=== PATIENT | male | born 1955 | race Caucasian/White ===

== ENCOUNTER 2019-04-26 07:44 | Day surgery (SDC) | payer MEDICARE, OTHER ==
[2019-04-21 14:23] VITALS: BMI 44.0
[~2019-04-26 07:44] MED LIST: ALPRAZolam 0.25 MG TAB PO PRN; ALPRAZolam 0.5 MG TAB PO PRN; ASPIRIN 325 MG TAB PO ONE; ATORVASTATIN 80 MG TAB PO ONE; NITROGLYCERIN SL TABS 0.4 MG TAB SUBLINGUAL PRN; SODIUM CHLORIDE 0.9% 1,000 ML in EMPTY BAG 1 BAG IV ONE
[2019-04-26 08:23] LABS: Glucose,Whole Blood 148 mg/dL (75-99)
[2019-04-26 08:37] VITALS: TEMP 97.6
[2019-04-26] MEDS ORDERED: fentaNYL (PF) 50 MCG/ML 2 ML AMP ONE (09:03)
[2019-04-26] MEDS ORDERED: SODIUM CHLORIDE 0.9% 1,000 ML IV ONE (09:05)
[2019-04-26] MEDS ORDERED: BENZOCAINE SPRAY 1 CAN MUCOUS MEM ONE (09:25)
[2019-04-26] MEDS ORDERED: LIDOCAINE 1% INJ 10MG/ML (20 ML MDV) ONE (09:27)
[2019-04-26] MEDS ORDERED: MIDAZOLAM 2 MG/2 ML VIAL IV ONE (09:28)
[2019-04-26] MEDS ORDERED: LIDOCAINE 1% INJ 10MG/ML (20 ML MDV) SQ ONE (10:12)
[2019-04-26] MEDS ORDERED: IOPAMIDOL-370 50ML BTL INJ ONE (10:36)
[2019-04-26] MEDS ORDERED: IOPAMIDOL-370 125ML BTL INJ ONE (10:37)
--- NOTE | 2019-04-26 10:43 | ECHOT ---
TRANSESOPHAGEAL ECHOCARDIOGRAM INDICATION: Aortic stenosis. PROCEDURE NOTE: After obtaining informed consent, transesophageal echocardiogram is performed in left lateral position using an Omni plane probe. Local and IV sedation were obtained using Xylocaine spray and 3 mg of Versed. Patient tolerated the procedure well without any obvious immediate complications. Patient received moderate conscious sedation. Total sedation time was 15 minutes. FINDINGS: 1. AORTIC VALVE. Aortic valve is a 3-leaflet valve that is heavily calcified with severe restriction in leaflet mobility by planimetry technique and the valve area is at 1 cm2. There is moderate to severe aortic regurgitation noted. 2. Mitral valve shows mild tiny calcification with mild mitral regurgitation. 3. Tricuspid valve shows mild tricuspid regurgitation. There is no evidence of left- to-right shunt by color-flow Doppler or cekif-fe-oeee shunt by agitated saline contrast study. 4. Left ventricle has normal size, shows concentric hypertrophy with normal LV systolic function, with an ejection fraction of 60%. 5. Left atrium appears mildly enlarged. 6. Right atrium and right ventricle seen within normal limits. 7. Aortic root measures within normal limits. 8. There is moderate to severe atherosclerotic plaque involving the aorta. CONCLUSION: Moderate to severe aortic stenosis with a heavily calcified 3 leaflet aortic valve with moderate to severe aortic. MMODL / IJN: [id number] /
[2019-04-26] MEDS ORDERED: RX INFO: IV CONTRAST WAS GIVEN 1 EACH MISC MISCELLANE PRN (11:01)
--- NOTE | 2019-04-26 12:04 | CC ---
CARDIAC CATHETERIZATION REPORT INDICATION: Unstable angina in a patient with aortic stenosis. PROCEDURE NOTE: After obtaining informed consent, left heart catheterization, coronary angiogram and aortogram were performed via the right femoral artery using standard Lonnie catheters. Right coronary artery was engaged using a vernon catheter. Patient has very tortuous iliacs. We used a long sheath and cardiac catheterization was completed uneventfully. Received moderate conscious sedation. Total sedation time was 13 minutes. A femoral angiogram was performed and Angio-Seal was deployed for hemostasis. FINDINGS: 1. HEMODYNAMICS: Central aortic pressure is 120/70 mm. 2. AORTOGRAM: Aortogram shows a dilated ascending aorta with 2 to 3+ aortic regurgitation. 3. ANGIOGRAPHIC DATA: LEFT MAIN CORONARY ARTERY: Left main coronary artery is a normal-sized vessel and is free of stenosis. Divides into left anterior descending coronary artery and circumflex coronary artery. Left anterior descending coronary artery was previously stented and the stent appears patent. There is a large caliber diagonal branch that shows an 80%-90% stenosis, which seemed to have gotten worse from the prior cardiac catheterization. Circumflex coronary artery gives off OM1 and OM2. The ostial portion of both of these vessels are stenosed. The OM1 has an 80%-90% ostial stenosis, OM2 has a 70%-80%. ]These lesions have remained unchanged. Right coronary artery is a large dominant vessel that shows mild atherosclerotic plaque in the proximal part. CONCLUSION: 1. [place] 3 vessel coronary artery disease with patent stent within the proximal left anterior descending artery. 2. Significant lesions within the diagonal OM1 and OM2, 2 to 3+ aortic regurgitation and moderate to severe aortic stenosis. PLAN: I am going to treat the patient's CAD with optimal medical therapy, have a cardiothoracic surgeon evaluate the patient for aortic valve replacement with revascularization. MMODL / IJN: [id number] /
[2019-04-26 13:25] VITALS: BP 155/73; PULSE 80; RESP 16
[2019-04-26] MEDS ORDERED: GABAPENTIN 400 MG CAP PO SCH (16:00)
[2019-04-26] MEDS ORDERED: APIXABAN 5 MG TAB PO SCH (21:00)
[2019-04-27] MEDS ORDERED: PRAVASTATIN SODIUM 40 MG TAB PO SCH (09:00)
[2019-04-27] MEDS ORDERED: ASPIRIN 81 MG PO SCH (09:00)
[2019-04-27] MEDS ORDERED: FENOFIBRATE 160 MG TAB PO SCH (09:00)
[2019-04-27] MEDS ORDERED: lamoTRIgine 25 MG TAB PO SCH (09:00)
[2019-04-27] MEDS ORDERED: NON FORMULARY DRUG (Biotin [Biotin] 10,000 MCG) PO SCH (09:00)
[2019-04-27] MEDS ORDERED: LISINOPRIL 5 MG TAB PO SCH (09:00)
[2019-04-27] MEDS ORDERED: DULoxetine HCL 30 MG CAPSULE.DR PO SCH (09:00)
[2019-04-27] MEDS ORDERED: TAMSULOSIN 0.4 MG CAP.ER.24H PO SCH (09:00)
[2019-04-27] MEDS ORDERED: CYANOCOBALAMIN 500 MCG TAB PO SCH (09:00)
[2019-04-27] MEDS ORDERED: CHOLECALCIFEROL 1,000 UNIT TAB PO SCH (09:00)
[2019-04-28] MEDS ORDERED: METFORMIN HCL 1000 MG PO SCH (07:30)
--- NOTE | 2019-04-28 16:56 | CDI ---
Outpatient Documentation Clarification Form Date: 04/28/19 CDS.Dental Laboratory Assistant Name: Sagrario Dial Phone: If you have any question, call Rachael Aguillon [employer] Salesperson at [phone] Patient name: Martita Levine Admit Date: 04/26/19 Discharge Date: 04/26/19 ATTENTION: The [facility] Coding Staff appreciate your assistance in clarifying documentation. Please respond to this clarification below the line at the bottom and electronically sign. The [facility] Coding Staff will review the response and follow-up if needed. Please note: Queries are made part of the Legal Health Record. If you have any questions, please contact the [employer] Salesperson. Dear Dr. Palacios Please provide clarification as to the complete test that was provided. There is documentation to support the 2-d echocardiography portion and the color flow velocity mapping. I do not see any documentation to support the pulse wave with spectral display. Please clarify. Thank you for you kind consideration, ___ MTDD
== END 2019-04-26 15:55 | disposition home or self-care (01) ==
LOC: CATHCVL 07:44
PROVIDERS: ATTEND Internal Medicine Cardiovascular Disease
DX: I08.3 Combined rheumatic disorders of mitral, aortic and tricuspid valves (principal); I70.0 Atherosclerosis of aorta; I25.110 Atherosclerotic heart disease of native coronary artery with unstable angina pectoris; I10 Essential (primary) hypertension; E78.2 Mixed hyperlipidemia; E11.9 Type 2 diabetes mellitus without complications; Z86.73 Personal history of transient ischemic attack (TIA), and cerebral infarction without residual deficits; Z79.01 Long term (current) use of anticoagulants; Z79.84 Long term (current) use of oral hypoglycemic drugs; Z79.82 Long term (current) use of aspirin; Z79.899 Other long term (current) drug therapy; Z88.8 Allergy status to other drugs, medicaments and biological substances
CPT/HCPCS: 93312; 93325; 93454; 93567; C1760; C1769 ×2; C1894 ×2; J2250; J2001; Q9967 ×2; 93320

== ENCOUNTER → 2019-05-31 | Outpatient (CLI) | payer MEDICARE, OTHER ==
[2019-05-31 09:49] LABS: HCT 47.2 % (39.0-53.0); HGB 15.5 gm/dL (13.0-17.5); MCH 30.8 pg (25.0-35.0); MCHC 32.9 g/dL (31.0-37.0); MCV 93.7 fL (80.0-100.0); Mean Platelet Volume 7.6; Platelet Count 232 k/uL (150-450); RBC 5.04 m/uL (4.30-5.90); RDW 13.5 % (11.5-15.5); WBC 7.1 k/uL (3.8-10.6)
[2019-05-31 09:53] LABS: ALT 47 U/L (21-72); AST 28 U/L (17-59); African American GFR (CKD) >90 (>60 ml/min/1.73 sqM); Albumin 4.1 g/dL (3.5-5.0); Alkaline Phosphatase 52 U/L (38-126); Anion Gap 8 mmol/L; Blood Urea Nitrogen 19 mg/dL (9-20); Carbon Dioxide 28 mmol/L (22-30); Chloride 104 mmol/L (98-107); Cholesterol 126 mg/dL (<200); Glucose 182 mg/dL (74-99); HDL Cholesterol 37 mg/dL (40-60); LDL Cholesterol,Calculated 63 mg/dL (0-99); Magnesium 1.7 mg/dL (1.6-2.3); Non-African American GFR(CKD) 82 (>60 ml/min/1.73 sqM); Potassium 4.8 mmol/L (3.5-5.1); Sodium 140 mmol/L (137-145); Total Bilirubin 0.4 mg/dL (0.2-1.3); Total Protein 6.6 g/dL (6.3-8.2); Triglycerides 132 mg/dL (<150)
[2019-05-31 09:57] LABS: INR 0.9 (<1.2); Prothrombin Time 10.2 sec (9.0-12.0)
[2019-05-31 10:01] LABS: Appearance,Urine Cloudy (Clear); Bilirubin,Urine Negative (Negative); Blood,Urine Negative (Negative); Calcium Oxalate Crystals,Urine Many /hpf; Color,Urine Yellow; Glucose,Urine (UA) 2+ (Negative); Ketones,Urine Trace (Negative); Leukocyte Esterase,Urine Trace (Negative); Mucus,Urine Occasional /hpf; Nitrite,Urine Negative (Negative); Protein,Urine Trace (Negative); RBC,Urine 3 /hpf (0-5); Specific Gravity,Urine 1.028 (1.001-1.035); Squamous Epithelial Cell,Urine <1 /hpf (0-4); WBC,Urine 4 /hpf (0-5)
--- NOTE | 2019-05-31 10:41 | P.PN ---
Progress Note - Text Progress Note Date: 05/31/19 5 meter walk test completed: #1 4.88 sec #2 5.13 sec #3 5.53 sec
--- NOTE | 2019-05-31 13:54 | US ---
EXAMINATION TYPE: US carotid duplex BILAT DATE OF EXAM: 05/31/2019 COMPARISON: NONE CLINICAL HISTORY: open heart. Pre CABG/ aortic valve replacement; diabetic EXAM MEASUREMENTS: RIGHT: Peak Systolic Velocity (PSV) cm/sec ----- Right CCA: 71.6 ----- Right ICA: 110.9 ----- Right ECA: 145.1 ICA/CCA ratio: 1.5 RIGHT: End Diastole cm/sec ----- Right CCA: 19.5 ----- Right ICA: 33.2 ----- Right ECA: 26.8 LEFT: Peak Systolic Velocity (PSV) cm/sec ----- Left CCA: 82.2 ----- Left ICA: 85.4 ----- Left ECA: 135.3 ICA/CCA ratio: 1.0 LEFT: End Diastole cm/sec ----- Left CCA: 19.3 ----- Left ICA: 15.9 ----- Left ECA: 22.9 VERTEBRALS (direction of flow): Right Vertebral: Antegrade Left Vertebral: Antegrade Rhythm: Normal . Grayscale images show severe plaque noted in the bilateral carotid bulbs. Velocity measurements and ratios remain within normal limits but findings are suspicious. IMPRESSION: Severe plaque bilateral carotid bulb level, cannot exclude stenosis greater than 50%, f urther investigation with CTA or MRA of the neck is advised. Criteria for Assigning % of Stenosis / Diameter reduction (Estimation based on the indirect measurements of the internal carotid artery velocities (ICA PSV). 1. Normal (no stenosis)=ICA PSV < 125 cm/s: ratio < 2.0: ICA EDV<40 cm/s. 2. Less than 50% stenosis=ICA PSV < 125 cm/s: ratio < 2.0: ICA EDV<40 cm/s. 3. 50 to 69% stenosis=ICA PSV of 125 to 230 cm/s: ration 2.0 ? 4.0: ICA EDV 40-100 cm/s. 4. Greater than 70% stenosis to near occlusion= ICA PSV > 230 cm/s: ratio > 4.0: ICA EDV > 100 cm/s. 5. Near occlusion= ICA PSV velocities may be low or undetectable: variable ratio and ICA EDV. 6. Total occlusion=unable to detect flow.
--- NOTE | 2019-05-31 15:13 | XR ---
EXAMINATION TYPE: XR chest 2V DATE OF EXAM: 05/31/2019 COMPARISON: 06/03/2016 HISTORY: 63-year-old male preopen heart surgery TECHNIQUE: Frontal and lateral views FINDINGS: Heart mildly enlarged. Diffuse interstitial prominence is a chronic appearance. No consolidation or p leural effusion. IMPRESSION: Mild cardiomegaly and chronic appearing changes. No acute process seen.
[2019-05-31 20:44] LABS: Hepatitis A Antibody IgM Non-Reactive (Non-Reactive); Hepatitis B Core IgM Non-Reactive (Non-Reactive); Hepatitis B Surface Antigen Non-Reactive (Non-Reactive); Hepatitis C IgG Antibody Non-Reactive (Non-Reactive)
[2019-05-31 22:14] LABS: Hemoglobin A1C 6.7 % (4.0-6.0)
--- NOTE | 2019-06-01 08:53 | P.ARTDOP ---
Arterial Doppler LOWER EXTREMITY ARTERIAL DOPPLER: DATE OF SERVICE: 05/31/2019 Reason for study: Pre-CABG. Doppler waveforms: Multiphasic bilaterally throughout. Pulse volume recording: []. Pressure gradients: None. Ankle-brachial indices: Greater than 1 bilaterally. Toe pressures: [] on the right, [] on the left Impression: Normal study.
--- NOTE | 2019-06-01 08:56 | P.VSCSTY ---
Greater Saphenous Vein Mapping This is bilateral lower extremity greater saphenous vein mapping. Date of service: 05/31/2019 Vein quality and ultrasound appearance: No wall changes or endoluminal thrombus are seen. Vein size groin right : 1 x 6.7 groin left: 9.1 x 6.0 High thigh right: 6.3 x 3.7 high thigh left: 5.6 x 4.7 Mid thigh right: 4.6 x 3.5 mid thigh left: 4.7 x 4.0 Above-knee right: 3.7 x 2.8 above- knee left: 3.9 x 2.5 Below knee right: 2.1 x 1.4 below-knee left: 4.0 by 3.0 Mid calf right: 3.5 x 2.0 mid calf left: 2.6 x 2 Ankle right: 3.3 x 2.3 ankle left: 2.6 x 2.4 Impression: Usable bilateral greater saphenous vein. Left more consistent on the right..
== END | disposition home or self-care (01) ==
LOC: LABWHC1 08:54
PROVIDERS: ATTEND Thoracic Surgery (Cardiothoracic Vascular Surgery)
DX: Z01.818 Encounter for other preprocedural examination (principal); Z01.812 Encounter for preprocedural laboratory examination; Z01.810 Encounter for preprocedural cardiovascular examination; I51.7 Cardiomegaly; I65.23 Occlusion and stenosis of bilateral carotid arteries; I25.10 Atherosclerotic heart disease of native coronary artery without angina pectoris; E11.9 Type 2 diabetes mellitus without complications; D68.2 Hereditary deficiency of other clotting factors; Z79.899 Other long term (current) drug therapy
CPT/HCPCS: 71046; 80053; 80061; 80074; 81001; 83036; 83735; 84443; 85027; 85610; 85730; 87070; 87086; 93005; 93880; 93922; 93970; 94150

== ENCOUNTER 2019-06-02 05:36 | Inpatient (IN) | payer MEDICARE, OTHER ==
[~2019-06-02 05:36] MED LIST changes: +ALBUMIN HUMAN 25% 50 ML IV ONE; +ALBUMIN HUMAN 5% 500 ML IVPB ONE; -ALPRAZolam 0.25 MG TAB PO PRN; -ALPRAZolam 0.5 MG TAB PO PRN; +ATORVASTATIN 10 MG TAB PO ONE; -ATORVASTATIN 80 MG TAB PO ONE; +CALCIUM CHLORIDE 100 MG/ML 10 ML SYRINGE IV ONE; +CARDIOPLEGIC SOLN (K+ 16 MEQ/L 1,000 ML with SODIUM BICARB (1 MEQ/ML) 20 ML, LIDOCAINE ... PERFUSION ONE; +CHLORHEXIDINE GLUCONATE 15 ML CUP MUCOUS MEM ONE; +CLEVIDIPINE BUTYRATE 25 MG in EMPTY BAG 1 BAG IV ONE; +EPINEPHrine 4 MG in DEXTROSE 5% IN WATER 250 ML IV SCH; +HEPARIN SODIUM 1,000 UN/ML (10ML VL) IV ONE; +HEPARIN SODIUM,PORCINE 5,000 UNIT in SODIUM CHLORIDE 0.9% 500 ML 500 ML IV ONE; +INSULIN REGULAR 100 UNIT in SODIUM CHLORIDE 0.9% 100 ML IV ONE; +LACTATED RINGERS 1,000 ML IV ONE; +MAGNESIUM SULFATE MG 500 MG/ML IV ONE; +MANNITOL 25% 12.5 GM/50 ML VIAL IV ONE; +METOPROLOL TARTRATE 12.5 MG TAB PO ONE; -NITROGLYCERIN SL TABS 0.4 MG TAB SUBLINGUAL PRN; +NITROGLYCERIN-D5W PMX 25 MG/250 ML BTL IV ONE; +NOREPINEPHRINE 4 MG in SODIUM CHLORIDE 0.9% 250 ML IV ONE; +PAPAVERINE 360 MG in SODIUM CHLORIDE 0.9% 90 ML IV ONE; +PHENYLEPHRINE 10 MG/ML VIAL IV ONE; +PHENYLEPHRINE 40 MG in SODIUM CHLORIDE 0.9% 250 ML IV ONE; +PROPOFOL 1,000 MG/100 ML VIAL IV ONE; +PROTAMINE SULFATE 10 MG/ML 25 ML VIAL IV ONE; +PROTAMINE SULFATE 250 MG in EMPTY BAG 1 BAG IV ONE; +SODIUM BICARB 8.4% 50 ML SYR (1 MEQ/ML) IV ONE; +SODIUM CHLORIDE 0.9% 1,000 ML IV ONE; -SODIUM CHLORIDE 0.9% 1,000 ML in EMPTY BAG 1 BAG IV ONE; +TRANEXAMIC ACID 2,000 MG in SODIUM CHLORIDE 0.9% 80 ML IV ONE; +ceFAZolin 1,000 MG in SODIUM CHLORIDE 0.9% IRRIGATIO 1,000 ML IRRIGATION ONE; +ceFAZolin 2,000 MG in SODIUM CHLORIDE 0.9% 30 ML IVPB ONE; +ceFAZolin 3 GM in SODIUM CHLORIDE 0.9% 30 ML IVPB ONE
[2019-06-02] MEDS ORDERED: TRANEXAMIC ACID 2,000 MG in SODIUM CHLORIDE 0.9% 80 ML IV ONE (06:00)
[2019-06-02] MEDS ORDERED: MUPIROCIN 2% OINT 22 GM TUBE NASAL ONE (06:00)
[2019-06-02] MEDS ORDERED: LIDOCAINE 1% 20 ML VIAL (10MG/ML) FOR IV START INTRADERMA ONE (06:34)
[2019-06-02 06:44] LABS: Glucose,Whole Blood 128 mg/dL (75-99)
[2019-06-02] MEDS ORDERED: SODIUM BICARB 8.4% 50 ML SYR (1 MEQ/ML) ONE (07:38)
[2019-06-02] MEDS ORDERED: MIDAZOLAM 2 MG/2 ML VIAL ONE (07:38)
[2019-06-02] MEDS ORDERED: NITROGLYCERIN-D5W PMX 50 MG/250 ML BOTTLE IV ONE (07:38)
[2019-06-02] MEDS ORDERED: INSULIN REGULAR 100 UNIT/ML VIAL ONE (07:38)
[2019-06-02] MEDS ORDERED: CALCIUM CHLORIDE 100 MG/ML 10 ML SYRINGE ONE (07:38)
[2019-06-02] MEDS ORDERED: fentaNYL (PF) 50 MCG/ML 2 ML AMP ONE (07:38)
[2019-06-02] MEDS ORDERED: HEPARIN SODIUM,PORCINE 10,000 UNIT/ML 1 ML VIAL ONE (07:38)
[2019-06-02] MEDS ORDERED: PROTAMINE SULFATE 10 MG/ML 25 ML VIAL IV ONE (07:38)
[2019-06-02] MEDS ORDERED: PROPOFOL 10 MG/ML 20 ML VIAL IV ONE (07:38)
[2019-06-02] MEDS ORDERED: ePHEDrine SULFATE/0.9% NACL/PF 50 MG/5 ML SYRINGE IV ONE (07:38)
[2019-06-02] MEDS ORDERED: TRANEXAMIC ACID 1,000 MG/10 ML VIAL ONE (07:38)
[2019-06-02] MEDS ORDERED: LIDOCAINE 2% SYG (PF) 100 MG/5 ML ONE (07:38)
[2019-06-02] MEDS ORDERED: fentaNYL (PF) 50 MCG/ML 50 ML VIAL ONE (07:38)
[2019-06-02] MEDS ORDERED: VECURONIUM 10 MG VIAL IV ONE (07:38)
[2019-06-02] MEDS ORDERED: SODIUM CHLORIDE 0.9% 250 ML BAG ONE (07:38)
[2019-06-02] MEDS ORDERED: ALBUMIN HUMAN 5% (25gm) 500 ML VIAL IVPB ONE (07:38)
[2019-06-02] MEDS ORDERED: SUCCINYLCHOLINE CHLORIDE VIAL 200 MG/10 ML VIAL IV ONE (07:38)
[2019-06-02] MEDS ORDERED: ELECTROLYTE-R (PH 7.4) 1,000 ML IV.SOLN IV ONE (07:58)
[2019-06-02] MEDS ORDERED: SODIUM CHLORIDE 0.9% IRRIG 1,000 ML BTL IRRIGATION ONE (07:58)
[2019-06-02 08:35] LABS: ABG Base Excess -0.2 mmol/L; ABG Glucose Whole Blood 128 mg/dL (75-99); ABG HCO3 25 mmol/L (21-25); ABG Hematocrit 46 % (34.0-46.0); ABG Ionized Calcium 4.9 mg/dL (4.5-5.3); ABG Oxygen Saturation 99.3 % (94-97); ABG PCO2 44 mmHg (35-45); ABG PH 7.37 (7.35-7.45); ABG PO2 152 mmHg (83-108); ABG Potassium Whole Blood 4.3 mmol/L (3.4-4.5); ABG Sodium Whole Blood 141 mmol/L (135-146); ABG TCO2 27 mmol/L (19-24)
[2019-06-02 10:49] LABS: ABG Base Excess -1.1 mmol/L; ABG Glucose Whole Blood 183 mg/dL (75-99); ABG HCO3 24 mmol/L (21-25); ABG Hematocrit 42 % (34.0-46.0); ABG Ionized Calcium 4.7 mg/dL (4.5-5.3); ABG Oxygen Saturation 99.7 % (94-97); ABG PCO2 40 mmHg (35-45); ABG PH 7.39 (7.35-7.45); ABG PO2 186 mmHg (83-108); ABG Sodium Whole Blood 140 mmol/L (135-146); ABG TCO2 25 mmol/L (19-24)
[2019-06-02 11:33] LABS: ABG Base Excess -2.5 mmol/L; ABG Glucose Whole Blood 159 mg/dL (75-99); ABG HCO3 24 mmol/L (21-25); ABG Hematocrit 32 % (34.0-46.0); ABG Ionized Calcium 4.6 mg/dL (4.5-5.3); ABG Oxygen Saturation 99.9 % (94-97); ABG PCO2 48 mmHg (35-45); ABG PH 7.31 (7.35-7.45); ABG PO2 320 mmHg (83-108); ABG Potassium Whole Blood 4.1 mmol/L (3.4-4.5); ABG Sodium Whole Blood 137 mmol/L (135-146); ABG TCO2 25 mmol/L (19-24)
[2019-06-02 12:00] LABS: ABG Base Excess -2.9 mmol/L; ABG Glucose Whole Blood 143 mg/dL (75-99); ABG HCO3 23 mmol/L (21-25); ABG Hematocrit 33 % (34.0-46.0); ABG Ionized Calcium 4.7 mg/dL (4.5-5.3); ABG Oxygen Saturation 99.1 % (94-97); ABG PCO2 45 mmHg (35-45); ABG PH 7.32 (7.35-7.45); ABG PO2 115 mmHg (83-108); ABG Potassium Whole Blood 4.2 mmol/L (3.4-4.5); ABG Sodium Whole Blood 138 mmol/L (135-146); ABG TCO2 25 mmol/L (19-24)
[2019-06-02 12:15] LABS: ABG Glucose Whole Blood 141 mg/dL (75-99); ABG HCO3 23 mmol/L (21-25); ABG Hematocrit 33 % (34.0-46.0); ABG Ionized Calcium 4.7 mg/dL (4.5-5.3); ABG Oxygen Saturation 99.7 % (94-97); ABG PCO2 44 mmHg (35-45); ABG PH 7.33 (7.35-7.45); ABG PO2 239 mmHg (83-108); ABG Potassium Whole Blood 4.1 mmol/L (3.4-4.5); ABG Sodium Whole Blood 139 mmol/L (135-146); ABG TCO2 24 mmol/L (19-24)
[2019-06-02 12:48] LABS: ABG Base Excess -2.5 mmol/L; ABG Glucose Whole Blood 124 mg/dL (75-99); ABG HCO3 23 mmol/L (21-25); ABG Hematocrit 31 % (34.0-46.0); ABG Ionized Calcium 4.6 mg/dL (4.5-5.3); ABG PCO2 43 mmHg (35-45); ABG PH 7.34 (7.35-7.45); ABG PO2 298 mmHg (83-108); ABG Potassium Whole Blood 4.1 mmol/L (3.4-4.5); ABG Sodium Whole Blood 137 mmol/L (135-146); ABG TCO2 25 mmol/L (19-24)
[2019-06-02 13:20] LABS: ABG Base Excess -2.9 mmol/L; ABG Glucose Whole Blood 124 mg/dL (75-99); ABG HCO3 23 mmol/L (21-25); ABG Hematocrit 31 % (34.0-46.0); ABG Ionized Calcium 4.6 mg/dL (4.5-5.3); ABG Oxygen Saturation 99.8 % (94-97); ABG PCO2 45 mmHg (35-45); ABG PH 7.32 (7.35-7.45); ABG PO2 289 mmHg (83-108); ABG Potassium Whole Blood 4.4 mmol/L (3.4-4.5); ABG Sodium Whole Blood 137 mmol/L (135-146); ABG TCO2 25 mmol/L (19-24)
[2019-06-02 13:44] LABS: ABG Base Excess -3.5 mmol/L; ABG Glucose Whole Blood 130 mg/dL (75-99); ABG HCO3 23 mmol/L (21-25); ABG Hematocrit 32 % (34.0-46.0); ABG Ionized Calcium 4.6 mg/dL (4.5-5.3); ABG Oxygen Saturation 99.6 % (94-97); ABG PCO2 45 mmHg (35-45); ABG PH 7.31 (7.35-7.45); ABG PO2 220 mmHg (83-108); ABG Potassium Whole Blood 4.5 mmol/L (3.4-4.5); ABG Sodium Whole Blood 138 mmol/L (135-146); ABG TCO2 24 mmol/L (19-24)
[2019-06-02 14:56] LABS: ABG Base Excess -2.2 mmol/L; ABG Glucose Whole Blood 115 mg/dL (75-99); ABG HCO3 23 mmol/L (21-25); ABG Hematocrit 36 % (34.0-46.0); ABG Ionized Calcium 5.6 mg/dL (4.5-5.3); ABG Oxygen Saturation 99.8 % (94-97); ABG PCO2 38 mmHg (35-45); ABG PH 7.38 (7.35-7.45); ABG PO2 269 mmHg (83-108); ABG Potassium Whole Blood 4.1 mmol/L (3.4-4.5); ABG Sodium Whole Blood 140 mmol/L (135-146); ABG TCO2 24 mmol/L (19-24)
[2019-06-02 15:09] LABS: ABG Lactic Acid Whole Blood 2.2 mmol/L (0.5-1.6)
[2019-06-02 15:09] LABS: ABG Lactic Acid Whole Blood 2.1 mmol/L (0.5-1.6)
[2019-06-02 15:10] LABS: ABG Lactic Acid Whole Blood 2.6 mmol/L (0.5-1.6)
[2019-06-02 15:10] LABS: ABG Lactic Acid Whole Blood 2.9 mmol/L (0.5-1.6)
[2019-06-02 15:11] LABS: ABG Lactic Acid Whole Blood 3.7 mmol/L (0.5-1.6)
[2019-06-02 15:11] LABS: ABG Lactic Acid Whole Blood 3.2 mmol/L (0.5-1.6)
--- NOTE | 2019-06-02 15:59 | P.OP ---
Date of Procedure: 06/02/19 Preoperative Diagnosis: Aortic valve stenosis, coronary artery disease Postoperative Diagnosis: Same Procedure(s) Performed: Aortic valve replacement with 25 mm Inspiris bovine pericardial valve, coronary artery bypass grafting 3 with LIM to LAD, saphenous vein graft to first diagonal, saphenous vein graft to first obtuse marginal with endovascular vein harvest and epi-aortic ultrasonography, ligation left atrial appendage with 35 mm AtriClip Implants: 25 mm Inspiris bovine pericardial valve, 35 mm AtriClip Anesthesia: GETA Surgeon: Ritchie Magallanes Sprinkler Installer #1: Chace Mackenzie Sprinkler Installer #2: Jesse Herrera Estimated Blood Loss (ml): 200 IV fluids (ml): 2,500 Urine output (ml): 500 Pathology: other (Aortic valve) Condition: stable Disposition: ICU Indications for Procedure: 63-year-old male presents with progressive dyspnea, found to have severe aortic valve stenosis as well as coronary artery disease aortic valve and grafts was recommended. Operative Findings: Coronary arteries were relatively small and diffusely diseased in places. The LAD was particularly diseased. The left ventricle was quite enlarged although ventricular function was good. The aortic valve was tricuspid and calcific. The ascending aorta was relatively normal. Final GULSHAN demonstrated no paravalvular leak. Ventricular function was good. Description of Procedure: Patient was brought to the operating room, placed supine on the operating table, anesthetized and intubated. Monitoring lines been placed in preoperative hold. The anterior torso and lower extremities were sterilely prepped and draped after placing a Torres catheter. GULSHAN probe was placed. The timeout was performed. Saphenous vein was harvested from the left lower extremity from mid calf to groin. This was of adequate quality. The upper thigh vein was larger and the mid side to high calf vein was smaller but still of reasonable size. We used a shorter high thigh piece to graft the diagonal and the longer lower side of a high calf piece for the obtuse marginal. Simultaneous sternotomy was performed and a left hemisternum retracted upwards. The left internal mammary artery was harvested on a vascularized pedicle left intact on its origin from the subclavian and divided distally. It was an excellent conduit. The left pleural space was drained with 32-[place] chest tube. Standard sternal retractor was placed. Care pericardium was opened in the midline and the heart exposed pericardial sutures. Patient was systemically heparinized. Epi-aortic ultrasonography demonstrated no obvious atherosclerotic disease in the ascending aorta. Patient was cannulated for cardiopulmonary bypass with a 24 Fr soft flow cannula in the distal ascending aorta and a two-stage venous cannula through the right atrial appendage into the inferior vena cava. Antegrade and retrograde cardioplegia lines were placed in standard fashion. The patient was placed on cardioplegia bypass and stabilized. Left atrial appendage was exposed and the 35 mm AtriCure clip was applied to the base of the left atrial appendage. Coronary targets were identified and marked. The aorta was crossclamped and the heart was arrested with a liter of cold crystalloid antegrade cardioplegia followed by retrograde cardioplegia. The diagonal was grafted first. The diagonal was opened and was 1.5 mm vessel saphenous vein was anastomosed in end-to-side fashion with running 7-0 Prolene suture at completion anastomosis it was probed and noted to be patent. Suture was tied with good result and hemostasis. It was flushed with cold blood cardioplegia and noted to flow well. The vein was cut to appropriate length to reach the ascending aorta. Next lateral wall was exposed the first obtuse marginal branch was opened. It was 1.5 mm vessel. The saphenous vein was anastomosed in end-to-side fashion with running 7-0 Prolene suture. On completion the anastomosis was probed and noted to be patent. Suture was tied with good result and hemostasis. Cold blood cardioplegia flushed well. Vein was cut to appropriately to reach the ascending aorta the LAD was now opened just beyond the takeoff of the second diagonal branch. Here was a 1.5 mm vessel with diffuse disease present. LIM was anastomosed in end-to-side fashion with running suture. The anastomosis was probed with a 1.5 mm probe and noted be patent. Suture was tied and the LORENZO pedicle was tacked surrounding epicardium with 6-0 silk. Inflow through the LIM remained occluded at this point. Second dose of antegrade cardioplegia was now given. The aorta was opened transversely and the aortic valve exposed. It was tricuspid calcific aortic valve. The valve leaflets were excised. The annulus was decalcified. Copious irrigation was performed and care was taken not to have any extraneous debris escape. 3 commissural pledgeted sutures were placed with pledgets on the ventricular side. The valve was now size. A 25 mm Werner Inspiris bovine pericardial valve was brought up on the field. The remaining valve sutures were placed with again the pledgets on the ventricular side. Once the valve sutures and all been placed in the annulus there were passed through the sewing ring of the valve the valve was seated without difficulty. Sutures were tied and cut and the valve was noted to seat well. We again copiously irrigated and then closed the aorta with a 2 layer running closure of 4-0 Prolene. On completion of the aortic closure a 4 mm punch hole was created in the ascending aorta and a proximal anastomosis to the large diagonal vein was performed with running 7-0 Prolene suture. Because of limited space on the aorta and the relative slight size discrepancy between the diagonal vein and the major marginal vein it was decided to jump the major marginal vein which was smaller off the larger diagonal vein and save some cross-clamp time. The patient was placed in steep Trendelenburg. Left atrial vent had been placed through the right superior pulmonary vein was now removed and the pursestring suture tied with good result and hemostasis. Cross-clamp was then removed. Atrial and ventricular pacing wires were placed. A retrograde cardioplegia line was removed. Bulldog clamps were placed proximally and distally on the diagonal vein and it was opened longitudinally. The bulldog clamp was taken off the LIM and the inflow to the LIM was opened. The major marginal vein was jumped off the diagonal vein with a side to end anastomosis of running 7-0 Prolene suture. On completion of this vein grafts were de-aired and the inflow open. Distal anastomoses were checked and noted to be hemostatic. Heparin was reversed with protamine. The patient was decannulated in standard fashion. The aortic cannulation sites were reinforced with 40 pledgeted Prolene suture. Once good hemostasis in been assured the chest was irrigated with antibiotic solution. The mediastinum was drained with 236-[place] chest tubes. Sternum was closed with 4 sternal wires and 3 cable plates. An auxilliary plate was used in the manubrium and 2 box plates in the upper sternal body. The sternum was securely closed the fascia was closed with 0 Ethibond. This subcutaneous and subcuticular layers with layers of Vicryl suture. Dry sterile dressings were applied and the patient was transferred to CV ICU in stable hemodynamic condition in normal sinus rhythm on no inotropic support and having received no transfusions.
[2019-06-02 16:08] LABS: Glucose,Whole Blood 108 mg/dL (75-99)
[2019-06-02] MEDS ORDERED: CALCIUM GLUCONATE 2 GM in SODIUM CHLORIDE 0.9% 100 ML IVPB PRN (16:11)
[2019-06-02] MEDS ORDERED: Potassium Replacement Protocol 1 EACH MISC MISCELLANE PRN (16:11)
[2019-06-02] MEDS ORDERED: ALBUMIN HUMAN 5% 250 ML in EMPTY BAG 1 BAG IVPB PRN (16:11)
[2019-06-02] MEDS ORDERED: IPRATROPIUM-ALBUTEROL 3 ML NEB INHALATION PRN (16:11)
[2019-06-02] MEDS ORDERED: ONDANSETRON 4 MG/2 ML VIAL IVP PRN (16:11)
[2019-06-02] MEDS ORDERED: DEXTROSE 5% IN WATER 100 ML with AMIODARONE 150 MG IV PRN (16:11)
[2019-06-02] MEDS ORDERED: METOCLOPRAMIDE 5 MG/ML 2 ML VIAL IVP PRN (16:11)
[2019-06-02] MEDS ORDERED: PROPOFOL 1,000 MG in EMPTY BAG 1 BAG IV SCH (16:11)
[2019-06-02] MEDS ORDERED: BENZOCAINE/MENTHOL LOZENG 1 EACH LOZENGE MUCOUS MEM PRN (16:11)
[2019-06-02] MEDS ORDERED: AMIODARONE 360 MG in DEXTROSE 5% IN WATER 200 ML IV PRN ×2 (16:11)
[2019-06-02] MEDS ORDERED: Phosphorus Replacement Protoco 1 EACH MISC MISCELLANE PRN (16:11)
[2019-06-02] MEDS ORDERED: Magnesium Replacement Protocol 1 EACH MISC MISCELLANE PRN (16:11)
[2019-06-02] MEDS ORDERED: AMIODARONE 300 MG in DEXTROSE 5% IN WATER 250 ML IV PRN ×2 (16:11)
[2019-06-02 16:30] LABS: ABG Base Excess -1.4 mmol/L; ABG HCO3 25 mmol/L (21-25); ABG Oxygen Saturation 99.7 % (94-97); ABG PCO2 47 mmHg (35-45); ABG PH 7.33 (7.35-7.45); ABG PO2 263 mmHg (83-108); ABG TCO2 26 mmol/L (19-24); Allen Test Performed? Yes
--- NOTE | 2019-06-02 16:36 | XR ---
EXAMINATION TYPE: XR chest 1V portable DATE OF EXAM: 06/02/2019 COMPARISON: 05/31/2019 INDICATION: Post Op cardiac surgery TECHNIQUE: Single frontal view of the chest is obtained. FINDINGS: The heart size is enlarged. The pulmonary vasculature is normal. Trachea is in the left medial upper lobe. Left-sided chest tube is present. No pneumothorax is eviden t. Left basilar infiltrate is present. Mediastinal tube is present. [place] catheter is present, ti p appears to be within the left main pulmonary artery region. Endotracheal tube and nasogastric tube appear appropriate. IMPRESSION: 1. Left upper and left lower lobe infiltrates. 2. Multiple lines and catheters discussed above. 3. Correlate with the [place] waveform.
[2019-06-02] MEDS: IPRATROPIUM-ALBUTEROL 3 ML NEB INHALATION SCH ×3 (16:43→20:03)
[2019-06-02 16:47] LABS: Allen Test Performed? Yes
[2019-06-02 16:53] LABS: Ionized Calcium 5.3 mg/dL (4.5-5.3)
[2019-06-02 16:54] LABS: Basophils % (A) 0 %; Eosinophils % (A) 0 %; HCT 34.8 % (39.0-53.0); Lymphocytes # (A) 1.3 k/uL (1.0-4.8); Lymphocytes % (A) 11 %; MCH 31.2 pg (25.0-35.0); MCHC 33.7 g/dL (31.0-37.0); MCV 92.5 fL (80.0-100.0); Mean Platelet Volume 8.2; Monocytes # (A) 0.6 k/uL (0-1.0); Monocytes % (A) 5 %; Neutrophils # (A) 9.6 k/uL (1.3-7.7); Neutrophils % (A) 82 %; Platelet Count 139 k/uL (150-450); RBC 3.77 m/uL (4.30-5.90); RDW 13.7 % (11.5-15.5); WBC 11.6 k/uL (3.8-10.6)
[2019-06-02] MEDS: CLEVIDIPINE BUTYRATE 25 MG in EMPTY BAG 1 BAG IV SCH ×2 (16:56→17:00)
[2019-06-02] MEDS ORDERED: hydrALAZINE HCL 20 MG/ML 1 ML VIAL IVP PRN (17:00)
[2019-06-02 17:01] LABS: INR 1.1 (<1.2); Prothrombin Time 11.3 sec (9.0-12.0)
[2019-06-02 17:02] LABS: ALT 46 U/L (21-72); AST 42 U/L (17-59); African American GFR (CKD) >90 (>60 ml/min/1.73 sqM); Albumin 3.3 g/dL (3.5-5.0); Alkaline Phosphatase 32 U/L (38-126); Anion Gap 8 mmol/L; Blood Urea Nitrogen 18 mg/dL (9-20); Carbon Dioxide 23 mmol/L (22-30); Chloride 109 mmol/L (98-107); Glucose 109 mg/dL (74-99); Magnesium 3.4 mg/dL (1.6-2.3); Non-African American GFR(CKD) 81 (>60 ml/min/1.73 sqM); Potassium 4.8 mmol/L (3.5-5.1); Sodium 140 mmol/L (137-145); Total Bilirubin 0.7 mg/dL (0.2-1.3); Total Protein 5.2 g/dL (6.3-8.2)
[2019-06-02 17:02] LABS: HGB 11.7 gm/dL (13.0-17.5)
[2019-06-02 17:03] LABS: Partial Thromboplastin Time 21.5 sec (22.0-30.0)
[2019-06-02 17:27] LABS: Glucose,Whole Blood 108 mg/dL (75-99)
[2019-06-02] MEDS: NITROGLYCERIN-D5W PMX 50 MG in DEXTROSE/WATER 1 250ML.BAG IV SCH (17:49)
[2019-06-02] MEDS: LACTATED RINGERS 1,000 ML IV SCH (17:51)
[2019-06-02] MEDS: GABAPENTIN 400 MG CAP PO SCH (17:51)
[2019-06-02] MEDS: INSULIN REGULAR 100 UNIT in SODIUM CHLORIDE 0.9% 100 ML IV SCH (18:10)
[2019-06-02 18:13] LABS: Glucose,Whole Blood 156 mg/dL (75-99)
[2019-06-02] MEDS: ACETAMINOPHEN IV (For NPO) 1,000 MG in EMPTY BAG 1 BAG IVPB SCH (18:44)
[2019-06-02 19:12] LABS: Glucose,Whole Blood 175 mg/dL (75-99)
[2019-06-02 20:22] LABS: Glucose,Whole Blood 183 mg/dL (75-99)
[2019-06-02 20:43] LABS: ABG Base Excess -3.3 mmol/L; ABG HCO3 23 mmol/L (21-25); ABG Oxygen Saturation 96.7 % (94-97); ABG PCO2 46 mmHg (35-45); ABG PH 7.31 (7.35-7.45); ABG PO2 89 mmHg (83-108); ABG TCO2 25 mmol/L (19-24); Allen Test Performed? Yes
[2019-06-02] MEDS ORDERED: METOPROLOL TARTRATE 12.5 MG TAB PO SCH (21:00)
[2019-06-02 21:24] LABS: Basophils % (A) 0 %; Eosinophils % (A) 0 %; HCT 37.5 % (39.0-53.0); HGB 12.6 gm/dL (13.0-17.5); Lymphocytes # (A) 0.8 k/uL (1.0-4.8); Lymphocytes % (A) 6 %; MCH 31.2 pg (25.0-35.0); MCHC 33.6 g/dL (31.0-37.0); MCV 93.1 fL (80.0-100.0); Mean Platelet Volume 8.5; Monocytes # (A) 0.6 k/uL (0-1.0); Monocytes % (A) 5 %; Neutrophils # (A) 11.4 k/uL (1.3-7.7); Neutrophils % (A) 88 %; Platelet Count 149 k/uL (150-450); RBC 4.03 m/uL (4.30-5.90); RDW 13.7 % (11.5-15.5); WBC 12.9 k/uL (3.8-10.6)
[2019-06-02 22:10] LABS: Glucose,Whole Blood 180 mg/dL (75-99)
--- NOTE | 2019-06-02 23:22 | CONS ---
CONSULTATION Mr. Levine is a 63-year-old male who is followed by Dr. Palacios on a regular basis, has a known history of coronary artery disease status post percutaneous revascularization of the LAD in the past, who presented with symptoms of progressive dyspnea and fatigue and was found to have severe aortic stenosis with significant disease involving the obtuse marginal branch and the diagonal branch. He underwent coronary artery bypass grafting and aortic valve replacement today by Dr. Dugan. He received a LIM to LAD, saphenous vein graft to the OM, saphenous vein graft to the diagonal branch as well as a size 25 Inspirus bovine pericardial valve and he underwent 35 mm atrial clip. He is intubated and sedated at this time. Hemodynamically, he is stable. He is on no pressors. His coronary risk factors are remarkable for history of diabetes, hyperlipidemia and hypertension. The patient has been anticoagulated in the past. MEDICATION: Medications at home include Eliquis 5 mg twice a day, aspirin, fenofibrate 134 mg daily, Zestril 10 mg daily, pravastatin 40 mg daily, Lamictal, Flomax, Glucophage, and Risperdal. REVIEW OF SYSTEMS: Could not be obtained. PHYSICAL EXAMINATION: 63-year-old male, intubated, sedated, hemodynamically stable. In sinus mechanism. Blood pressure 132/80 with a heart rate in the 70s. HEAD: Normocephalic. Neck: [place]-Conrado is placed. LUNGS: Clear to auscultation anteriorly. HEART: Regular rate and rhythm, S1, S2. No S3. No rub. ABDOMEN: Soft, obese. Hypoactive bowel sounds. No organomegaly. EXTREMITIES: Yamil wrapping in place. IMPRESSION: 1. Status post coronary artery bypass grafting with 3 bypass and aortic valve placement with clipping of the left atrial appendage. 2. History of hypertension. 3. Hyperlipidemia. 4. Diabetes mellitus. 5. Prior history of stroke, anticoagulated. RECOMMENDATIONS: From the cardiac standpoint, we will continue on the routine postoperative care. Hopefully he will be extubated and weaned within the next few hours and depending on his progress, further recommendations will be made. Thank you for this consult. We will follow with you. MMODL / IJN: [id number] /
[2019-06-02 23:54] LABS: Glucose,Whole Blood 155 mg/dL (75-99)
--- NOTE | 2019-06-03 00:17 | P.CONS ---
History of Present Illness - Reason for Consult Consult date: 06/02/19 Medical management Requesting physician: Ritchie Magallanes - Chief Complaint Scheduled open heart surgery - History of Present Illness 63-year-old male with history of coronary artery disease, diabetes mellitus, hypertension, hyperlipidemia Patient is admitted for scheduled open heart surgery for bypass and aortic valve replacement. Patient was having symptoms of progressive exertional dyspnea and fatigue was found to have severe aortic valve stenosis and coronary artery disease patient underwent successful open heart surgery with coronary artery bypass grafting and aortic valve replacement with bovine valve no observed immediate complications postop. And so was consulted to assist in medical management Currently patient has just been extubated currently on BiPAP patient unable to give meaningful history he currently has no specific complaints except for chest tightness when he tries to breathe or talk. He reports that pain is well tolerated. Currently he is on BiPAP and unable to talk comfortably. And reports that he's very tired and would like to sleep. Currently he is off sedation. He is not on any IV pressors. Review of Systems Unable to obtain meaningful review of systems at this time patient just got extubated using BiPAP and stacks and for him to talk Past Medical History Past Medical History: Blood Disorder, Coronary Artery Disease (CAD), Chest Pain / Angina, Heart Failure, CVA/TIA, Diabetes Mellitus, GERD/Reflux, Hyperlipidemia, Hypertension, Myocardial Infarction (PR), Osteoarthritis (OA), Sleep Apnea/CPAP/BIPAP Additional Past Medical History / Comment(s): HX PR X 2, HX CVA'S/TIA'S - LEFT ARM & LEG WEAKNESS, FACTOR 5 BLOOD DISORDER., DIABETIC NEUROPATHY IN FEET AND LEGS., SLEEP APNEA WITH C-PAP ., BACK PAIN Last Myocardial Infarction Date:: 2014 History of Any Multi-Drug Resistant Organisms: None Reported Past Surgical History: Cholecystectomy, Heart Catheterization, Heart Catheterization With Stent, Orthopedic Surgery, Tonsillectomy Additional Past Surgical History / Comment(s): Radio Freq Proc to Back 04-01-16, R TOTAL KNEE. R KNEE ARTHROSCOPIES ., CARDIAC CATH [address] Jorge Luis SMITH.04/07/14 HEART CATH WITH STENT TO MID LAD. Past Anesthesia/Blood Transfusion Reactions: Previous Problems w/ Anesthesia, Postoperative Nausea & Vomiting (PONV) Additional Past Anesthesia/Blood Transfusion Reaction / Comm: LOOPY- (HALLUCINATED) after knee replacement, otherwise no problems Date of Last Stent Placement:: 2014 Smoking Status: Never smoker - Past Family History Sister(s) Family Medical History: Coronary Artery Disease (CAD), Diabetes Mellitus Additional Family Medical History / Comment(s): SISTER(1) HAD DM, SISTER(2) HAD CAD-CABG Father Family Medical History: Cancer Additional Family Medical History / Comment(s): FATHER OF [place] AT AGE 76 YRS. Mother Family Medical History: Cancer, Congestive Heart Failure (CHF), Myocardial Infarction (PR) Additional Family Medical History / Comment(s): MOTHER AT AGE 57 OR PR. MOM HAD PSYCHOLOLGICAL ISSUES. Medications and Allergies Home Medications Medication Instructions Recorded Confirmed Type DULoxetine HCL [Cymbalta] 30 mg PO DAILY 01/10/16 05/31/19 History Aspirin EC [Ecotrin Low Dose] 81 mg PO DAILY 06/03/16 06/02/19 History Apixaban [Eliquis] 5 mg PO BID 04/21/19 05/31/19 History Biotin 10,000 mcg PO DAILY 04/21/19 06/02/19 History Cholecalciferol [Vitamin D3 (25 50,000 unit PO Q7D 04/21/19 06/02/19 History Mcg = 1000 Iu)] Cyanocobalamin [Vitamin B-12] 500 mcg PO DAILY 04/21/19 06/02/19 History Fenofibrate Nanocrystallized 134 mg PO DAILY 04/21/19 06/02/19 History [Fenofibrate] Gabapentin [Neurontin] 800 mg PO TID 04/21/19 05/31/19 History Lisinopril [Zestril] 10 mg PO DAILY 04/21/19 06/02/19 History Pravastatin Sodium [Pravachol] 40 mg PO HS 04/21/19 06/02/19 History Tamsulosin HCl [Flomax] 0.4 mg PO DAILY 04/21/19 05/31/19 History lamoTRIgine [LaMICtal] 25 mg PO DAILY 04/21/19 05/31/19 History metFORMIN HCL [Glucophage] 1,000 mg PO BID 04/21/19 06/02/19 History risperiDONE [RisperDAL] 0.5 mg PO HS 04/21/19 06/02/19 History Phenylephrine HCl [Sudafed PE] 10 mg PO DAILY PRN 05/31/19 06/02/19 History Mupirocin 2% Oint [Bactroban 2% 1 applic NASAL BID 06/01/19 06/02/19 History Oint] Aspirin 325 mg PO DIRECTED 06/02/19 06/02/19 History Allergies Allergy/AdvReac Type Severity Reaction Status Date / Time nitroglycerin AdvReac Severe sublin Verified 05/31/19 09:38 nitro caused severe low HR and B/P adhesive AdvReac blisters Verified 05/31/19 09:38 Physical Exam Vitals: Vital Signs Temp Pulse Pulse Pulse Resp BP BP 06/02/19 23:00 88 18 103/63 06/02/19 22:00 90 21 06/02/19 21:00 96 22 06/02/19 20:02 88 06/02/19 20:00 97.5 F L 87 83 14 06/02/19 19:52 89 06/02/19 19:00 36.5 F L 92 18 06/02/19 18:30 85 14 103/63 06/02/19 18:15 36.4 F L 90 14 06/02/19 18:00 89 15 06/02/19 17:45 85 14 06/02/19 17:30 82 14 06/02/19 17:15 84 14 06/02/19 17:00 82 14 06/02/19 16:57 83 06/02/19 16:45 82 83 8 L 142/94 06/02/19 16:44 83 06/02/19 16:30 84 17 06/02/19 16:15 78 84 12 06/02/19 16:00 36.1 F L 75 79 12 06/02/19 15:51 75 8 L 06/02/19 06:15 98.1 F 79 20 148/84 BP Pulse Ox 06/02/19 23:00 93 L 06/02/19 22:00 92 L 06/02/19 21:00 95 06/02/19 20:02 06/02/19 20:00 94 L 06/02/19 19:52 06/02/19 19:00 95 06/02/19 18:30 94 L 06/02/19 18:15 95 06/02/19 18:00 97 06/02/19 17:45 97 06/02/19 17:30 96 06/02/19 17:15 96 12/05/19 17:00 97 06/02/19 16:57 06/02/19 16:45 95 06/02/19 16:44 06/02/19 16:30 98 06/02/19 16:15 98 06/02/19 16:00 97 06/02/19 15:51 100 06/02/19 06:15 132/81 94 L Intake and Output 06/02/19 06/02/19 06/03/19 14:59 22:59 06:59 Intake Total 33 518.983 80 Output Total 2200 1700 200 Balance -2167 -1181.017 -120 Intake: IV 33 300 80 0.9NS CO/CI 150 30 LR 150 50 Intake, IV Titration 218.983 Amount Clevidipine Butyrate 25 2.233 mg In Empty Bag 1 bag @ 1 MG/HR 2 mls/hr IV .Q24H SANDY Rx#:[id number] Insulin Regular 100 unit 14.443 In Sodium Chloride 0.9% 100 ml @ Per Protocol IV .Q0M SANDY Rx#:[id number] Lactated Ringers 1,000 ml 150 @ 50 mls/hr IV .Q20H SANDY Rx#:[id number] Propofol 1,000 mg In 52.307 Empty Bag 1 bag @ Titrate IV .Q0M SANDY Rx#: [id number] Output: Chest Tube Drainage 670 50 Chest Tube Left Pleural/ 670 50 Mediastinal Urine 400 1030 150 Estimated Blood Loss 1800 Other: Voiding Method Indwelling Catheter ABP, PAP, CO, CI - Last 8 Hours Arterial Blood Pressure 119/59 Arterial Blood Pressure 123/60 Arterial Blood Pressure 122/62 Arterial Blood Pressure 109/59 Arterial Blood Pressure 117/63 Arterial Blood Pressure 124/61 Arterial Blood Pressure 135/69 Arterial Blood Pressure 131/64 Arterial Blood Pressure 130/68 Arterial Blood Pressure 107/59 Arterial Blood Pressure 135/60 Arterial Blood Pressure 136/58 Arterial Blood Pressure 146/72 Arterial Blood Pressure 138/54 Arterial Blood Pressure 115/60 Arterial Blood Pressure 122/54 Arterial Blood Pressure 101/57 Arterial Blood Pressure 116/59 Pulmonary Artery Pressure 26/18 Pulmonary Artery Pressure 33/19 Pulmonary Artery Pressure 32/18 Pulmonary Artery Pressure 38/18 Pulmonary Artery Pressure 49/12 Pulmonary Artery Pressure 44/10 Pulmonary Artery Pressure 48/14 Pulmonary Artery Pressure 43/14 Pulmonary Artery Pressure 41/14 Pulmonary Artery Pressure 39/14 Pulmonary Artery Pressure 39/14 Pulmonary Artery Pressure 38/14 Pulmonary Artery Pressure 43/15 Pulmonary Artery Pressure 44/14 Pulmonary Artery Pressure 35/9 Pulmonary Artery Pressure 43/15 Pulmonary Artery Pressure 40/16 Pulmonary Artery Pressure 45/14 Cardiac Output 8.4 Cardiac Output 8.4 Cardiac Output 8.1 Cardiac Output 8.9 Cardiac Output 8.9 Cardiac Output 5.5 Cardiac Output 5.5 Cardiac Index 3.3 Cardiac Index 3.3 Cardiac Index 3.1 Cardiac Index 3.4 Cardiac Index 3.4 Cardiac Index 2.2 Cardiac Index 2.2 Constitutional: No acute distress, patient seems to be tired he just got extubated a few hours ago currently on BiPAP Eyes: Anicteric sclerae, moist conjunctiva, Pupils equal round reactive to light ENMT: NC/AT Patient has BiPAP on unable to examine his mouth at this time Neck: Supple, no masses, or JVD, [place] in place right IJ No carotid bruits No thyromegaly Lungs: Good breath sounds bilaterally Clear to percussion Normal respiratory effort, no accessory muscle use Chest tube in place Cardiovascular: Heart regular in rate and rhythm, No murmurs, gallops, or rubs No peripheral edema Abdominal: Soft Nontender, no guarding, rebound or rigidity Abdomen moving with respiration Normoactive bowel sounds No hepatomegaly, No splenomegaly No palpable mass No abdominal wall hernia noted Torres catheter in place Skin: Normal temperature, tone, texture, turgor No induration No subcutaneous nodules No rash, lesions No ulcers Extremities: Surgical dressing over bilateral lower extremities No digital cyanosis No clubbing Pedal pulses intact and symmetrical Radial pulses intact and symmetrical No calf tenderness Psychiatric: Alert and oriented to person, place and time Appropriate affect fair judgment Neuro Muscles Strength 4/5 in all 4 extremities Sensation to light touch grossly present throughout Cranial nerves II-XII grossly intact No focal sensory deficits Lymphatics: no palpable cervical or supraclavicular , or inguinal lymph nodes Results CBC & Chem 7: 06/02/19 21:05 06/02/19 16:11 Labs: Abnormal Lab Results - Last 24 Hours (Table) 05/31/19 06/02/19 06/02/19 Range/Units 09:35 06:32 08:35 WBC (3.8-10.6) k/uL RBC (4.30-5.90) m/uL Hgb (13.0-17.5) gm/dL Hct (39.0-53.0) % Plt Count (150-450) k/uL Neutrophils # (1.3-7.7) k/uL Lymphocytes # (1.0-4.8) k/uL APTT (22.0-30.0) sec ABG pH (7.35-7.45) ABG pCO2 (35-45) mmHg ABG pO2 152 H (83-108) mmHg ABG Total CO2 27 H (19-24) mmol/L ABG O2 Saturation 99.3 H (94-97) % ABG Hematocrit (34.0-46.0) % ABG Ionized Calcium (4.5-5.3) mg/dL ABG Glucose 128 H (75-99) mg/dL ABG Lactic Acid 2.0 H (0.5-1.6) mmol/L Hemoglobin (13.0-17.5) gm/dL Chloride (98-107) mmol/L Glucose (74-99) mg/dL POC Glucose (mg/dL) 128 H (75-99) mg/dL Magnesium (1.6-2.3) mg/dL Alkaline Phosphatase (38-126) U/L Total Protein (6.3-8.2) g/dL Albumin (3.5-5.0) g/dL Arterial Blood Glucose 128 H (75-99) mg/dL Crossmatch See Detail 06/02/19 06/02/19 06/02/19 Range/Units 10:49 11:33 12:00 WBC (3.8-10.6) k/uL RBC (4.30-5.90) m/uL Hgb (13.0-17.5) gm/dL Hct (39.0-53.0) % Plt Count (150-450) k/uL Neutrophils # (1.3-7.7) k/uL Lymphocytes # (1.0-4.8) k/uL APTT (22.0-30.0) sec ABG pH 7.31 L 7.32 L (7.35-7.45) ABG pCO2 48 H (35-45) mmHg ABG pO2 186 H 320 H 115 H (83-108) mmHg ABG Total CO2 25 H 25 H 25 H (19-24) mmol/L ABG O2 Saturation 99.7 H 99.9 H 99.1 H (94-97) % ABG Hematocrit 32 L 33 L (34.0-46.0) % ABG Ionized Calcium (4.5-5.3) mg/dL ABG Glucose 183 H 159 H 143 H (75-99) mg/dL ABG Lactic Acid 2.1 H 2.2 H* 2.6 H* (0.5-1.6) mmol/L Hemoglobin 10.3 L 10.6 L (13.0-17.5) gm/dL Chloride (98-107) mmol/L Glucose (74-99) mg/dL POC Glucose (mg/dL) (75-99) mg/dL Magnesium (1.6-2.3) mg/dL Alkaline Phosphatase (38-126) U/L Total Protein (6.3-8.2) g/dL Albumin (3.5-5.0) g/dL Arterial Blood Glucose 183 H 159 H 143 H (75-99) mg/dL Crossmatch 06/02/19 06/02/19 06/02/19 Range/Units 12:15 12:48 13:20 WBC (3.8-10.6) k/uL RBC (4.30-5.90) m/uL Hgb (13.0-17.5) gm/dL Hct (39.0-53.0) % Plt Count (150-450) k/uL Neutrophils # (1.3-7.7) k/uL Lymphocytes # (1.0-4.8) k/uL APTT (22.0-30.0) sec ABG pH 7.33 L 7.34 L 7.32 L (7.35-7.45) ABG pCO2 (35-45) mmHg ABG pO2 239 H 298 H 289 H (83-108) mmHg ABG Total CO2 25 H 25 H (19-24) mmol/L ABG O2 Saturation 99.7 H 100.0 H 99.8 H (94-97) % ABG Hematocrit 33 L 31 L 31 L (34.0-46.0) % ABG Ionized Calcium (4.5-5.3) mg/dL ABG Glucose 141 H 124 H 124 H (75-99) mg/dL ABG Lactic Acid 2.9 H* 3.2 H* 3.7 H* (0.5-1.6) mmol/L Hemoglobin 10.9 L 10.2 L 10.0 L (13.0-17.5) gm/dL Chloride (98-107) mmol/L Glucose (74-99) mg/dL POC Glucose (mg/dL) (75-99) mg/dL Magnesium (1.6-2.3) mg/dL Alkaline Phosphatase (38-126) U/L Total Protein (6.3-8.2) g/dL Albumin (3.5-5.0) g/dL Arterial Blood Glucose 141 H 124 H 124 H (75-99) mg/dL Crossmatch 06/02/19 06/02/19 06/02/19 Range/Units 13:44 14:56 15:58 WBC (3.8-10.6) k/uL RBC (4.30-5.90) m/uL Hgb (13.0-17.5) gm/dL Hct (39.0-53.0) % Plt Count (150-450) k/uL Neutrophils # (1.3-7.7) k/uL Lymphocytes # (1.0-4.8) k/uL APTT (22.0-30.0) sec ABG pH 7.31 L (7.35-7.45) ABG pCO2 (35-45) mmHg ABG pO2 220 H 269 H (83-108) mmHg ABG Total CO2 (19-24) mmol/L ABG O2 Saturation 99.6 H 99.8 H (94-97) % ABG Hematocrit 32 L (34.0-46.0) % ABG Ionized Calcium 5.6 H (4.5-5.3) mg/dL ABG Glucose 130 H 115 H (75-99) mg/dL ABG Lactic Acid 4.0 H* 3.0 H* (0.5-1.6) mmol/L Hemoglobin 10.4 L 11.8 L (13.0-17.5) gm/dL Chloride (98-107) mmol/L Glucose (74-99) mg/dL POC Glucose (mg/dL) 108 H (75-99) mg/dL Magnesium (1.6-2.3) mg/dL Alkaline Phosphatase (38-126) U/L Total Protein (6.3-8.2) g/dL Albumin (3.5-5.0) g/dL Arterial Blood Glucose 130 H 115 H (75-99) mg/dL Crossmatch 06/02/19 06/02/19 06/02/19 Range/Units 16:00 16:00 16:11 WBC 11.6 H (3.8-10.6) k/uL RBC 3.77 L (4.30-5.90) m/uL Hgb 11.7 L D (13.0-17.5) gm/dL Hct 34.8 L (39.0-53.0) % Plt Count 139 L (150-450) k/uL Neutrophils # 9.6 H (1.3-7.7) k/uL Lymphocytes # (1.0-4.8) k/uL APTT 21.5 L (22.0-30.0) sec ABG pH (7.35-7.45) ABG pCO2 (35-45) mmHg ABG pO2 (83-108) mmHg ABG Total CO2 (19-24) mmol/L ABG O2 Saturation (94-97) % ABG Hematocrit (34.0-46.0) % ABG Ionized Calcium (4.5-5.3) mg/dL ABG Glucose (75-99) mg/dL ABG Lactic Acid (0.5-1.6) mmol/L Hemoglobin (13.0-17.5) gm/dL Chloride 109 H (98-107) mmol/L Glucose 109 H (74-99) mg/dL POC Glucose (mg/dL) (75-99) mg/dL Magnesium 3.4 H (1.6-2.3) mg/dL Alkaline Phosphatase 32 L (38-126) U/L Total Protein 5.2 L (6.3-8.2) g/dL Albumin 3.3 L (3.5-5.0) g/dL Arterial Blood Glucose (75-99) mg/dL Crossmatch 06/02/19 06/02/19 06/02/19 Range/Units 16:14 17:16 18:07 WBC (3.8-10.6) k/uL RBC (4.30-5.90) m/uL Hgb (13.0-17.5) gm/dL Hct (39.0-53.0) % Plt Count (150-450) k/uL Neutrophils # (1.3-7.7) k/uL Lymphocytes # (1.0-4.8) k/uL APTT (22.0-30.0) sec ABG pH 7.33 L (7.35-7.45) ABG pCO2 47 H (35-45) mmHg ABG pO2 263 H (83-108) mmHg ABG Total CO2 26 H (19-24) mmol/L ABG O2 Saturation 99.7 H (94-97) % ABG Hematocrit (34.0-46.0) % ABG Ionized Calcium (4.5-5.3) mg/dL ABG Glucose (75-99) mg/dL ABG Lactic Acid (0.5-1.6) mmol/L Hemoglobin (13.0-17.5) gm/dL Chloride (98-107) mmol/L Glucose (74-99) mg/dL POC Glucose (mg/dL) 108 H 156 H (75-99) mg/dL Magnesium (1.6-2.3) mg/dL Alkaline Phosphatase (38-126) U/L Total Protein (6.3-8.2) g/dL Albumin (3.5-5.0) g/dL Arterial Blood Glucose (75-99) mg/dL Crossmatch 06/02/19 06/02/19 06/02/19 Range/Units 19:06 20:10 20:30 WBC (3.8-10.6) k/uL RBC (4.30-5.90) m/uL Hgb (13.0-17.5) gm/dL Hct (39.0-53.0) % Plt Count (150-450) k/uL Neutrophils # (1.3-7.7) k/uL Lymphocytes # (1.0-4.8) k/uL APTT (22.0-30.0) sec ABG pH 7.31 L (7.35-7.45) ABG pCO2 46 H (35-45) mmHg ABG pO2 (83-108) mmHg ABG Total CO2 25 H (19-24) mmol/L ABG O2 Saturation (94-97) % ABG Hematocrit (34.0-46.0) % ABG Ionized Calcium (4.5-5.3) mg/dL ABG Glucose (75-99) mg/dL ABG Lactic Acid (0.5-1.6) mmol/L Hemoglobin (13.0-17.5) gm/dL Chloride (98-107) mmol/L Glucose (74-99) mg/dL POC Glucose (mg/dL) 175 H 183 H (75-99) mg/dL Magnesium (1.6-2.3) mg/dL Alkaline Phosphatase (38-126) U/L Total Protein (6.3-8.2) g/dL Albumin (3.5-5.0) g/dL Arterial Blood Glucose (75-99) mg/dL Crossmatch 06/02/19 06/02/19 06/02/19 Range/Units 21:05 21:58 23:43 WBC 12.9 H (3.8-10.6) k/uL RBC 4.03 L (4.30-5.90) m/uL Hgb 12.6 L (13.0-17.5) gm/dL Hct 37.5 L (39.0-53.0) % Plt Count 149 L (150-450) k/uL Neutrophils # 11.4 H (1.3-7.7) k/uL Lymphocytes # 0.8 L (1.0-4.8) k/uL APTT (22.0-30.0) sec ABG pH (7.35-7.45) ABG pCO2 (35-45) mmHg ABG pO2 (83-108) mmHg ABG Total CO2 (19-24) mmol/L ABG O2 Saturation (94-97) % ABG Hematocrit (34.0-46.0) % ABG Ionized Calcium (4.5-5.3) mg/dL ABG Glucose (75-99) mg/dL ABG Lactic Acid (0.5-1.6) mmol/L Hemoglobin (13.0-17.5) gm/dL Chloride (98-107) mmol/L Glucose (74-99) mg/dL POC Glucose (mg/dL) 180 H 155 H (75-99) mg/dL Magnesium (1.6-2.3) mg/dL Alkaline Phosphatase (38-126) U/L Total Protein (6.3-8.2) g/dL Albumin (3.5-5.0) g/dL Arterial Blood Glucose (75-99) mg/dL Crossmatch Assessment and Plan Assessment: 63-year-old male with history of diabetes hypertension stroke CAD factor V Leiden on anticoagulation Patient is seen postoperatively after open heart surgery with coronary artery bypass grafting and aortic valve replacement with bovine valve tolerated procedure well no observed immediate postoperative Patient's patient was extubated successfully currently on BiPAP patient is not requiring any IV pressors at this time Medicine was consulted to assist with medical management Plan: Status post open heart surgery for coronary artery bypass grafting and aortic valve replacement postoperative day 0 Management per cardiothoracic surgical team Chronic conditions Factor V Leiden on anticoagulation currently on hold await clearance by cardiac thoracic surgery to restart Hypertension Diabetes mellitus currently on insulin drip History of CVA History of CAD Sleep apnea GERD Osteoarthritis We'll follow-up closely with the primary cardiothoracic surgical team Thank you for allowing us to participate in the care of this patient. Do not hesitate to contact us with questions. Someone can be reached from the [facility] hospitalist group at all hours of the day at [phone].
[2019-06-03] MEDS: GABAPENTIN 400 MG CAP PO SCH ×4 (00:51→22:07)
[2019-06-03] MEDS: ACETAMINOPHEN IV (For NPO) 1,000 MG in EMPTY BAG 1 BAG IVPB SCH (00:53)
[2019-06-03] MEDS: HEPARIN SODIUM,PORCINE 5,000 UNIT/ML 1 ML VIAL SQ SCH ×3 (00:54→17:12)
[2019-06-03 01:11] LABS: Glucose,Whole Blood 159 mg/dL (75-99)
[2019-06-03 02:18] LABS: Glucose,Whole Blood 141 mg/dL (75-99)
[2019-06-03] MEDS ORDERED: HYDROcodone/APAP 5-325MG 1 EACH TAB PO PRN ×2 (03:05)
[2019-06-03 03:17] LABS: Glucose,Whole Blood 139 mg/dL (75-99)
[2019-06-03 05:12] LABS: Glucose,Whole Blood 143 mg/dL (75-99)
[2019-06-03 05:19] LABS: Basophils % (A) 0 %; Eosinophils # (A) 0.1 k/uL (0-0.7); Eosinophils % (A) 1 %; HCT 33.9 % (39.0-53.0); HGB 11.5 gm/dL (13.0-17.5); Lymphocytes # (A) 1.2 k/uL (1.0-4.8); Lymphocytes % (A) 10 %; MCH 31.5 pg (25.0-35.0); MCV 92.8 fL (80.0-100.0); Mean Platelet Volume 9.3; Monocytes # (A) 0.5 k/uL (0-1.0); Monocytes % (A) 5 %; Neutrophils # (A) 9.8 k/uL (1.3-7.7); Neutrophils % (A) 84 %; Platelet Count 162 k/uL (150-450); RBC 3.66 m/uL (4.30-5.90); WBC 11.7 k/uL (3.8-10.6)
[2019-06-03 05:25] LABS: Ionized Calcium 5.1 mg/dL (4.5-5.3)
[2019-06-03 05:34] LABS: ALT 42 U/L (21-72); AST 59 U/L (17-59); African American GFR (CKD) >90 (>60 ml/min/1.73 sqM); Albumin 3.4 g/dL (3.5-5.0); Alkaline Phosphatase 33 U/L (38-126); Anion Gap 7 mmol/L; Blood Urea Nitrogen 17 mg/dL (9-20); Calcium 8.5 mg/dL (8.4-10.2); Carbon Dioxide 25 mmol/L (22-30); Chloride 106 mmol/L (98-107); Glucose 144 mg/dL (74-99); Magnesium 2.5 mg/dL (1.6-2.3); Non-African American GFR(CKD) >90 (>60 ml/min/1.73 sqM); Potassium 4.9 mmol/L (3.5-5.1); Sodium 138 mmol/L (137-145); Total Bilirubin 0.6 mg/dL (0.2-1.3); Total Protein 5.4 g/dL (6.3-8.2)
[2019-06-03 05:42] LABS: Glucose,Whole Blood 131 mg/dL (75-99)
[2019-06-03] MEDS ORDERED: traMADol 50 MG TAB PO PRN (06:20)
[2019-06-03] MEDS: KETOROLAC 30 MG/ML 1 ML VIAL IVP SCH ×3 (06:51→18:11)
[2019-06-03] MEDS: NITROGLYCERIN-D5W PMX 50 MG in DEXTROSE/WATER 1 250ML.BAG IV SCH (06:52)
[2019-06-03 07:14] LABS: Glucose,Whole Blood 129 mg/dL (75-99)
--- NOTE | 2019-06-03 08:00 | P.PN ---
Subjective Progress Note Date: 06/03/19 Principal diagnosis: Severe aortic valve stenosis, coronary artery disease. 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 POD #1 Aortic valve replacement with 25 mm Inspiris bovine pericardial valve, coronary artery bypass grafting 3 with left internal mammary artery to the left anterior descending artery, reverse saphenous vein graft to the first diagonal artery, reverse saphenous vein graft to the first obtuse marginal artery, endovascular vein harvest, epi-aortic ultrasonography, ligation of the left atrial appendage with 35mm AtriClip. The patient is currently sitting up in the recliner in the intensive care unit in no acute distress. He was successfully extubated to BiPAP last night at 21:04. He states he has some post surgical pain with deep inspiration, but it is currently controlled and he is requiring no narcotics. Denies shortness of breath. Currently in normal sinus rhythm, remains hemodynamically stable on no inotropes or pressors. [place]/Cordis, arterial line, mediastinal and left pleural chest tubes present. No new concerns. Objective - Vital Signs Vital signs: Vital Signs Temp 98.6 F 06/03/19 04:02 Pulse 73 06/03/19 06:00 Resp 20 06/03/19 06:00 BP 103/62 06/03/19 06:00 Pulse Ox 95 06/03/19 06:26 Intake & Output 06/02/19 06/03/19 06/03/19 18:59 06:59 18:59 Intake Total 247.540 423.934 20.133 Output Total 3130 970 Balance -2882.460 -546.066 20.133 Weight 155.3 kg Intake: IV 93 320 0.9NS CO/CI 60 120 LR 200 Intake, IV Titration 154.540 103.934 20.133 Amount Clevidipine Butyrate 25 2.233 mg In Empty Bag 1 bag @ 1 MG/HR 2 mls/hr IV .Q24H [facility] Rx#:[id number] Insulin Regular 100 unit 53.934 20.133 In Sodium Chloride 0.9% 100 ml @ Per Protocol IV .Q0M [facility] Rx#:[id number] Lactated Ringers 1,000 ml 100 50 @ 50 mls/hr IV .Q20H [facility] Rx#:[id number] Propofol 1,000 mg In 52.307 Empty Bag 1 bag @ Titrate IV .Q0M [facility] Rx#: [id number] Output: Chest Tube Drainage 375 345 Chest Tube Left Pleural/ 375 345 Mediastinal Urine 955 625 Estimated Blood Loss 1800 Other: Voiding Method Indwelling Catheter ABP, PAP, CO, CI - Last Documented Arterial Blood Pressure 106/63 Pulmonary Artery Pressure 25/10 Cardiac Output 6 Cardiac Index 2.3 - Constitutional General appearance: Present: cooperative, morbidly obese, no acute distress - Respiratory Details: Lungs sounds clear but diminished bilaterally. Respirations even, nonlabored. Currently on 5 L nasal cannula with oxygen saturation 96%. Able to achieve 1000 mL on his incentive spirometry. Strong cough. Mediastinal/left pleural chest tubes connected to continuous wall suction, 430 milliliters sanguinous drainage overnight, 1150 mL since surgery, no air leak present. - Cardiovascular Details: S1, S2 present. Regular rate and rhythm, sinus rhythm on telemetry. Sternum stable. A/V epicardial pacemaker wires present, connected to generator, currently VVI mode with backup rate 60 beats per minutes. Palpable peripheral pulses bilaterally. Generalized edema present. No calf pain or tenderness noted. Right internal jugular [place]/Cordis, left radial arterial line present. Last CO/CI 7.4/2.9 on no inotropes or pressors. Heart hugger in place with patient demonstrate appropriate use. Antiembolism stockings, SCDs present. - Gastrointestinal Gastrointestinal Comment(s): Abdomen soft, nontender, nondistended, obese. Hypoactive bowel sounds present 4 quadrants. Tolerating clear liquids. Denies flatus. - Genitourinary Genitourinary Comment(s): Torres present and clear, yellow urine. Output 120-150 mL per hour overnight, down to 60 mL this morning. - Integumentary Integumentary Comment(s): Skin is warm and dry with evidence of good perfusion. Anterior chest incision well approximated and covered dry intact dressing. Left lower extremity EVH site well approximated. - Neurologic Neurologic: Present: CNII-XII intact - Musculoskeletal Musculoskeletal: Present: strength equal bilaterally - Psychiatric Psychiatric: Present: A&O x's 3, appropriate affect, intact judgment & insight - Allied health notes Allied health notes reviewed: nursing - Labs CBC & Chem 7: 06/03/19 03:00 06/03/19 03:00 Labs: Abnormal Lab Results - Last 24 Hours (Table) 05/31/19 06/02/19 06/02/19 Range/Units 09:35 08:35 10:49 WBC (3.8-10.6) k/uL RBC (4.30-5.90) m/uL Hgb (13.0-17.5) gm/dL Hct (39.0-53.0) % Plt Count (150-450) k/uL Neutrophils # (1.3-7.7) k/uL Lymphocytes # (1.0-4.8) k/uL APTT (22.0-30.0) sec ABG pH (7.35-7.45) ABG pCO2 (35-45) mmHg ABG pO2 152 H 186 H (83-108) mmHg ABG Total CO2 27 H 25 H (19-24) mmol/L ABG O2 Saturation 99.3 H 99.7 H (94-97) % ABG Hematocrit (34.0-46.0) % ABG Ionized Calcium (4.5-5.3) mg/dL ABG Glucose 128 H 183 H (75-99) mg/dL ABG Lactic Acid 2.0 H 2.1 H (0.5-1.6) mmol/L Hemoglobin (13.0-17.5) gm/dL Chloride (98-107) mmol/L Glucose (74-99) mg/dL POC Glucose (mg/dL) (75-99) mg/dL Magnesium (1.6-2.3) mg/dL Alkaline Phosphatase (38-126) U/L Total Protein (6.3-8.2) g/dL Albumin (3.5-5.0) g/dL Arterial Blood Glucose 128 H 183 H (75-99) mg/dL Crossmatch See Detail 06/02/19 06/02/19 06/02/19 Range/Units 11:33 12:00 12:15 WBC (3.8-10.6) k/uL RBC (4.30-5.90) m/uL Hgb (13.0-17.5) gm/dL Hct (39.0-53.0) % Plt Count (150-450) k/uL Neutrophils # (1.3-7.7) k/uL Lymphocytes # (1.0-4.8) k/uL APTT (22.0-30.0) sec ABG pH 7.31 L 7.32 L 7.33 L (7.35-7.45) ABG pCO2 48 H (35-45) mmHg ABG pO2 320 H 115 H 239 H (83-108) mmHg ABG Total CO2 25 H 25 H (19-24) mmol/L ABG O2 Saturation 99.9 H 99.1 H 99.7 H (94-97) % ABG Hematocrit 32 L 33 L 33 L (34.0-46.0) % ABG Ionized Calcium (4.5-5.3) mg/dL ABG Glucose 159 H 143 H 141 H (75-99) mg/dL ABG Lactic Acid 2.2 H* 2.6 H* 2.9 H* (0.5-1.6) mmol/L Hemoglobin 10.3 L 10.6 L 10.9 L (13.0-17.5) gm/dL Chloride (98-107) mmol/L Glucose (74-99) mg/dL POC Glucose (mg/dL) (75-99) mg/dL Magnesium (1.6-2.3) mg/dL Alkaline Phosphatase (38-126) U/L Total Protein (6.3-8.2) g/dL Albumin (3.5-5.0) g/dL Arterial Blood Glucose 159 H 143 H 141 H (75-99) mg/dL Crossmatch 06/02/19 06/02/19 06/02/19 Range/Units 12:48 13:20 13:44 WBC (3.8-10.6) k/uL RBC (4.30-5.90) m/uL Hgb (13.0-17.5) gm/dL Hct (39.0-53.0) % Plt Count (150-450) k/uL Neutrophils # (1.3-7.7) k/uL Lymphocytes # (1.0-4.8) k/uL APTT (22.0-30.0) sec ABG pH 7.34 L 7.32 L 7.31 L (7.35-7.45) ABG pCO2 (35-45) mmHg ABG pO2 298 H 289 H 220 H (83-108) mmHg ABG Total CO2 25 H 25 H (19-24) mmol/L ABG O2 Saturation 100.0 H 99.8 H 99.6 H (94-97) % ABG Hematocrit 31 L 31 L 32 L (34.0-46.0) % ABG Ionized Calcium (4.5-5.3) mg/dL ABG Glucose 124 H 124 H 130 H (75-99) mg/dL ABG Lactic Acid 3.2 H* 3.7 H* 4.0 H* (0.5-1.6) mmol/L Hemoglobin 10.2 L 10.0 L 10.4 L (13.0-17.5) gm/dL Chloride (98-107) mmol/L Glucose (74-99) mg/dL POC Glucose (mg/dL) (75-99) mg/dL Magnesium (1.6-2.3) mg/dL Alkaline Phosphatase (38-126) U/L Total Protein (6.3-8.2) g/dL Albumin (3.5-5.0) g/dL Arterial Blood Glucose 124 H 124 H 130 H (75-99) mg/dL Crossmatch 06/02/19 06/02/19 06/02/19 Range/Units 14:56 15:58 16:00 WBC 11.6 H (3.8-10.6) k/uL RBC 3.77 L (4.30-5.90) m/uL Hgb 11.7 L D (13.0-17.5) gm/dL Hct 34.8 L (39.0-53.0) % Plt Count 139 L (150-450) k/uL Neutrophils # 9.6 H (1.3-7.7) k/uL Lymphocytes # (1.0-4.8) k/uL APTT (22.0-30.0) sec ABG pH (7.35-7.45) ABG pCO2 (35-45) mmHg ABG pO2 269 H (83-108) mmHg ABG Total CO2 (19-24) mmol/L ABG O2 Saturation 99.8 H (94-97) % ABG Hematocrit (34.0-46.0) % ABG Ionized Calcium 5.6 H (4.5-5.3) mg/dL ABG Glucose 115 H (75-99) mg/dL ABG Lactic Acid 3.0 H* (0.5-1.6) mmol/L Hemoglobin 11.8 L (13.0-17.5) gm/dL Chloride (98-107) mmol/L Glucose (74-99) mg/dL POC Glucose (mg/dL) 108 H (75-99) mg/dL Magnesium (1.6-2.3) mg/dL Alkaline Phosphatase (38-126) U/L Total Protein (6.3-8.2) g/dL Albumin (3.5-5.0) g/dL Arterial Blood Glucose 115 H (75-99) mg/dL Crossmatch 06/02/19 06/02/19 06/02/19 Range/Units 16:00 16:11 16:14 WBC (3.8-10.6) k/uL RBC (4.30-5.90) m/uL Hgb (13.0-17.5) gm/dL Hct (39.0-53.0) % Plt Count (150-450) k/uL Neutrophils # (1.3-7.7) k/uL Lymphocytes # (1.0-4.8) k/uL APTT 21.5 L (22.0-30.0) sec ABG pH 7.33 L (7.35-7.45) ABG pCO2 47 H (35-45) mmHg ABG pO2 263 H (83-108) mmHg ABG Total CO2 26 H (19-24) mmol/L ABG O2 Saturation 99.7 H (94-97) % ABG Hematocrit (34.0-46.0) % ABG Ionized Calcium (4.5-5.3) mg/dL ABG Glucose (75-99) mg/dL ABG Lactic Acid (0.5-1.6) mmol/L Hemoglobin (13.0-17.5) gm/dL Chloride 109 H (98-107) mmol/L Glucose 109 H (74-99) mg/dL POC Glucose (mg/dL) (75-99) mg/dL Magnesium 3.4 H (1.6-2.3) mg/dL Alkaline Phosphatase 32 L (38-126) U/L Total Protein 5.2 L (6.3-8.2) g/dL Albumin 3.3 L (3.5-5.0) g/dL Arterial Blood Glucose (75-99) mg/dL Crossmatch 06/02/19 06/02/19 06/02/19 Range/Units 17:16 18:07 19:06 WBC (3.8-10.6) k/uL RBC (4.30-5.90) m/uL Hgb (13.0-17.5) gm/dL Hct (39.0-53.0) % Plt Count (150-450) k/uL Neutrophils # (1.3-7.7) k/uL Lymphocytes # (1.0-4.8) k/uL APTT (22.0-30.0) sec ABG pH (7.35-7.45) ABG pCO2 (35-45) mmHg ABG pO2 (83-108) mmHg ABG Total CO2 (19-24) mmol/L ABG O2 Saturation (94-97) % ABG Hematocrit (34.0-46.0) % ABG Ionized Calcium (4.5-5.3) mg/dL ABG Glucose (75-99) mg/dL ABG Lactic Acid (0.5-1.6) mmol/L Hemoglobin (13.0-17.5) gm/dL Chloride (98-107) mmol/L Glucose (74-99) mg/dL POC Glucose (mg/dL) 108 H 156 H 175 H (75-99) mg/dL Magnesium (1.6-2.3) mg/dL Alkaline Phosphatase (38-126) U/L Total Protein (6.3-8.2) g/dL Albumin (3.5-5.0) g/dL Arterial Blood Glucose (75-99) mg/dL Crossmatch 06/02/19 06/02/19 06/02/19 Range/Units 20:10 20:30 21:05 WBC 12.9 H (3.8-10.6) k/uL RBC 4.03 L (4.30-5.90) m/uL Hgb 12.6 L (13.0-17.5) gm/dL Hct 37.5 L (39.0-53.0) % Plt Count 149 L (150-450) k/uL Neutrophils # 11.4 H (1.3-7.7) k/uL Lymphocytes # 0.8 L (1.0-4.8) k/uL APTT (22.0-30.0) sec ABG pH 7.31 L (7.35-7.45) ABG pCO2 46 H (35-45) mmHg ABG pO2 (83-108) mmHg ABG Total CO2 25 H (19-24) mmol/L ABG O2 Saturation (94-97) % ABG Hematocrit (34.0-46.0) % ABG Ionized Calcium (4.5-5.3) mg/dL ABG Glucose (75-99) mg/dL ABG Lactic Acid (0.5-1.6) mmol/L Hemoglobin (13.0-17.5) gm/dL Chloride (98-107) mmol/L Glucose (74-99) mg/dL POC Glucose (mg/dL) 183 H (75-99) mg/dL Magnesium (1.6-2.3) mg/dL Alkaline Phosphatase (38-126) U/L Total Protein (6.3-8.2) g/dL Albumin (3.5-5.0) g/dL Arterial Blood Glucose (75-99) mg/dL Crossmatch 06/02/19 06/02/19 06/03/19 Range/Units 21:58 23:43 00:59 WBC (3.8-10.6) k/uL RBC (4.30-5.90) m/uL Hgb (13.0-17.5) gm/dL Hct (39.0-53.0) % Plt Count (150-450) k/uL Neutrophils # (1.3-7.7) k/uL Lymphocytes # (1.0-4.8) k/uL APTT (22.0-30.0) sec ABG pH (7.35-7.45) ABG pCO2 (35-45) mmHg ABG pO2 (83-108) mmHg ABG Total CO2 (19-24) mmol/L ABG O2 Saturation (94-97) % ABG Hematocrit (34.0-46.0) % ABG Ionized Calcium (4.5-5.3) mg/dL ABG Glucose (75-99) mg/dL ABG Lactic Acid (0.5-1.6) mmol/L Hemoglobin (13.0-17.5) gm/dL Chloride (98-107) mmol/L Glucose (74-99) mg/dL POC Glucose (mg/dL) 180 H 155 H 159 H (75-99) mg/dL Magnesium (1.6-2.3) mg/dL Alkaline Phosphatase (38-126) U/L Total Protein (6.3-8.2) g/dL Albumin (3.5-5.0) g/dL Arterial Blood Glucose (75-99) mg/dL Crossmatch 06/03/19 06/03/19 06/03/19 Range/Units 02:09 03:00 03:00 WBC 11.7 H (3.8-10.6) k/uL RBC 3.66 L (4.30-5.90) m/uL Hgb 11.5 L (13.0-17.5) gm/dL Hct 33.9 L (39.0-53.0) % Plt Count (150-450) k/uL Neutrophils # 9.8 H (1.3-7.7) k/uL Lymphocytes # (1.0-4.8) k/uL APTT (22.0-30.0) sec ABG pH (7.35-7.45) ABG pCO2 (35-45) mmHg ABG pO2 (83-108) mmHg ABG Total CO2 (19-24) mmol/L ABG O2 Saturation (94-97) % ABG Hematocrit (34.0-46.0) % ABG Ionized Calcium (4.5-5.3) mg/dL ABG Glucose (75-99) mg/dL ABG Lactic Acid (0.5-1.6) mmol/L Hemoglobin (13.0-17.5) gm/dL Chloride (98-107) mmol/L Glucose 144 H (74-99) mg/dL POC Glucose (mg/dL) 141 H (75-99) mg/dL Magnesium 2.5 H (1.6-2.3) mg/dL Alkaline Phosphatase 33 L (38-126) U/L Total Protein 5.4 L (6.3-8.2) g/dL Albumin 3.4 L (3.5-5.0) g/dL Arterial Blood Glucose (75-99) mg/dL Crossmatch 06/03/19 06/03/19 06/03/19 Range/Units 03:16 05:00 05:40 WBC (3.8-10.6) k/uL RBC (4.30-5.90) m/uL Hgb (13.0-17.5) gm/dL Hct (39.0-53.0) % Plt Count (150-450) k/uL Neutrophils # (1.3-7.7) k/uL Lymphocytes # (1.0-4.8) k/uL APTT (22.0-30.0) sec ABG pH (7.35-7.45) ABG pCO2 (35-45) mmHg ABG pO2 (83-108) mmHg ABG Total CO2 (19-24) mmol/L ABG O2 Saturation (94-97) % ABG Hematocrit (34.0-46.0) % ABG Ionized Calcium (4.5-5.3) mg/dL ABG Glucose (75-99) mg/dL ABG Lactic Acid (0.5-1.6) mmol/L Hemoglobin (13.0-17.5) gm/dL Chloride (98-107) mmol/L Glucose (74-99) mg/dL POC Glucose (mg/dL) 139 H 143 H 131 H (75-99) mg/dL Magnesium (1.6-2.3) mg/dL Alkaline Phosphatase (38-126) U/L Total Protein (6.3-8.2) g/dL Albumin (3.5-5.0) g/dL Arterial Blood Glucose (75-99) mg/dL Crossmatch - Imaging and Cardiology Chest x-ray: image reviewed Assessment and Plan Assessment: 1. Severe aortic stenosis, status post aortic valve replacement 2. Coronary artery disease, status post three-vessel CABG 3. History of coronary artery disease with previous myocardial infarction stenting 4. Hypertension 5. Hyperlipidemia 6. Type 2 diabetes with preoperative hemoglobin A1c 6.7% 7. Moderate restrictive lung disease with preoperative FEV1 54% of predicted 8. Obstructive sleep apnea with home CPAP use 9. Morbid obesity 10. Remote history of pneumonia 11. Depression 12. Factor 5 Leiden deficiency on Eliquis for anticoagulation 13. BPH 14. Remote narcotic dependence 15. 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 Family history of premature coronary artery disease Plan: 1. Continue aspirin, statin, Plavix, beta cornelio. Will increase beta cornelio therapy as tolerated, increased to 25 mg today 2. Wean O2 as tolerated. Bronchodilators per pulmonology. Encourage incentive spirometry use 10 times every hour while awake 3. Increase activity, ambulate as tolerated. PT/OT/cardiac rehab following 4. Will monitor daily labs and x-rays. Elective replacement per protocol 5. Pain control with current medication regimen 6. Insulin management per primary care service 7. GI/DVT prophylaxis 8. Discontinue [place]. Connected Cordis to continue CVP monitoring 9. Will restart anticoagulation once invasive lines have been removed 10. Keep chest tubes for another 24 hours 11. More recommendations to follow based on patient's progress
--- NOTE | 2019-06-03 08:11 | XR ---
EXAMINATION TYPE: XR chest 1V portable DATE OF EXAM: 06/03/2019 CLINICAL HISTORY: Difficulty breathing progress study. Postop cardiac surgery. TECHNIQUE: Single AP portable upright view of the chest is obtained. COMPARISON: Chest x-ray from one day earlier and older studies. FINDINGS: Interval extubation with removal of endotracheal and orogastric tubes. Persistent right in ternal jugular [place] catheter, mediastinal drainage catheter, and left basilar chest tube. [place] ing sternal wires along with cardiac closure device are redemonstrated. Persistent cardiomegaly with central vascular congestion and patchy left greater than right bibasilar atelectasis and/or infiltrate. No pneumothorax seen bilaterally. No pleural effusion is present. IMPRESSION: Interval extubation. Persistent cardiomegaly with central vascular congestion and left gr eater than right bibasilar acute atelectasis and/or infiltrate.
[2019-06-03 08:18] LABS: Glucose,Whole Blood 125 mg/dL (75-99)
[2019-06-03] MEDS: CYANOCOBALAMIN 500 MCG TAB PO SCH (08:25)
[2019-06-03] MEDS: ATORVASTATIN 40 MG TAB PO SCH (08:25)
[2019-06-03] MEDS: ASPIRIN 325 MG TAB PO SCH (08:25)
[2019-06-03] MEDS: CLOPIDOGREL 75 MG TAB PO SCH (08:25)
[2019-06-03] MEDS: lamoTRIgine 25 MG TAB PO SCH (08:26)
[2019-06-03] MEDS: DULoxetine HCL 30 MG CAPSULE.DR PO SCH (08:26)
[2019-06-03] MEDS: METOPROLOL TARTRATE 25 MG TAB PO SCH ×2 (08:26→22:10)
[2019-06-03] MEDS ORDERED: MAGNESIUM HYDROXIDE 2,400 MG/10 ML CUP PO PRN (09:00)
[2019-06-03] MEDS ORDERED: METOPROLOL TARTRATE 12.5 MG TAB PO SCH (09:00)
[2019-06-03] MEDS ORDERED: lamoTRIgine 25 MG TAB PO SCH (09:00)
[2019-06-03] MEDS ORDERED: BISACODYL 10 MG SUPP RECTAL PRN (09:00)
[2019-06-03] MEDS ORDERED: PANTOPRAZOLE 40 MG/10 ML VIAL IVP SCH (09:00)
[2019-06-03] MEDS ORDERED: DULoxetine HCL 30 MG CAPSULE.DR PO SCH (09:00)
[2019-06-03] MEDS: IPRATROPIUM-ALBUTEROL 3 ML NEB INHALATION SCH ×4 (09:01→19:15)
[2019-06-03 09:46] VITALS: BMI 46.4
--- NOTE | 2019-06-03 10:03 | PN ---
PROGRESS NOTE Mr. Levine is a 63-year-old male who underwent coronary artery bypass grafting and aortic valve replacement yesterday. He is extubated, sitting up in the chair, feeling well. Denying any symptoms of chest pain. Denies any dizziness or palpitation. Denies any change in his breathing. He has chest wall tenderness. He denies any palpitation. He has no significant nausea. He continues to be in sinus mechanism with no need for pressors. Hemodynamically, he has been stable. He continues to be on aspirin once a day, Lipitor 40 mg daily, Plavix 75 mg daily, metoprolol tartrate 25 mg twice a day. PHYSICAL EXAMINATION: Blood pressure 103/60 with a heart in 70s. LUNGS: Mild decrease in breath sounds at the bases, no wheezes. HEART: Regular rate and rhythm, S1, S2. No S3 with a systolic murmur at the base, no diastolic murmur. ABDOMEN: Soft, nontender. Positive bowel sounds. EXTREMITIES: CHARU wrapping in place. No significant edema. IMPRESSION: 1. Status post coronary artery bypass grafting and aortic valve replacement, stable. 2. History of hypertension. 3. History of hyperlipidemia. 4. History of diabetes mellitus. 5. History of stroke. RECOMMENDATION: From the cardiac standpoint, will continue present therapy and continue to increase his level of activity. Patient will need to be reinitiated on his chronic anticoagulation. MMODL / IJN: [id number] /
[2019-06-03 12:01] LABS: Glucose,Whole Blood 134 mg/dL (75-99)
[2019-06-03 12:01] LABS: Glucose,Whole Blood 120 mg/dL (75-99)
[2019-06-03] MEDS: LACTATED RINGERS 1,000 ML IV SCH (12:15)
[2019-06-03 12:31] LABS: Glucose,Whole Blood 135 mg/dL (75-99)
--- NOTE | 2019-06-03 13:16 | P.CNPUL ---
History of Present Illness Consult date: 06/03/19 Reason for consult: other (Status post CABG, patient is on mechanical ve ntilation.) Chief complaint: Severe aortic stenosis and coronary artery disease History of present illness: This is a 63-year-old white male with history of severe aortic stenosis, coronary artery disease, previous RI, previous stenting, known history of hypertension, dyslipidemia, type 2 diabetes, moderate restrictive lung disease, severe obstructive sleep apnea, maintained on CPAP, morbid obesity, history of factor V Leyden deficiency, history of previous stroke affecting left vision peripherally, known family history of premature coronary artery disease. Patient is postoperative day #1, he underwent aortic valve replacement and coronary artery bypass grafting 3 with LIM to LAD, reverse saphenous vein graft to first diagonal reverse saphenous vein graft to first obtuse marginal. Patient was brought back to the ICU last night, and he was on mechanical ventilation. I reviewed his chest x-ray, his ABG, and adjusted his ventilator settings. Few hours later, the patient was weaned and extubated uneventfully. I recommended that the patient is extubated to BiPAP at bedside, and this was done uneventfully. Patient is today on nasal cannula, he is doing great. Basically asymptomatic. He tolerated the extubation extremely well. Chest x- ray this morning showed cardiomegaly, mild central vascular congestion and bibasilar atelectasis. Which is expected post surgery. Patient denies any shortness of breath, no cough no wheezing, denies any significant chest pain, no nausea no vomiting no abdominal pain. He is pulling about 1000 mL on his incentive spirometer. Review of Systems Constitutional: Denies chills, Denies fever, complains of generalized weakness. Eyes: denies blurred vision, denies pain Ears, nose, mouth and throat: No known history of obstructive sleep apnea, patient is on BiPAP at home denies any sore throat, earache, or congestion. Cardiovascular: As noted in HPI. Respiratory: Denies any cough wheezing or shortness of breath. Gastrointestinal: Denies nausea vomiting abdominal pain or melena or hematemesis.. Genitourinary: Denies any dysuria frequency urgency or hematuria. Musculoskeletal: Denies any aches or pains. No limitation in range of motion. Integumentary: Denies pruritus, Denies rash Neurological: History of CVA, and persistent left sided hemianopsia. Psychiatric: Denies anxiety, Denies depression Endocrine: Denies any heat or cold intolerance. Past Medical History Past Medical History: Blood Disorder, Coronary Artery Disease (CAD), Chest Pain / Angina, Heart Failure, CVA/TIA, Diabetes Mellitus, GERD/Reflux, Hyperlipidemia, Hypertension, Myocardial Infarction (RI), Osteoarthritis (OA), Sleep Apnea/CPAP/BIPAP Additional Past Medical History / Comment(s): HX RI X 2, HX CVA'S/TIA'S - LEFT ARM & LEG WEAKNESS, FACTOR 5 BLOOD DISORDER., DIABETIC NEUROPATHY IN FEET AND LEGS., SLEEP APNEA WITH C-PAP ., BACK PAIN Last Myocardial Infarction Date:: 2014 History of Any Multi-Drug Resistant Organisms: None Reported Past Surgical History: Cholecystectomy, Heart Catheterization, Heart Catheterization With Stent, Orthopedic Surgery, Tonsillectomy Additional Past Surgical History / Comment(s): Radio Freq Proc to Back 04-01-16, R TOTAL KNEE. R KNEE ARTHROSCOPIES ., CARDIAC CATH [address] Jorge Luis Tay04/07/14 HEART CATH WITH STENT TO MID LAD. Past Anesthesia/Blood Transfusion Reactions: Previous Problems w/ Anesthesia, Postoperative Nausea & Vomiting (PONV) Additional Past Anesthesia/Blood Transfusion Reaction / Comment(s): LOOPY-(HALLUCINATED) after knee replacement, otherwise no problems Date of Last Stent Placement:: 2014 Smoking Status: Never smoker - Past Family History Sister(s) Family Medical History: Coronary Artery Disease (CAD), Diabetes Mellitus Additional Family Medical History / Comment(s): SISTER(1) HAD DM, SISTER(2) HAD CAD-CABG Father Family Medical History: Cancer Additional Family Medical History / Comment(s): FATHER OF [place] AT AGE 76 YRS. Mother Family Medical History: Cancer, Congestive Heart Failure (CHF), Myocardial Infarction (RI) Additional Family Medical History / Comment(s): MOTHER AT AGE 57 OR RI. MOM HAD PSYCHOLOLGICAL ISSUES. Medications and Allergies Home Medications Medication Instructions Recorded Confirmed Type DULoxetine HCL [Cymbalta] 30 mg PO DAILY 01/10/16 05/31/19 History Aspirin EC [Ecotrin Low Dose] 81 mg PO DAILY 06/03/16 06/02/19 History Apixaban [Eliquis] 5 mg PO BID 04/21/19 05/31/19 History Biotin 10,000 mcg PO DAILY 04/21/19 06/02/19 History Cholecalciferol [Vitamin D3 (25 50,000 unit PO Q7D 04/21/19 06/02/19 History Mcg = 1000 Iu)] Cyanocobalamin [Vitamin B-12] 500 mcg PO DAILY 04/21/19 06/02/19 History Fenofibrate Nanocrystallized 134 mg PO DAILY 04/21/19 06/02/19 History [Fenofibrate] Gabapentin [Neurontin] 800 mg PO TID 04/21/19 05/31/19 History Lisinopril [Zestril] 10 mg PO DAILY 04/21/19 06/02/19 History Pravastatin Sodium [Pravachol] 40 mg PO HS 04/21/19 06/02/19 History Tamsulosin HCl [Flomax] 0.4 mg PO DAILY 04/21/19 05/31/19 History lamoTRIgine [LaMICtal] 25 mg PO DAILY 04/21/19 05/31/19 History metFORMIN HCL [Glucophage] 1,000 mg PO BID 04/21/19 06/02/19 History risperiDONE [RisperDAL] 0.5 mg PO HS 04/21/19 06/02/19 History Phenylephrine HCl [Sudafed PE] 10 mg PO DAILY PRN 05/31/19 06/02/19 History Mupirocin 2% Oint [Bactroban 2% 1 applic NASAL BID 06/01/19 06/02/19 History Oint] Aspirin 325 mg PO DIRECTED 06/02/19 06/02/19 History Allergies Allergy/AdvReac Type Severity Reaction Status Date / Time nitroglycerin AdvReac Severe sublin Verified 05/31/19 09:38 nitro caused severe low HR and B/P adhesive AdvReac blisters Verified 05/31/19 09:38 Physical Exam Vitals: Vital Signs Temp Pulse Pulse Resp BP Pulse Ox 06/03/19 12:00 97.8 F 83 14 96 06/03/19 11:47 81 06/03/19 11:00 80 22 96 06/03/19 10:00 87 19 97 06/03/19 09:16 84 06/03/19 09:05 81 06/03/19 09:00 99.3 F 83 15 96 06/03/19 08:00 99.0 F 85 10 L 103/62 95 06/03/19 07:00 80 22 103/62 96 06/03/19 06:26 95 06/03/19 06:00 73 20 103/62 97 06/03/19 05:00 72 17 109/73 97 06/03/19 04:02 98.6 F 71 20 109/73 96 06/03/19 04:00 83 06/03/19 03:00 71 21 111/72 95 06/03/19 02:00 78 15 111/72 95 06/03/19 01:00 82 22 111/72 93 L 06/03/19 00:00 98.2 F 86 83 20 120/72 94 L 06/02/19 23:52 86 20 120/72 93 L 06/02/19 23:00 88 18 103/63 93 L 06/02/19 22:00 90 21 92 L 06/02/19 21:00 96 22 95 06/02/19 20:02 88 06/02/19 20:00 97.5 F L 87 83 14 94 L 06/02/19 19:52 89 06/02/19 19:00 36.5 F L 92 18 95 06/02/19 18:30 85 14 103/63 94 L 06/02/19 18:15 36.4 F L 90 14 95 06/02/19 18:00 89 15 97 06/02/19 17:45 85 14 97 06/02/19 17:30 82 14 96 06/02/19 17:15 84 14 96 06/02/19 17:00 82 14 97 06/02/19 16:57 83 06/02/19 16:45 82 83 8 L 142/94 95 06/02/19 16:44 83 06/02/19 16:30 84 17 98 06/02/19 16:15 78 84 12 98 06/02/19 16:00 36.1 F L 75 79 12 97 06/02/19 15:51 75 8 L 100 Intake and Output 06/02/19 06/03/19 06/03/19 22:59 06:59 14:59 Intake Total 518.983 679.491 511.607 Output Total 1700 785 970 Balance -1181.017 -105.509 -458.393 Intake: IV 300 640 484 0.9NS CO/CI 150 240 70 LR 150 400 270 Pressure Bags 144 Intake, IV Titration 218.983 39.491 27.607 Amount Clevidipine Butyrate 25 2.233 mg In Empty Bag 1 bag @ 1 MG/HR 2 mls/hr IV .Q24H SANDY Rx#:[id number] Insulin Regular 100 unit 14.443 39.491 27.607 In Sodium Chloride 0.9% 100 ml @ Per Protocol IV .Q0M SANDY Rx#:[id number] Lactated Ringers 1,000 ml 150 @ 20 mls/hr IV .Q24H SANDY Rx#:[id number] Propofol 1,000 mg In 52.307 Empty Bag 1 bag @ Titrate IV .Q0M SANDY Rx#: [id number] Output: Chest Tube Drainage 670 50 700 Chest Tube Left Pleural/ 670 50 700 Mediastinal Urine 1030 735 270 Other: Voiding Method Indwelling Catheter Indwelling Catheter Indwelling Catheter Weight 155.3 kg 155.3 kg ABP, PAP, CO, CI - Last 8 Hours Arterial Blood Pressure 117/66 Arterial Blood Pressure 95/51 Arterial Blood Pressure 131/90 Arterial Blood Pressure 127/60 Arterial Blood Pressure 109/52 Arterial Blood Pressure 94/62 Arterial Blood Pressure 106/63 Pulmonary Artery Pressure 16/5 Pulmonary Artery Pressure 14/3 Pulmonary Artery Pressure 25/10 Cardiac Output 6.4 Cardiac Output 6.2 Cardiac Output 6 Cardiac Index 2.5 Cardiac Index 2.5 Cardiac Index 2.3 Constitutional General appearance: Revealed a 63-year-old white male, very pleasant, in no distress. On few liters nasal cannula. Respiratory Symmetrical chest expansion, good breath sound bilaterally, diminished at the bases, no rhonchi and no wheezes. Mediastinal/left pleural chest tubes connected to continuous wall suction, 430 milliliters sanguinous drainage overnight, 1150 mL since surgery, no air leak present. - Cardiovascular Normal S1 and S2, no S3 gallop, 2/6 systolic murmur throughout the precordium. Gastrointestinal Obese, soft, nontender, no megaly, no rebound. - Genitourinary Torres catheter is noted in place, otherwise unremarkable. - Integumentary Skin is warm and dry with evidence of good perfusion. Chest incision is intact. Lower extremities are intact. - Neurologic Alert oriented 3, no gross focal neurologic deficits. No gross deficit - Musculoskeletal No limitation in range of motion, strength is 5/5. Bilaterally. No deformities. Psychiatric: Normal mood, affect and normal mental status examination. Results - Laboratory Findings CBC and BMP: 06/03/19 03:00 06/03/19 03:00 ABG ABG pH 7.31 (7.35-7.45) L 06/02/19 20:30 ABG pCO2 46 mmHg (35-45) H 06/02/19 20:30 ABG pO2 89 mmHg (83-108) 06/02/19 20:30 ABG O2 Saturation 96.7 % (94-97) 06/02/19 20:30 PT/INR, D-dimer PT 11.3 sec (9.0-12.0) 06/02/19 16:00 INR 1.1 (<1.2) 06/02/19 16:00 Abnormal lab findings: Abnormal Labs 05/31/19 06/02/19 06/02/19 09:35 06:32 08:35 WBC RBC Hgb Hct Plt Count Neutrophils # Lymphocytes # APTT ABG pH ABG pCO2 ABG pO2 152 H ABG Total CO2 27 H ABG O2 Saturation 99.3 H ABG Hematocrit ABG Ionized Calcium ABG Glucose 128 H ABG Lactic Acid 2.0 H Hemoglobin Chloride Glucose POC Glucose (mg/dL) 128 H Magnesium Alkaline Phosphatase Total Protein Albumin Arterial Blood Glucose 128 H Crossmatch See Detail 06/02/19 06/02/19 06/02/19 10:49 11:33 12:00 WBC RBC Hgb Hct Plt Count Neutrophils # Lymphocytes # APTT ABG pH 7.31 L 7.32 L ABG pCO2 48 H ABG pO2 186 H 320 H 115 H ABG Total CO2 25 H 25 H 25 H ABG O2 Saturation 99.7 H 99.9 H 99.1 H ABG Hematocrit 32 L 33 L ABG Ionized Calcium ABG Glucose 183 H 159 H 143 H ABG Lactic Acid 2.1 H 2.2 H* 2.6 H* Hemoglobin 10.3 L 10.6 L Chloride Glucose POC Glucose (mg/dL) Magnesium Alkaline Phosphatase Total Protein Albumin Arterial Blood Glucose 183 H 159 H 143 H Crossmatch 06/02/19 06/02/19 06/02/19 12:15 12:48 13:20 WBC RBC Hgb Hct Plt Count Neutrophils # Lymphocytes # APTT ABG pH 7.33 L 7.34 L 7.32 L ABG pCO2 ABG pO2 239 H 298 H 289 H ABG Total CO2 25 H 25 H ABG O2 Saturation 99.7 H 100.0 H 99.8 H ABG Hematocrit 33 L 31 L 31 L ABG Ionized Calcium ABG Glucose 141 H 124 H 124 H ABG Lactic Acid 2.9 H* 3.2 H* 3.7 H* Hemoglobin 10.9 L 10.2 L 10.0 L Chloride Glucose POC Glucose (mg/dL) Magnesium Alkaline Phosphatase Total Protein Albumin Arterial Blood Glucose 141 H 124 H 124 H Crossmatch 06/02/19 06/02/19 06/02/19 13:44 14:56 15:58 WBC RBC Hgb Hct Plt Count Neutrophils # Lymphocytes # APTT ABG pH 7.31 L ABG pCO2 ABG pO2 220 H 269 H ABG Total CO2 ABG O2 Saturation 99.6 H 99.8 H ABG Hematocrit 32 L ABG Ionized Calcium 5.6 H ABG Glucose 130 H 115 H ABG Lactic Acid 4.0 H* 3.0 H* Hemoglobin 10.4 L 11.8 L Chloride Glucose POC Glucose (mg/dL) 108 H Magnesium Alkaline Phosphatase Total Protein Albumin Arterial Blood Glucose 130 H 115 H Crossmatch 06/02/19 06/02/19 06/02/19 16:00 16:00 16:11 WBC 11.6 H RBC 3.77 L Hgb 11.7 L D Hct 34.8 L Plt Count 139 L Neutrophils # 9.6 H Lymphocytes # APTT 21.5 L ABG pH ABG pCO2 ABG pO2 ABG Total CO2 ABG O2 Saturation ABG Hematocrit ABG Ionized Calcium ABG Glucose ABG Lactic Acid Hemoglobin Chloride 109 H Glucose 109 H POC Glucose (mg/dL) Magnesium 3.4 H Alkaline Phosphatase 32 L Total Protein 5.2 L Albumin 3.3 L Arterial Blood Glucose Crossmatch 06/02/19 06/02/19 06/02/19 16:14 17:16 18:07 WBC RBC Hgb Hct Plt Count Neutrophils # Lymphocytes # APTT ABG pH 7.33 L ABG pCO2 47 H ABG pO2 263 H ABG Total CO2 26 H ABG O2 Saturation 99.7 H ABG Hematocrit ABG Ionized Calcium ABG Glucose ABG Lactic Acid Hemoglobin Chloride Glucose POC Glucose (mg/dL) 108 H 156 H Magnesium Alkaline Phosphatase Total Protein Albumin Arterial Blood Glucose Crossmatch 06/02/19 06/02/19 06/02/19 19:06 20:10 20:30 WBC RBC Hgb Hct Plt Count Neutrophils # Lymphocytes # APTT ABG pH 7.31 L ABG pCO2 46 H ABG pO2 ABG Total CO2 25 H ABG O2 Saturation ABG Hematocrit ABG Ionized Calcium ABG Glucose ABG Lactic Acid Hemoglobin Chloride Glucose POC Glucose (mg/dL) 175 H 183 H Magnesium Alkaline Phosphatase Total Protein Albumin Arterial Blood Glucose Crossmatch 06/02/19 06/02/19 06/02/19 21:05 21:58 23:43 WBC 12.9 H RBC 4.03 L Hgb 12.6 L Hct 37.5 L Plt Count 149 L Neutrophils # 11.4 H Lymphocytes # 0.8 L APTT ABG pH ABG pCO2 ABG pO2 ABG Total CO2 ABG O2 Saturation ABG Hematocrit ABG Ionized Calcium ABG Glucose ABG Lactic Acid Hemoglobin Chloride Glucose POC Glucose (mg/dL) 180 H 155 H Magnesium Alkaline Phosphatase Total Protein Albumin Arterial Blood Glucose Crossmatch 06/03/19 06/03/19 06/03/19 00:59 02:09 03:00 WBC 11.7 H RBC 3.66 L Hgb 11.5 L Hct 33.9 L Plt Count Neutrophils # 9.8 H Lymphocytes # APTT ABG pH ABG pCO2 ABG pO2 ABG Total CO2 ABG O2 Saturation ABG Hematocrit ABG Ionized Calcium ABG Glucose ABG Lactic Acid Hemoglobin Chloride Glucose POC Glucose (mg/dL) 159 H 141 H Magnesium Alkaline Phosphatase Total Protein Albumin Arterial Blood Glucose Crossmatch 06/03/19 06/03/19 06/03/19 03:00 03:16 05:00 WBC RBC Hgb Hct Plt Count Neutrophils # Lymphocytes # APTT ABG pH ABG pCO2 ABG pO2 ABG Total CO2 ABG O2 Saturation ABG Hematocrit ABG Ionized Calcium ABG Glucose ABG Lactic Acid Hemoglobin Chloride Glucose 144 H POC Glucose (mg/dL) 139 H 143 H Magnesium 2.5 H Alkaline Phosphatase 33 L Total Protein 5.4 L Albumin 3.4 L Arterial Blood Glucose Crossmatch 06/03/19 06/03/19 06/03/19 05:40 07:03 08:07 WBC RBC Hgb Hct Plt Count Neutrophils # Lymphocytes # APTT ABG pH ABG pCO2 ABG pO2 ABG Total CO2 ABG O2 Saturation ABG Hematocrit ABG Ionized Calcium ABG Glucose ABG Lactic Acid Hemoglobin Chloride Glucose POC Glucose (mg/dL) 131 H 129 H 125 H Magnesium Alkaline Phosphatase Total Protein Albumin Arterial Blood Glucose Crossmatch 06/03/19 06/03/19 06/03/19 09:19 10:09 12:02 WBC RBC Hgb Hct Plt Count Neutrophils # Lymphocytes # APTT ABG pH ABG pCO2 ABG pO2 ABG Total CO2 ABG O2 Saturation ABG Hematocrit ABG Ionized Calcium ABG Glucose ABG Lactic Acid Hemoglobin Chloride Glucose POC Glucose (mg/dL) 120 H 134 H 135 H Magnesium Alkaline Phosphatase Total Protein Albumin Arterial Blood Glucose Crossmatch - Diagnostic Findings Chest x-ray: image reviewed (As noted in HPI.) Assessment and Plan Assessment: Impression: 1 severe aortic stenosis and status post aortic valve replacement 2 triple-vessel coronary artery disease, status post CABG 3 morbid obesity 4 type 2 diabetes 5 history of hypercoagulable state and factor V Leyden deficiency. 6 obstructive sleep apnea syndrome 7 remote history of narcotic dependence 8 previous CVA with residual left-sided hemianopsia 9 history of depression 10 restrictive lung disease secondary to obesity. Recommendation: Continue beta blockers Plavix statin and aspirin Continue to wean O2 as tolerated and titrate according to O2 saturation. Use BiPAP if necessary and specially at bedtime when the patient sleeps Increase activity and increase incentive spirometry Continue bronchodilators. Continue insulin as per protocol. Pain control. GI and DVT prophylaxis. Discontinue unnecessary lines and catheters as soon as possible. Continue to monitor daily x-rays of the chest and monitor chest tubes output. We'll continue to follow. Time with Patient: Greater than 30
[2019-06-03 13:21] LABS: Glucose,Whole Blood 199 mg/dL (75-99)
[2019-06-03 14:27] LABS: Glucose,Whole Blood 193 mg/dL (75-99)
[2019-06-03] MEDS: INSULIN REGULAR 100 UNIT in SODIUM CHLORIDE 0.9% 100 ML IV SCH (14:32)
[2019-06-03] MEDS: ACETAMINOPHEN TAB 500 MG TAB PO PRN ×2 (15:21→22:05)
--- NOTE | 2019-06-03 16:11 | P.PN ---
Subjective Progress Note Date: 06/03/19 (delayed charting patient seen at 10am) Principal diagnosis: Coronary artery disease Patient is a 63-year-old male past medical history of diabetes mellitus type 2 well controlled with a preop hemoglobin A1c is 6.7 on oral medications, coronary artery disease, hypertension, and dyslipidemia who presented scheduled for coronary bypass surgery and aortic valve replacement. On 06/02 he underwent coronary artery bypass grafting 3 along with aortic valve replacement with a bovine valve. He was subsequently admitted to the ICU. He initially was on mechanical ventilation but was able to be successfully extubated several hours later. He is currently maintained on an insulin drip for sugar control. Patient seen and examined at bedside with present. He states that his pain is well controlled, worse with movement but better when he is resting. Still slightly tight tried taking deep breath. No significant cough. No nausea or vomiting. Still with decreased appetite. Has not been passing flatus and no bowel movement after surgery. He reports that he has had diabetes mellitus for 26 years. He is well controlled on metformin and has not taking any insulin. His last A1c was 6.7 the one before that 6 and the one before that 7. He states that he follows his diet very closely and does not use any added sugars. He follows with Kellen Greene for primary care practitioner. Objective - Vital Signs Vital signs: Vital Signs Temp 97.8 F 06/03/19 12:00 Pulse 88 06/03/19 15:44 Resp 14 06/03/19 15:00 BP 103/62 06/03/19 08:00 Pulse Ox 95 06/03/19 15:00 Intake & Output 06/02/19 06/03/19 06/03/19 18:59 06:59 18:59 Intake Total 247.540 983.934 623.066 Output Total 3130 1555 1088 Balance -2882.460 -571.066 -464.934 Weight 155.3 kg 155.3 kg Intake: IV 93 880 576 0.9NS CO/CI 60 330 70 LR 550 350 Pressure Bags 156 Intake, IV Titration 154.540 103.934 47.066 Amount Clevidipine Butyrate 25 2.233 mg In Empty Bag 1 bag @ 1 MG/HR 2 mls/hr IV .Q24H [facility] Rx#:[id number] Insulin Regular 100 unit 53.934 47.066 In Sodium Chloride 0.9% 100 ml @ Per Protocol IV .Q0M [facility] Rx#:[id number] Lactated Ringers 1,000 ml 100 50 @ 20 mls/hr IV .Q24H [facility] Rx#:[id number] Propofol 1,000 mg In 52.307 Empty Bag 1 bag @ Titrate IV .Q0M [facility] Rx#: [id number] Output: Chest Tube Drainage 375 345 760 Chest Tube Left Pleural/ 375 345 760 Mediastinal Urine 955 1210 328 Estimated Blood Loss 1800 Other: Voiding Method Indwelling Catheter Indwelling Catheter ABP, PAP, CO, CI - Last Documented Arterial Blood Pressure 105/50 Pulmonary Artery Pressure 16/5 Cardiac Output 6.4 Cardiac Index 2.5 - Exam General: non toxic, no distress, appears at stated age, obese Derm: warm, dry Head: atraumatic, normocephalic, symmetric Eyes: EOMI, no lid lag, anicteric sclera Mouth: no lip lesion, mucus membranes moist Cardiovascular: S1S2 regular, no murmur, positive posterior tibial pulse bilateral, Lungs: Decreased breath sounds bilateral, no rhonchi, no rales , no accessory muscle use, mediastinal and pleural chest tubes in place, Right IJ cordis in place Abdominal: soft, nontender to palpation, no guarding, no appreciable organomegaly Ext: no gross muscle atrophy, no edema, no contractures Neuro: CN II-XI grossly intact, no focal neuro deficits Psych: Alert, oriented, appropriate affect, pleasant - Labs CBC & Chem 7: 06/03/19 03:00 06/03/19 03:00 Labs: Abnormal Lab Results - Last 24 Hours (Table) 05/31/19 06/02/19 06/02/19 Range/Units 09:35 15:58 16:00 WBC 11.6 H (3.8-10.6) k/uL RBC 3.77 L (4.30-5.90) m/uL Hgb 11.7 L D (13.0-17.5) gm/dL Hct 34.8 L (39.0-53.0) % Plt Count 139 L (150-450) k/uL Neutrophils # 9.6 H (1.3-7.7) k/uL Lymphocytes # (1.0-4.8) k/uL APTT (22.0-30.0) sec ABG pH (7.35-7.45) ABG pCO2 (35-45) mmHg ABG pO2 (83-108) mmHg ABG Total CO2 (19-24) mmol/L ABG O2 Saturation (94-97) % Chloride (98-107) mmol/L Glucose (74-99) mg/dL POC Glucose (mg/dL) 108 H (75-99) mg/dL Magnesium (1.6-2.3) mg/dL Alkaline Phosphatase (38-126) U/L Total Protein (6.3-8.2) g/dL Albumin (3.5-5.0) g/dL Crossmatch See Detail 06/02/19 06/02/19 06/02/19 Range/Units 16:00 16:11 16:14 WBC (3.8-10.6) k/uL RBC (4.30-5.90) m/uL Hgb (13.0-17.5) gm/dL Hct (39.0-53.0) % Plt Count (150-450) k/uL Neutrophils # (1.3-7.7) k/uL Lymphocytes # (1.0-4.8) k/uL APTT 21.5 L (22.0-30.0) sec ABG pH 7.33 L (7.35-7.45) ABG pCO2 47 H (35-45) mmHg ABG pO2 263 H (83-108) mmHg ABG Total CO2 26 H (19-24) mmol/L ABG O2 Saturation 99.7 H (94-97) % Chloride 109 H (98-107) mmol/L Glucose 109 H (74-99) mg/dL POC Glucose (mg/dL) (75-99) mg/dL Magnesium 3.4 H (1.6-2.3) mg/dL Alkaline Phosphatase 32 L (38-126) U/L Total Protein 5.2 L (6.3-8.2) g/dL Albumin 3.3 L (3.5-5.0) g/dL Crossmatch 06/02/19 06/02/19 06/02/19 Range/Units 17:16 18:07 19:06 WBC (3.8-10.6) k/uL RBC (4.30-5.90) m/uL Hgb (13.0-17.5) gm/dL Hct (39.0-53.0) % Plt Count (150-450) k/uL Neutrophils # (1.3-7.7) k/uL Lymphocytes # (1.0-4.8) k/uL APTT (22.0-30.0) sec ABG pH (7.35-7.45) ABG pCO2 (35-45) mmHg ABG pO2 (83-108) mmHg ABG Total CO2 (19-24) mmol/L ABG O2 Saturation (94-97) % Chloride (98-107) mmol/L Glucose (74-99) mg/dL POC Glucose (mg/dL) 108 H 156 H 175 H (75-99) mg/dL Magnesium (1.6-2.3) mg/dL Alkaline Phosphatase (38-126) U/L Total Protein (6.3-8.2) g/dL Albumin (3.5-5.0) g/dL Crossmatch 06/02/19 06/02/19 06/02/19 Range/Units 20:10 20:30 21:05 WBC 12.9 H (3.8-10.6) k/uL RBC 4.03 L (4.30-5.90) m/uL Hgb 12.6 L (13.0-17.5) gm/dL Hct 37.5 L (39.0-53.0) % Plt Count 149 L (150-450) k/uL Neutrophils # 11.4 H (1.3-7.7) k/uL Lymphocytes # 0.8 L (1.0-4.8) k/uL APTT (22.0-30.0) sec ABG pH 7.31 L (7.35-7.45) ABG pCO2 46 H (35-45) mmHg ABG pO2 (83-108) mmHg ABG Total CO2 25 H (19-24) mmol/L ABG O2 Saturation (94-97) % Chloride (98-107) mmol/L Glucose (74-99) mg/dL POC Glucose (mg/dL) 183 H (75-99) mg/dL Magnesium (1.6-2.3) mg/dL Alkaline Phosphatase (38-126) U/L Total Protein (6.3-8.2) g/dL Albumin (3.5-5.0) g/dL Crossmatch 06/02/19 06/02/19 06/03/19 Range/Units 21:58 23:43 00:59 WBC (3.8-10.6) k/uL RBC (4.30-5.90) m/uL Hgb (13.0-17.5) gm/dL Hct (39.0-53.0) % Plt Count (150-450) k/uL Neutrophils # (1.3-7.7) k/uL Lymphocytes # (1.0-4.8) k/uL APTT (22.0-30.0) sec ABG pH (7.35-7.45) ABG pCO2 (35-45) mmHg ABG pO2 (83-108) mmHg ABG Total CO2 (19-24) mmol/L ABG O2 Saturation (94-97) % Chloride (98-107) mmol/L Glucose (74-99) mg/dL POC Glucose (mg/dL) 180 H 155 H 159 H (75-99) mg/dL Magnesium (1.6-2.3) mg/dL Alkaline Phosphatase (38-126) U/L Total Protein (6.3-8.2) g/dL Albumin (3.5-5.0) g/dL Crossmatch 06/03/19 06/03/19 06/03/19 Range/Units 02:09 03:00 03:00 WBC 11.7 H (3.8-10.6) k/uL RBC 3.66 L (4.30-5.90) m/uL Hgb 11.5 L (13.0-17.5) gm/dL Hct 33.9 L (39.0-53.0) % Plt Count (150-450) k/uL Neutrophils # 9.8 H (1.3-7.7) k/uL Lymphocytes # (1.0-4.8) k/uL APTT (22.0-30.0) sec ABG pH (7.35-7.45) ABG pCO2 (35-45) mmHg ABG pO2 (83-108) mmHg ABG Total CO2 (19-24) mmol/L ABG O2 Saturation (94-97) % Chloride (98-107) mmol/L Glucose 144 H (74-99) mg/dL POC Glucose (mg/dL) 141 H (75-99) mg/dL Magnesium 2.5 H (1.6-2.3) mg/dL Alkaline Phosphatase 33 L (38-126) U/L Total Protein 5.4 L (6.3-8.2) g/dL Albumin 3.4 L (3.5-5.0) g/dL Crossmatch 06/03/19 06/03/19 06/03/19 Range/Units 03:16 05:00 05:40 WBC (3.8-10.6) k/uL RBC (4.30-5.90) m/uL Hgb (13.0-17.5) gm/dL Hct (39.0-53.0) % Plt Count (150-450) k/uL Neutrophils # (1.3-7.7) k/uL Lymphocytes # (1.0-4.8) k/uL APTT (22.0-30.0) sec ABG pH (7.35-7.45) ABG pCO2 (35-45) mmHg ABG pO2 (83-108) mmHg ABG Total CO2 (19-24) mmol/L ABG O2 Saturation (94-97) % Chloride (98-107) mmol/L Glucose (74-99) mg/dL POC Glucose (mg/dL) 139 H 143 H 131 H (75-99) mg/dL Magnesium (1.6-2.3) mg/dL Alkaline Phosphatase (38-126) U/L Total Protein (6.3-8.2) g/dL Albumin (3.5-5.0) g/dL Crossmatch 06/03/19 06/03/19 06/03/19 Range/Units 07:03 08:07 09:19 WBC (3.8-10.6) k/uL RBC (4.30-5.90) m/uL Hgb (13.0-17.5) gm/dL Hct (39.0-53.0) % Plt Count (150-450) k/uL Neutrophils # (1.3-7.7) k/uL Lymphocytes # (1.0-4.8) k/uL APTT (22.0-30.0) sec ABG pH (7.35-7.45) ABG pCO2 (35-45) mmHg ABG pO2 (83-108) mmHg ABG Total CO2 (19-24) mmol/L ABG O2 Saturation (94-97) % Chloride (98-107) mmol/L Glucose (74-99) mg/dL POC Glucose (mg/dL) 129 H 125 H 120 H (75-99) mg/dL Magnesium (1.6-2.3) mg/dL Alkaline Phosphatase (38-126) U/L Total Protein (6.3-8.2) g/dL Albumin (3.5-5.0) g/dL Crossmatch 06/03/19 06/03/19 06/03/19 Range/Units 10:09 12:02 13:08 WBC (3.8-10.6) k/uL RBC (4.30-5.90) m/uL Hgb (13.0-17.5) gm/dL Hct (39.0-53.0) % Plt Count (150-450) k/uL Neutrophils # (1.3-7.7) k/uL Lymphocytes # (1.0-4.8) k/uL APTT (22.0-30.0) sec ABG pH (7.35-7.45) ABG pCO2 (35-45) mmHg ABG pO2 (83-108) mmHg ABG Total CO2 (19-24) mmol/L ABG O2 Saturation (94-97) % Chloride (98-107) mmol/L Glucose (74-99) mg/dL POC Glucose (mg/dL) 134 H 135 H 199 H (75-99) mg/dL Magnesium (1.6-2.3) mg/dL Alkaline Phosphatase (38-126) U/L Total Protein (6.3-8.2) g/dL Albumin (3.5-5.0) g/dL Crossmatch 06/03/19 Range/Units 14:14 WBC (3.8-10.6) k/uL RBC (4.30-5.90) m/uL Hgb (13.0-17.5) gm/dL Hct (39.0-53.0) % Plt Count (150-450) k/uL Neutrophils # (1.3-7.7) k/uL Lymphocytes # (1.0-4.8) k/uL APTT (22.0-30.0) sec ABG pH (7.35-7.45) ABG pCO2 (35-45) mmHg ABG pO2 (83-108) mmHg ABG Total CO2 (19-24) mmol/L ABG O2 Saturation (94-97) % Chloride (98-107) mmol/L Glucose (74-99) mg/dL POC Glucose (mg/dL) 193 H (75-99) mg/dL Magnesium (1.6-2.3) mg/dL Alkaline Phosphatase (38-126) U/L Total Protein (6.3-8.2) g/dL Albumin (3.5-5.0) g/dL Crossmatch Assessment and Plan Assessment: Patient is a 63-year-old male status post triple vessel bypass surgery with a aortic valve replacement. Diabetes mellitus type 2 with neuropathy -Typically uses metformin -Hemoglobin A1c 6.7 preoperative -Continue with IV insulin. Plan transitioned off this evening or early tomorrow morning once I have stabilized. 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 Do not hesitate to contact us with questions. Someone can be reached from the [facility] hospitalist group all hours of the day at [phone] or via perfect serve.
[2019-06-03 16:25] LABS: Glucose,Whole Blood 142 mg/dL (75-99)
[2019-06-03 17:27] LABS: Glucose,Whole Blood 139 mg/dL (75-99)
[2019-06-03] MEDS: TAMSULOSIN 0.4 MG CAP.ER.24H PO SCH (18:11)
[2019-06-03 18:20] LABS: Glucose,Whole Blood 123 mg/dL (75-99)
[2019-06-03 20:07] LABS: Glucose,Whole Blood 183 mg/dL (75-99)
[2019-06-03] MEDS ORDERED: INSULIN DETEMIR (LEVEMIR) 100 UNIT/ML SYR SQ SCH ×2 (21:00)
[2019-06-03 21:08] LABS: Glucose,Whole Blood 231 mg/dL (75-99)
[2019-06-03] MEDS: SENNOSIDES-DOCUSATE SODIUM 1 EACH TAB PO SCH (22:10)
[2019-06-03] MEDS: INSULIN ASPART (NovoLOG) 100 UNIT/ML VIAL SQ SCH (22:22)
[2019-06-03 22:40] LABS: Glucose,Whole Blood 225 mg/dL (75-99)
[2019-06-04] MEDS: HEPARIN SODIUM,PORCINE 5,000 UNIT/ML 1 ML VIAL SQ SCH ×3 (01:19→16:32)
[2019-06-04] MEDS: KETOROLAC 30 MG/ML 1 ML VIAL IVP SCH ×4 (01:20→17:47)
[2019-06-04] MEDS: INSULIN ASPART (NovoLOG) 100 UNIT/ML VIAL SQ SCH ×6 (02:05→22:11)
[2019-06-04 02:12] LABS: Glucose,Whole Blood 201 mg/dL (75-99)
[2019-06-04 05:26] LABS: Ionized Calcium 4.9 mg/dL (4.5-5.3)
[2019-06-04 05:34] LABS: Basophils % (A) 0 %; Eosinophils # (A) 0.2 k/uL (0-0.7); Eosinophils % (A) 2 %; HCT 29.3 % (39.0-53.0); Lymphocytes % (A) 19 %; MCH 31.6 pg (25.0-35.0); MCV 93.1 fL (80.0-100.0); Mean Platelet Volume 8.5; Monocytes # (A) 0.6 k/uL (0-1.0); Monocytes % (A) 6 %; Neutrophils # (A) 7.8 k/uL (1.3-7.7); Neutrophils % (A) 73 %; Platelet Count 121 k/uL (150-450); RBC 3.14 m/uL (4.30-5.90); RDW 13.8 % (11.5-15.5); WBC 10.7 k/uL (3.8-10.6)
[2019-06-04 05:38] LABS: ALT 33 U/L (21-72); AST 44 U/L (17-59); African American GFR (CKD) >90 (>60 ml/min/1.73 sqM); Alkaline Phosphatase 30 U/L (38-126); Anion Gap 5 mmol/L; Blood Urea Nitrogen 21 mg/dL (9-20); Calcium 8.6 mg/dL (8.4-10.2); Carbon Dioxide 25 mmol/L (22-30); Chloride 103 mmol/L (98-107); Glucose 171 mg/dL (74-99); Non-African American GFR(CKD) 83 (>60 ml/min/1.73 sqM); Potassium 4.2 mmol/L (3.5-5.1); Sodium 133 mmol/L (137-145); Total Bilirubin 0.5 mg/dL (0.2-1.3)
[2019-06-04 05:39] LABS: HGB 9.9 gm/dL (13.0-17.5)
--- NOTE | 2019-06-04 06:30 | XR ---
EXAMINATION TYPE: XR chest 1V portable DATE OF EXAM: 06/04/2019 HISTORY: Post Operative Cardiac Surgery. REFERENCE: Previous study dated 06/03/2019. FINDINGS: There has been previous midline sternotomy. A left pleural drain remains in place. The heart is enlarged. There is left basilar airspace disease either representing atelectasis or pneu monia. The patient right internal jugular catheter is been removed. The right lung is relatively millie r. IMPRESSION: 1. CARDIOMEGALY. 2. LEFT BASILAR AIRSPACE DISEASE. 3. I CANNOT EXCLUDE A SMALL LEFT EFFUSION.
[2019-06-04 07:03] LABS: Glucose,Whole Blood 158 mg/dL (75-99)
[2019-06-04] MEDS: PANTOPRAZOLE 40 MG TABLET PO SCH (07:14)
[2019-06-04] MEDS: IPRATROPIUM-ALBUTEROL 3 ML NEB INHALATION SCH ×4 (07:17→21:36)
[2019-06-04] MEDS ORDERED: INSULIN ASPART (NovoLOG) 100 UNIT/ML VIAL SQ SCH (07:30)
--- NOTE | 2019-06-04 08:27 | P.PN ---
Subjective Progress Note Date: 06/04/19 Principal diagnosis: Severe aortic valve stenosis, coronary artery disease. 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 POD #2 Aortic valve replacement with 25 mm Inspiris bovine pericardial valve, coronary artery bypass grafting 3 with left internal mammary artery to the left anterior descending artery, reverse saphenous vein graft to the first diagonal artery, reverse saphenous vein graft to the first obtuse marginal artery, endovascular vein harvest, epi-aortic ultrasonography, ligation of the left atrial appendage with 35mm AtriClip. The patient is currently sitting up in the recliner in the intensive care unit in no acute distress. He states he has some post surgical pain with deep inspiration, but it is controlled on current medication regimen. Denies shortness of breath. Currently in normal sinus rhythm, remains hemodynamically stable on no inotropes or pressors. Cordis, arterial line, mediastinal and left pleural chest tubes present. patient ambulated in the hallway yesterday with assist. He is actively using his incentive spirometer. States he got good sleep last night, used home CPAP. No new concerns. Objective - Vital Signs Vital signs: Vital Signs Temp 97.9 F 06/04/19 04:00 Pulse 78 06/04/19 07:30 Resp 14 06/04/19 07:00 BP 103/62 06/03/19 08:00 Pulse Ox 97 06/04/19 07:00 Intake & Output 06/03/19 06/04/19 06/04/19 18:59 06:59 18:59 Intake Total 831.432 516 43 Output Total 1353 640 35 Balance -521.568 -124 8 Weight 155.3 kg 155.8 kg Intake: IV 760 516 43 0.9NS CO/CI 70 LR 510 480 40 Pressure Bags 180 36 3 Intake, IV Titration 71.432 Amount Insulin Regular 100 unit 71.432 In Sodium Chloride 0.9% 100 ml @ Per Protocol IV .Q0M [facility] Rx#:[id number] Output: Chest Tube Drainage 820 Chest Tube Left Pleural/ 820 Mediastinal Urine 533 640 35 Other: Voiding Method Indwelling Catheter Indwelling Catheter ABP, PAP, CO, CI - Last Documented Arterial Blood Pressure 107/52 Pulmonary Artery Pressure 16/5 Cardiac Output 6.4 Cardiac Index 2.5 - Constitutional General appearance: Present: cooperative, morbidly obese, no acute distress - Respiratory Details: Lungs sounds clear but diminished bilaterally. Respirations even, nonlabored. Currently on 2 L nasal cannula with oxygen saturation 93%. Able to achieve 1500 mL on his incentive spirometry. Strong cough. Mediastinal/left pleural chest tubes connected to continuous wall suction, 160 milliliters serosanguineous drainage overnight, 600 mL in the last 24 hours, no air leak present. - Cardiovascular Details: S1, S2 present. Regular rate and rhythm, sinus rhythm on telemetry. Sternum stable. A/V epicardial pacemaker wires present, grounded. Palpable peripheral pulses bilaterally. Generalized edema present. No calf pain or tenderness noted. Right internal jugular Cordis, left radial arterial line present. Heart hugger in place with patient demonstrating appropriate use. Antiembolism stockings, SCDs present. - Gastrointestinal Gastrointestinal Comment(s): Abdomen soft, nontender, nondistended, obese. Active bowel sounds present 4 quadrants. Tolerating diet. Positive flatus, negative bowel movement. - Genitourinary Genitourinary Comment(s): Torres present draining clear, yellow urine. Output 35-75 mL per hour overnight, 1173 mL in the last 24 hours. - Integumentary Integumentary Comment(s): Skin is warm and dry with evidence of good perfusion. Anterior chest incision well approximated and covered dry intact dressing. Left lower extremity EVH site well approximated. - Neurologic Neurologic: Present: CNII-XII intact - Musculoskeletal Musculoskeletal: Present: gait normal, strength equal bilaterally - Psychiatric Psychiatric: Present: A&O x's 3, appropriate affect, intact judgment & insight - Allied health notes Allied health notes reviewed: nursing - Labs CBC & Chem 7: 06/04/19 05:00 06/04/19 05:00 Labs: Abnormal Lab Results - Last 24 Hours (Table) 06/03/19 06/03/19 06/03/19 Range/Units 08:07 09:19 10:09 WBC (3.8-10.6) k/uL RBC (4.30-5.90) m/uL Hgb (13.0-17.5) gm/dL Hct (39.0-53.0) % Plt Count (150-450) k/uL Neutrophils # (1.3-7.7) k/uL Sodium (137-145) mmol/L BUN (9-20) mg/dL Glucose (74-99) mg/dL POC Glucose (mg/dL) 125 H 120 H 134 H (75-99) mg/dL Alkaline Phosphatase (38-126) U/L Total Protein (6.3-8.2) g/dL Albumin (3.5-5.0) g/dL 06/03/19 06/03/19 06/03/19 Range/Units 12:02 13:08 14:14 WBC (3.8-10.6) k/uL RBC (4.30-5.90) m/uL Hgb (13.0-17.5) gm/dL Hct (39.0-53.0) % Plt Count (150-450) k/uL Neutrophils # (1.3-7.7) k/uL Sodium (137-145) mmol/L BUN (9-20) mg/dL Glucose (74-99) mg/dL POC Glucose (mg/dL) 135 H 199 H 193 H (75-99) mg/dL Alkaline Phosphatase (38-126) U/L Total Protein (6.3-8.2) g/dL Albumin (3.5-5.0) g/dL 06/03/19 06/03/19 06/03/19 Range/Units 16:13 17:16 18:08 WBC (3.8-10.6) k/uL RBC (4.30-5.90) m/uL Hgb (13.0-17.5) gm/dL Hct (39.0-53.0) % Plt Count (150-450) k/uL Neutrophils # (1.3-7.7) k/uL Sodium (137-145) mmol/L BUN (9-20) mg/dL Glucose (74-99) mg/dL POC Glucose (mg/dL) 142 H 139 H 123 H (75-99) mg/dL Alkaline Phosphatase (38-126) U/L Total Protein (6.3-8.2) g/dL Albumin (3.5-5.0) g/dL 06/03/19 06/03/19 06/03/19 Range/Units 19:38 20:57 22:18 WBC (3.8-10.6) k/uL RBC (4.30-5.90) m/uL Hgb (13.0-17.5) gm/dL Hct (39.0-53.0) % Plt Count (150-450) k/uL Neutrophils # (1.3-7.7) k/uL Sodium (137-145) mmol/L BUN (9-20) mg/dL Glucose (74-99) mg/dL POC Glucose (mg/dL) 183 H 231 H 225 H (75-99) mg/dL Alkaline Phosphatase (38-126) U/L Total Protein (6.3-8.2) g/dL Albumin (3.5-5.0) g/dL 06/04/19 06/04/19 06/04/19 Range/Units 02:00 05:00 05:00 WBC 10.7 H (3.8-10.6) k/uL RBC 3.14 L (4.30-5.90) m/uL Hgb 9.9 L D (13.0-17.5) gm/dL Hct 29.3 L (39.0-53.0) % Plt Count 121 L (150-450) k/uL Neutrophils # 7.8 H (1.3-7.7) k/uL Sodium 133 L (137-145) mmol/L BUN 21 H (9-20) mg/dL Glucose 171 H (74-99) mg/dL POC Glucose (mg/dL) 201 H (75-99) mg/dL Alkaline Phosphatase 30 L (38-126) U/L Total Protein 5.0 L (6.3-8.2) g/dL Albumin 3.0 L (3.5-5.0) g/dL 06/04/19 Range/Units 06:52 WBC (3.8-10.6) k/uL RBC (4.30-5.90) m/uL Hgb (13.0-17.5) gm/dL Hct (39.0-53.0) % Plt Count (150-450) k/uL Neutrophils # (1.3-7.7) k/uL Sodium (137-145) mmol/L BUN (9-20) mg/dL Glucose (74-99) mg/dL POC Glucose (mg/dL) 158 H (75-99) mg/dL Alkaline Phosphatase (38-126) U/L Total Protein (6.3-8.2) g/dL Albumin (3.5-5.0) g/dL - Imaging and Cardiology Chest x-ray: report reviewed, image reviewed Assessment and Plan Assessment: 1. Severe aortic stenosis, status post aortic valve replacement 2. Coronary artery disease, status post three-vessel CABG 3. History of coronary artery disease with previous myocardial infarction and s tenting 4. Hypertension 5. Hyperlipidemia 6. Type 2 diabetes with neuropathy, preoperative hemoglobin A1c 6.7% 7. Moderate restrictive lung disease with preoperative FEV1 54% of predicted 8. Obstructive sleep apnea with home CPAP use 9. Morbid obesity 10. Remote history of pneumonia 11. Depression 12. Factor 5 Leiden deficiency on Eliquis for anticoagulation 13. BPH 14. Remote narcotic dependence 15. 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 Family history of premature coronary artery disease Plan: 1. Continue aspirin, statin, Plavix, beta cornelio. Will increase beta cornelio therapy as tolerated. 2. Wean O2 as tolerated. Bronchodilators per pulmonology. Encourage incentive spirometry use 10 times every hour while awake 3. Increase activity, ambulate as tolerated. PT/OT/cardiac rehab following 4. Will monitor daily labs and x-rays. Elective replacement per protocol 5. Pain control with current medication regimen 6. Insulin management per primary care service 7. GI/DVT prophylaxis 8. Will give 20 mg IV Lasix today. Discontinue Torres catheter after diuresis. Bladder scan every 6 hours as needed, straight cath for greater than 300 milliliters residual 9. Will restart anticoagulation once invasive lines have been removed, likely tomorrow 10. Will split chest tubes and discontinue mediastinal chest tube. Will leave left pleural chest tube for another 24 hours 11. Will discontinue Cordis/arterial line tomorrow 12. Discharge planning in progress. Anticipate home with home care in 48-72 hours. 13. More recommendations to follow based on patient's progress Time with Patient: Greater than 30
[2019-06-04] MEDS ORDERED: FUROSEMIDE 10 MG/ML 2 ML VIAL IV ONE (09:11)
[2019-06-04] MEDS ORDERED: LORazepam 0.5 MG TAB PO PRN (09:43)
[2019-06-04] MEDS: ASPIRIN 325 MG TAB PO SCH (10:00)
[2019-06-04] MEDS: ATORVASTATIN 40 MG TAB PO SCH (10:00)
[2019-06-04] MEDS: CLOPIDOGREL 75 MG TAB PO SCH (10:01)
[2019-06-04] MEDS: GABAPENTIN 400 MG CAP PO SCH ×3 (10:01→22:15)
[2019-06-04] MEDS: DULoxetine HCL 30 MG CAPSULE.DR PO SCH (10:01)
[2019-06-04] MEDS: CYANOCOBALAMIN 500 MCG TAB PO SCH (10:01)
--- NOTE | 2019-06-04 10:01 | P.PN ---
Subjective Progress Note Date: 06/04/19 Principal diagnosis: Coronary artery disease Patient is a 63-year-old male past medical history of diabetes mellitus type 2 well controlled with a preop hemoglobin A1c is 6.7 on oral medications, coronary artery disease, hypertension, and dyslipidemia who presented scheduled for coronary bypass surgery and aortic valve replacement. On 06/02 he underwent coronary artery bypass grafting 3 along with aortic valve replacement with a bovine valve. He was subsequently admitted to the ICU. He initially was on mechanical ventilation but was able to be successfully extu bated several hours later. Insulin gtt for 24 hours, now on fixed dose with long acting and SSI. Seen and examined at bedside. Reports that he ate a lot for dinner. No bowel movements that they have some passing flatus. Blood sugars overnight reviewed and peaked at 252. Told patient that he can continue to eat but we'll just adjust his insulin accordingly. Hopeful plan is to discharge on metformin alone however if he has continued elevated blood sugars postoperatively we may need to add an additional medication and for a short burst of time. Pain is controlled, no shortness of breath Objective - Vital Signs Vital signs: Vital Signs Temp 97.9 F 06/04/19 04:00 Pulse 78 06/04/19 07:30 Resp 14 06/04/19 07:00 BP 103/62 06/03/19 08:00 Pulse Ox 97 06/04/19 07:00 Intake & Output 06/03/19 06/04/19 06/04/19 18:59 06:59 18:59 Intake Total 831.432 516 43 Output Total 1353 640 185 Balance -521.568 -124 -142 Weight 155.3 kg 155.8 kg Intake: IV 760 516 43 0.9NS CO/CI 70 LR 510 480 40 Pressure Bags 180 36 3 Intake, IV Titration 71.432 Amount Insulin Regular 100 unit 71.432 In Sodium Chloride 0.9% 100 ml @ Per Protocol IV .Q0M [facility] Rx#:[id number] Output: Chest Tube Drainage 820 150 Chest Tube Left Pleural/ 820 150 Mediastinal Urine 533 640 35 Other: Voiding Method Indwelling Catheter Indwelling Catheter ABP, PAP, CO, CI - Last Documented Arterial Blood Pressure 107/52 Pulmonary Artery Pressure 16/5 Cardiac Output 6.4 Cardiac Index 2.5 - Exam General: non toxic, no distress, appears at stated age, obese Derm: warm, dry Head: atraumatic, normocephalic, symmetric Eyes: EOMI, no lid lag, anicteric sclera Mouth: no lip lesion, mucus membranes moist Cardiovascular: S1S2 regular, no murmur, positive posterior tibial pulse bilateral, Lungs: Decreased breath sounds bilateral, no rhonchi, no rales , no accessory muscle use, mediastinal and pleural chest tubes in place, Right IJ cordis in place Abdominal: soft, nontender to palpation, no guarding, no appreciable organomegaly Ext: no gross muscle atrophy, trace edema, no contractures Neuro: CN II-XI grossly intact, no focal neuro deficits Psych: Alert, oriented, appropriate affect, pleasant - Labs CBC & Chem 7: 06/04/19 05:00 06/04/19 05:00 Labs: Abnormal Lab Results - Last 24 Hours (Table) 06/03/19 06/03/19 06/03/19 Range/Units 09:19 10:09 12:02 WBC (3.8-10.6) k/uL RBC (4.30-5.90) m/uL Hgb (13.0-17.5) gm/dL Hct (39.0-53.0) % Plt Count (150-450) k/uL Neutrophils # (1.3-7.7) k/uL Sodium (137-145) mmol/L BUN (9-20) mg/dL Glucose (74-99) mg/dL POC Glucose (mg/dL) 120 H 134 H 135 H (75-99) mg/dL Alkaline Phosphatase (38-126) U/L Total Protein (6.3-8.2) g/dL Albumin (3.5-5.0) g/dL 06/03/19 06/03/19 06/03/19 Range/Units 13:08 14:14 16:13 WBC (3.8-10.6) k/uL RBC (4.30-5.90) m/uL Hgb (13.0-17.5) gm/dL Hct (39.0-53.0) % Plt Count (150-450) k/uL Neutrophils # (1.3-7.7) k/uL Sodium (137-145) mmol/L BUN (9-20) mg/dL Glucose (74-99) mg/dL POC Glucose (mg/dL) 199 H 193 H 142 H (75-99) mg/dL Alkaline Phosphatase (38-126) U/L Total Protein (6.3-8.2) g/dL Albumin (3.5-5.0) g/dL 06/03/19 06/03/19 06/03/19 Range/Units 17:16 18:08 19:38 WBC (3.8-10.6) k/uL RBC (4.30-5.90) m/uL Hgb (13.0-17.5) gm/dL Hct (39.0-53.0) % Plt Count (150-450) k/uL Neutrophils # (1.3-7.7) k/uL Sodium (137-145) mmol/L BUN (9-20) mg/dL Glucose (74-99) mg/dL POC Glucose (mg/dL) 139 H 123 H 183 H (75-99) mg/dL Alkaline Phosphatase (38-126) U/L Total Protein (6.3-8.2) g/dL Albumin (3.5-5.0) g/dL 06/03/19 06/03/19 06/04/19 Range/Units 20:57 22:18 02:00 WBC (3.8-10.6) k/uL RBC (4.30-5.90) m/uL Hgb (13.0-17.5) gm/dL Hct (39.0-53.0) % Plt Count (150-450) k/uL Neutrophils # (1.3-7.7) k/uL Sodium (137-145) mmol/L BUN (9-20) mg/dL Glucose (74-99) mg/dL POC Glucose (mg/dL) 231 H 225 H 201 H (75-99) mg/dL Alkaline Phosphatase (38-126) U/L Total Protein (6.3-8.2) g/dL Albumin (3.5-5.0) g/dL 06/04/19 06/04/19 06/04/19 Range/Units 05:00 05:00 06:52 WBC 10.7 H (3.8-10.6) k/uL RBC 3.14 L (4.30-5.90) m/uL Hgb 9.9 L D (13.0-17.5) gm/dL Hct 29.3 L (39.0-53.0) % Plt Count 121 L (150-450) k/uL Neutrophils # 7.8 H (1.3-7.7) k/uL Sodium 133 L (137-145) mmol/L BUN 21 H (9-20) mg/dL Glucose 171 H (74-99) mg/dL POC Glucose (mg/dL) 158 H (75-99) mg/dL Alkaline Phosphatase 30 L (38-126) U/L Total Protein 5.0 L (6.3-8.2) g/dL Albumin 3.0 L (3.5-5.0) g/dL Assessment and Plan Assessment: Patient is a 63-year-old male status post triple vessel bypass surgery with a aortic valve replacement. Diabetes mellitus type 2 with neuropathy -Typically uses metformin -Hemoglobin A1c 6.7 preoperative -On levemir, Fixed dose with meals and SSI -May need additional medications on discharge besides metformin if blood sugars remain stable -SSI - restart metformin in AM Acute blood loss anemia, thrombocytopenia -anticipated outcome of surgery - Follow CBC - start oral iron therapy. 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
[2019-06-04] MEDS: METOPROLOL TARTRATE 25 MG TAB PO SCH ×2 (10:02→22:16)
[2019-06-04] MEDS: lamoTRIgine 25 MG TAB PO SCH (10:02)
[2019-06-04 10:10] LABS: Glucose,Whole Blood 238 mg/dL (75-99)
[2019-06-04 12:08] LABS: Glucose,Whole Blood 169 mg/dL (75-99)
[2019-06-04] MEDS: LACTATED RINGERS 1,000 ML IV SCH (12:18)
--- NOTE | 2019-06-04 12:51 | P.PN ---
Subjective Progress Note Date: 06/04/19 Principal diagnosis: Post operative day #2 aortic valve replacement and coronary artery bypass grafting 3. This is a 63-year-old white male with history of severe aortic stenosis, coronary artery disease, previous [place], previous stenting, known history of hypertension, dyslipidemia, type 2 diabetes, moderate restrictive lung disease, severe obstructive sleep apnea, maintained on CPAP, morbid obesity, history of factor V Leyden deficiency, history of previous stroke affecting left vision peripherally, known family history of premature coronary artery disease. Patient is postoperative day #1, he underwent aortic valve replacement and coronary artery bypass grafting 3 with LIM to LAD, reverse saphenous vein graft to first diagonal reverse saphenous vein graft to first obtuse marginal. Patient was brought back to the ICU last night, and he was on mechanical ventilation. I reviewed his chest x-ray, his ABG, and adjusted his ventilator settings. Few hours later, the patient was weaned and extubated uneventfully. I recommended that the patient is extubated to BiPAP at bedside, and this was done uneventfully. Patient is today on nasal cannula, he is doing great. Basically asymptomatic. He tolerated the extubation extremely well. Chest x- ray this morning showed cardiomegaly, mild central vascular congestion and bibasilar atelectasis. Which is expected post surgery. Patient denies any shortness of breath, no cough no wheezing, denies any significant chest pain, no nausea no vomiting no abdominal pain. He is pulling about 1000 mL on his incentive spirometer. Reevaluated today on 06/04/2019, remains in the intensive care unit, patient is doing great. Denies any specific complaints, he is in no form of respiratory distress. On few liters nasal cannula. Using his BiPAP at night. During sleep. And as needed. Currently in normal sinus rhythm, not requiring any inotropes or pressors. Patient is already ambulating with assistance in the hallway, and he is doing fairly well with incentive spirometry. Chest x-ray and labs were reviewed today. Basically unremarkable. Objective - Vital Signs Vital signs: Vital Signs Temp 97.9 F 06/04/19 04:00 Pulse 75 06/04/19 12:15 Resp 18 06/04/19 12:00 BP 103/62 06/03/19 08:00 Pulse Ox 92 L 06/04/19 12:00 Intake & Output 12/12/1506/04/19 06/04/19 18:59 06:59 18:59 Intake Total 831.432 516 187 Output Total 4628 417 6745 Balance -521.022 -269 -918 Weight 155.3 kg 155.8 kg Intake: IV 760 516 187 0.9NS CO/CI 70 LR 510 480 160 Pressure Bags 180 36 27 Intake, IV Titration 71.432 Amount Insulin Regular 100 unit 71.432 In Sodium Chloride 0.9% 100 ml @ Per Protocol IV .Q0M [facility] Rx#:[id number] Output: Chest Tube Drainage 820 170 Chest Tube Left Pleural/ 820 170 Mediastinal Left Lateral Chest 0 Urine 533 640 935 Other: Voiding Method Indwelling Catheter Indwelling Catheter Indwelling Catheter ABP, PAP, CO, CI - Last Documented Arterial Blood Pressure 140/68 Pulmonary Artery Pressure 16/5 Cardiac Output 6.4 Cardiac Index 2.5 - Exam Constitutional General appearance: Revealed a 63-year-old white male, very pleasant, in no distress. On few liters nasal cannula. Respiratory Symmetrical chest expansion, good breath sound bilaterally, diminished at the bases, no rhonchi and no wheezes. Mediastinal/left pleural chest tubes connected to continuous wall suction, 430 milliliters sanguinous drainage overnight, 1150 mL since surgery, no air leak present. - Cardiovascular Normal S1 and S2, no S3 gallop, 2/6 systolic murmur throughout the precordium. Gastrointestinal Obese, soft, nontender, no megaly, no rebound. - Genitourinary Torres catheter is noted in place, otherwise unremarkable. - Integumentary Skin is warm and dry with evidence of good perfusion. Chest incision is intact. Lower extremities are intact. - Neurologic Alert oriented 3, no gross focal neurologic deficits. No gross deficit - Musculoskeletal No limitation in range of motion, strength is 5/5. Bilaterally. No deformities. Psychiatric: Normal mood, affect and normal mental status examination. - Labs CBC & Chem 7: 06/04/19 05:00 06/04/19 05:00 Labs: Abnormal Lab Results - Last 24 Hours (Table) 06/03/19 06/03/19 06/03/19 Range/Units 13:08 14:14 16:13 WBC (3.8-10.6) k/uL RBC (4.30-5.90) m/uL Hgb (13.0-17.5) gm/dL Hct (39.0-53.0) % Plt Count (150-450) k/uL Neutrophils # (1.3-7.7) k/uL Sodium (137-145) mmol/L BUN (9-20) mg/dL Glucose (74-99) mg/dL POC Glucose (mg/dL) 199 H 193 H 142 H (75-99) mg/dL Alkaline Phosphatase (38-126) U/L Total Protein (6.3-8.2) g/dL Albumin (3.5-5.0) g/dL 06/03/19 06/03/19 06/03/19 Range/Units 17:16 18:08 19:38 WBC (3.8-10.6) k/uL RBC (4.30-5.90) m/uL Hgb (13.0-17.5) gm/dL Hct (39.0-53.0) % Plt Count (150-450) k/uL Neutrophils # (1.3-7.7) k/uL Sodium (137-145) mmol/L BUN (9-20) mg/dL Glucose (74-99) mg/dL POC Glucose (mg/dL) 139 H 123 H 183 H (75-99) mg/dL Alkaline Phosphatase (38-126) U/L Total Protein (6.3-8.2) g/dL Albumin (3.5-5.0) g/dL 06/03/19 06/03/19 06/04/19 Range/Units 20:57 22:18 02:00 WBC (3.8-10.6) k/uL RBC (4.30-5.90) m/uL Hgb (13.0-17.5) gm/dL Hct (39.0-53.0) % Plt Count (150-450) k/uL Neutrophils # (1.3-7.7) k/uL Sodium (137-145) mmol/L BUN (9-20) mg/dL Glucose (74-99) mg/dL POC Glucose (mg/dL) 231 H 225 H 201 H (75-99) mg/dL Alkaline Phosphatase (38-126) U/L Total Protein (6.3-8.2) g/dL Albumin (3.5-5.0) g/dL 06/04/19 06/04/19 06/04/19 Range/Units 05:00 05:00 06:52 WBC 10.7 H (3.8-10.6) k/uL RBC 3.14 L (4.30-5.90) m/uL Hgb 9.9 L D (13.0-17.5) gm/dL Hct 29.3 L (39.0-53.0) % Plt Count 121 L (150-450) k/uL Neutrophils # 7.8 H (1.3-7.7) k/uL Sodium 133 L (137-145) mmol/L BUN 21 H (9-20) mg/dL Glucose 171 H (74-99) mg/dL POC Glucose (mg/dL) 158 H (75-99) mg/dL Alkaline Phosphatase 30 L (38-126) U/L Total Protein 5.0 L (6.3-8.2) g/dL Albumin 3.0 L (3.5-5.0) g/dL 06/04/19 06/04/19 Range/Units 09:40 11:57 WBC (3.8-10.6) k/uL RBC (4.30-5.90) m/uL Hgb (13.0-17.5) gm/dL Hct (39.0-53.0) % Plt Count (150-450) k/uL Neutrophils # (1.3-7.7) k/uL Sodium (137-145) mmol/L BUN (9-20) mg/dL Glucose (74-99) mg/dL POC Glucose (mg/dL) 238 H 169 H (75-99) mg/dL Alkaline Phosphatase (38-126) U/L Total Protein (6.3-8.2) g/dL Albumin (3.5-5.0) g/dL Assessment and Plan Assessment: Impression: 1 severe aortic stenosis and status post aortic valve replacement, postoperative day #2 2 triple-vessel coronary artery disease, status post CABG, postoperative day #2 3 morbid obesity 4 type 2 diabetes 5 history of hypercoagulable state and factor V Leyden deficiency. 6 obstructive sleep apnea syndrome 7 remote history of narcotic dependence 8 previous CVA with residual left-sided hemianopsia 9 history of depression 10 restrictive lung disease secondary to obesity. Recommendation: Continue beta blockers Plavix statin and aspirin Continue to wean O2 as tolerated and titrate according to O2 saturation. Use BiPAP if necessary and specially at bedtime when the patient sleeps Increase activity and increase incentive spirometry Continue bronchodilators. Continue insulin as per protocol. Pain control. GI and DVT prophylaxis. Restart anticoagulation therapy later on today after lines have been removed. Continue ambulation, we'll continue to follow. Time with Patient: Less than 30
[2019-06-04 13:47] LABS: Glucose,Whole Blood 179 mg/dL (75-99)
--- NOTE | 2019-06-04 14:17 | PN ---
PROGRESS NOTE Mr. Levine is a 63-year-old gentleman who is status post aortic valve replacement and coronary artery bypass surgery. Patient remains stable. He has been sitting up in the recliner without any acute distress. Denies any shortness of breath. The patient currently is in normal sinus rhythm and hemodynamically remains stable. PHYSICAL EXAMINATION: Reveal the patient's vital signs are stable. The patient is afebrile. Blood pressure is 103/62 mmHg. First and second heart sounds are heard. LUNGS: Lungs reveal a few scattered wheezes. EXTREMITIES: There is no evidence of any edema. The patient's hemoglobin is 9.9 and creatinine is normal. ASSESSMENT AND PLAN: This patient is status post aortic valve replacement, coronary artery bypass surgery. The patient remains stable cardiac-rice. No dysrhythmias are noted. We will recommend to continue the patient on current medications. MMODL / IJN: [id number] /
[2019-06-04] MEDS: ACETAMINOPHEN TAB 500 MG TAB PO PRN ×2 (16:31→21:36)
[2019-06-04 16:45] LABS: Glucose,Whole Blood 167 mg/dL (75-99)
[2019-06-04] MEDS: FERROUS SULFATE 325 MG TAB PO SCH (17:47)
[2019-06-04] MEDS: TAMSULOSIN 0.4 MG CAP.ER.24H PO SCH (17:48)
[2019-06-04] MEDS ORDERED: INSULIN DETEMIR (LEVEMIR) 100 UNIT/ML SYR SQ SCH (21:00)
[2019-06-04 21:53] LABS: Glucose,Whole Blood 130 mg/dL (75-99)
[2019-06-04] MEDS: SENNOSIDES-DOCUSATE SODIUM 1 EACH TAB PO SCH (22:15)
[2019-06-05] MEDS ORDERED: LORazepam 1 MG TAB PO PRN (01:27)
[2019-06-05] MEDS: KETOROLAC 30 MG/ML 1 ML VIAL IVP SCH ×4 (01:54→16:59)
[2019-06-05] MEDS: HEPARIN SODIUM,PORCINE 5,000 UNIT/ML 1 ML VIAL SQ SCH (01:54)
[2019-06-05 03:38] LABS: Glucose,Whole Blood 149 mg/dL (75-99)
[2019-06-05 05:56] LABS: Basophils % (A) 0 %; Eosinophils # (A) 0.6 k/uL (0-0.7); Eosinophils % (A) 5 %; HCT 29.6 % (39.0-53.0); Lymphocytes # (A) 2.3 k/uL (1.0-4.8); Lymphocytes % (A) 19 %; MCH 32.2 pg (25.0-35.0); MCHC 33.9 g/dL (31.0-37.0); Mean Platelet Volume 9.3; Monocytes # (A) 0.6 k/uL (0-1.0); Monocytes % (A) 5 %; Neutrophils # (A) 8.3 k/uL (1.3-7.7); Neutrophils % (A) 69 %; Platelet Count 151 k/uL (150-450); RBC 3.12 m/uL (4.30-5.90); RDW 13.7 % (11.5-15.5)
[2019-06-05 06:18] LABS: Calcium 8.7 mg/dL (8.4-10.2); Magnesium 2.1 mg/dL (1.6-2.3); Potassium 4.7 mmol/L (3.5-5.1); Total Bilirubin 0.6 mg/dL (0.2-1.3); Total Protein 5.2 g/dL (6.3-8.2)
--- NOTE | 2019-06-05 06:51 | XR ---
EXAMINATION TYPE: XR chest 1V portable DATE OF EXAM: 06/05/2019 HISTORY: post cardiac surgery. REFERENCE: Previous study dated 06/04/2019.. FINDINGS: There is multichamber cardiac enlargement. A left pleural drain remains in place. A definit e pneumothorax is not identified. There is mild vascular congestion. I cannot exclude small, bilatera l effusions. IMPRESSION: NO SIGNIFICANT INTERVAL CHANGE IN THE APPEARANCE OF THE CHEST.
[2019-06-05 07:06] LABS: Glucose,Whole Blood 122 mg/dL (75-99)
[2019-06-05] MEDS: INSULIN ASPART (NovoLOG) 100 UNIT/ML VIAL SQ SCH ×7 (07:11→21:17)
[2019-06-05] MEDS: IPRATROPIUM-ALBUTEROL 3 ML NEB INHALATION SCH ×4 (07:24→22:02)
[2019-06-05] MEDS: PANTOPRAZOLE 40 MG TABLET PO SCH (07:47)
[2019-06-05] MEDS: FERROUS SULFATE 325 MG TAB PO SCH ×2 (07:47→16:58)
--- NOTE | 2019-06-05 08:03 | P.PN ---
Subjective Progress Note Date: 06/05/19 Principal diagnosis: Severe aortic valve stenosis, coronary artery disease. 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 POD #3 Aortic valve replacement with 25 mm Inspiris bovine pericardial valve, coronary artery bypass grafting 3 with left internal mammary artery to the left anterior descending artery, reverse saphenous vein graft to the first diagonal artery, reverse saphenous vein graft to the first obtuse marginal artery, endovascular vein harvest, epi-aortic ultrasonography, ligation of the left atrial appendage with 35mm AtriClip. The patient is currently sitting up in the recliner in the intensive care unit in no acute distress. He states he has some post surgical pain with deep inspiration, but it is controlled on current medication regimen without narcotic use. Denies shortness of breath. Currently in normal sinus rhythm, remains hemodynamically stable on no inotropes or pressors. Cordis and left pleural chest tubes present, mediastinal chest tube and arterial line discontinued yesterday, Torres discontinued this morning. Patient ambulated in the hallway yesterday without difficulty. He is actively using his incentive spirometer. No new concerns. Objective - Vital Signs Vital signs: Vital Signs Temp 97.8 F 06/05/19 04:00 Pulse 80 06/05/19 07:24 Resp 20 06/05/19 07:00 BP 103/63 06/05/19 07:00 Pulse Ox 96 06/05/19 07:00 Intake & Output 06/04/19 06/05/19 06/05/19 18:59 06:59 18:59 Intake Total 453 399 33 Output Total 1585 665 Balance -1132 -266 33 Weight 158.1 kg Intake: IV 453 399 33 LR 390 363 30 Pressure Bags 63 36 3 Output: Chest Tube Drainage 250 100 Chest Tube Left Pleural/ 170 Mediastinal Left Lateral Chest 80 100 Urine 1335 565 Other: Voiding Method Indwelling Catheter Indwelling Catheter ABP, PAP, CO, CI - Last Documented Arterial Blood Pressure 116/97 Pulmonary Artery Pressure 16/5 Cardiac Output 6.4 Cardiac Index 2.5 - Constitutional General appearance: Present: cooperative, morbidly obese, no acute distress - Respiratory Details: Lungs sounds clear but diminished bilaterally. Respirations even, nonlabored. Currently on 4 L nasal cannula with oxygen saturation 96%. Able to achieve 1500 mL on his incentive spirometry. Strong cough. Left pleural chest tube connected to continuous wall suction, 100 mL serous drainage overnight, 250 mL in the last 24 hours, no air leak present. - Cardiovascular Details: S1, S2 present. Regular rate and rhythm, sinus rhythm on telemetry. Sternum stable. Palpable peripheral pulses bilaterally. Trace generalized edema present. No calf pain or tenderness noted. Right internal jugular Cordis present. Heart hugger in place with patient demonstrating appropriate use. Antiembolism stockings, SCDs present. - Gastrointestinal Gastrointestinal Comment(s): Abdomen soft, nontender, nondistended, obese. Active bowel sounds present 4 quadrants. Tolerating diet. Positive flatus, negative bowel movement. - Genitourinary Genitourinary Comment(s): Torres discontinued this morning, urine output overnight 40-60 mL/h, 1040 mL diuresis after Lasix given yesterday. - Integumentary Integumentary Comment(s): Skin is warm and dry with evidence of good perfusion. Anterior chest incision well approximated and covered dry intact dressing. Left lower extremity EVH site well approximated. - Neurologic Neurologic: Present: CNII-XII intact - Musculoskeletal Musculoskeletal: Present: gait normal, strength equal bilaterally - Psychiatric Psychiatric: Present: A&O x's 3, appropriate affect, intact judgment & insight - Allied health notes Allied health notes reviewed: nursing - Labs CBC & Chem 7: 06/05/19 05:22 06/05/19 05:22 Labs: Abnormal Lab Results - Last 24 Hours (Table) 06/04/19 06/04/19 06/04/19 Range/Units 09:40 11:57 13:17 WBC (3.8-10.6) k/uL RBC (4.30-5.90) m/uL Hgb (13.0-17.5) gm/dL Hct (39.0-53.0) % Neutrophils # (1.3-7.7) k/uL Sodium (137-145) mmol/L BUN (9-20) mg/dL Glucose (74-99) mg/dL POC Glucose (mg/dL) 238 H 169 H 179 H (75-99) mg/dL Total Protein (6.3-8.2) g/dL Albumin (3.5-5.0) g/dL 06/04/19 06/04/19 06/05/19 Range/Units 16:34 21:40 03:16 WBC (3.8-10.6) k/uL RBC (4.30-5.90) m/uL Hgb (13.0-17.5) gm/dL Hct (39.0-53.0) % Neutrophils # (1.3-7.7) k/uL Sodium (137-145) mmol/L BUN (9-20) mg/dL Glucose (74-99) mg/dL POC Glucose (mg/dL) 167 H 130 H 149 H (75-99) mg/dL Total Protein (6.3-8.2) g/dL Albumin (3.5-5.0) g/dL 06/05/19 06/05/19 06/05/19 Range/Units 05:22 05:22 06:59 WBC 12.0 H (3.8-10.6) k/uL RBC 3.12 L (4.30-5.90) m/uL Hgb 10.0 L (13.0-17.5) gm/dL Hct 29.6 L (39.0-53.0) % Neutrophils # 8.3 H (1.3-7.7) k/uL Sodium 133 L (137-145) mmol/L BUN 26 H (9-20) mg/dL Glucose 137 H (74-99) mg/dL POC Glucose (mg/dL) 122 H (75-99) mg/dL Total Protein 5.2 L (6.3-8.2) g/dL Albumin 3.0 L (3.5-5.0) g/dL - Imaging and Cardiology Chest x-ray: report reviewed, image reviewed Assessment and Plan Assessment: 1. Severe aortic stenosis, status post aortic valve replacement 2. Coronary artery disease, status post three-vessel CABG 3. History of coronary artery disease with previous myocardial infarction and stenting 4. Hypertension 5. Hyperlipidemia 6. Type 2 diabetes with neuropathy, preoperative hemoglobin A1c 6.7% 7. Moderate restrictive lung disease with preoperative FEV1 54% of predicted 8. Obstructive sleep apnea with home CPAP use 9. Morbid obesity 10. Remote history of pneumonia 11. Depression 12. Factor 5 Leiden deficiency on Eliquis for anticoagulation 13. BPH 14. Remote narcotic dependence 15. 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 Family history of premature coronary artery disease Plan: 1. Continue low-dose aspirin, statin, beta cornelio. Will increase beta cornelio therapy as tolerated. Will re-add CHARU inhibitor for afterload reduction when able. 2. Wean O2 as tolerated. Bronchodilators per pulmonology. Encourage incentive spirometry use 10 times every hour while awake 3. Increase activity, ambulate as tolerated. PT/OT/cardiac rehab following 4. Will monitor daily labs and x-rays. Elective replacement per protocol 5. Pain control with current medication regimen 6. Insulin management per primary care service 7. GI/DVT prophylaxis 8. Torres catheter discontinued this morning. Bladder scan every 6 hours as needed, straight cath for greater than 300 milliliters residual 9. Will restart Eliquis today. Will give lasix 20 mg IVP x 1 10. Will discontinue left pleural chest tube. 11. Will discontinue Cordis today 12. Will place transfer orders for 3 S. cardiac stepdown unit. May transfer when bed available. 13. Discharge planning in progress. Anticipate home with home care in 24-48 hours. 14. More recommendations to follow based on patient's progress Time with Patient: Greater than 30
[2019-06-05] MEDS ORDERED: FUROSEMIDE 10 MG/ML 2 ML VIAL IV ONE (08:39)
[2019-06-05 09:27] LABS: Glucose,Whole Blood 130 mg/dL (75-99)
--- NOTE | 2019-06-05 09:37 | P.PN ---
Subjective Progress Note Date: 06/05/19 Principal diagnosis: Coronary artery disease Patient is a 63-year-old male past medical history of diabetes mellitus type 2 well controlled with a preop hemoglobin A1c is 6.7 on oral medications, coronary artery disease, hypertension, and dyslipidemia who presented scheduled for coronary bypass surgery and aortic valve replacement. On 06/02 he underwent coronary artery bypass grafting 3 along with aortic valve replacement with a bovine valve. He was subsequently admitted to the ICU. He initially was on mechanical ventilation but was able to be successfully extu bated several hours later. Insulin gtt for 24 hours, now on fixed dose with long acting and SSI. Sugars had normalized by the morning of 06/05. Seen and examined at bedside. Has been up and walking. Pain controlled, excited to get all his tubes removed. Eating well, still no bowel movement. No nausea. Eating well. Does not like prune juice. Objective - Vital Signs Vital signs: Vital Signs Temp 98.1 F 06/05/19 08:00 Pulse 85 06/05/19 08:00 Resp 17 06/05/19 08:00 BP 115/66 06/05/19 08:00 Pulse Ox 95 06/05/19 08:00 Intake & Output 06/04/19 06/05/19 06/05/19 18:59 06:59 18:59 Intake Total 453 399 66 Output Total 1585 665 0 Balance -1132 -266 66 Weight 158.1 kg Intake: IV 453 399 66 LR 390 363 60 Pressure Bags 63 36 6 Output: Chest Tube Drainage 250 100 0 Chest Tube Left Pleural/ 170 Mediastinal Left Lateral Chest 80 100 0 Urine 1335 565 0 Other: Voiding Method Indwelling Catheter Indwelling Catheter ABP, PAP, CO, CI - Last Documented Arterial Blood Pressure 116/97 Pulmonary Artery Pressure 16/5 Cardiac Output 6.4 Cardiac Index 2.5 - Exam General: non toxic, no distress, appears at stated age, obese, diaphoretic Derm: warm, dry Head: atraumatic, normocephalic, symmetric Eyes: EOMI, no lid lag, anicteric sclera Mouth: no lip lesion, mucus membranes moist Cardiovascular: S1S2 regular, no murmur, positive posterior tibial pulse bilateral, Lungs: Decreased breath sounds bilateral, no rhonchi, no rales , no accessory muscle use, Right IJ cordis in place Abdominal: soft, nontender to palpation, no guarding, no appreciable organomegaly Ext: no gross muscle atrophy, no edema, no contractures Neuro: CN II-XI grossly intact, no focal neuro deficits Psych: Alert, oriented, appropriate affect, pleasant - Labs CBC & Chem 7: 06/05/19 05:22 06/05/19 05:22 Labs: Abnormal Lab Results - Last 24 Hours (Table) 06/04/19 06/04/19 06/04/19 Range/Units 09:40 11:57 13:17 WBC (3.8-10.6) k/uL RBC (4.30-5.90) m/uL Hgb (13.0-17.5) gm/dL Hct (39.0-53.0) % Neutrophils # (1.3-7.7) k/uL Sodium (137-145) mmol/L BUN (9-20) mg/dL Glucose (74-99) mg/dL POC Glucose (mg/dL) 238 H 169 H 179 H (75-99) mg/dL Total Protein (6.3-8.2) g/dL Albumin (3.5-5.0) g/dL 06/04/19 06/04/19 06/05/19 Range/Units 16:34 21:40 03:16 WBC (3.8-10.6) k/uL RBC (4.30-5.90) m/uL Hgb (13.0-17.5) gm/dL Hct (39.0-53.0) % Neutrophils # (1.3-7.7) k/uL Sodium (137-145) mmol/L BUN (9-20) mg/dL Glucose (74-99) mg/dL POC Glucose (mg/dL) 167 H 130 H 149 H (75-99) mg/dL Total Protein (6.3-8.2) g/dL Albumin (3.5-5.0) g/dL 06/05/19 06/05/19 06/05/19 Range/Units 05:22 05:22 06:59 WBC 12.0 H (3.8-10.6) k/uL RBC 3.12 L (4.30-5.90) m/uL Hgb 10.0 L (13.0-17.5) gm/dL Hct 29.6 L (39.0-53.0) % Neutrophils # 8.3 H (1.3-7.7) k/uL Sodium 133 L (137-145) mmol/L BUN 26 H (9-20) mg/dL Glucose 137 H (74-99) mg/dL POC Glucose (mg/dL) 122 H (75-99) mg/dL Total Protein 5.2 L (6.3-8.2) g/dL Albumin 3.0 L (3.5-5.0) g/dL Assessment and Plan Assessment: Patient is a 63-year-old male status post triple vessel bypass surgery with a aortic valve replacement. Diabetes mellitus type 2 with neuropathy -Typically uses metformin -Hemoglobin A1c 6.7 preoperative -On levemir decrease, Fixed dose decreased with meals and SSI -May need additional medications on discharge besides metformin if blood sugars remain stable -SSI - restart metformin today 3 Constipation - Senna - milk of Mag today Acute blood loss anemia -anticipated outcome of surgery - Follow CBC - Iron Dyslipidemia -Statin therapy Hypertension -Management per cardiothoracic surgery -Blood pressure currently well-controlled on metoprolol -restart ACEI when BP stable Morbid obesity with BMI of 46.4 -Outpatient structured weight loss History of factor V Leiden deficiency -Chronically on Eliquis for anticoagulation therapy -Restarted 06/05 Obstructive sleep apnea -Continue with home CPAP at night, with naps 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
[2019-06-05] MEDS: DULoxetine HCL 30 MG CAPSULE.DR PO SCH (09:47)
[2019-06-05] MEDS: APIXABAN 5 MG TAB PO SCH ×2 (09:47→21:14)
[2019-06-05] MEDS: CYANOCOBALAMIN 500 MCG TAB PO SCH (09:47)
[2019-06-05] MEDS: ASPIRIN 81 MG PO SCH (09:47)
[2019-06-05] MEDS: ATORVASTATIN 40 MG TAB PO SCH (09:47)
[2019-06-05] MEDS: METOPROLOL TARTRATE 25 MG TAB PO SCH ×2 (09:48→21:15)
[2019-06-05] MEDS: lamoTRIgine 25 MG TAB PO SCH (09:48)
[2019-06-05] MEDS: GABAPENTIN 400 MG CAP PO SCH ×3 (09:48→21:15)
[2019-06-05] MEDS: metFORMIN 500 MG TAB PO SCH ×2 (10:02→16:58)
[2019-06-05 11:49] LABS: Glucose,Whole Blood 153 mg/dL (75-99)
--- NOTE | 2019-06-05 12:09 | P.PN ---
Subjective Progress Note Date: 06/05/19 Principal diagnosis: Post operative day #3 aortic valve replacement and coronary artery bypass grafting 3. This is a 63-year-old white male with history of severe aortic stenosis, coronary artery disease, previous [place], previous stenting, known history of hypertension, dyslipidemia, type 2 diabetes, moderate restrictive lung disease, severe obstructive sleep apnea, maintained on CPAP, morbid obesity, history of factor V Leyden deficiency, history of previous stroke affecting left vision peripherally, known family history of premature coronary artery disease. Patient is postoperative day #1, he underwent aortic valve replacement and coronary artery bypass grafting 3 with LIM to LAD, reverse saphenous vein graft to first diagonal reverse saphenous vein graft to first obtuse marginal. Patient was brought back to the ICU last night, and he was on mechanical ventilation. I reviewed his chest x-ray, his ABG, and adjusted his ventilator settings. Few hours later, the patient was weaned and extubated uneventfully. I recommended that the patient is extubated to BiPAP at bedside, and this was done uneventfully. Patient is today on nasal cannula, he is doing great. Basically asymptomatic. He tolerated the extubation extremely well. Chest x- ray this morning showed cardiomegaly, mild central vascular congestion and bibasilar atelectasis. Which is expected post surgery. Patient denies any shortness of breath, no cough no wheezing, denies any significant chest pain, no nausea no vomiting no abdominal pain. He is pulling about 1000 mL on his incentive spirometer. Reevaluated today on 06/04/2019, remains in the intensive care unit, patient is doing great. Denies any specific complaints, he is in no form of respiratory distress. On few liters nasal cannula. Using his BiPAP at night. During sleep. And as needed. Currently in normal sinus rhythm, not requiring any inotropes or pressors. Patient is already ambulating with assistance in the hallway, and he is doing fairly well with incentive spirometry. Chest x-ray and labs were reviewed today. Basically unremarkable. Patient was reevaluated today on 06/05/2019, seems to be doing great. Denies any complaints. Doing extremely well with incentive spirometry. Ambulating in the hallway with assistance. Remains on few liters nasal cannula. Uses his own BiPAP at night. Remains in normal sinus rhythm, hemodynamically stable, not requiring any pressors or inotropes. Chest tubes were discontinued yesterday. Torres catheter was discontinued this morning. Patient is using his incentive spirometer. And his postoperative course seems to be relatively uneventful. Chest x-ray showed postoperative changes, mild vascular congestion and small pleural effusions. Objective - Vital Signs Vital signs: Vital Signs Temp 98.1 F 06/05/19 08:00 Pulse 80 06/05/19 10:59 Resp 14 06/05/19 10:00 BP 115/63 06/05/19 10:00 Pulse Ox 94 L 06/05/19 10:00 Intake & Output 06/04/19 06/05/19 06/05/19 18:59 06:59 18:59 Intake Total 453 399 99 Output Total 1585 665 0 Balance -1132 -266 99 Weight 158.1 kg Intake: IV 453 399 99 LR 390 363 90 Pressure Bags 63 36 9 Output: Chest Tube Drainage 250 100 0 Chest Tube Left Pleural/ 170 Mediastinal Left Lateral Chest 80 100 0 Urine 1335 565 0 Other: Voiding Method Indwelling Catheter Indwelling Catheter ABP, PAP, CO, CI - Last Documented Arterial Blood Pressure 116/97 Pulmonary Artery Pressure 16/5 Cardiac Output 6.4 Cardiac Index 2.5 - Exam Constitutional General appearance: Revealed a 63-year-old white male, very pleasant, in no distress. On few liters nasal cannula. Respiratory Symmetrical chest expansion, good breath sound bilaterally, clear bilaterally no crackles or rhonchi or wheezes. - Cardiovascular Normal S1 and S2, no S3 gallop, 2/6 systolic murmur throughout the precordium. Gastrointestinal Obese, soft, nontender, no megaly, no rebound. - Genitourinary Torres catheter is noted in place, otherwise unremarkable. - Integumentary Skin is warm and dry with evidence of good perfusion. Chest incision is intact. Lower extremities are intact. - Neurologic Alert oriented 3, no gross focal neurologic deficits. No gross deficit - Musculoskeletal No limitation in range of motion, strength is 5/5. Bilaterally. No deformities. Psychiatric: Normal mood, affect and normal mental status examination. - Labs CBC & Chem 7: 06/05/19 05:22 06/05/19 05:22 Labs: Abnormal Lab Results - Last 24 Hours (Table) 06/04/19 06/04/19 06/04/19 Range/Units 11:57 13:17 16:34 WBC (3.8-10.6) k/uL RBC (4.30-5.90) m/uL Hgb (13.0-17.5) gm/dL Hct (39.0-53.0) % Neutrophils # (1.3-7.7) k/uL Sodium (137-145) mmol/L BUN (9-20) mg/dL Glucose (74-99) mg/dL POC Glucose (mg/dL) 169 H 179 H 167 H (75-99) mg/dL Total Protein (6.3-8.2) g/dL Albumin (3.5-5.0) g/dL 06/04/19 06/05/19 06/05/19 Range/Units 21:40 03:16 05:22 WBC 12.0 H (3.8-10.6) k/uL RBC 3.12 L (4.30-5.90) m/uL Hgb 10.0 L (13.0-17.5) gm/dL Hct 29.6 L (39.0-53.0) % Neutrophils # 8.3 H (1.3-7.7) k/uL Sodium (137-145) mmol/L BUN (9-20) mg/dL Glucose (74-99) mg/dL POC Glucose (mg/dL) 130 H 149 H (75-99) mg/dL Total Protein (6.3-8.2) g/dL Albumin (3.5-5.0) g/dL 06/05/19 06/05/19 06/05/19 Range/Units 05:22 06:59 09:16 WBC (3.8-10.6) k/uL RBC (4.30-5.90) m/uL Hgb (13.0-17.5) gm/dL Hct (39.0-53.0) % Neutrophils # (1.3-7.7) k/uL Sodium 133 L (137-145) mmol/L BUN 26 H (9-20) mg/dL Glucose 137 H (74-99) mg/dL POC Glucose (mg/dL) 122 H 130 H (75-99) mg/dL Total Protein 5.2 L (6.3-8.2) g/dL Albumin 3.0 L (3.5-5.0) g/dL 06/05/19 Range/Units 11:38 WBC (3.8-10.6) k/uL RBC (4.30-5.90) m/uL Hgb (13.0-17.5) gm/dL Hct (39.0-53.0) % Neutrophils # (1.3-7.7) k/uL Sodium (137-145) mmol/L BUN (9-20) mg/dL Glucose (74-99) mg/dL POC Glucose (mg/dL) 153 H (75-99) mg/dL Total Protein (6.3-8.2) g/dL Albumin (3.5-5.0) g/dL Assessment and Plan Assessment: Impression: 1 severe aortic stenosis and status post aortic valve replacement, postoperative day #3 2 triple-vessel coronary artery disease, status post CABG, postoperative day #3 3 morbid obesity 4 type 2 diabetes 5 history of hypercoagulable state and factor V Leyden deficiency. 6 obstructive sleep apnea syndrome 7 remote history of narcotic dependence 8 previous CVA with residual left-sided hemianopsia 9 history of depression 10 restrictive lung disease secondary to obesity. Recommendation: Continue beta blockers Plavix statin and aspirin Continue to wean O2 as tolerated and titrate according to O2 saturation. Continue BiPAP during sleep. Continue to ambulate, increase activity, and incentive spirometry. Continue bronchodilators. Continue insulin as per protocol. Pain control. GI and DVT prophylaxis. Restart anticoagulation therapy/already done. We'll continue to follow. Time with Patient: Less than 30
[2019-06-05 16:51] LABS: Glucose,Whole Blood 113 mg/dL (75-99)
[2019-06-05] MEDS: TAMSULOSIN 0.4 MG CAP.ER.24H PO SCH (16:58)
[2019-06-05] MEDS ORDERED: INSULIN DETEMIR (LEVEMIR) 100 UNIT/ML SYR SQ SCH ×2 (21:00)
[2019-06-05] MEDS: SENNOSIDES-DOCUSATE SODIUM 1 EACH TAB PO SCH (21:15)
[2019-06-05 21:31] LABS: Glucose,Whole Blood 114 mg/dL (75-99)
[2019-06-06] MEDS: KETOROLAC 30 MG/ML 1 ML VIAL IVP SCH ×2 (00:55→05:37)
[2019-06-06 02:36] LABS: Glucose,Whole Blood 144 mg/dL (75-99)
[2019-06-06 05:44] LABS: HCT 29.7 % (39.0-53.0); HGB 9.9 gm/dL (13.0-17.5); MCH 31.7 pg (25.0-35.0); MCHC 33.3 g/dL (31.0-37.0); Mean Platelet Volume 7.4; Platelet Count 198 k/uL (150-450); RBC 3.12 m/uL (4.30-5.90); RDW 13.9 % (11.5-15.5)
[2019-06-06 05:51] LABS: African American GFR (CKD) >90 (>60 ml/min/1.73 sqM); Anion Gap 8 mmol/L; Blood Urea Nitrogen 28 mg/dL (9-20); Calcium 8.8 mg/dL (8.4-10.2); Carbon Dioxide 23 mmol/L (22-30); Chloride 104 mmol/L (98-107); Glucose 124 mg/dL (74-99); Non-African American GFR(CKD) 89 (>60 ml/min/1.73 sqM); Potassium 4.6 mmol/L (3.5-5.1); Sodium 135 mmol/L (137-145)
[2019-06-06] MEDS ORDERED: KETOROLAC 30 MG/ML 1 ML VIAL IVP PRN (06:18)
[2019-06-06 06:19] VITALS: RESP 20; TEMP 97.3
[2019-06-06] MEDS: FERROUS SULFATE 325 MG TAB PO SCH (07:10)
[2019-06-06] MEDS: PANTOPRAZOLE 40 MG TABLET PO SCH (07:11)
[2019-06-06] MEDS: metFORMIN 500 MG TAB PO SCH (07:11)
[2019-06-06] MEDS: INSULIN ASPART (NovoLOG) 100 UNIT/ML VIAL SQ SCH ×2 (07:12→07:13)
[2019-06-06 07:26] LABS: Glucose,Whole Blood 135 mg/dL (75-99)
--- NOTE | 2019-06-06 08:30 | XR ---
EXAMINATION TYPE: XR chest 2V DATE OF EXAM: 06/06/2019 COMPARISON: 06/05/2019 INDICATION: ICU management post cardiac surgery TECHNIQUE: Frontal and lateral views of the chest are obtained. FINDINGS: The heart size is moderately prominent. The pulmonary vasculature is normal. The lungs are clear. IMPRESSION: 1. Moderate stable cardiomegaly.
[2019-06-06] MEDS: IPRATROPIUM-ALBUTEROL 3 ML NEB INHALATION SCH ×2 (08:59→12:12)
[2019-06-06] MEDS: ASPIRIN 81 MG PO SCH (09:13)
[2019-06-06] MEDS: DULoxetine HCL 30 MG CAPSULE.DR PO SCH (09:14)
[2019-06-06] MEDS: ATORVASTATIN 40 MG TAB PO SCH (09:14)
[2019-06-06] MEDS: CYANOCOBALAMIN 500 MCG TAB PO SCH (09:14)
[2019-06-06] MEDS: METOPROLOL TARTRATE 25 MG TAB PO SCH (09:14)
[2019-06-06] MEDS: APIXABAN 5 MG TAB PO SCH (09:14)
[2019-06-06] MEDS: lamoTRIgine 25 MG TAB PO SCH (09:14)
[2019-06-06] MEDS: GABAPENTIN 400 MG CAP PO SCH (09:14)
[2019-06-06 09:53] VITALS: BP 116/68
--- NOTE | 2019-06-06 10:08 | P.PN ---
Subjective Progress Note Date: 06/06/19 Principal diagnosis: Severe aortic valve stenosis, coronary artery disease. 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 POD #4 Aortic valve replacement with 25 mm Inspiris bovine pericardial valve, coronary artery bypass grafting 3 with left internal mammary artery to the left anterior descending artery, reverse saphenous vein graft to the first diagonal artery, reverse saphenous vein graft to the first obtuse marginal artery, endovascular vein harvest of the left greater saphenous vein from mid calf to the groin, epi-aortic ultrasonography, ligation of the left atrial appendage with 35mm AtriClip. Postoperative acute blood loss anemia, expected secondary to hemodilution and cardiopulmonary bypass pump The patient is currently sitting up in bed in the intensive care unit in no acute distress, waiting to go for CXR. He states pain is controlled on current medication regimen without narcotic use. Denies shortness of breath. Currently in normal sinus rhythm, remains hemodynamically stable. Patient ambulated in the hallway yesterday without difficulty. He is actively using his incentive spirometer. No new concerns. Objective - Vital Signs Vital signs: Vital Signs Temp 97.3 F L 06/06/19 04:00 Pulse 80 06/06/19 04:00 Resp 20 06/06/19 04:00 BP 101/57 06/06/19 04:00 Pulse Ox 94 L 06/06/19 04:00 Intake & Output 06/05/19 06/05/19 06/06/19 06:59 18:59 06:59 Intake Total 399 109 Output Total 665 1300 600 Balance -374 -7329 -582 Weight 158.1 kg 158.9 kg Intake: IV 399 109 LR 363 100 Pressure Bags 36 9 Output: Chest Tube Drainage 100 0 Left Lateral Chest 100 0 Urine 565 1300 600 Other: Voiding Method Indwelling Catheter Toilet Toilet Urinal Urinal # Voids 1 # Bowel Movements 1 ABP, PAP, CO, CI - Last Documented Arterial Blood Pressure 116/97 Pulmonary Artery Pressure 16/5 Cardiac Output 6.4 Cardiac Index 2.5 - Constitutional General appearance: Present: cooperative, morbidly obese, no acute distress - Respiratory Details: Lungs sounds clear but diminished bilaterally. Respirations even, nonlabored. Currently on 2 L nasal cannula with oxygen saturation 94%. Able to achieve 1500 mL on his incentive spirometry. Strong cough. - Cardiovascular Details: S1, S2 present. Regular rate and rhythm, sinus rhythm on telemetry. Sternum stable. Palpable peripheral pulses bilaterally. Trace generalized edema present. No calf pain or tenderness noted. Heart hugger in place with patient demonstrating appropriate use. Antiembolism stockings, SCDs present. - Gastrointestinal Gastrointestinal Comment(s): Abdomen soft, nontender, nondistended, obese. Active bowel sounds present 4 quadrants. Tolerating diet. Positive bowel movement. - Genitourinary Genitourinary Comment(s): Continues to void clear, yellow urine. Excellent diuresis after IV Lasix given yesterday, 1900 mL urine output in the last 24 hours - Integumentary Integumentary Comment(s): Skin is warm and dry with evidence of good perfusion. Anterior chest incision well approximated and covered dry intact dressing. Left lower extremity EVH site well approximated. - Neurologic Neurologic: Present: CNII-XII intact - Musculoskeletal Musculoskeletal: Present: gait normal, strength equal bilaterally - Psychiatric Psychiatric: Present: A&O x's 3, appropriate affect, intact judgment & insight - Allied health notes Allied health notes reviewed: nursing - Labs CBC & Chem 7: 06/06/19 05:27 06/06/19 05:27 Labs: Abnormal Lab Results - Last 24 Hours (Table) 06/05/19 06/05/19 06/05/19 Range/Units 06:59 09:16 11:38 RBC (4.30-5.90) m/uL Hgb (13.0-17.5) gm/dL Hct (39.0-53.0) % Sodium (137-145) mmol/L BUN (9-20) mg/dL Glucose (74-99) mg/dL POC Glucose (mg/dL) 122 H 130 H 153 H (75-99) mg/dL 06/05/19 06/05/19 06/06/19 Range/Units 16:40 21:09 02:15 RBC (4.30-5.90) m/uL Hgb (13.0-17.5) gm/dL Hct (39.0-53.0) % Sodium (137-145) mmol/L BUN (9-20) mg/dL Glucose (74-99) mg/dL POC Glucose (mg/dL) 113 H 114 H 144 H (75-99) mg/dL 06/06/19 06/06/19 Range/Units 05:27 05:27 RBC 3.12 L (4.30-5.90) m/uL Hgb 9.9 L (13.0-17.5) gm/dL Hct 29.7 L (39.0-53.0) % Sodium 135 L (137-145) mmol/L BUN 28 H (9-20) mg/dL Glucose 124 H (74-99) mg/dL POC Glucose (mg/dL) (75-99) mg/dL - Imaging and Cardiology Chest x-ray: pending Assessment and Plan Assessment: 1. Severe aortic stenosis, status post aortic valve replacement 2. Coronary artery disease, status post three-vessel CABG 3. History of coronary artery disease with previous myocardial infarction and stenting 4. Hypertension 5. Hyperlipidemia 6. Type 2 diabetes with neuropathy, preoperative hemoglobin A1c 6.7% 7. Moderate restrictive lung disease with preoperative FEV1 54% of predicted 8. Obstructive sleep apnea with home CPAP use 9. Morbid obesity 10. Remote history of pneumonia 11. Depression 12. Factor 5 Leiden deficiency on Eliquis for anticoagulation 13. BPH 14. Remote narcotic dependence 15. 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 Family history of premature coronary artery disease Plan: 1. Continue low-dose aspirin, statin, beta cornelio. Will re-add low-dose CHARU inhibitor for afterload reduction today. Continue Eliquis for anticoagulation secondary to factor V Leiden disorder 2. Wean O2 as tolerated. Bronchodilators per pulmonology. Encourage incentive spirometry use 10 times every hour while awake 3. Increase activity, ambulate as tolerated. PT/OT/cardiac rehab following 4. Will monitor daily labs and x-rays. Elective replacement per protocol 5. Pain control with current medication regimen 6. Insulin management per primary care service 7. GI/DVT prophylaxis 8. Transfer orders placed yesterday for 3 S. cardiac stepdown unit, no bed availability 9. Discharge planning in progress. Anticipate home with home care later this afternoon 10. More recommendations to follow based on patient's progress Time with Patient: Greater than 30
--- NOTE | 2019-06-06 10:20 | P.PN ---
Subjective Progress Note Date: 06/06/19 Principal diagnosis: Severe aortic stenosis, coronary artery disease, status post aortic valve replacement, coronary artery bypass grafting 3 and left atrial exclusion On 06/06/2019 patient seen in follow-up in intensive care unit. This is postoperative day 4, status post aortic valve replacement, coronary artery bypass grafting 3 with a LIM to the LAD, reverse SVG to the first diagonal, reverse SVG to the first obtuse marginal artery, and ligation of the left atrial appendage. He is doing very well, although his chest tubes, pacemaker leads, at times have been discontinued, he is on room air, no running IVs, he is ambulating, tolerating activity well, she took his first shower today. Denies shortness of breath, denies any pain, he is working on his incentive spirometer, he is achieving 1500 on the today. Stable, he is in sinus mechanism, his chest x-ray has been reviewed, showing moderate stable cardiomegaly, no acute pulmonary process. His labs have been reviewed, showing white blood cell, standpoint 0, hemoglobin is 9.9, sodium is 135.3 electrolytes and renal profile were unremarkable. Objective - Vital Signs Vital signs: Vital Signs Temp 97.3 F L 06/06/19 04:00 Pulse 86 06/06/19 09:12 Resp 20 06/06/19 09:00 BP 116/68 06/06/19 09:00 Pulse Ox 96 06/06/19 09:44 Intake & Output 06/05/19 06/06/19 06/06/19 18:59 06:59 18:59 Intake Total 109 350 Output Total 1300 600 600 Balance -1191 -600 -250 Weight 158.9 kg Intake: IV 109 LR 100 Pressure Bags 9 Oral 350 Output: Chest Tube Drainage 0 Left Lateral Chest 0 Urine 1300 600 600 Other: Voiding Method Toilet Toilet Toilet Urinal Urinal Urinal # Voids 1 2 # Bowel Movements 1 ABP, PAP, CO, CI - Last Documented Arterial Blood Pressure 116/97 Pulmonary Artery Pressure 16/5 Cardiac Output 6.4 Cardiac Index 2.5 - Exam GENERAL EXAM: Alert, very pleasant, 63-year-old obese white male, on room air, heart harness on, comfortable in no apparent distress. HEAD: Normocephalic/atraumatic. EYES: Normal reaction of pupils, equal size. Conjunctiva pink, sclera white. NOSE: Clear with pink turbinates. THROAT: No erythema or exudates. NECK: No masses, no JVD, no thyroid enlargement, no adenopathy. CHEST: No chest wall deformity. Symmetrical expansion. Sternal incision is clean dry and intact, chest tube sites clean dry and intact, left lower extremity incision dry and intact LUNGS: Equal air entry with no crackles, wheeze, rhonchi or dullness. CVS: Regular rate and rhythm, normal S1 and S2, no gallops, no murmurs, no rubs ABDOMEN: Soft, nontender. No hepatosplenomegaly, normal bowel sounds, no guarding or rigidity. EXTREMITIES: No clubbing, no edema, no cyanosis, 2+ pulses and upper and lower extremities. MUSCULOSKELETAL: Muscle strength and tone normal. SPINE: No scoliosis or deformity SKIN: No rashes CENTRAL NERVOUS SYSTEM: Alert and oriented -3. No focal deficits, tone is normal in all 4 extremities. PSYCHIATRIC: Alert and oriented -3. Appropriate affect. Intact judgment and insight. - Labs CBC & Chem 7: 06/06/19 05:27 06/06/19 05:27 Labs: Abnormal Lab Results - Last 24 Hours (Table) 06/05/19 06/05/19 06/05/19 Range/Units 11:38 16:40 21:09 RBC (4.30-5.90) m/uL Hgb (13.0-17.5) gm/dL Hct (39.0-53.0) % Sodium (137-145) mmol/L BUN (9-20) mg/dL Glucose (74-99) mg/dL POC Glucose (mg/dL) 153 H 113 H 114 H (75-99) mg/dL 06/06/19 06/06/19 06/06/19 Range/Units 02:15 05:27 05:27 RBC 3.12 L (4.30-5.90) m/uL Hgb 9.9 L (13.0-17.5) gm/dL Hct 29.7 L (39.0-53.0) % Sodium 135 L (137-145) mmol/L BUN 28 H (9-20) mg/dL Glucose 124 H (74-99) mg/dL POC Glucose (mg/dL) 144 H (75-99) mg/dL 06/06/19 Range/Units 07:05 RBC (4.30-5.90) m/uL Hgb (13.0-17.5) gm/dL Hct (39.0-53.0) % Sodium (137-145) mmol/L BUN (9-20) mg/dL Glucose (74-99) mg/dL POC Glucose (mg/dL) 135 H (75-99) mg/dL Assessment and Plan Plan: Assessment: 1. Severe aortic stenosis, status post aortic valve replacement, postoperative day 4 2. Coronary artery disease, status post three-vessel CABG, postop day 4 3. History of coronary artery disease with previous myocardial infarction and stenting 4. Hypertension 5. Hyperlipidemia 6. Type 2 diabetes with neuropathy, preoperative hemoglobin A1c 6.7% 7. Moderate restrictive lung disease with preoperative FEV1 54% of predicted 8. Obstructive sleep apnea with home CPAP use 9. Morbid obesity 10. Remote history of pneumonia 11. Depression 12. Factor 5 Leiden deficiency on Eliquis for anticoagulation 13. BPH 14. Remote narcotic dependence 15. 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 Family history of premature coronary artery disease Plan: Patient is doing well, no acute issues overnight, no specific complaints, ronald ating ambulation, he is working on incentive spirometer, today's chest x-ray has been reviewed showing no acute pulmonary process, all chest tubes and catheters have been removed, labs have been reviewed, vital signs are stable, in sinus mechanism, patient is anticipated to go home today. Will need outpatient follow-up with Dr. Andino in the office in one or 2 weeks I performed a history & physical examination of the patient and discussed their management with my nurse practitioner, Aspen Ascencio. I reviewed the nurse practitioner's note and agree with the documented findings and plan of care. Lung sounds are positive for diminished at the bases. The findings and the impression was discussed with the patient. I attest to the documentation by the nurse practitioner. Time with Patient: Less than 30
[2019-06-06] MEDS: ACETAMINOPHEN TAB 500 MG TAB PO PRN (10:56)
--- NOTE | 2019-06-06 11:32 | P.DS ---
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 Severe aortic valve stenosis 2. Coronary artery disease with previous history of myocardial infarction and stenting 3. Hypertension 4. Hyperlipidemia 5. Type 2 diabetes with preoperative hemoglobin A1c 6.7% 6. Moderate restrictive lung disease with preoperative FEV1 54% of predicted 7. Obstructive sleep apnea with home CPAP use 8. Morbid obesity 9. Remote history of pneumonia 10. Depression 11. Factor V Leiden deficiency on chronic Eliquis for anticoagulation 12. BPH 13. Remote narcotic dependence 14. 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 Family history of premature coronary artery disease 16. Postoperative acute blood loss anemia PRINCIPAL PROCEDURE: 1. Elective aortic valve replacement with 25 mm Inspiris bovine pericardial valve 2. Coronary artery bypass grafting 3 with left internal mammary artery to the left anterior descending artery, reverse saphenous vein graft to the first diagonal artery, reverse saphenous vein graft to the first obtuse marginal artery 3. Endovascular vein harvest of the left greater saphenous vein from the mid calf to the groin 4. Epi-aortic ultrasonography 5. Ligation of the left atrial appendage with a 35 mm AtriClip HISTORY OF PRESENT ILLNESS: This is a 63-year-old morbidly obese gentleman who follows on an outpatient basis with nurse practitioner Kellen Greene. He had a known history of aortic valvular stenosis, and began to experience worsening dyspnea on exertion. He was recommended to undergo transesophageal echocardiogram and heart catheterization. Transesophageal echocardiogram confirmed a heavily calcified aortic valve with valve area 1 cm by planimetry. Heart catheterization revealed 70% in-stent restenosis of the LAD, proximal stenosis 90% of the second diagonal coronary artery, 99% ostial stenosis of the first obtuse marginal artery and 90% proximal stenosis of the second obtuse marginal artery, and 70-80% stenosis of the distal right coronary artery. The patient was referred to Dr. Magallanes from cardiothoracic surgery. He was recommended to undergo coronary artery bypass surgery along with bioprosthetic aortic valve replacement. The usual perioperative course was discussed in detail with the patient and his family, all risks and benefits were explained, all questions were answered, and consent was obtained to proceed with surgery. The patient did have a bad tooth which needed to be fixed, and once we had dental clearance surgery he was scheduled at the earliest possible date. HOSPITAL COURSE: The patient was brought to the hospital on 06/02/2019, taken to the preoperative area, prepared in the usual fashion, and subsequently taken to the operating room where Dr. Magallanes performed an elective bioprosthetic aortic valve replacement and coronary artery bypass graft surgery. Upon completion of surgery the patient was transferred to the cardiovascular intensive care unit where he was recovered, monitored hemodynamically, and where he progressed to cardiac rehabilitation phase 1. He was extubated, all lines, tubes, and drips were discontinued when appropriate, and transfer orders were placed for 3 S. cardiac stepdown unit, however there was no bed availability and the patient remained on ICU as a stepdown patient until discharge. His oxygen was titrated down, he continued to work with physical and occupational therapy, he was tolerating oral diet, his pain was controlled, and he was ready to be discharged to home with [facility] care on postoperative day #4. He received written and verbal instruction regarding his medications, activity restrictions, signs and symptoms requiring physician notification, and follow-up appointments. COMPLICATIONS: The patient experienced no postoperative complications. Patient Condition at Discharge: Stable Plan - Discharge Summary Discharge Rx Participant: Yes New Discharge Prescriptions: New Ferrous Sulfate [Iron (65 MG Elemental)] 325 mg PO BID #60 tab Atorvastatin [Lipitor] 40 mg PO DAILY #30 tab Metoprolol Tartrate [Lopressor] 25 mg PO BID #60 tab Pantoprazole [Protonix] 40 mg PO AC-BRKFST #30 tablet.dr Deal-Docusate Sodium [Senokot-S] 2 each PO HS PRN tab PRN Reason: Constipation Acetaminophen Tab [Tylenol] 1,000 mg PO Q6HR PRN tab PRN Reason: Fever And/ Or Pain Lisinopril [Zestril] 5 mg PO DAILY@1200 #30 tab Continue DULoxetine HCL [Cymbalta] 30 mg PO DAILY Aspirin EC [Ecotrin Low Dose] 81 mg PO DAILY risperiDONE [RisperDAL] 0.5 mg PO HS Cholecalciferol [Vitamin D3 (25 Mcg = 1000 Iu)] 50,000 unit PO Q7D metFORMIN HCL [Glucophage] 1,000 mg PO BID lamoTRIgine [LaMICtal] 25 mg PO DAILY Cyanocobalamin [Vitamin B-12] 500 mcg PO DAILY Tamsulosin HCl [Flomax] 0.4 mg PO DAILY Gabapentin [Neurontin] 800 mg PO TID Biotin 10,000 mcg PO DAILY Apixaban [Eliquis] 5 mg PO BID #60 tab Changed LORazepam [Ativan] 0.5 mg PO BID PRN #0 PRN Reason: Anxiety Discontinued Pravastatin Sodium [Pravachol] 40 mg PO HS Lisinopril [Zestril] 10 mg PO DAILY Fenofibrate Nanocrystallized [Fenofibrate] 134 mg PO DAILY Phenylephrine HCl [Sudafed PE] 10 mg PO DAILY PRN PRN Reason: allergies Mupirocin 2% Oint [Bactroban 2% Oint] 1 applic NASAL BID Aspirin 325 mg PO DIRECTED Discharge Medication List DULoxetine HCL [Cymbalta] 30 mg PO DAILY 01/10/16 [History] Aspirin EC [Ecotrin Low Dose] 81 mg PO DAILY 06/03/16 [History] Biotin 10,000 mcg PO DAILY 04/21/19 [History] Cholecalciferol [Vitamin D3 (25 Mcg = 1000 Iu)] 50,000 unit PO Q7D 04/21/19 [History] Cyanocobalamin [Vitamin B-12] 500 mcg PO DAILY 04/21/19 [History] Gabapentin [Neurontin] 800 mg PO TID 04/21/19 [History] Tamsulosin HCl [Flomax] 0.4 mg PO DAILY 04/21/19 [History] lamoTRIgine [LaMICtal] 25 mg PO DAILY 04/21/19 [History] metFORMIN HCL [Glucophage] 1,000 mg PO BID 04/21/19 [History] risperiDONE [RisperDAL] 0.5 mg PO HS 04/21/19 [History] Acetaminophen Tab [Tylenol] 1,000 mg PO Q6HR PRN tab 06/06/19 [Rx] Apixaban [Eliquis] 5 mg PO BID #60 tab 06/06/19 [Rx] Atorvastatin [Lipitor] 40 mg PO DAILY #30 tab 06/06/19 [Rx] Ferrous Sulfate [Iron (65 MG Elemental)] 325 mg PO BID #60 tab 06/06/19 [Rx] LORazepam [Ativan] 0.5 mg PO BID PRN #0 06/06/19 [Rx] Lisinopril [Zestril] 5 mg PO DAILY@1200 #30 tab 06/06/19 [Rx] Metoprolol Tartrate [Lopressor] 25 mg PO BID #60 tab 06/06/19 [Rx] Pantoprazole [Protonix] 40 mg PO AC-BRKFST #30 tablet.dr 06/06/19 [Rx] Sennosides-Docusate Sodium [Senokot-S] 2 each PO HS PRN tab 06/06/19 [Rx] Follow up Appointment(s)/Referral(s): Jaz Riggs MD [STAFF PHYSICIAN] - 06/16/19 1:00 pm Sonia Garrison NPC [Nurse Practitioner] - 06/10/19 11:00 am () Ritchie Magallanes MD [STAFF PHYSICIAN] - 07/07/19 1:30 pm [facility], [NON-STAFF] - 1-2 Days Kellen Greene NPC [Primary Care Provider] - 06/16/19 4:30 pm Eric Palacios MD [STAFF PHYSICIAN] - 06/20/19 12:45 pm Ambulatory/Diagnostic Orders: Complete Blood Count w/diff [LAB.AMB] Time Frame: 3 Days, Location: None Se lected Comprehensive Metabolic Panel [LAB.AMB] Time Frame: 3 Days, Location: None Selected Activity/Diet/Wound Care/Special Instructions: DISCHARGE INSTRUCTIONS: 1. No driving for 4 weeks, or until physician gives their ok. 2. The patient should sleep in their own bed, no medical bed needed. 3. Stairs are not an issue. If the bedroom is upstairs, it is advised that the patient go up at night and down in the morning for the first week. Go slowly, using handrail and take 1 step at a time. 4. ADI hose are to be worn for 30 days or until physician discontinues. 5. Heart hugger is to be worn 100% of the time until physician discontinues.(except when showering) 6. No lifting, pushing, or pulling more than 10 pounds for 12 weeks. The physician will advise of any restriction changes. 7. The patient is expected to continue the prescribed walking program. 8. Continue pain control per as needed orders. 9. Continue with incentive spirometry and splinting/heart hugger until otherwise directed by the physician. 10. Must shower daily using liquid antibacterial soap and a separate white washcloth for each individual incision. 11. Routine sternal incision care. No powders, lotions, ointments on incisions. 12. Please call surgeon/INTERDISCIPLINARY PROFESSOR for temp greater than 101 F or purulent drainage from incisions. 13. All prescriptions given by surgeon for 30 days. Refills need to be filled through manager of organizational development/primary care physician. 14. A Red armband has been placed on the patient. It should be worn for 30 days post surgery and will be removed by the cardiac surgeons. If an ER visit is necessary, please make sure the number on the Red armband is called. HOME HEALTH SERVICES TO PROVIDE: RN SKILLED HOME CARE SERVICES FOR POST-OP SURGICAL PATIENTS WITH THE FOLLOWING: Coronary Artery Bypass Surgery (CABG), Mitral Valve Replacement/Repair ( MVR), Aortic Valve Replacement/Repair (AVR) RN TO CONTINUE EDUCATION FROM ``ROAD TO A HEALTH HEART PATIENT EDUCATION MANUAL (GIVEN TO PATIENT IN THE HOSPITAL) MEDICATION RECONCILIATION WITH EDUCATION NEEDED ON FIRST HOME VISIT EMPHASIZE IMPORTANCE OF WEARING BREAST SUPPORT/HEART HUGGER ENCOURAGE USE OF INCENTIVE SPIROMETER 10 X EVERY HOUR WHILE AWAKE ENCOURAGE UTILIZATION OF LOWER EXTREMITY COMPRESSION STOCKINGS/ADI HOSE and ELEVATE LEGS ABOVE LEVEL OF HEART WHILE AT REST. ENCOURAGE AMBULATION 3-5x/day INCREASING TOLERATES, WHILE AVOID EXTREMES IN TEMPERATURE FREQUENCY: RN TO OPEN THE PATIENT WITHIN 24 HOURS OF DISCHARGE FROM THE HOSPITAL WITH [place]HEALTH [place]STALL[place] [facility] [place] TO VISIT 2-3 X A WEEK FOR 4 WEEKS ESTABLISHED BY PATIENT NEEDS. LABORATORY: CBC, CMP TO BE DRAWN ON THE THIRD DAY HOME, (RAN STAT) FAX RESULTS TO [phone]. TELEHEALTH PARAMETERS: WEIGHT: NOTIFY MD OF WEIGHT GAIN OF 2 LBS IN 24 HOURS OR 5 LBS IN ONE WEEK HR: NOTIFY MD OF HR <55 BPM OR HR>100 BPM BP: NOTIFY MD IF BP <90/55 OR BP>140/100 O2 SAT: NOTIFY MD IF PO2<93% ON ROOM AIR SEND TELEHEALTH REPORT TO OXIDIZED FINISH PLATER AND CARDIOVASCULAR SURGEON THE FIRST WEEK OF CARE AND THEN BI-WEEKLY. PLEASE ADDITIONALLY COMMUNICATE ANY ABNORMALS AND NEW FINDINGS TO THE SURGEONS OFFICE. Discharge Disposition: HOME WITH HOME HEALTH SERVICES
[2019-06-06] MEDS ORDERED: LISINOPRIL 5 MG TAB PO SCH (12:00)
[2019-06-06 12:22] VITALS: PULSE 79
--- NOTE | 2019-06-06 12:54 | PN ---
PROGRESS NOTE This patient's clinical panel and the lab tests and medications reviewed. Patient is status post aortic valve replacement and coronary artery bypass surgery. Patient is doing fairly well. He remains in normal sinus rhythm. No dysrhythmias are noted. The patient's blood pressure is 116/68 mmHg. He is lying comfortably in the bed without any respiratory distress. The heart rate is 86 per minute. First and second heart sounds are normal. Lungs are clinically clear to auscultation and percussion. ASSESSMENT AND PLAN: Patient remains hemodynamically stable. He is going to be discharged home today. MMODL / IJN: [id number] /
--- NOTE | 2019-06-06 21:28 | P.PN ---
Subjective Progress Note Date: 06/06/19 (delayed charting seen at 0910) Principal diagnosis: Coronary artery disease Patient is a 63-year-old male past medical history of diabetes mellitus type 2 well controlled with a preop hemoglobin A1c is 6.7 on oral medications, coronary artery disease, hypertension, and dyslipidemia who presented scheduled for coronary bypass surgery and aortic valve replacement. On 06/02 he underwent coronary artery bypass grafting 3 along with aortic valve replacement with a bovine valve. He was subsequently admitted to the ICU. He initially was on mechanical ventilation but was able to be successfully extubated several hours later. Insulin gtt for 24 hours, now on fixed dose with long acting and SSI. Sugars had normalized by the morning of 06/05. Seen and examined at bedside. Feeling well today. Excited to go home. No complaints currently. Chest pain control. No shortness of breath. Objective - Vital Signs Vital signs: Vital Signs Temp 97.3 F L 06/06/19 04:00 Pulse 79 06/06/19 12:21 Resp 20 06/06/19 09:00 BP 116/68 06/06/19 09:00 Pulse Ox 96 06/06/19 09:44 Intake & Output 06/06/19 06/06/19 06/07/19 06:59 18:59 06:59 Intake Total 350 Output Total 600 600 Balance -600 -250 Weight 158.9 kg Intake: Oral 350 Output: Urine 600 600 Other: Voiding Method Toilet Toilet Urinal Urinal # Voids 1 2 ABP, PAP, CO, CI - Last Documented Arterial Blood Pressure 116/97 Pulmonary Artery Pressure 16/5 Cardiac Output 6.4 Cardiac Index 2.5 - Exam General: non toxic, no distress, appears at stated age, obese, diaphoretic Derm: warm, dry Head: atraumatic, normocephalic, symmetric Eyes: EOMI, no lid lag, anicteric sclera Mouth: no lip lesion, mucus membranes moist Cardiovascular: S1S2 regular, no murmur, positive posterior tibial pulse bilateral, Lungs: Decreased breath sounds bilateral, no rhonchi, no rales , no accessory muscle use Abdominal: soft, nontender to palpation, no guarding, no appreciable organomegaly Ext: no gross muscle atrophy, no edema, no contractures Neuro: CN II-XI grossly intact, no focal neuro deficits Psych: Alert, oriented, appropriate affect, pleasant - Labs CBC & Chem 7: 06/06/19 05:27 06/06/19 05:27 Labs: Abnormal Lab Results - Last 24 Hours (Table) 06/05/19 06/06/19 06/06/19 Range/Units 21:09 02:15 05:27 RBC 3.12 L (4.30-5.90) m/uL Hgb 9.9 L (13.0-17.5) gm/dL Hct 29.7 L (39.0-53.0) % Sodium (137-145) mmol/L BUN (9-20) mg/dL Glucose (74-99) mg/dL POC Glucose (mg/dL) 114 H 144 H (75-99) mg/dL 06/06/19 06/06/19 Range/Units 05:27 07:05 RBC (4.30-5.90) m/uL Hgb (13.0-17.5) gm/dL Hct (39.0-53.0) % Sodium 135 L (137-145) mmol/L BUN 28 H (9-20) mg/dL Glucose 124 H (74-99) mg/dL POC Glucose (mg/dL) 135 H (75-99) mg/dL Assessment and Plan Assessment: Patient is a 63-year-old male status post triple vessel bypass surgery with a aortic valve replacement. Diabetes mellitus type 2 with neuropathy - resume metformin, follow BS once dialy when discharge Constipation - Senna - milk of Mag today Acute blood loss anemia -anticipated outcome of surgery - Follow CBC - Iron X 30 added added to MAR Dyslipidemia -Statin therapy Hypertension -Management per cardiothoracic surgery -Blood pressure currently well-controlled Morbid obesity with BMI of 46.4 -Outpatient structured weight loss History of factor V Leiden deficiency -Chronically on Eliquis for anticoagulation therapy -Restarted 06/05 Obstructive sleep apnea -Continue with home CPAP at night, with naps History of cerebral vascular accident with residual left-sided visual field deficits and left-sided weakness -Continue aspirin, statin thrombocytopenia, resolved DVT prophylaxis:SCDs Discussed with: Patient, nursing, Sonia Garrison Anticipated discharge: in 2-[address]: home A total of 30 minutes was spent on the care of this complex patient more than 50% of the time was spent in counseling and care coordination.
== END 2019-06-06 14:01 | disposition home health service (06) | DRG 220 ==
LOC: 2ORMAIN 05:36 → 2SICU 15:24
PROVIDERS: ADMIT Thoracic Surgery (Cardiothoracic Vascular Surgery); ATTEND Thoracic Surgery (Cardiothoracic Vascular Surgery)
PROC: B24BZZZ Ultrasonography of Heart with Aorta (ICD-10-PCS; principal; 2019-06-02 08:00)
PROC: 06BQ4ZZ Excision of Left Saphenous Vein, Percutaneous Endoscopic Approach (ICD-10-PCS; principal; 2019-06-02 08:00)
PROC: 5A1221Z Performance of Cardiac Output, Continuous (ICD-10-PCS; principal; 2019-06-02 08:00)
PROC: 02100Z9 Bypass Coronary Artery, One Artery from Left Internal Mammary, Open Approach (ICD-10-PCS; principal; 2019-06-02 08:00)
PROC: 02RF08Z Replacement of Aortic Valve with Zooplastic Tissue, Open Approach (ICD-10-PCS; principal; 2019-06-02 08:00)
PROC: 021109W Bypass Coronary Artery, Two Arteries from Aorta with Autologous Venous Tissue, Open Approach (ICD-10-PCS; principal; 2019-06-02 08:00)
PROC: 02L70CK Occlusion of Left Atrial Appendage with Extraluminal Device, Open Approach (ICD-10-PCS; principal; 2019-06-02 08:00)
DX: I25.10 Atherosclerotic heart disease of native coronary artery without angina pectoris (principal); D62 Acute posthemorrhagic anemia; D68.51 Activated protein C resistance; D68.59 Other primary thrombophilia; Z68.42 Body mass index [BMI] 45.0-49.9, adult; J98.11 Atelectasis; I69.354 Hemiplegia and hemiparesis following cerebral infarction affecting left non-dominant side; T82.855A Stenosis of coronary artery stent, initial encounter; D69.6 Thrombocytopenia, unspecified; E11.40 Type 2 diabetes mellitus with diabetic neuropathy, unspecified; E66.01 Morbid (severe) obesity due to excess calories; E78.5 Hyperlipidemia, unspecified; F32.9 Major depressive disorder, single episode, unspecified; G47.33 Obstructive sleep apnea (adult) (pediatric); I11.0 Hypertensive heart disease with heart failure; I25.2 Old myocardial infarction; I35.0 Nonrheumatic aortic (valve) stenosis; I50.9 Heart failure, unspecified; K59.00 Constipation, unspecified; N40.0 Benign prostatic hyperplasia without lower urinary tract symptoms; Y83.1 Surgical operation with implant of artificial internal device as the cause of abnormal reaction of the patient, or of later complication, without mention of misadventure at the time of the procedure; Z79.01 Long term (current) use of anticoagulants; Z79.02 Long term (current) use of antithrombotics/antiplatelets; Z79.82 Long term (current) use of aspirin; Z79.84 Long term (current) use of oral hypoglycemic drugs; Z79.899 Other long term (current) drug therapy; Z80.0 Family history of malignant neoplasm of digestive organs; Z82.49 Family history of ischemic heart disease and other diseases of the circulatory system; Z83.3 Family history of diabetes mellitus; Z87.01 Personal history of pneumonia (recurrent); Z96.659 Presence of unspecified artificial knee joint; Z99.89 Dependence on other enabling machines and devices; Z90.49 Acquired absence of other specified parts of digestive tract
CPT/HCPCS: 71045; 71046; 80048; 80053; 82330; 82805; 83735; 85025; 85027; 85520; 85610; 85730; 86850; 86891; 86900; 86901; 86920; 88305; 88311; 94002; 94640; 94660

== ENCOUNTER 2021-07-13 02:10 | Inpatient (IN) | payer MEDICARE, OTHER ==
[2021-07-13 02:24] LABS: Glucose,Whole Blood 237 mg/dL (75-99)
--- NOTE | 2021-07-13 02:26 | ED ---
Altered Mental Status HPI - General Chief Complaint: Altered Mental Status Stated Complaint: Unresponsive Time Seen by Provider: 07/13/21 02:19 Source: EMS Mode of arrival: ambulatory Limitations: altered mental status - History of Present Illness Initial Comments: This patient is a 65-year-old man brought by ambulance to have evaluation for altered mental status. When I interview the patient, he is able to state that he is having upper abdominal pain. Patient otherwise not able to give much history, he appears delirious. MD Complaint: altered mental status -: unknown - Related Data Home Medications Medication Instructions Recorded Confirmed Gabapentin [Neurontin] 800 mg PO TID 04/21/19 05/31/19 Tamsulosin HCl [Flomax] 0.4 mg PO DAILY 04/21/19 05/31/19 lamoTRIgine [LaMICtal] 25 mg PO DAILY 04/21/19 05/31/19 metFORMIN HCL [Glucophage] 1,000 mg PO BID 04/21/19 06/02/19 Atorvastatin [Lipitor] 80 mg PO DAILY 07/13/21 07/13/21 Nystatin 100,000Unit/gm Cream 1 applic TOPICAL BID PRN 07/13/21 07/13/21 [Mycostatin Cream] lisinopriL 40 mg PO DAILY@1200 07/13/21 07/13/21 Previous Rx's Medication Instructions Recorded Apixaban [Eliquis] 5 mg PO BID #60 tab 06/06/19 Allergies Allergy/AdvReac Type Severity Reaction Status Date / Time nitroglycerin AdvReac Severe sublin Verified 07/13/21 07:25 nitro caused severe low HR and B/P adhesive AdvReac blisters Verified 07/13/21 07:25 Review of Systems ROS Statement: Those systems with pertinent positive or pertinent negative responses have been documented in the HPI. ROS Other: All systems not noted in ROS Statement are negative. Limitations: ROS unobtainable due to patients medical condition (Appears d elirious) Gastrointestinal: Reports: abdominal pain Past Medical History Past Medical History: Blood Disorder, Coronary Artery Disease (CAD), Chest Pain / Angina, Heart Failure, CVA/TIA, Diabetes Mellitus, GERD/Reflux, Hyperlipidemia, Hypertension, Myocardial Infarction (IA), Osteoarthritis (OA), Sleep Apnea/CPAP/BIPAP Additional Past Medical History / Comment(s): HX IA X 2, HX CVA'S/TIA'S - LEFT ARM & LEG WEAKNESS, FACTOR 5 BLOOD DISORDER., DIABETIC NEUROPATHY IN FEET AND LEGS., SLEEP APNEA WITH C-PAP ., BACK PAIN , INDIGESTION., SEE CARDIOLOGY H & P. Last Myocardial Infarction Date:: 2014 History of Any Multi-Drug Resistant Organisms: None Reported Past Surgical History: Cholecystectomy, Heart Catheterization, Heart Cathete rization With Stent, Orthopedic Surgery, Tonsillectomy Additional Past Surgical History / Comment(s): Radio Freq Proc to Back 04-01-16, R TOTAL KNEE. R KNEE ARTHROSCOPIES ., CARDIAC CATH [address] Jorge Luis SMITH.04/07/14 HEART CATH WITH STENT TO MID LAD. Past Anesthesia/Blood Transfusion Reactions: Previous Problems w/ Anesthesia, Postoperative Nausea & Vomiting (PONV) Additional Past Anesthesia/Blood Transfusion Reaction / Comment(s): LOOPY- (HALLUCINATED) Date of Last Stent Placement:: 2014 Past Psychological History: Anxiety, Depression Smoking Status: Never smoker Past Alcohol Use History: None Reported - Past Family History Sister(s) Family Medical History: Coronary Artery Disease (CAD), Diabetes Mellitus Additional Family Medical History / Comment(s): SISTER(1) HAD DM, SISTER(2) HAD CAD-CABG Father Family Medical History: Cancer Additional Family Medical History / Comment(s): FATHER OF [place] AT AGE 76 YRS. Mother Family Medical History: Cancer, Congestive Heart Failure (CHF), Myocardial Infarction (IA) Additional Family Medical History / Comment(s): MOTHER AT AGE 57 OR [place]. MOM HAD PSYCHOLOLGICAL ISSUES. General Exam Limitations: altered mental status General appearance: obtunded Head exam: Present: atraumatic, normocephalic Eye exam: Present: normal appearance. Absent: scleral icterus, conjunctival injection ENT exam: Present: mucous membranes dry Neck exam: Present: normal inspection, full ROM. Absent: tenderness Respiratory exam: Present: normal lung sounds bilaterally. Absent: respiratory distress, wheezes, rales, rhonchi, stridor Cardiovascular Exam: Present: normal rhythm, bradycardia, normal heart sounds. Absent: systolic murmur, diastolic murmur, rubs, gallop GI/Abdominal exam: Present: soft, tenderness. Absent: distended, guarding, rebound, rigid, mass exam: Present: other (There is balanitis affecting the glans) Extremities exam: Present: normal inspection, normal capillary refill. Absent: pedal edema, calf tenderness Neurological exam: Present: altered. Absent: motor sensory deficit Skin exam: Present: intact, diaphoretic, pallor. Absent: rash Course Vital Signs 07/13/21 07/13/21 07/13/21 02:13 02:27 02:30 Temperature 97.5 F L 97.5 F L Pulse Rate 54 L 57 L 54 L Respiratory 16 24 23 Rate Blood Pressure 146/77 98/54 O2 Sat by Pulse 99 94 L 94 L Oximetry 07/13/21 07/13/21 07/13/21 02:35 02:51 03:01 Temperature Pulse Rate 54 L 68 71 Respiratory 20 19 Rate Blood Pressure 138/60 151/66 O2 Sat by Pulse 95 97 97 Oximetry 07/13/21 07/13/21 04:10 06:20 Temperature Pulse Rate 65 85 Respiratory 20 20 Rate Blood Pressure 170/86 186/86 O2 Sat by Pulse 96 96 Oximetry Medical Decision Making - Lab Data Result diagrams: 07/13/21 02:22 07/13/21 02:22 Lab Results 07/13/21 07/13/21 07/13/21 Range/Units 02:13 02:22 02:22 WBC 18.3 H (3.8-10.6) k/uL RBC 5.22 (4.30-5.90) m/uL Hgb 16.5 (13.0-17.5) gm/dL Hct 49.3 (39.0-53.0) % MCV 94.5 (80.0-100.0) fL MCH 31.7 (25.0-35.0) pg MCHC 33.6 (31.0-37.0) g/dL RDW 13.6 (11.5-15.5) % Plt Count 211 (150-450) k/uL MPV 9.8 Neutrophils % 71 % Lymphocytes % 21 % Monocytes % 5 % Eosinophils % 2 % Basophils % 0 % Neutrophils # 13.0 H (1.3-7.7) k/uL Lymphocytes # 3.8 (1.0-4.8) k/uL Monocytes # 0.9 (0-1.0) k/uL Eosinophils # 0.3 (0-0.7) k/uL Basophils # 0.1 (0-0.2) k/uL PT 11.1 (9.0-12.0) sec INR 1.0 (<1.2) APTT 20.7 L (22.0-30.0) sec Sodium (137-145) mmol/L Potassium (3.5-5.1) mmol/L Chloride (98-107) mmol/L Carbon Dioxide (22-30) mmol/L Anion Gap mmol/L BUN (9-20) mg/dL Creatinine (0.66-1.25) mg/dL Est GFR (CKD-EPI)AfAm (>60 ml/min/1.73 sqM) Est GFR (CKD-EPI)NonAf (>60 ml/min/1.73 sqM) Glucose (74-99) mg/dL POC Glucose (mg/dL) 237 H (75-99) mg/dL POC Glu Verification Lead ID Dru Sam Plasma Lactic Acid Rico (0.7-2.0) mmol/L Calcium (8.4-10.2) mg/dL Total Bilirubin (0.2-1.3) mg/dL AST (17-59) U/L ALT (4-49) U/L Alkaline Phosphatase (38-126) U/L Troponin I (0.000-0.034) ng/mL NT-Pro-B Natriuret Pep pg/mL Total Protein (6.3-8.2) g/dL Albumin (3.5-5.0) g/dL Urine Color Urine Appearance (Clear) Urine pH (5.0-8.0) Ur Specific [place] (1.001-1.035) Urine Protein (Negative) Urine Glucose (UA) (Negative) Urine Ketones (Negative) Urine Blood (Negative) Urine Nitrite (Negative) Urine Bilirubin (Negative) Urine Urobilinogen (<2.0) mg/dL Ur Leukocyte Esterase (Negative) Urine RBC (0-5) /hpf Urine WBC (0-5) /hpf Ur Squamous Epith Cells (0-4) /hpf Hyaline Casts (0-2) /lpf Urine Mucus (None) /hpf Urine Opiates Screen (NotDetected) Ur Oxycodone Screen (NotDetected) Urine Methadone Screen (NotDetected) Ur Propoxyphene Screen (NotDetected) Ur Barbiturates Screen (NotDetected) U Tricyclic Antidepress (NotDetected) Ur Phencyclidine Scrn (NotDetected) Ur Amphetamines Screen (NotDetected) U Methamphetamines Scrn (NotDetected) U Benzodiazepines Scrn (NotDetected) Urine Cocaine Screen (NotDetected) U Marijuana (THC) Screen (NotDetected) Serum Alcohol mg/dL C. difficile (EIA) Intrp (Negative) Coronavirus (PCR) (Not Detectd) 07/13/21 07/13/21 07/13/21 Range/Units 02:22 02:22 02:22 WBC (3.8-10.6) k/uL RBC (4.30-5.90) m/uL Hgb (13.0-17.5) gm/dL Hct (39.0-53.0) % MCV (80.0-100.0) fL MCH (25.0-35.0) pg MCHC (31.0-37.0) g/dL RDW (11.5-15.5) % Plt Count (150-450) k/uL MPV Neutrophils % % Lymphocytes % % Monocytes % % Eosinophils % % Basophils % % Neutrophils # (1.3-7.7) k/uL Lymphocytes # (1.0-4.8) k/uL Monocytes # (0-1.0) k/uL Eosinophils # (0-0.7) k/uL Basophils # (0-0.2) k/uL PT (9.0-12.0) sec INR (<1.2) APTT (22.0-30.0) sec Sodium 133 L (137-145) mmol/L Potassium 3.6 (3.5-5.1) mmol/L Chloride 100 (98-107) mmol/L Carbon Dioxide 22 (22-30) mmol/L Anion Gap 11 mmol/L BUN 14 (9-20) mg/dL Creatinine 1.04 (0.66-1.25) mg/dL Est GFR (CKD-EPI)AfAm 86 (>60 ml/min/1.73 sqM) Est GFR (CKD-EPI)NonAf 74 (>60 ml/min/1.73 sqM) Glucose 260 H (74-99) mg/dL POC Glucose (mg/dL) (75-99) mg/dL POC Glu Verification Lead ID Plasma Lactic Acid Irco (0.7-2.0) mmol/L Calcium 9.4 (8.4-10.2) mg/dL Total Bilirubin 1.0 (0.2-1.3) mg/dL AST 33 (17-59) U/L ALT 36 (4-49) U/L Alkaline Phosphatase 104 (38-126) U/L Troponin I <0.012 (0.000-0.034) ng/mL NT-Pro-B Natriuret Pep 617 pg/mL Total Protein 6.8 (6.3-8.2) g/dL Albumin 4.1 (3.5-5.0) g/dL Urine Color Urine Appearance (Clear) Urine pH (5.0-8.0) Ur Specific [place] (1.001-1.035) Urine Protein (Negative) Urine Glucose (UA) (Negative) Urine Ketones (Negative) Urine Blood (Negative) Urine Nitrite (Negative) Urine Bilirubin (Negative) Urine Urobilinogen (<2.0) mg/dL Ur Leukocyte Esterase (Negative) Urine RBC (0-5) /hpf Urine WBC (0-5) /hpf Ur Squamous Epith Cells (0-4) /hpf Hyaline Casts (0-2) /lpf Urine Mucus (None) /hpf Urine Opiates Screen (NotDetected) Ur Oxycodone Screen (NotDetected) Urine Methadone Screen (NotDetected) Ur Propoxyphene Screen (NotDetected) Ur Barbiturates Screen (NotDetected) U Tricyclic Antidepress (NotDetected) Ur Phencyclidine Scrn (NotDetected) Ur Amphetamines Screen (NotDetected) U Methamphetamines Scrn (NotDetected) U Benzodiazepines Scrn (NotDetected) Urine Cocaine Screen (NotDetected) U Marijuana (THC) Screen (NotDetected) Serum Alcohol <10 mg/dL C. difficile (EIA) Intrp (Negative) Coronavirus (PCR) (Not Detectd) 07/13/21 07/13/21 07/13/21 Range/Units 02:27 02:31 04:28 WBC (3.8-10.6) k/uL RBC (4.30-5.90) m/uL Hgb (13.0-17.5) gm/dL Hct (39.0-53.0) % MCV (80.0-100.0) fL MCH (25.0-35.0) pg MCHC (31.0-37.0) g/dL RDW (11.5-15.5) % Plt Count (150-450) k/uL MPV Neutrophils % % Lymphocytes % % Monocytes % % Eosinophils % % Basophils % % Neutrophils # (1.3-7.7) k/uL Lymphocytes # (1.0-4.8) k/uL Monocytes # (0-1.0) k/uL Eosinophils # (0-0.7) k/uL Basophils # (0-0.2) k/uL PT (9.0-12.0) sec INR (<1.2) APTT (22.0-30.0) sec Sodium (137-145) mmol/L Potassium (3.5-5.1) mmol/L Chloride (98-107) mmol/L Carbon Dioxide (22-30) mmol/L Anion Gap mmol/L BUN (9-20) mg/dL Creatinine (0.66-1.25) mg/dL Est GFR (CKD-EPI)AfAm (>60 ml/min/1.73 sqM) Est GFR (CKD-EPI)NonAf (>60 ml/min/1.73 sqM) Glucose (74-99) mg/dL POC Glucose (mg/dL) (75-99) mg/dL POC Glu Verification Lead ID Plasma Lactic Acid Rico 3.9 H* (0.7-2.0) mmol/L Calcium (8.4-10.2) mg/dL Total Bilirubin (0.2-1.3) mg/dL AST (17-59) U/L ALT (4-49) U/L Alkaline Phosphatase (38-126) U/L Troponin I (0.000-0.034) ng/mL NT-Pro-B Natriuret Pep pg/mL Total Protein (6.3-8.2) g/dL Albumin (3.5-5.0) g/dL Urine Color Yellow Urine Appearance Clear (Clear) Urine pH 6.0 (5.0-8.0) Ur Specific [place] 1.016 (1.001-1.035) Urine Protein 1+ H (Negative) Urine Glucose (UA) 3+ H (Negative) Urine Ketones Negative (Negative) Urine Blood Negative (Negative) Urine Nitrite Negative (Negative) Urine Bilirubin Negative (Negative) Urine Urobilinogen <2.0 (<2.0) mg/dL Ur Leukocyte Esterase Negative (Negative) Urine RBC 1 (0-5) /hpf Urine WBC 5 (0-5) /hpf Ur Squamous Epith Cells <1 (0-4) /hpf Hyaline Casts 16 H (0-2) /lpf Urine Mucus Few H (None) /hpf Urine Opiates Screen Not Detected (NotDetected) Ur Oxycodone Screen Not Detected (NotDetected) Urine Methadone Screen Not Detected (NotDetected) Ur Propoxyphene Screen Not Detected (NotDetected) Ur Barbiturates Screen Not Detected (NotDetected) U Tricyclic Antidepress Not Detected (NotDetected) Ur Phencyclidine Scrn Not Detected (NotDetected) Ur Amphetamines Screen Not Detected (NotDetected) U Methamphetamines Scrn Not Detected (NotDetected) U Benzodiazepines Scrn Not Detected (NotDetected) Urine Cocaine Screen Not Detected (NotDetected) U Marijuana (THC) Screen Not Detected (NotDetected) Serum Alcohol mg/dL C. difficile (EIA) Intrp (Negative) Coronavirus (PCR) Not Detected (Not Detectd) 07/13/21 Range/Units 06:10 WBC (3.8-10.6) k/uL RBC (4.30-5.90) m/uL Hgb (13.0-17.5) gm/dL Hct (39.0-53.0) % MCV (80.0-100.0) fL MCH (25.0-35.0) pg MCHC (31.0-37.0) g/dL RDW (11.5-15.5) % Plt Count (150-450) k/uL MPV Neutrophils % % Lymphocytes % % Monocytes % % Eosinophils % % Basophils % % Neutrophils # (1.3-7.7) k/uL Lymphocytes # (1.0-4.8) k/uL Monocytes # (0-1.0) k/uL Eosinophils # (0-0.7) k/uL Basophils # (0-0.2) k/uL PT (9.0-12.0) sec INR (<1.2) APTT (22.0-30.0) sec Sodium (137-145) mmol/L Potassium (3.5-5.1) mmol/L Chloride (98-107) mmol/L Carbon Dioxide (22-30) mmol/L Anion Gap mmol/L BUN (9-20) mg/dL Creatinine (0.66-1.25) mg/dL Est GFR (CKD-EPI)AfAm (>60 ml/min/1.73 sqM) Est GFR (CKD-EPI)NonAf (>60 ml/min/1.73 sqM) Glucose (74-99) mg/dL POC Glucose (mg/dL) (75-99) mg/dL POC Glu Verification Lead ID Plasma Lactic Acid Rico (0.7-2.0) mmol/L Calcium (8.4-10.2) mg/dL Total Bilirubin (0.2-1.3) mg/dL AST (17-59) U/L ALT (4-49) U/L Alkaline Phosphatase (38-126) U/L Troponin I (0.000-0.034) ng/mL NT-Pro-B Natriuret Pep pg/mL Total Protein (6.3-8.2) g/dL Albumin (3.5-5.0) g/dL Urine Color Urine Appearance (Clear) Urine pH (5.0-8.0) Ur Specific [place] (1.001-1.035) Urine Protein (Negative) Urine Glucose (UA) (Negative) Urine Ketones (Negative) Urine Blood (Negative) Urine Nitrite (Negative) Urine Bilirubin (Negative) Urine Urobilinogen (<2.0) mg/dL Ur Leukocyte Esterase (Negative) Urine RBC (0-5) /hpf Urine WBC (0-5) /hpf Ur Squamous Epith Cells (0-4) /hpf Hyaline Casts (0-2) /lpf Urine Mucus (None) /hpf Urine Opiates Screen (NotDetected) Ur Oxycodone Screen (NotDetected) Urine Methadone Screen (NotDetected) Ur Propoxyphene Screen (NotDetected) Ur Barbiturates Screen (NotDetected) U Tricyclic Antidepress (NotDetected) Ur Phencyclidine Scrn (NotDetected) Ur Amphetamines Screen (NotDetected) U Methamphetamines Scrn (NotDetected) U Benzodiazepines Scrn (NotDetected) Urine Cocaine Screen (NotDetected) U Marijuana (THC) Screen (NotDetected) Serum Alcohol mg/dL C. difficile (EIA) Intrp Negative (Negative) Coronavirus (PCR) (Not Detectd) - EKG Data -: EKG Interpreted by Me EKG shows normal: sinus rhythm, axis (Normal), intervals (Normal) Rate: bradycardia (Rate 53 bpm) Interpretation: LVH Disposition Clinical Impression: Altered mental status, Leukocytosis, Balanitis Disposition: ADMITTED IP TO THIS [facility] Condition: Fair Is patient prescribed a controlled substance at d/c from ED?: No Referrals: Kellen Greene NPC [Family Provider] - 1-2 days
[2021-07-13] MEDS ORDERED: SODIUM CHLORIDE 0.9% 1,000 ML IV ONE (02:30)
[2021-07-13 02:38] LABS: Basophils # (A) 0.1 k/uL (0-0.2); Basophils % (A) 0 %; Eosinophils # (A) 0.3 k/uL (0-0.7); Eosinophils % (A) 2 %; HCT 49.3 % (39.0-53.0); HGB 16.5 gm/dL (13.0-17.5); Lymphocytes # (A) 3.8 k/uL (1.0-4.8); Lymphocytes % (A) 21 %; MCH 31.7 pg (25.0-35.0); MCHC 33.6 g/dL (31.0-37.0); MCV 94.5 fL (80.0-100.0); Mean Platelet Volume 9.8; Monocytes # (A) 0.9 k/uL (0-1.0); Monocytes % (A) 5 %; Neutrophils % (A) 71 %; Platelet Count 211 k/uL (150-450); RBC 5.22 m/uL (4.30-5.90); RDW 13.6 % (11.5-15.5); WBC 18.3 k/uL (3.8-10.6)
[2021-07-13 02:54] LABS: ALT 36 U/L (4-49); AST 33 U/L (17-59); African American GFR (CKD) 86 (>60 ml/min/1.73 sqM); Albumin 4.1 g/dL (3.5-5.0); Alcohol <10 mg/dL; Alkaline Phosphatase 104 U/L (38-126); Anion Gap 11 mmol/L; Blood Urea Nitrogen 14 mg/dL (9-20); Calcium 9.4 mg/dL (8.4-10.2); Carbon Dioxide 22 mmol/L (22-30); Chloride 100 mmol/L (98-107); Glucose 260 mg/dL (74-99); Non-African American GFR(CKD) 74 (>60 ml/min/1.73 sqM); Partial Thromboplastin Time 20.7 sec (22.0-30.0); Potassium 3.6 mmol/L (3.5-5.1); Prothrombin Time 11.1 sec (9.0-12.0); Sodium 133 mmol/L (137-145); Total Protein 6.8 g/dL (6.3-8.2)
--- NOTE | 2021-07-13 02:57 | CT ---
EXAMINATION TYPE: CT brain wo con DATE OF EXAM: 07/13/2021 COMPARISON: 06/03/2016 HISTORY: abdominal pain/AMS. history of previous stroke. CT DLP: 1184.4 mGycm Automated exposure control for dose reduction was used. Images obtained of the brain without contrast. There is cerebral cortical atrophy. There is no mass effect or midline shift. There is no evidence of intracranial hemorrhage. There is 4 x 3 cm area of hypodensity medial right occipital lobe related t o old cortical infarct. There is some hyperostosis frontalis. Sella turcica is normal. Skull base is intact. IMPRESSION: Mild atrophy. Old right occipital lobe infarct. No acute intracranial abnormality. No change.
[2021-07-13 03:02] LABS: Amphetamine Screen,Urine Not Detected (NotDetected); Barbiturate Screen,Urine Not Detected (NotDetected); Benzodiazepines Screen,Urine Not Detected (NotDetected); Cocaine Screen,Urine Not Detected (NotDetected); Methadone Screen, Urine Not Detected (NotDetected); Opiate Screen,Urine Not Detected (NotDetected); Oxycodone Screen, Urine Not Detected (NotDetected); Phencyclidine Screen,Urine Not Detected (NotDetected); Tricyclic Antidepressant,Urine Not Detected (NotDetected); Urn Cannabinoid Scrn Not Detected (NotDetected)
[2021-07-13 03:03] LABS: Appearance,Urine Clear (Clear); Bilirubin,Urine Negative (Negative); Blood,Urine Negative (Negative); Color,Urine Yellow; Glucose,Urine (UA) 3+ (Negative); Hyaline Casts,Urine 16 /lpf (0-2); Ketones,Urine Negative (Negative); Leukocyte Esterase,Urine Negative (Negative); Mucus,Urine Few /hpf; Nitrite,Urine Negative (Negative); Protein,Urine 1+ (Negative); RBC,Urine 1 /hpf (0-5); Specific Gravity,Urine 1.016 (1.001-1.035); Squamous Epithelial Cell,Urine <1 /hpf (0-4); Urobilinogen,Urine <2.0 mg/dL (<2.0); WBC,Urine 5 /hpf (0-5)
--- NOTE | 2021-07-13 03:06 | CT ---
EXAMINATION TYPE: CT ChestAbdPelvis w con DATE OF EXAM: 07/13/2021 COMPARISON: None HISTORY: abdominal pain/AMS. history of previous stroke. CT DLP: 4378.4 mGycm Automated exposure control for dose reduction was used. CONTRAST: Performed with IV Contrast, patient injected with 100ml mL of Isovue 300. Images obtained from the thoracic inlet to the floor the pelvis with IV contrast. There is some diffuse interstitial groundglass pulmonary infiltrates. There is mild right pleural eff usion. Heart is enlarged. There is no mediastinal adenopathy. Thoracic aorta is intact. 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 There is no dissection. There are no hilar masses. There is extensive atherosclerotic vascular calcification. There are clips from cholecystectomy. Liver and spleen are intact. Stomach is intact. There is no nita dence of pancreatic mass. The bile ducts are not dilated. There is no adrenal mass. Kidneys show satisfactory contrast opacification. There is no hydronephrosi s. Urinary bladder is mostly empty. There is no evidence of a pelvic mass. There is no free fluid in the pelvis. There is no mesenteric edema. There is no ascites or free air. There is no sign of a bowel obstructio n. There is mild prostate calcification. The thoracic and lumbar vertebra appear intact. There is no compression fracture. There are sternal w ires. The bony pelvis appears intact. The hip joints appear intact. IMPRESSION: Right pleural effusion with pulmonary interstitial edema and basilar atelectasis. This could relate t o congestive heart failure. Moderate atherosclerotic vascular disease. Exam limited by patient's size. Entire anterior abdomen no t included on the exam. No acute abnormality within the abdomen and pelvis.
[2021-07-13] MEDS ORDERED: ONDANSETRON 4 MG/2 ML VIAL IVP STA (05:30)
[2021-07-13] MEDS ORDERED: IBUPROFEN 400 MG TAB PO PRN (06:36)
[2021-07-13] MEDS ORDERED: ACETAMINOPHEN TAB 325 MG TAB PO PRN (06:36)
[2021-07-13] MEDS ORDERED: NALOXONE 0.4 MG/ML 1 ML VIAL IV PRN (06:36)
[2021-07-13] MEDS ORDERED: PIPERACILLIN-TAZOBACTAM 3.375 GM in SODIUM CHLORIDE 0.9% 100 ML IVPB STA (06:39)
[2021-07-13] MEDS ORDERED: SENNOSIDES-DOCUSATE SODIUM 1 EACH TAB PO PRN (06:41)
[2021-07-13] MEDS ORDERED: LORazepam 1 MG TAB PO PRN (06:41)
[2021-07-13] MEDS ORDERED: ACETAMINOPHEN TAB 500 MG TAB PO PRN (06:41)
[2021-07-13] MEDS ORDERED: LORazepam 0.5 MG TAB PO PRN (07:08)
[2021-07-13] MEDS ORDERED: PANTOPRAZOLE 40 MG TABLET PO SCH (07:30)
[2021-07-13] MEDS: SODIUM CHLORIDE 0.9% 1,000 ML IV SCH ×2 (07:46→07:47)
[2021-07-13] MEDS: NYSTATIN 100,000 UNIT/GM OINT 30 GM TUBE TOPICAL SCH ×2 (07:49→20:59)
[2021-07-13] MEDS: ACETAMINOPHEN TAB 500 MG TAB PO PRN (07:51)
[2021-07-13] MEDS: APIXABAN 5 MG TAB PO SCH ×2 (07:58→20:50)
[2021-07-13] MEDS: lamoTRIgine 25 MG TAB PO SCH (07:58)
[2021-07-13] MEDS: TAMSULOSIN 0.4 MG CAP.ER.24H PO SCH (07:58)
[2021-07-13] MEDS: ATORVASTATIN 80 MG TAB PO SCH (07:58)
[2021-07-13] MEDS: GABAPENTIN 400 MG CAP PO SCH ×3 (07:58→20:49)
[2021-07-13] MEDS: lisinopriL 20 MG TAB PO SCH (08:34)
[2021-07-13 08:36] LABS: Glucose,Whole Blood 226 mg/dL (75-99)
[2021-07-13] MEDS ORDERED: FERROUS SULFATE 325 MG TAB PO SCH (09:00)
[2021-07-13] MEDS ORDERED: ASPIRIN 81 MG PO SCH (09:00)
[2021-07-13] MEDS ORDERED: CYANOCOBALAMIN 500 MCG TAB PO SCH (09:00)
[2021-07-13] MEDS ORDERED: TAMSULOSIN 0.4 MG CAP.ER.24H PO SCH (09:00)
[2021-07-13] MEDS ORDERED: ATORVASTATIN 40 MG TAB PO SCH (09:00)
[2021-07-13] MEDS ORDERED: metFORMIN 500 MG TAB PO SCH (09:00)
[2021-07-13] MEDS ORDERED: DULoxetine HCL 30 MG CAPSULE.DR PO SCH (09:00)
[2021-07-13] MEDS ORDERED: METOPROLOL TARTRATE 25 MG TAB PO SCH (09:00)
[2021-07-13 09:06] LABS: Basophils % (A) 0 %; Eosinophils # (A) 0.1 k/uL (0-0.7); Eosinophils % (A) 1 %; Lymphocytes % (A) 5 %; MCH 30.7 pg (25.0-35.0); MCHC 32.7 g/dL (31.0-37.0); Mean Platelet Volume 9.5; Monocytes # (A) 0.7 k/uL (0-1.0); Monocytes % (A) 4 %; Neutrophils # (A) 17.2 k/uL (1.3-7.7); Neutrophils % (A) 90 %; Platelet Count 202 k/uL (150-450); RBC 5.54 m/uL (4.30-5.90); RDW 13.3 % (11.5-15.5)
--- NOTE | 2021-07-13 09:11 | XR ---
EXAMINATION TYPE: XR chest 2V DATE OF EXAM: 07/13/2021 COMPARISON: 06/16/2019 HISTORY: Shortness of breath TECHNIQUE: Frontal and lateral views of the chest are obtained. FINDINGS: There is marked cardiomegaly and mild pulmonary vascular congestion. There is no pneumotho rax or large pleural effusion. There is no airspace opacity. The osseous structures are intact. To the prior study, there is been no significant interval change IMPRESSION: Findings most consistent with mild CHF. Clinical correlation short-term follow-up to res olution is recommended.
[2021-07-13 09:24] LABS: African American GFR (CKD) >90 (>60 ml/min/1.73 sqM); Anion Gap 13 mmol/L; Blood Urea Nitrogen 14 mg/dL (9-20); Calcium 9.6 mg/dL (8.4-10.2); Carbon Dioxide 24 mmol/L (22-30); Chloride 99 mmol/L (98-107); Glucose 257 mg/dL (74-99); Non-African American GFR(CKD) >90 (>60 ml/min/1.73 sqM); Potassium 3.8 mmol/L (3.5-5.1); Sodium 136 mmol/L (137-145)
[2021-07-13] MEDS: MORPHINE SULFATE 4 MG/ML SYRINGE IVP PRN ×4 (11:01→23:07)
[2021-07-13] MEDS: METOPROLOL TARTRATE 25 MG TAB PO SCH ×2 (11:01→20:50)
[2021-07-13 11:27] LABS: Glucose,Whole Blood 200 mg/dL (75-99)
[2021-07-13] MEDS: INSULIN ASPART (NovoLOG) 100 UNIT/ML VIAL SQ SCH ×3 (11:31→20:50)
[2021-07-13] MEDS ORDERED: lisinopriL 5 MG TAB PO SCH (12:00)
--- NOTE | 2021-07-13 12:52 | P.GSCN ---
History of Present Illness Consult date: 07/13/21 Reason for Consult: Abdominal pain, lactic acidosis, nausea and vomiting with diarrhea. 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 He denies associated fever or chills, no reported chest pain or shortness of breath. He had our presenting lactic acidosis of 3.9 and a leukocytosis at 18.3 without bandemia. Liver function studies were within normal limits. Urinalysis showed only 1+ protein and 3+ glucose and some hyaline casts and mucus. No elisabeth signs of UTI. Urine drug screen was negative and serum alcohol below detectable threshold. Clostridium difficile and COVID screens were negative. Follow-up CBC in the morning showed a rising leukocytosis at 19 with 17.2 absolute neutrophils. Venous lactate in the morning showed some interval increase to 5.1, follow-up lactate level is presently pending. Glucose has been in the low 200s He's feeling slightly better time of my examination. Computed tomography scan of the head shows cerebral cortical atrophy, evidence of an old right occipital cortical stroke, no acute abnormalities. Chest x-ray showed market cardiomegaly and was described as mild pulmonary vascular congestion no elisabeth signs of pneumonia. Computed tomography scan of the abdomen and pelvis shows the patient to be status post cholecystectomy, diffuse interstitial and groundglass pulmonary infiltrates a mild right pleural effusion. A 4 cm aneurysm of the ascending aorta was described without dissection. There were extensive atherosclerotic vascular calcifications. No obvious abnormality of the pancreas seen. No free air, no free fluid no signs of obstruction, no mesenteric edema. No appreciable ventral or inguinal hernia seen. No evidence of significant fecal retention. EKG shows sinus bradycardia with rate of 53, suggestion of left ventricular hypertrophy and left atrial enlargement. Patient tells me he hasn't undergone previous abdominal surgery but CT would confirm cholecystectomy. It would appear that he has a first-degree family history of colon cancer diagnosed in his father. He is never undergone EGD or colonoscopy. No known personal history of peptic ulcer disease. He admits to recurrent candidal genital infection, evidence of balanitis was noted by the ER physician. He denies associated pain. Typically treats with topical nystatin. He is presently maintained on [place] tells me he is on blood thinners for history of a stroke in 1996 with some intermittent residual effects medical record discloses a factor V Leiden disorder. He tells me that he underwent open heart surgery with bovine valve replacement at some point record discloses previous cardiac cath a nd stent in 2013. Medical record further suggests history of heart attack in 2015. Patient's been increasingly hypertensive since admission with the presence systolic blood pressures of the 190s to as high as 205. Heart rate is presently 82 respiratory rate 19. Review of Systems - Constitutional Reports as per HPI - Respiratory Reports as per HPI - Gastrointestinal Reports as per HPI, Reports abdominal pain, Reports diarrhea, Reports nausea, Reports vomiting - Genitourinary Reports as per HPI - Musculoskeletal Reports as per HPI - Integumentary Reports as per HPI - Psychiatric Reports as per HPI, Reports confusion - Endocrine Reports as per HPI Past Medical History Past Medical History: Blood Disorder, Coronary Artery Disease (CAD), Chest Pain / Angina, Heart Failure, CVA/TIA, Diabetes Mellitus, GERD/Reflux, H yperlipidemia, Hypertension, Myocardial Infarction (OR), Osteoarthritis (OA), Sleep Apnea/CPAP/BIPAP Additional Past Medical History / Comment(s): HX OR X 2, HX CVA'S/TIA'S - LEFT ARM & LEG WEAKNESS, FACTOR 5 BLOOD DISORDER., DIABETIC NEUROPATHY IN FEET AND LEGS., SLEEP APNEA WITH C-PAP ., BACK PAIN , INDIGESTION., SEE CARDIOLOGY H & P. Last Myocardial Infarction Date:: 2014 History of Any Multi-Drug Resistant Organisms: None Reported Past Surgical History: Cholecystectomy, Heart Catheterization, Heart Catheterization With Stent, Orthopedic Surgery, Tonsillectomy Additional Past Surgical History / Comment(s): Radio Freq Proc to Back 04-01-16, R TOTAL KNEE. R KNEE ARTHROSCOPIES ., CARDIAC CATH [address] Jorge Luis SMITH.04/07/14 HEART CATH WITH STENT TO MID LAD. aortic valve replacement 2018 Past Anesthesia/Blood Transfusion Reactions: Previous Problems w/ Anesthesia, Postoperative Nausea & Vomiting (PONV) Additional Past Anesthesia/Blood Transfusion Reaction / Comm: LOOPY- (HALLUCINATED) Date of Last Stent Placement:: 2014 Past Psychological History: Anxiety, Depression Additional Psychological History / Comment(s): . Smoking Status: Never smoker Past Alcohol Use History: None Reported Past Drug Use History: None Reported Additional Drug Use History / Comment(s): TEENAGER SMOKED MARIJUANA - Past Family History Sister(s) Family Medical History: Coronary Artery Disease (CAD), Diabetes Mellitus Additional Family Medical History / Comment(s): SISTER(1) HAD DM, SISTER(2) HAD CAD-CABG Father Family Medical History: Cancer Additional Family Medical History / Comment(s): FATHER OF COLON CA AT AGE 76 YRS. Mother Family Medical History: Cancer, Congestive Heart Failure (CHF), Myocardial Infarction (OR) Additional Family Medical History / Comment(s): MOTHER AT AGE 57 OR OR. MOM HAD PSYCHOLOLGICAL ISSUES. Medications and Allergies Home Medications Medication Instructions Recorded Confirmed Type Gabapentin [Neurontin] 800 mg PO TID 04/21/19 07/13/21 History Tamsulosin HCl [Flomax] 0.8 mg PO DAILY@1200 04/21/19 07/13/21 History lamoTRIgine [LaMICtal] 25 mg PO DAILY 04/21/19 07/13/21 History metFORMIN HCL [Glucophage] 1,000 mg PO BID 04/21/19 07/13/21 History Apixaban [Eliquis] 5 mg PO BID #60 tab 06/06/19 07/13/21 Rx Atorvastatin [Lipitor] 80 mg PO DAILY 07/13/21 07/13/21 History Nystatin 100,000Unit/gm Cream 1 applic TOPICAL BID PRN 07/13/21 07/13/21 History [Mycostatin Cream] lisinopriL 40 mg PO DAILY@1200 07/13/21 07/13/21 History Allergies Allergy/AdvReac Type Severity Reaction Status Date / Time nitroglycerin AdvReac Severe sublin Verified 07/13/21 07:25 nitro caused severe low HR and B/P adhesive AdvReac blisters Verified 07/13/21 07:25 Surgical - Exam Osteopathic Statement: *. No significant issues noted on an osteopathic struc tural exam other than those noted in the History and Physical/Consult. Vital Signs Temp Pulse Resp BP Pulse Ox 97.5 F L 54 L 16 146/77 99 07/13/21 02:13 07/13/21 02:13 07/13/21 02:13 07/13/21 02:13 07/13/21 02:13 - General no distress, obese - Eyes PERRL - ENT normal pinna, normal nares, normal mucosa, no congestion - Neck no masses - Respiratory normal expansion, normal respiratory effort, clear to auscultation - Cardiovascular Rhythm: regular - Abdomen Abdomen: soft, non tender Hernia: none - Genitourinary other (Inflammation without tenderness of the glans is noted, patient appears uncircumcised, no phimosis) - Integumentary no rash - Neurologic normal coordination - Psychiatric oriented to time, oriented to person, oriented to place Results - Labs 07/13/21 08:40 07/13/21 08:40 Abnormal Lab Results - Last 24 Hours (Table) 07/13/21 07/13/21 07/13/21 Range/Units 02:13 02:22 02:22 WBC 18.3 H (3.8-10.6) k/uL Neutrophils # 13.0 H (1.3-7.7) k/uL APTT 20.7 L (22.0-30.0) sec Sodium (137-145) mmol/L Glucose (74-99) mg/dL POC Glucose (mg/dL) 237 H (75-99) mg/dL Plasma Lactic Acid Rico (0.7-2.0) mmol/L Urine Protein (Negative) Urine Glucose (UA) (Negative) Hyaline Casts (0-2) /lpf Urine Mucus (None) /hpf 07/13/21 07/13/21 07/13/21 Range/Units 02:22 02:31 04:28 WBC (3.8-10.6) k/uL Neutrophils # (1.3-7.7) k/uL APTT (22.0-30.0) sec Sodium 133 L (137-145) mmol/L Glucose 260 H (74-99) mg/dL POC Glucose (mg/dL) (75-99) mg/dL Plasma Lactic Acid Rico 3.9 H* (0.7-2.0) mmol/L Urine Protein 1+ H (Negative) Urine Glucose (UA) 3+ H (Negative) Hyaline Casts 16 H (0-2) /lpf Urine Mucus Few H (None) /hpf 07/13/21 07/13/21 07/13/21 Range/Units 08:35 08:40 08:40 WBC 19.0 H (3.8-10.6) k/uL Neutrophils # 17.2 H (1.3-7.7) k/uL APTT (22.0-30.0) sec Sodium 136 L (137-145) mmol/L Glucose 257 H (74-99) mg/dL POC Glucose (mg/dL) 226 H (75-99) mg/dL Plasma Lactic Acid Rico (0.7-2.0) mmol/L Urine Protein (Negative) Urine Glucose (UA) (Negative) Hyaline Casts (0-2) /lpf Urine Mucus (None) /hpf 07/13/21 07/13/21 Range/Units 08:40 11:25 WBC (3.8-10.6) k/uL Neutrophils # (1.3-7.7) k/uL APTT (22.0-30.0) sec Sodium (137-145) mmol/L Glucose (74-99) mg/dL POC Glucose (mg/dL) 200 H (75-99) mg/dL Plasma Lactic Acid Rico 5.1 H* (0.7-2.0) mmol/L Urine Protein (Negative) Urine Glucose (UA) (Negative) Hyaline Casts (0-2) /lpf Urine Mucus (None) /hpf Diabetes panel 07/13/21 07/13/21 Range/Units 02:22 08:40 Sodium 133 L 136 L (137-145) mmol/L Potassium 3.6 3.8 (3.5-5.1) mmol/L Chloride 100 99 (98-107) mmol/L Carbon Dioxide 22 24 (22-30) mmol/L BUN 14 14 (9-20) mg/dL Creatinine 1.04 0.79 (0.66-1.25) mg/dL Glucose 260 H 257 H (74-99) mg/dL Calcium 9.4 9.6 (8.4-10.2) mg/dL AST 33 (17-59) U/L ALT 36 (4-49) U/L Alkaline Phosphatase 104 (38-126) U/L Total Protein 6.8 (6.3-8.2) g/dL Albumin 4.1 (3.5-5.0) g/dL Calcium panel 07/13/21 07/13/21 Range/Units 02:22 08:40 Calcium 9.4 9.6 (8.4-10.2) mg/dL Albumin 4.1 (3.5-5.0) g/dL Pituitary panel 07/13/21 07/13/21 Range/Units 02: 08:40 Sodium 133 L 136 L (137-145) mmol/L Potassium 3.6 3.8 (3.5-5.1) mmol/L Chloride 100 99 (98-107) mmol/L Carbon Dioxide 22 24 (22-30) mmol/L BUN 14 14 (9-20) mg/dL Creatinine 1.04 0.79 (0.66-1.25) mg/dL Glucose 260 H 257 H (74-99) mg/dL Calcium 9.4 9.6 (8.4-10.2) mg/dL Adrenal panel 07/13/21 07/13/21 Range/Units 02: 08:40 Sodium 133 L 136 L (137-145) mmol/L Potassium 3.6 3.8 (3.5-5.1) mmol/L Chloride 100 99 (98-107) mmol/L Carbon Dioxide 22 24 (22-30) mmol/L BUN 14 14 (9-20) mg/dL Creatinine 1.04 0.79 (0.66-1.25) mg/dL Glucose 260 H 257 H (74-99) mg/dL Calcium 9.4 9.6 (8.4-10.2) mg/dL Total Bilirubin 1.0 (0.2-1.3) mg/dL AST 33 (17-59) U/L ALT 36 (4-49) U/L Alkaline Phosphatase 104 (38-126) U/L Total Protein 6.8 (6.3-8.2) g/dL Albumin 4.1 (3.5-5.0) g/dL Assessment and Plan Assessment: 65-year-old gentleman with presenting lethargy, confusion, diffuse and upper abdominal pains, nausea vomiting and diarrhea with a benign physical exam. Attendant rising leukocytosis and venous lactic acidosis. His presentation is not really consistent with septic shock. Chest x-ray shows cardiomegaly and interstitial infiltrates, no pneumonia. Urinalysis negative for infection. Computed tomography scan of the abdomen and pelvis shows no evidence of bowel obstruction, previous cholecystectomy, no signs of hernia or volvulus, no obvious thrombus with IV contrast. Persistently hypertensive with a significant cardiovascular history. I suspect he may be in the midst of a hypertensive emergency given apparent issues with end organ perfusion as manifested by confusion and lactic acidosis. His abdominal exam is unimpressive. No evidence of epigastric tenderness or diffuse tenderness, no peritoneal signs. Patient does have a reported history of factor V Leiden, morbid obesity, and diabetes mellitus 2 on oral hypoglycemics. Oral anticoagulated on Eliquis. Plan: I will defer to the patient's admitting medical physician in terms of blood pressure and glucose control. It his lactate continues to rise he should probably be in an ICU setting. Thrombosis or embolic visceral ischemia are presently lower on my differential as the patient's abdominal exam is entirely benign and there is no discrete thrombus seen on CT with IV contrast. CT angiogram would be a bit more sensitive in this regard. Will check serum amylase and lipase for completeness as well as serum BNP and troponin to start narrowing the differential. Empiric treatment for gastritis and ulcer disease with Protonix 40 mg twice daily. There are no peritoneal signs, no free air, no free fluid to necessitate an emergent exploration. I don't think he do well with any manner of surgery given his overall state of health. Will follow.
--- NOTE | 2021-07-13 13:17 | P.HPIM ---
History of Present Illness This is a pleasant 65 years old male with past medical history of Coronary Artery Disease status post stent, Heart Failure, CVA/TIA, Diabetes Mellitus, GERD, Hyperlipidemia, Hypertension, Osteoarthritis , Sleep Apnea/CPAP/BIPAP, HX DE X 2, HX CVA'S/TIA'S - LEFT ARM & LEG WEAKNESS, FACTOR 5 BLOOD DISORDER., DIABETIC NEUROPATHY IN FEET AND LEGS., SLEEP APNEA WITH C-PAP , Chronic back pain Patient presents because of altered mental status. Open patient woke up this morning and he was alert awake oriented 3. Patient told me that he is been having vomiting and diarrhea for about a week, his diarrhea about twice per day until yesterday which is stopped and he does not have bowel movement since yesterday. He was vomiting about 2-3 times per day and again to yesterday and his vomiting stopped. And yesterday evening he become more somnolent and his checked his blood pressure and was 93/50 so she called 911 and send him to the emergency room. Patient takes only lisinopril 40 mg daily for hypertension which he was compliant with. Also patient reports low appetite last time he ate about possible of soup about 2 days ago. Patient also complained from periumbilical abdominal pain about 9/10 in severity, nonspecific character, nonradiating. However it is hard to localize because of his large body habitus. He denies chest pain or dyspnea. He feels generally weak but mild headache. He makes little urine and it is dark area He complains from chronic low back pain since 1986, severe in the lower back, it is the same over the last 4 years, no difficulty in moving legs, no numbness. He stated that he takes liquids since 1996 secondary to stroke. Patient states that he walks using a cane with no difficulty and he works at his baseline. He denies smoking, alcohol or illicit drugs Vitas looks stable, blood pressure elevated this morning 173/71, patient saturation 94% on 2 L oxygen via nasal cannula Labs on admission showed leukocytosis of 18.3. CBC is unremarkable, INR is 1.0. Sodium was 133, rest of BMP is unremarkable. Glucose is elevated at 260. Lactic acid high at 3.9. Liver enzymes are unremarkable. Troponin is negative at less than 0.012. Urine analysis showed glucosuria, urine drug screen is negative. Serum alcohol less than 10. C. diff is negative Coronal virus detected. EKG showed sinus bradycardia at [address]-T changes, QTC is 460 CT of the chest abdomen and pelvis,: Right pleural effusion with pulmonary interstitial edema and bibasilar atelectasis. This could be related to congestive heart failure. Moderate atherosclerotic vascular disease. No acute abdomen within the abdomen and pelvis Mild atrophy. Old right occipital lobe infarct. No acute intracranial abnormality ProBNP is normal at 617. Review of Systems CONSTITUTIONAL: No fever, no malaise, no fatigue. HEENT: No recent visual problems or hearing problems. Denied any sore throat. CARDIOVASCULAR: No orthopnea, PND, no palpitations, no syncope. PULMONARY: No shortness of breath, no cough, no hemoptysis. -GASTROINTESTINAL: As above NEUROLOGICAL: No headaches, no weakness, no numbness. HEMATOLOGICAL: Denies any bleeding or petechiae. GENITOURINARY: Denies any burning micturition, frequency, or urgency. MUSCULOSKELETAL/RHEUMATOLOGICAL: Denies any joint pain, swelling, or any muscle pain. ENDOCRINE: Denies any polyuria or polydipsia. Past Medical History Past Medical History: Blood Disorder, Coronary Artery Disease (CAD), Chest Pain / Angina, Heart Failure, CVA/TIA, Diabetes Mellitus, GERD/Reflux, Hyperlipidemia, Hypertension, Myocardial Infarction (DE), Osteoarthritis (OA), Sleep Apnea/CPAP/BIPAP Additional Past Medical History / Comment(s): HX DE X 2, HX CVA'S/TIA'S - LEFT ARM & LEG WEAKNESS, FACTOR 5 BLOOD DISORDER., DIABETIC NEUROPATHY IN FEET AND LEGS., SLEEP APNEA WITH C-PAP ., BACK PAIN , INDIGESTION., SEE CARDIOLOGY H & P. Last Myocardial Infarction Date:: 2014 History of Any Multi-Drug Resistant Organisms: None Reported Past Surgical History: Cholecystectomy, Heart Catheterization, Heart Catheterization With Stent, Orthopedic Surgery, Tonsillectomy Additional Past Surgical History / Comment(s): Radio Freq Proc to Back 04-01-16, R TOTAL KNEE. R KNEE ARTHROSCOPIES ., CARDIAC CATH [address] Jorge Luis SMITH.04/07/14 HEART CATH WITH STENT TO MID LAD. Past Anesthesia/Blood Transfusion Reactions: Previous Problems w/ Anesthesia, Postoperative Nausea & Vomiting (PONV) Additional Past Anesthesia/Blood Transfusion Reaction / Comment(s): LOOPY- (HALLUCINATED) Date of Last Stent Placement:: 2014 Past Psychological History: Anxiety, Depression Smoking Status: Never smoker Past Alcohol Use History: None Reported - Past Family History Sister(s) Family Medical History: Coronary Artery Disease (CAD), Diabetes Mellitus Additional Family Medical History / Comment(s): SISTER(1) HAD DM, SISTER(2) HAD CAD-CABG Father Family Medical History: Cancer Additional Family Medical History / Comment(s): FATHER OF COLON CA AT AGE 76 YRS. Mother Family Medical History: Cancer, Congestive Heart Failure (CHF), Myocardial Infa rction (DE) Additional Family Medical History / Comment(s): MOTHER AT AGE 57 OR DE. MOM HAD PSYCHOLOLGICAL ISSUES. Medications and Allergies Home Medications Medication Instructions Recorded Confirmed Type Gabapentin [Neurontin] 800 mg PO TID 04/21/19 07/13/21 History Tamsulosin HCl [Flomax] 0.8 mg PO DAILY@1200 04/21/19 07/13/21 History lamoTRIgine [LaMICtal] 25 mg PO DAILY 04/21/19 07/13/21 History metFORMIN HCL [Glucophage] 1,000 mg PO BID 04/21/19 07/13/21 History Apixaban [Eliquis] 5 mg PO BID #60 tab 06/06/19 07/13/21 Rx Atorvastatin [Lipitor] 80 mg PO DAILY 07/13/21 07/13/21 History Nystatin 100,000Unit/gm Cream 1 applic TOPICAL BID PRN 07/13/21 07/13/21 History [Mycostatin Cream] lisinopriL 40 mg PO DAILY@1200 07/13/21 07/13/21 History Allergies Allergy/AdvReac Type Severity Reaction Status Date / Time nitroglycerin AdvReac Severe sublin Verified 07/13/21 07:25 nitro caused severe low HR and B/P adhesive AdvReac blisters Verified 07/13/21 07:25 Physical Exam Vitals: Vital Signs Temp Pulse Resp BP Pulse Ox 07/13/21 07:52 64 18 173/71 94 L 07/13/21 06:20 85 20 186/86 96 07/13/21 04:10 65 20 170/86 96 07/13/21 03:01 71 19 151/66 97 07/13/21 02:51 68 20 138/60 97 07/13/21 02:35 54 L 95 01/15/22 02:30 54 L 23 94 L 07/13/21 02:27 97.5 F L 57 L 24 98/54 94 L 07/13/21 02:13 97.5 F L 54 L 16 146/77 99 Intake and Output 07/12/21 07/13/21 07/13/21 22:59 06:59 14:59 Other: Weight 139.1 kg -GENERAL: The patient is alert and oriented x3, not in any acute distress. Morbidly obese HEENT: Pupils are round and equally reacting to light. EOMI. No scleral icterus. No conjunctival pallor. Normocephalic, atraumatic. No pharyngeal erythema. No thyromegaly. CARDIOVASCULAR: S1 and S2 present. No murmurs, rubs, or gallops. PULMONARY: Chest is clear to auscultation, no wheezing or crackles. -ABDOMEN: Soft, mild periumbilical tenderness, no rebound tenderness, distended due to fat, normoactive bowel sounds. No palpable organomegaly. MUSCULOSKELETAL: No joint swelling or deformity. EXTREMITIES: No cyanosis, clubbing, or pedal edema. NEUROLOGICAL: Gross neurological examination did not reveal any focal deficits. SKIN: No rashes. No petechiae Results CBC & Chem 7: 07/13/21 08:40 07/13/21 08:40 Labs: Abnormal Lab Results - Last 24 Hours (Table) 07/13/21 07/13/21 07/13/21 Range/Units 02:13 02:22 02:22 WBC 18.3 H (3.8-10.6) k/uL Neutrophils # 13.0 H (1.3-7.7) k/uL APTT 20.7 L (22.0-30.0) sec Sodium (137-145) mmol/L Glucose (74-99) mg/dL POC Glucose (mg/dL) 237 H (75-99) mg/dL Plasma Lactic Acid Rico (0.7-2.0) mmol/L Urine Protein (Negative) Urine Glucose (UA) (Negative) Hyaline Casts (0-2) /lpf Urine Mucus (None) /hpf 07/13/21 07/13/21 07/13/21 Range/Units 02:22 02:31 04:28 WBC (3.8-10.6) k/uL Neutrophils # (1.3-7.7) k/uL APTT (22.0-30.0) sec Sodium 133 L (137-145) mmol/L Glucose 260 H (74-99) mg/dL POC Glucose (mg/dL) (75-99) mg/dL Plasma Lactic Acid Rico 3.9 H* (0.7-2.0) mmol/L Urine Protein 1+ H (Negative) Urine Glucose (UA) 3+ H (Negative) Hyaline Casts 16 H (0-2) /lpf Urine Mucus Few H (None) /hpf Assessment and Plan Assessment: Periods of altered mental status, resolved Possible right lower lobe pneumonia rather than CHF Mild acute hypoxic respiratory failure Limited lactic acid, improving Hypertension Hyperlipidemia History of coronary artery disease status post stent Chronic heart failure History of CVA with left hemiparesis. CT showing RIGHT occipital infarct Diabetes mellitus with diabetic neuropathy Sleep apnea on CPAP Chronic back pain History of osteoarthritis History of benign prostatic hypertrophy Morbid obesity with BMI of 42.8 Plan: This is a pleasant 65 years old male who presents with periods of altered mental status, pneumonia versus CHF Continue with Zosyn Follow-up sputum culture, blood culture Swallow evaluation Check a pro-calcitonin Check Lamictal level (. patient states he takes Lamictal for mood reasons) Consult neurology service. Hold metforminto improvement of lactic acid, continue with insulin sliding scale Continue with oxygen Surgical team consult for abdominal pain and high lactic acid Labs and medication were reviewed.. Continue same treatment. Continue with symptomatic treatment. Resume home medication. Monitor lytes and vitals. DVT and GI prophylaxis. Further recommendations depends on the clinical course of the patient DVT prophylaxis: Eliquis GI Prophylaxis: Pepcid PT/OT: Pending Prognosis is guarded
[2021-07-13] MEDS: PANTOPRAZOLE 40 MG/10 ML VIAL IVP SCH ×2 (13:35→20:58)
[2021-07-13] MEDS: amLODIPine 5 MG TAB PO SCH (13:35)
--- NOTE | 2021-07-13 13:37 | P.CNNES ---
History of Present Illness Consult date: 07/13/21 Reason for Consult: Mental status changes History of Present Illness: The patient is a 65-year-old male who was seen in neurologic [facility] on July 13, 2021, via telemedicine. The patient is being seen because of concerns regarding mental status changes. The patient reports that he is no longer feeling confused. He does state that he slept poorly last night. He says he came into the hospital because of prolonged of vomiting and diarrhea. In discussion with the patient's nurse, patient's reportedly brought him into the hospital because of confusion. Workup in the emergency department revealed a CT scan of the brain, positive for an old right occipital infarct. CT scan of the chest, abdomen and pelvis revealed possible interstitial infiltrates versus pleural effusion. The patient's initial white blood cell count was found to be elevated at 18. Repeat blood cell count this morning reveals a white count of 19. Neutrophil count is elevated as well. Patient's blood sugars have been running in the mid 200s. Hemoglobin A1c is elevated at 7.4. The patient's blood pressure has also been elevated. The patient reportedly received fluids in the emergency department and his mental status improved. Review of Systems As noted in the history of chief complaint with the addition of bilateral loss of left peripheral vision, as stated by patient, secondary to previous stroke. Left arm and leg weakness Past Medical History Past Medical History: Blood Disorder, Coronary Artery Disease (CAD), Chest Pain / Angina, Heart Failure, CVA/TIA, Diabetes Mellitus, GERD/Reflux, Hyperlipidemia, Hypertension, Myocardial Infarction (ID), Osteoarthritis (OA), Sleep Apnea/CPAP/BIPAP Additional Past Medical History / Comment(s): HX ID X 2, HX CVA'S/TIA'S - LEFT ARM & LEG WEAKNESS, FACTOR 5 BLOOD DISORDER., DIABETIC NEUROPATHY IN FEET AND LEGS., SLEEP APNEA WITH C-PAP ., BACK PAIN , INDIGESTION., SEE CARDIOLOGY H & P. Last Myocardial Infarction Date:: 2014 History of Any Multi-Drug Resistant Organisms: None Reported Past Surgical History: Cholecystectomy, Heart Catheterization, Heart Catheterization With Stent, Orthopedic Surgery, Tonsillectomy Additional Past Surgical History / Comment(s): Radio Freq Proc to Back 04-01-16, R TOTAL KNEE. R KNEE ARTHROSCOPIES ., CARDIAC CATH [address] Jorge Luis SMITH.04/07/14 HEART CATH WITH STENT TO MID LAD. Past Anesthesia/Blood Transfusion Reactions: Previous Problems w/ Anesthesia, Postoperative Nausea & Vomiting (PONV) Additional Past Anesthesia/Blood Transfusion Reaction / Comment(s): LOOPY- (HALLUCINATED) Date of Last Stent Placement:: 2014 Past Psychological History: Anxiety, Depression Smoking Status: Never smoker Past Alcohol Use History: None Reported - Past Family History Sister(s) Family Medical History: Coronary Artery Disease (CAD), Diabetes Mellitus Additional Family Medical History / Comment(s): SISTER(1) HAD DM, SISTER(2) HAD CAD-CABG Father Family Medical History: Cancer Additional Family Medical History / Comment(s): FATHER OF COLON CA AT AGE 76 YRS. Mother Family Medical History: Cancer, Congestive Heart Failure (CHF), Myocardial Infarction (ID) Additional Family Medical History / Comment(s): MOTHER AT AGE 57 OR ID. MOM HAD PSYCHOLOLGICAL ISSUES. Medications and Allergies Home Medications Medication Instructions Recorded Confirmed Type Gabapentin [Neurontin] 800 mg PO TID 04/21/19 07/13/21 History Tamsulosin HCl [Flomax] 0.8 mg PO DAILY@1200 04/21/19 07/13/21 History lamoTRIgine [LaMICtal] 25 mg PO DAILY 04/21/19 07/13/21 History metFORMIN HCL [Glucophage] 1,000 mg PO BID 04/21/19 07/13/21 History Apixaban [Eliquis] 5 mg PO BID #60 tab 06/06/19 07/13/21 Rx Atorvastatin [Lipitor] 80 mg PO DAILY 07/13/21 07/13/21 History Nystatin 100,000Unit/gm Cream 1 applic TOPICAL BID PRN 07/13/21 07/13/21 History [Mycostatin Cream] lisinopriL 40 mg PO DAILY@1200 07/13/21 07/13/21 History Allergies Allergy/AdvReac Type Severity Reaction Status Date / Time nitroglycerin AdvReac Severe sublin Verified 07/13/21 07:25 nitro caused severe low HR and B/P adhesive AdvReac blisters Verified 07/13/21 07:25 Physical Examination - Vital Signs Vital Signs: Vital Signs Temp Pulse Pulse Resp BP BP Pulse Ox 07/13/21 08:00 97.6 F 87 19 194/85 97 07/13/21 07:52 64 18 173/71 94 L 07/13/21 06:20 85 20 186/86 96 07/13/21 04:10 65 20 170/86 96 07/13/21 03:01 71 19 151/66 97 07/13/21 02:51 68 20 138/60 97 07/13/21 02:35 54 L 95 07/13/21 02:30 54 L 23 94 L 07/13/21 02:27 97.5 F L 57 L 24 98/54 94 L 07/13/21 02:13 97.5 F L 54 L 16 146/77 99 Intake and Output 07/12/21 07/13/21 07/13/21 22:59 06:59 14:59 Other: Weight 139.1 kg Gen.: The patient is reclining in the bed. He is in no acute distress. He is obese. HEENT: Head is atraumatic, normocephalic. Fundus not visualized. There is no scleral icterus. Mucous membranes are moist. Neck: Supple Heart: Regular rate and rhythm Extremities: Without edema Neurological examination Mental status: The patient is awake, alert and oriented 3. 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 He is oriented to his location. His speech is clear. He is able to follow commands without difficulty. There is no evidence of expressive aphasia. Cranial nerves: Pupils are equal at 2 mm and reactive. Visual field testing reveals a left homonymous hemianopsia. Extraocular movements are intact. There is no nystagmus. Facial sensation is intact. There is no facial asymmetry. Hearing is grossly intact. Uvula and palate are midline. Shoulder shrug is symmetric. Tongue protrudes midline. Motor: Strength is 5/5 in the bilateral upper extremities and ankle plantar and dorsiflexors. Right hip flexor 2/5. Left hip flexor 3/5. Sensation: Grossly intact to light touch throughout. Coordination: There is left-sided dysmetria on finger to nose testing. Deep tendon reflexes: 2+/4+ no left upper extremity. 1+/4+ in the right upper extremity. Lower extremity reflexes are absent. Results - Laboratory Findings CBC and BMP: 07/13/21 08:40 07/13/21 08:40 Abnormal Lab Findings: Abnormal Labs 07/13/21 07/13/21 07/13/21 02:13 02:22 02:22 WBC 18.3 H Neutrophils # 13.0 H APTT 20.7 L Sodium Glucose POC Glucose (mg/dL) 237 H Plasma Lactic Acid Rico Urine Protein Urine Glucose (UA) Hyaline Casts Urine Mucus 07/13/21 07/13/21 07/13/21 02:22 02:31 04:28 WBC Neutrophils # APTT Sodium 133 L Glucose 260 H POC Glucose (mg/dL) Plasma Lactic Acid Rico 3.9 H* Urine Protein 1+ H Urine Glucose (UA) 3+ H Hyaline Casts 16 H Urine Mucus Few H 07/13/21 08:35 WBC Neutrophils # APTT Sodium Glucose POC Glucose (mg/dL) 226 H Plasma Lactic Acid Rico Urine Protein Urine Glucose (UA) Hyaline Casts Urine Mucus Assessment and Plan Assessment: 1. Altered mental status, resolved-multifactorial, secondary to infection, elevated blood pressure and dehydration. 2. Previous right occipital infarct 3. Right lower extremity weakness (long-standing per patient) 4. Poorly controlled diabetes mellitus Plan: 1. Continue to investigate for source of elevated white blood cell count 2. Continue to control blood sugars 3. Continue blood pressure control 4. Limit/hold any type of sedating medications, including narcotics Time with Patient: Greater than 30 (spent 40 minutes with the patient via telemedicine)
[2021-07-13] MEDS ORDERED: diphenhydrAMINE 25 MG CAP PO STA (14:04)
[2021-07-13] MEDS: PIPERACILLIN-TAZOBACTAM 3.375 GM in SODIUM CHLORIDE 0.9% 100 ML IVPB SCH ×2 (16:14→23:07)
[2021-07-13 16:30] LABS: Glucose,Whole Blood 192 mg/dL (75-99)
[2021-07-13 18:44] LABS: Amylase 51 U/L (30-110); Lipase 86 U/L (23-300)
[2021-07-13 20:29] LABS: Glucose,Whole Blood 172 mg/dL (75-99)
[2021-07-13] MEDS: diphenhydrAMINE 25 MG CAP PO PRN (20:49)
[2021-07-13] MEDS ORDERED: risperiDONE 0.5 MG TAB PO SCH (21:00)
[2021-07-14] MEDS: MORPHINE SULFATE 4 MG/ML SYRINGE IVP PRN ×5 (02:47→21:00)
[2021-07-14 07:00] LABS: Glucose,Whole Blood 171 mg/dL (75-99)
--- NOTE | 2021-07-14 07:57 | XR ---
EXAMINATION TYPE: XR chest 1V DATE OF EXAM: 07/14/2021 COMPARISON: 07/13/2021 HISTORY: Shortness of breath TECHNIQUE: Single frontal view of the chest is obtained. FINDINGS: Moderate to marked cardiomegaly with mild pulmonary vascular congestion and small right pl eural effusion. Findings most consistent with CHF with no significant interval worsening compared to previous. There is no pneumothorax. The osseous structures are intact IMPRESSION: Findings consistent with mild to moderate CHF essentially unchanged compared to previous .
[2021-07-14 08:33] LABS: HCT 48.7 % (39.6-50.0); HGB 15.5 g/dL (13.0-17.0); MCH 29.8 pg (27.0-32.0); MCHC 31.8 g/dL (32.0-37.0); MCV 93.5 fL (80.0-97.0); Mean Platelet Volume 11.8 fL (9.5-12.2); Platelet Count 204 X 10*3/uL (140-440); RBC 5.21 X 10*6/uL (4.40-5.60); RDW 13.8 % (11.5-14.5); WBC 19.88 X 10*3/uL (4.50-10.00)
[2021-07-14] MEDS: METOPROLOL TARTRATE 25 MG TAB PO SCH ×2 (08:34→21:01)
[2021-07-14] MEDS: GABAPENTIN 400 MG CAP PO SCH ×3 (08:34→21:01)
[2021-07-14] MEDS: ATORVASTATIN 80 MG TAB PO SCH (08:34)
[2021-07-14] MEDS: APIXABAN 5 MG TAB PO SCH ×2 (08:35→21:01)
[2021-07-14] MEDS: SODIUM CHLORIDE 0.9% 1,000 ML IV SCH (08:35)
[2021-07-14] MEDS: lamoTRIgine 25 MG TAB PO SCH (08:35)
[2021-07-14] MEDS: TAMSULOSIN 0.4 MG CAP.ER.24H PO SCH (08:35)
[2021-07-14] MEDS: amLODIPine 5 MG TAB PO SCH (08:35)
[2021-07-14] MEDS: PIPERACILLIN-TAZOBACTAM 3.375 GM in SODIUM CHLORIDE 0.9% 100 ML IVPB SCH ×2 (08:35→17:29)
[2021-07-14] MEDS: INSULIN ASPART (NovoLOG) 100 UNIT/ML VIAL SQ SCH ×4 (08:36→21:01)
[2021-07-14 08:53] LABS: African American GFR (CKD) 107.1 (60.0-200.0); Anion Gap 12.5 mmol/L (10.00-18.00); BUN/Creat Ratio 18.13 Ratio (12.00-20.00); Blood Urea Nitrogen 14.5 mg/dL (9.0-27.0); Carbon Dioxide 22.5 mmol/L (20.0-27.5); Magnesium 1.7 mg/dL (1.5-2.4); Non-African American GFR(CKD) 92.4 (60.0-200.0); Potassium 4.1 mmol/L (3.5-5.5)
[2021-07-14] MEDS: PANTOPRAZOLE 40 MG/10 ML VIAL IVP SCH ×2 (09:54→21:01)
[2021-07-14 10:30] LABS: Basophils # (A) 0.06 X 10*3/uL (0.00-0.10); Basophils % (A) 0.3 %; Eosinophils # (A) 0.08 X 10*3/uL (0.04-0.35); Eosinophils % (A) 0.4 %; Lymphocytes # (A) 3.51 X 10*3/uL (0.90-5.00); Lymphocytes % (A) 17.7 %; Monocytes # (A) 1.62 X 10*3/uL (0.20-1.00); Monocytes % (A) 8.1 %; Neutrophils # (A) 14.55 X 10*3/uL (1.80-7.70); Neutrophils % (A) 73.2 %
[2021-07-14] MEDS: NYSTATIN 100,000 UNIT/GM OINT 30 GM TUBE TOPICAL SCH ×3 (10:39→21:12)
--- NOTE | 2021-07-14 10:49 | P.PN ---
Progress Note - Text Progress Note Date: 07/14/21 Patient is seen and examined at bedside. He tells me he is feeling better today than yesterday, seems more alert and responsive but admits to persistent mid abdominal pains. No reported fever or chills. Tolerating liquids, no nausea or emesis. He is breathing easier with CPAP. No reported bowel movement, he tells me is voiding without issue. Patient's blood pressure is under better control with systolics in the 140s. His venous lactic acidosis is normalized. He continues with persistent leukocytosis at around 20. WBC 19.88, HGB 15.5, PLT 204. Na 134, K 4.1, CO2 22.5, CR 0.8, glucose 190. Venous lactate 1.7. Amylase 51, lipase 86. Procalcitonin 0.13. T-max 24 98F, heart rate 78, blood pressure 143/65, respiratory rate 16 at 94% O2 saturation on 3 L nasal cannula. Cardiovascular: Heart sounds are distant without appreciable murmur. Respiratory: Lungs are clear to auscultation bilaterally. Abdominal exam: Abdomen is mildly distended without tympany, there is moderate focal mid abdominal tenderness with voluntary guarding, no rebound. Patient's comfortable at rest. No abdominal ecchymoses, no evidence of ventral hernia. Extremities: Distal extremities warm and perfused, no significant edema. Assessment: 1) 65-year-old gentleman with presenting lethargy, confusion, diffuse and upper abdominal pains, nausea vomiting and diarrhea with a benign physical exam. Attendant leukocytosis. Initial lactic acidosis responsive to blood pressure control, judicious fluids, and empiric antibiotics. His presentation is not really consistent with septic shock, although procalicitonin is mildly elevated. His abdominal exam is unimpressive. No evidence of epigastric tenderness or diffuse tenderness, no peritoneal signs. Chest x-ray shows cardiomegaly and interstitial infiltrates, no pneumonia. Urinalysis negative for infection. Computed tomography scan of the abdomen and pelvis shows previous cholecystectomy, no evidence of bowel obstruction, no signs of hernia or volvulus, no obvious thrombus with IV contrast. 2) Hypertensive emergency given apparent issues with end organ perfusion as manifested by confusion and lactic acidosis, improving. 3) History of factor V Leiden, morbid obesity, coronary artery disease, and diabetes mellitus 2 on oral hypoglycemics. Oral anticoagulated on Eliquis. Plan: 1) On Rocephin/Zosyn IV for treatment of presumed sepsis of unclear source. Blood culture results pending, would give consideration to infectious disease consultation. Empiric treatment for gastritis and ulcer disease with Protonix 40 mg twice daily. Upright and flat plate abdominal x-ray today to screen for interval pneumoperitoneum or signs of ileus/obstruction. Certain aspects of his presentation and history are consistent with symptoms of a dilated cardiomyopathy, possibly Takatsubo. I'd give consideration to cardiology consultation given his somewhat complex history and presenting symptoms, will order an echocardiogram in clarification. 2) I will defer to the patient's admitting medical physician in terms of blood pressure and glucose control. 3) Further medical management per admitting service.
--- NOTE | 2021-07-14 11:31 | XR ---
EXAMINATION TYPE: XR abdomen 2V DATE OF EXAM: 07/14/2021 COMPARISON: 07/13/2021 HISTORY: Pain TECHNIQUE: 4 abdominal series FINDINGS: There are numerous dilated small bowel loops. Subsegmental basilar consolidation the right postsurgic al changes involving the mediastinum. Hypertrophic change of the spine. Assessment for free air limit ed. Surgical clips in the gallbladder fossa. IMPRESSION: 1. Numerous dilated small bowel loops correlate for small bowel obstruction. Severe ileus also the di fferential diagnosis. 2. Right basilar infiltrate.
[2021-07-14 11:33] LABS: Glucose,Whole Blood 186 mg/dL (75-99)
[2021-07-14] MEDS: lisinopriL 20 MG TAB PO SCH (11:53)
[2021-07-14] MEDS: diphenhydrAMINE 25 MG CAP PO PRN ×2 (13:04→21:01)
--- NOTE | 2021-07-14 13:23 | P.CRDCN ---
History of Present Illness Consult date: 07/14/21 History of present illness: This is Tyson Amezcua NP dictating a consult on this patient on behalf of Dr. Barker. The patient was interviewed and examined. HPI: [Patient is a pleasant 65-year-old male who initially presented to the hospital with altered mental status and leukocytosis. He was brought to the emergency department via ambulance for altered mental status. He initially reported upper abdominal pain upon examination are. And was initially unable to give much history in the ER. Patient was found in the emergency department to have leukocytosis of 18.3. Patient also had a CT of the chest abdomen and pelvis which demonstrated a right pleural effusion with pulmonary interstitial edema and bibasilar atelectasis that could be related to congestive heart failure, with moderate atherosclerotic vascular disease. No acute abdomen within the abdomen and pelvis. CT of the head showed mild atrophy. Old right occipital lobe infarct. No acute intracranial abnormality. He was subsequently admitted for the altered mental status, and further evaluation of the Covid. Patient has a past medical history that includes CAD, chest pain, heart failure, CVA, diabetes, GERD, hyperlipidemia, hypertension, NC, osteoarthritis, and sleep apnea. His past surgical history that includes cholecystectomy, heart catheterization, right total knee, and tonsillectomy. Patient reports he's never smoker, denies current alcohol or illicit substance use. Patient reports that he feels fairly good today. He continues to report abdominal pain. He currently denies chest pain or shortness of breath.] ROS: [No fever, chills, or rigors] [no cough, phlegm, or expectoration] [no nausea, vomiting, or diarrhea] [no hematuria, dysuria] [no musculoskelatal complaints] [no strokes or seizures] [no skin lesions] EXAMINATION: GENERAL: Well-appearing, well-nourished and in no acute distress. NECK: Supple without JVD or thyromegaly. LUNGS: Breath sounds clear to auscultation bilaterally. Respiration equal and unlabored. No wheezes, rales or rhonchi. HEART: Regular rate and rhythm without murmurs, rubs or gallops. S1 and S2 heard. EXTREMITIES: Normal range of motion, no edema. No clubbing or cyanosis. Peripheral pulses intact and strong. REVIEW OF LABS, ECG & MEDICAL DATA: LABS: White count 19.8, hemoglobin 15.5, platelets 204, sodium 134, potassium 4. 1, BUN 14.5, creatinine 0.8, hemoglobin A1c 7.4, magnesium 1.7, troponins 2 less than 0.012, BNP 339 EKG: Normal sinus rhythm IMAGING: CT of the brain dated 07/13/2021 demonstrates mild atrophy. Old right us at the lobe infarct. No acute intracranial abnormality. No change; CT of the chest, abdomen, and pelvis dated 07/13/2021 demonstrates right pleural effusion with pulmonary interstitial edema and basilar atelectasis. This could relate to congestive heart failure. Moderate atherosclerotic vascular disease. Exam limited by patient's size. Entire anterior abdomen not included on the ex am. No acute abnormality within the abdomen and pelvis; chest x-ray dated 07/13/2021 demonstrates findings most consistent with mild CHF. Clinical correlation short-term follow-up to resolution is recommended. VITALS: Temp 98.0, pulse 78, respirations 16, blood pressure 143/65, O2 saturation 94% on 3 L IMPRESSION: No evidence of NC BNP normal CHF under control PLAN: Resume home medications Elevated B/P likely secondary to N/V/D at home Thank you for the consult and allowing us to participate in the care of this patient. Please do not hesitate to contact us for further recommendations if needed. The patient has been seen and evaluated. Plan of care has been reviewed and agreed upon by Dr. Barker. Past Medical History Past Medical History: Blood Disorder, Coronary Artery Disease (CAD), Chest Pain / Angina, Heart Failure, CVA/TIA, Diabetes Mellitus, GERD/Reflux, Hyperlipidemia, Hypertension, Myocardial Infarction (NC), Osteoarthritis (OA), S leep Apnea/CPAP/BIPAP Additional Past Medical History / Comment(s): HX NC X 2, HX CVA'S/TIA'S - LEFT ARM & LEG WEAKNESS, FACTOR 5 BLOOD DISORDER., DIABETIC NEUROPATHY IN FEET AND LEGS., SLEEP APNEA WITH C-PAP ., BACK PAIN , INDIGESTION., SEE CARDIOLOGY H & P. Last Myocardial Infarction Date:: 2014 History of Any Multi-Drug Resistant Organisms: None Reported Past Surgical History: Cholecystectomy, Heart Catheterization, Heart Catheterization With Stent, Orthopedic Surgery, Tonsillectomy Additional Past Surgical History / Comment(s): Radio Freq Proc to Back 10-4-16, R TOTAL KNEE. R KNEE ARTHROSCOPIES ., CARDIAC CATH [address] Jorge Luis SMITH.04/07/14 HEART CATH WITH STENT TO MID LAD. Past Anesthesia/Blood Transfusion Reactions: Previous Problems w/ Anesthesia, Postoperative Nausea & Vomiting (PONV) Additional Past Anesthesia/Blood Transfusion Reaction / Comment(s): LOOPY- (HALLUCINATED) Date of Last Stent Placement:: 2014 Past Psychological History: Anxiety, Depression Smoking Status: Never smoker Past Alcohol Use History: None Reported - Past Family History Sister(s) Family Medical History: Coronary Artery Disease (CAD), Diabetes Mellitus Additional Family Medical History / Comment(s): SISTER(1) HAD DM, SISTER(2) HAD CAD-CABG Father Family Medical History: Cancer Additional Family Medical History / Comment(s): FATHER OF COLON CA AT AGE 76 YRS. Mother Family Medical History: Cancer, Congestive Heart Failure (CHF), Myocardial Inf arction (NC) Additional Family Medical History / Comment(s): MOTHER AT AGE 57 OR NC. MOM HAD PSYCHOLOLGICAL ISSUES. Medications and Allergies Home Medications Medication Instructions Recorded Confirmed Type Gabapentin [Neurontin] 800 mg PO TID 04/21/19 07/13/21 History Tamsulosin HCl [Flomax] 0.8 mg PO DAILY@1200 04/21/19 07/13/21 History lamoTRIgine [LaMICtal] 25 mg PO DAILY 04/21/19 07/13/21 History metFORMIN HCL [Glucophage] 1,000 mg PO BID 04/21/19 07/13/21 History Apixaban [Eliquis] 5 mg PO BID #60 tab 06/06/19 07/13/21 Rx Atorvastatin [Lipitor] 80 mg PO DAILY 07/13/21 07/13/21 History Nystatin 100,000Unit/gm Cream 1 applic TOPICAL BID PRN 07/13/21 07/13/21 History [Mycostatin Cream] lisinopriL 40 mg PO DAILY@1200 07/13/21 07/13/21 History Allergies Allergy/AdvReac Type Severity Reaction Status Date / Time nitroglycerin AdvReac Severe sublin Verified 07/13/21 07:25 nitro caused severe low HR and B/P adhesive AdvReac blisters Verified 07/13/21 07:25 Physical Exam Vitals: Vital Signs Temp Pulse Pulse Resp BP BP Pulse Ox 07/14/21 08:00 98 F 78 16 143/65 94 L 07/14/21 02:00 97.8 F 80 18 128/68 94 L 07/13/21 20:00 97.6 F 82 17 159/68 96 07/13/21 15:30 80 173/80 07/13/21 14:10 97.4 F L 66 16 192/85 96 07/13/21 14:00 98.5 F 79 20 194/84 97 07/13/21 13:01 76 184/96 07/13/21 12:05 82 191/109 07/13/21 10:30 84 196/91 Intake and Output 07/13/21 07/14/21 07/14/21 22:59 06:59 14:59 Output Total 1 375 Balance -1 -375 Output: Urine 375 Urine/Stool Mix 1 Other: Voiding Method Urinal Diaper Incontinent Incontinent # Voids 1 2 Results 07/14/21 05:17 07/14/21 05:17 Cardiac Enzymes 07/13/21 Range/Units 17:19 Troponin I <0.012 (0.000-0.034) ng/mL CBC 07/14/21 Range/Units 05:17 WBC 19.88 H (4.50-10.00) X 10*3/uL RBC 5.21 (4.40-5.60) X 10*6/uL Hgb 15.5 (13.0-17.0) g/dL Hct 48.7 (39.6-50.0) % Plt Count 204 (140-440) X 10*3/uL Comprehensive Metabolic Panel 07/14/21 Range/Units 05:17 Sodium 134 L (135-145) mmol/L Potassium 4.1 (3.5-5.5) mmol/L Chloride 99 (96-109) mmol/L Carbon Dioxide 22.5 (20.0-27.5) mmol/L BUN 14.5 (9.0-27.0) mg/dL Creatinine 0.8 (0.6-1.5) mg/dL Glucose 190 H (70-110) mg/dL Calcium 9.0 (8.7-10.3) mg/dL Current Medications Generic Name Dose Route Start Last Admin Trade Name Freq PRN Reason Stop Dose Admin Acetaminophen 1,000 mg 07/13/21 07:50 07/13/21 07:51 Acetaminophen Tab 500 Mg Tab PO 1,000 mg Q6HR PRN Administration Fever and/ or Pain Amlodipine Besylate 5 mg 07/13/21 13:15 07/14/21 08:35 Amlodipine 5 Mg Tab PO 5 mg DAILY SANDY Administration Apixaban 5 mg 07/13/21 09:00 07/14/21 08:35 Apixaban 5 Mg Tab PO 5 mg BID SANDY Administration Protocol Atorvastatin Calcium 80 mg 07/13/21 09:00 07/14/21 08:34 Atorvastatin 80 Mg Tab PO 80 mg DAILY SANDY Administration Diphenhydramine HCl 50 mg 07/13/21 16:09 07/13/21 20:49 Diphenhydramine 25 Mg Cap PO 50 mg BID PRN Administration Anxiety Gabapentin 800 mg 07/13/21 09:00 07/14/21 08:34 Gabapentin 400 Mg Cap PO 800 mg TID SANDY Administration Sodium Chloride 1,000 mls @ 75 mls/hr 07/13/21 06:45 07/14/21 08:35 Saline 0.9% IV 75 mls/hr .[id number] SANDY Administration Piperacillin Sod/Tazobactam 100 mls @ 25 mls/hr 07/13/21 16:00 07/14/21 08:35 Sod 3.375 gm/ Sodium Chloride IVPB 25 mls/hr Q8HR SANDY Administration Ibuprofen 400 mg 07/13/21 06:36 Ibuprofen 400 Mg Tab PO Q6HR PRN Mild Pain or Fever > 100.5 Insulin Aspart 0 unit 07/13/21 12:30 07/14/21 08:36 Insulin Aspart (Novolog) 100 Unit/Ml Vial SQ 2 unit ACHS SANDY Administration Protocol Lamotrigine 25 mg 07/13/21 09:00 07/14/21 08:35 Lamotrigine 25 Mg Tab PO 25 mg DAILY SANDY Administration Lisinopril 40 mg 07/13/21 12:00 07/13/21 08:34 Lisinopril 20 Mg Tab PO 40 mg DAILY@1200 SANDY Administration Metoprolol Tartrate 25 mg 07/13/21 10:45 07/14/21 08:34 Metoprolol Tartrate 25 Mg Tab PO 25 mg BID SANDY Administration Morphine Sulfate 4 mg 07/13/21 10:52 07/14/21 08:43 Morphine Sulfate 4 Mg/Ml Syringe IVP 4 mg Q4HR PRN Administration Moderate-Severe Pain Naloxone HCl 0.2 mg 07/13/21 06:36 Naloxone 0.4 Mg/Ml 1 Ml Vial IV Q2M PRN Opioid Reversal Nystatin 1 applic 07/13/21 09:00 07/13/21 20:59 Nystatin 100,000 Unit/Gm Oint 30 Gm Tube TOPICAL 1 applic BID SANDY Administration Protocol Pantoprazole Sodium 40 mg 07/13/21 13:00 07/14/21 09:54 Pantoprazole 40 Mg/10 Ml Vial IVP 40 mg BID SANDY Administration Tamsulosin HCl 0.8 mg 07/13/21 09:00 07/14/21 08:35 Tamsulosin 0.4 Mg Cap.Er.24h PO 0.8 mg DAILY SANDY Administration Intake and Output 07/13/21 07/14/21 07/14/21 22:59 06:59 14:59 Output Total 1 375 Balance -1 -375 Output: Urine 375 Urine/Stool Mix 1 Other: Voiding Method Urinal Diaper Incontinent Incontinent # Voids 1 2 07/14/21 05:17 07/14/21 05:17
[2021-07-14 16:37] LABS: Glucose,Whole Blood 167 mg/dL (75-99)
--- NOTE | 2021-07-14 20:16 | P.PN ---
Subjective This is a pleasant 65 years old male with past medical history of Coronary Artery Disease status post stent, Heart Failure, CVA/TIA, Diabetes Mellitus, GERD, Hyperlipidemia, Hypertension, Osteoarthritis , Sleep Apnea/CPAP/BIPAP, HX [place] X 2, HX CVA'S/TIA'S - LEFT ARM & LEG WEAKNESS, FACTOR 5 BLOOD DISORDER., DIABETIC NEUROPATHY IN FEET AND LEGS., SLEEP APNEA WITH C-PAP , Chronic back pain Patient presents because of altered mental status. Open patient woke up this morning and he was alert awake oriented 3. Patient told me that he is been having vomiting and diarrhea for about a week, his diarrhea about twice per day until yesterday which is stopped and he does not have bowel movement since yesterday. He was vomiting about 2-3 times per day and again to yesterday and his vomiting stopped. And yesterday evening he become more somnolent and his checked his blood pressure and was 93/50 so she called 911 and send him to the emergency room. Patient takes only lisinopril 40 mg daily for hypertension which he was compliant with. Also patient reports low appetite last time he ate about possible of soup about 2 days ago. Patient also complained from periumbilical abdominal pain about 9/10 in severity, nonspecific character, nonradiating. However it is hard to localize because of his large body habitus. He denies chest pain or dyspnea. He feels generally weak but mild headache. He makes little urine and it is dark area He complains from chronic low back pain since 1986, severe in the lower back, it is the same over the last 4 years, no difficulty in moving legs, no numbness. He stated that he takes liquids since 1996 secondary to stroke. Patient states that he walks using a cane with no difficulty and he works at his baseline. He denies smoking, alcohol or illicit drugs Vitas looks stable, blood pressure elevated this morning 173/71, patient saturation 94% on 2 L oxygen via nasal cannula Labs on admission showed leukocytosis of 18.3. CBC is unremarkable, INR is 1.0. Sodium was 133, rest of BMP is unremarkable. Glucose is elevated at 260. Lactic acid high at 3.9. Liver enzymes are unremarkable. Troponin is negative at less than 0.012. Urine analysis showed glucosuria, urine drug screen is negative. Serum alcohol less than 10. C. diff is negative Coronal virus detected. EKG showed sinus bradycardia at [address]-T changes, QTC is 460 CT of the chest abdomen and pelvis,: Right pleural effusion with pulmonary interstitial edema and bibasilar atelectasis. This could be related to co ngestive heart failure. Moderate atherosclerotic vascular disease. No acute abdomen within the abdomen and pelvis Mild atrophy. Old right occipital lobe infarct. No acute intracranial abnormality ProBNP is normal at 617. 07/14/2021 Patient today was very comfortable that his pain is controlled, his blood pressure in the morning was much controlled with systolic and 120, later on it was still slightly elevated but controlled at 153/69, he is saturating low 90s on 3 L oxygen via nasal cannula Labs showing distal leukocytosis at 19 K. Chest x-ray showing mild to moderate CHF but clinically he does not behave like CHF and there is also abdominal x-ray showing dilated small bowel suspicious for severe ileus versus small bowel obstruction with right basilar infiltrates Blood culture is growing a gram-positive cocci, patient is currently on Zosyn and normal saline at 75 mL per hour as well as Eliquis home dose of 5 mg and morphine for pain. Infectious disease team were consulted. Cardiology consult recommended to continue with the same treatment, CHF is under control per the recommendation Patient currently is nothing by mouth Lactic acid is back to normal Objective - Vital Signs Vital signs: Vital Signs Temp 98 F 07/14/21 08:00 Pulse 78 07/14/21 08:00 Resp 16 07/14/21 08:00 BP 143/65 07/14/21 08:00 Pulse Ox 94 L 07/14/21 08:00 Intake & Output 07/13/21 07/14/21 07/14/21 18:59 06:59 18:59 Output Total 1 375 Balance -1 -375 Weight 139.1 kg Output: Urine 375 Urine/Stool Mix 1 Other: Voiding Method Diaper Urinal Diaper Incontinent Incontinent Incontinent # Voids 1 2 - Exam -GENERAL: The patient is alert and oriented x3, not in any acute distress. Morbidly obese HEENT: Pupils are round and equally reacting to light. EOMI. No scleral icterus. No conjunctival pallor. Normocephalic, atraumatic. No pharyngeal erythema. No thyromegaly. CARDIOVASCULAR: S1 and S2 present. No murmurs, rubs, or gallops. PULMONARY: Chest is clear to auscultation, no wheezing or crackles. -ABDOMEN: Soft, mild periumbilical tenderness, no rebound tenderness, distended due to fat, normoactive bowel sounds. No palpable organomegaly. MUSCULOSKELETAL: No joint swelling or deformity. EXTREMITIES: No cyanosis, clubbing, or pedal edema. NEUROLOGICAL: Gross neurological examination did not reveal any focal deficits. SKIN: No rashes. No petechiae - Labs CBC & Chem 7: 07/14/21 05:17 07/14/21 05:17 Labs: Abnormal Lab Results - Last 24 Hours (Table) 07/13/21 07/13/21 07/13/21 Range/Units 08:40 08:40 11:25 WBC (4.50-10.00) X 10*3/uL MCHC (32.0-37.0) g/dL Immature Gran # (0.00-0.04) X 10*3/uL Neutrophils # (1.80-7.70) X 10*3/uL Monocytes # (0.20-1.00) X 10*3/uL Sodium (135-145) mmol/L Glucose (70-110) mg/dL POC Glucose (mg/dL) 200 H (75-99) mg/dL Hemoglobin A1c 7.4 H (0.0-6.0) % Plasma Lactic Acid Rico (0.7-2.0) mmol/L Procalcitonin 0.13 H (0.02-0.09) ng/mL 07/13/21 07/13/21 07/13/21 Range/Units 11:53 16:28 16:36 WBC (4.50-10.00) X 10*3/uL MCHC (32.0-37.0) g/dL Immature Gran # (0.00-0.04) X 10*3/uL Neutrophils # (1.80-7.70) X 10*3/uL Monocytes # (0.20-1.00) X 10*3/uL Sodium (135-145) mmol/L Glucose (70-110) mg/dL POC Glucose (mg/dL) 192 H (75-99) mg/dL Hemoglobin A1c (0.0-6.0) % Plasma Lactic Acid Rico 3.9 H* 3.8 H* (0.7-2.0) mmol/L Procalcitonin (0.02-0.09) ng/mL 07/13/21 07/13/21 07/14/21 Range/Units 20:27 22:25 01:30 WBC (4.50-10.00) X 10*3/uL MCHC (32.0-37.0) g/dL Immature Gran # (0.00-0.04) X 10*3/uL Neutrophils # (1.80-7.70) X 10*3/uL Monocytes # (0.20-1.00) X 10*3/uL Sodium (135-145) mmol/L Glucose (70-110) mg/dL POC Glucose (mg/dL) 172 H (75-99) mg/dL Hemoglobin A1c (0.0-6.0) % Plasma Lactic Acid Rico 2.1 H* 2.5 H* (0.7-2.0) mmol/L Procalcitonin (0.02-0.09) ng/mL 07/14/21 07/14/21 07/14/21 Range/Units 05:17 05:17 06:59 WBC 19.88 H (4.50-10.00) X 10*3/uL MCHC 31.8 L (32.0-37.0) g/dL Immature Gran # 0.06 H (0.00-0.04) X 10*3/uL Neutrophils # 14.55 H (1.80-7.70) X 10*3/uL Monocytes # 1.62 H (0.20-1.00) X 10*3/uL Sodium 134 L (135-145) mmol/L Glucose 190 H (70-110) mg/dL POC Glucose (mg/dL) 171 H (75-99) mg/dL Hemoglobin A1c (0.0-6.0) % Plasma Lactic Acid Rico (0.7-2.0) mmol/L Procalcitonin (0.02-0.09) ng/mL Microbiology - Last 24 Hours (Table) 07/13/21 04:15 Blood Culture - Final Blood 07/13/21 04:23 Blood Culture - Preliminary Blood No Growth after 24 hours Assessment and Plan Assessment: right lower lobe pneumonia rather than CHF. Most likely aspiration pneumonia from recurrent vomiting Severe ileus versus small bowel obstruction Gram-positive bacteremia Mild acute hypoxic respiratory failure Limited lactic acid, improving Hypertension Hyperlipidemia History of coronary artery disease status post stent Chronic heart failure History of CVA with left hemiparesis. CT showing RIGHT occipital infarct Diabetes mellitus with diabetic neuropathy Sleep apnea on CPAP Chronic back pain History of osteoarthritis History of benign prostatic hypertrophy Morbid obesity with BMI of 42.8 Plan: This is a pleasant 65 years old male who presents with periods of altered mental status, pneumonia versus CHF Continue with Zosyn Follow-up sputum culture, blood culture Swallow evaluation Hold metformin for patient is nothing by mouth, continue with insulin sliding scale Continue with oxygen Nothing by mouth Infectious disease consult Surgical team consult for abdominal pain and high lactic acid Labs and medication were reviewed.. Continue same treatment. Continue with symptomatic treatment. Resume home medication. Monitor lytes and vitals. DVT and GI prophylaxis. Further recommendations depends on the clinical course of the patient DVT prophylaxis: Eliquis GI Prophylaxis: Pepcid PT/OT: Pending Prognosis is guarded
[2021-07-14 20:53] LABS: Glucose,Whole Blood 154 mg/dL (75-99)
[2021-07-14] MEDS ORDERED: VANCOMYCIN IV PER PHARMACY 1 EACH MISC MISCELLANE PRN (21:59)
--- NOTE | 2021-07-14 22:05 | P.CONS ---
History of Present Illness - Reason for Consult Consult date: 07/14/21 bacteremia Requesting physician: Marcell E Eugene - Chief Complaint abd pain and vomiting x few days - History of Present Illness History of present illness : Patient is 65-year-old male presenting to the yesterday after midnight for evaluation of mental status changes patient apparently has been complaining of vomiting and diarrhea for about a week with about 2-3 loose stools per day patient also complaining of abdominal pain mostly in the periumbilical area which is about 9 out of 10 in severity and had no radiation patient on presentation to the hospital was afebrile and no fever has been recorded subsequently patient did have a white count of 18 point 3 repeat is 19.88 patient BUN/creatinine is abnormal lactic acid was elevated given symptoms of normal POCUS was 9 mm 0.13 amylase lipase has been normal patient did have a blood cultures coming back positive gram-positive cocci in cluster 2 out of 2 patient is currently being treated with Zosyn infectious he was consulted for further management patient did have a CT of the chest abdomen pelvis that was done without oral contrast right effusion with pulm interstitial edema concerning for congestive heart failure), was not included no acute abnormality within the abdomen and pelvis Review of system: CONSTITUTIONAL: Positive for weakness denies high-grade fever. EYES: No complaint. ENT: No complaint. RESPIRATORY: Shortness of breath and mild cough. CARDIOVASCULAR: No complaint. GENITOURINARY: No complaint. GASTROINTESTINAL: As per history of present illness. MUSCULOSKELETAL: No complaint. INTEGUMENTARY: No complaint. PSYCHOLOGIC: No complaint. ENDOCRINE: No complaint. NEUROLOGIC: No complaint. Past medical history : Reviewed, documented below Past surgical history : Reviewed, documented below Social history: Reviewed, documented below Medications: Reviewed, as documented below EXAMINATION: Vital sigans= Reviewed and documented below GENERAL DESCRIPTION: Elderly male lying in bed, no distress. No tachypnea or accessory muscle of respiration use. HEENT: Shows Pallor , no scleral icterus. Oral mucous membrane is dry. NECK: Trachea central, no thyromegaly. LUNGS: Unlabored breathing. Decreased breath sound the bases. No wheeze or crackle. HEART: S1, S2, regular rate and rhythm. ABDOMEN: Soft, mild distention but no significant tenderness , guarding or rigidity EXTREMITIES: No edema of feet. SKIN: No rash, no masses palpable. NEUROLOGICAL: The patient is awake, alert, oriented x3, mood and affect normal. LABS AND RADIOLOGY: Reviewed results see below Assessment :1-patient is in the hospital predominantly with GI symptoms with nausea vomiting and diarrhea in this patient also complaining of abdominal pain unfortunately initial CAT scan was done without any oral contrast and whole abdominal was not included that really made the sensitivity of that testing and will need to rule out intra-abdominal pathology for his underlying symptoms 5-Rkeh-frcyhyix bacteremia questionably skin contaminant versus abdominal source Plan: 1-blood cultures will be repeated document clearance of his bacteremia 2-serial abdominal pelvis with oral contrast 3-vancomycin pharmacy to dose with a target trough of 15 while watching kidney function and Vanco trough closely. And Unasyn while waiting for the work-up to finalize discontinue Zosyn to decrease the risk of nephrotoxicity We will follow on clinical condition and cultures to further adjust medication if needed Thank you for this consultation we will follow the patient along with you Past Medical History Past Medical History: Blood Disorder, Coronary Artery Disease (CAD), Chest Pain / Angina, Heart Failure, CVA/TIA, Diabetes Mellitus, GERD/Reflux, Hyperlipidemia, Hypertension, Myocardial Infarction (NM), Osteoarthritis (OA), Sleep Apnea/CPAP/BIPAP Additional Past Medical History / Comment(s): HX [place] X 2, HX CVA'S/TIA'S - LEFT ARM & LEG WEAKNESS, FACTOR 5 BLOOD DISORDER., DIABETIC NEUROPATHY IN FEET AND LEGS., SLEEP APNEA WITH C-PAP ., BACK PAIN , INDIGESTION., SEE CARDIOLOGY H & P. Last Myocardial Infarction Date:: 2014 History of Any Multi-Drug Resistant Organisms: None Reported Past Surgical History: Cholecystectomy, Heart Catheterization, Heart Cathete rization With Stent, Orthopedic Surgery, Tonsillectomy Additional Past Surgical History / Comment(s): Radio Freq Proc to Back 04-01-16, R TOTAL KNEE. R KNEE ARTHROSCOPIES ., CARDIAC CATH [address] Jorge Luis SMITH.04/07/14 HEART CATH WITH STENT TO MID LAD. Past Anesthesia/Blood Transfusion Reactions: Previous Problems w/ Anesthesia, Postoperative Nausea & Vomiting (PONV) Additional Past Anesthesia/Blood Transfusion Reaction / Comm: LOOPY- (HALLUCINATED) Date of Last Stent Placement:: 2014 Past Psychological History: Anxiety, Depression Smoking Status: Never smoker Past Alcohol Use History: None Reported - Past Family History Sister(s) Family Medical History: Coronary Artery Disease (CAD), Diabetes Mellitus Additional Family Medical History / Comment(s): SISTER(1) HAD DM, SISTER(2) HAD CAD-CABG Father Family Medical History: Cancer Additional Family Medical History / Comment(s): FATHER OF COLON CA AT AGE 76 YRS. Mother Family Medical History: Cancer, Congestive Heart Failure (CHF), Myocardial Infarction (NM) Additional Family Medical History / Comment(s): MOTHER AT AGE 57 OR NM. MOM HAD PSYCHOLOLGICAL ISSUES. Medications and Allergies Home Medications Medication Instructions Recorded Confirmed Type Gabapentin [Neurontin] 800 mg PO TID 04/21/19 07/13/21 History Tamsulosin HCl [Flomax] 0.8 mg PO DAILY@1200 04/21/19 07/13/21 History lamoTRIgine [LaMICtal] 25 mg PO DAILY 04/21/19 07/13/21 History metFORMIN HCL [Glucophage] 1,000 mg PO BID 04/21/19 07/13/21 History Apixaban [Eliquis] 5 mg PO BID #60 tab 06/06/19 07/13/21 Rx Atorvastatin [Lipitor] 80 mg PO DAILY 07/13/21 07/13/21 History Nystatin 100,000Unit/gm Cream 1 applic TOPICAL BID PRN 07/13/21 07/13/21 History [Mycostatin Cream] lisinopriL 40 mg PO DAILY@1200 07/13/21 07/13/21 History Allergies Allergy/AdvReac Type Severity Reaction Status Date / Time nitroglycerin AdvReac Severe sublin Verified 07/13/21 07:25 nitro caused severe low HR and B/P adhesive AdvReac blisters Verified 07/13/21 07:25 Physical Exam Vitals: Vital Signs Temp Pulse Pulse Resp BP BP Pulse Ox 07/14/21 08:00 98 F 78 16 143/65 94 L 07/14/21 02:00 97.8 F 80 18 128/68 94 L 07/13/21 20:00 97.6 F 82 17 159/68 96 07/13/21 15:30 80 173/80 07/13/21 14:10 97.4 F L 66 16 192/85 96 07/13/21 14:00 98.5 F 79 20 194/84 97 Intake and Output 07/13/21 07/14/2122 22:59 06:59 14:59 Output Total 1 375 350 Balance -1 -375 -350 Output: Urine 375 350 Urine/Stool Mix 1 Other: Voiding Method Urinal Diaper Incontinent Incontinent # Voids 1 2 Results CBC & Chem 7: 07/14/21 05:17 07/14/21 05:17 Labs: Abnormal Lab Results - Last 24 Hours (Table) 07/13/21 07/13/21 07/13/21 Range/Units 08:40 16:28 16:36 WBC (4.50-10.00) X 10*3/uL MCHC (32.0-37.0) g/dL Immature Gran # (0.00-0.04) X 10*3/uL Neutrophils # (1.80-7.70) X 10*3/uL Monocytes # (0.20-1.00) X 10*3/uL Sodium (135-145) mmol/L Glucose (70-110) mg/dL POC Glucose (mg/dL) 192 H (75-99) mg/dL Plasma Lactic Acid Rico 3.8 H* (0.7-2.0) mmol/L Procalcitonin 0.13 H (0.02-0.09) ng/mL 07/13/21 07/13/21 07/14/21 Range/Units 20:27 22:25 01:30 WBC (4.50-10.00) X 10*3/uL MCHC (32.0-37.0) g/dL Immature Gran # (0.00-0.04) X 10*3/uL Neutrophils # (1.80-7.70) X 10*3/uL Monocytes # (0.20-1.00) X 10*3/uL Sodium (135-145) mmol/L Glucose (70-110) mg/dL POC Glucose (mg/dL) 172 H (75-99) mg/dL Plasma Lactic Acid Rico 2.1 H* 2.5 H* (0.7-2.0) mmol/L Procalcitonin (0.02-0.09) ng/mL 07/14/21 07/14/21 07/14/21 Range/Units 05:17 05:17 06:59 WBC 19.88 H (4.50-10.00) X 10*3/uL MCHC 31.8 L (32.0-37.0) g/dL Immature Gran # 0.06 H (0.00-0.04) X 10*3/uL Neutrophils # 14.55 H (1.80-7.70) X 10*3/uL Monocytes # 1.62 H (0.20-1.00) X 10*3/uL Sodium 134 L (135-145) mmol/L Glucose 190 H (70-110) mg/dL POC Glucose (mg/dL) 171 H (75-99) mg/dL Plasma Lactic Acid Rico (0.7-2.0) mmol/L Procalcitonin (0.02-0.09) ng/mL 07/14/21 Range/Units 11:31 WBC (4.50-10.00) X 10*3/uL MCHC (32.0-37.0) g/dL Immature Gran # (0.00-0.04) X 10*3/uL Neutrophils # (1.80-7.70) X 10*3/uL Monocytes # (0.20-1.00) X 10*3/uL Sodium (135-145) mmol/L Glucose (70-110) mg/dL POC Glucose (mg/dL) 186 H (75-99) mg/dL Plasma Lactic Acid Rico (0.7-2.0) mmol/L Procalcitonin (0.02-0.09) ng/mL Microbiology - Last 24 Hours (Table) 07/13/21 04:15 Blood Culture - Final Blood 07/13/21 04:23 Blood Culture - Preliminary Blood No Growth after 24 hours
[2021-07-14] MEDS ORDERED: VANCOMYCIN 2,000 MG in SODIUM CHLORIDE 0.9% 500 ML 500 ML IVPB ONE (22:15)
[2021-07-14] MEDS: AMPICILLIN-SULBACTAM 3 GM in SODIUM CHLORIDE 0.9% 100 ML IVPB SCH (22:42)
[2021-07-15] MEDS: MORPHINE SULFATE 4 MG/ML SYRINGE IVP PRN ×3 (03:17→20:26)
[2021-07-15] MEDS: AMPICILLIN-SULBACTAM 3 GM in SODIUM CHLORIDE 0.9% 100 ML IVPB SCH ×4 (05:40→23:06)
[2021-07-15 07:56] LABS: Glucose,Whole Blood 147 mg/dL (75-99)
[2021-07-15] MEDS: INSULIN ASPART (NovoLOG) 100 UNIT/ML VIAL SQ SCH ×4 (08:09→20:27)
[2021-07-15] MEDS: IOPAMIDOL CONTRAST (ORAL USE) VIAL PO PRN ×2 (08:19→09:15)
[2021-07-15] MEDS: GABAPENTIN 400 MG CAP PO SCH ×3 (08:20→20:25)
[2021-07-15] MEDS: ATORVASTATIN 80 MG TAB PO SCH (08:20)
[2021-07-15] MEDS: METOPROLOL TARTRATE 25 MG TAB PO SCH ×2 (08:20→20:26)
[2021-07-15] MEDS: NYSTATIN 100,000 UNIT/GM OINT 30 GM TUBE TOPICAL SCH ×2 (08:20→20:27)
[2021-07-15] MEDS: APIXABAN 5 MG TAB PO SCH ×2 (08:20→20:26)
[2021-07-15] MEDS: TAMSULOSIN 0.4 MG CAP.ER.24H PO SCH (08:20)
[2021-07-15] MEDS: PANTOPRAZOLE 40 MG/10 ML VIAL IVP SCH ×2 (08:20→20:26)
[2021-07-15] MEDS: amLODIPine 5 MG TAB PO SCH (08:20)
[2021-07-15] MEDS: lamoTRIgine 25 MG TAB PO SCH (08:22)
--- NOTE | 2021-07-15 08:39 | P.PN ---
Progress Note - Text Progress Note Date: 07/15/21 Patient is seen and examined at bedside. No real change or improvement since yesterday. Admits to lingering right upper quadrant and epigastric pains at rest. No reported fever or chills. Intermittent cough productive of yellow phlegm. No reported nausea or emesis. He is breathing easier with CPAP. No reported bowel movement, voiding without issue. Abdominal x-ray yesterday showed no obvious free air, findings consistent with ileus versus possibly obstruction. A repeat computed tomography scan of the abdomen and pelvis as been ordered for today. Morning laboratory studies are pending. Initial blood cultures show gram-positive cocci in clusters on Gram stain, speciation and sen sitivity not reported. T-max 24 98.9F, heart rate 85, blood pressure 161/78, respiratory rate 16 at 92% O2 saturation on nasal CPAP. Cardiovascular: Heart sounds are distant without appreciable murmur. Respiratory: Lungs are clear to auscultation bilaterally. Abdominal exam: Abdomen is mildly distended without tympany, there is moderate focal mid abdominal and right upper quadrant tenderness without guarding or rebound. Patient's comfortable at rest. No abdominal ecchymoses, no evidence of ventral hernia. Extremities: Distal extremities warm and perfused, no significant edema. Assessment: 1) 65-year-old gentleman with presenting lethargy, confusion, diffuse and upper abdominal pains, nausea vomiting and diarrhea with a benign physical exam. Attendant leukocytosis. Initial lactic acidosis responsive to blood pressure control, judicious fluids, and empiric antibiotics. His presentation is not really consistent with septic shock, although procalicitonin is mildly elevated. His abdominal exam is unimpressive. Chest x-ray shows cardiomegaly and interstitial infiltrates, no discrete pneumonia. Urinalysis negative for infection. Computed tomography scan of the abdomen and pelvis shows previous cholecystectomy, no evidence of bowel obstruction, no signs of hernia or volvulus, no obvious thrombus with IV contrast. Initial blood cultures are suggestive of contamination. He may have a gram-positive bacteremia with a source of nausea to declare itself, his pain could potentially relate to liver congestion in the setting of dilated cardiomyopathy but his transaminases of been normal. Differential would include soft tissue infection, gastritis and peptic ulcer disease. Clinical course up to this point is more suggestive of a degree of ileus rather than obstruction, repeat computed tomography scan abdomen and pelvis pending. 2) Hypertensive emergency given apparent issues with end organ perfusion as manifested by confusion and lactic acidosis, improving. 3) History of factor V Leiden, morbid obesity, coronary artery disease, and diabetes mellitus 2 on oral hypoglycemics. Oral anticoagulated on Eliquis. Plan: 1) patient's been seen and assessed by infectious disease specialist, antibiotics were adjusted. Empiric treatment for gastritis and ulcer disease with Protonix 40 mg twice daily. Repeat computed tomography scan abdomen and pelvis today. Morning labs pending. Cardiology evaluation reviewed and appreciated. Will follow. Nothing by mouth for now. 2) I will defer to the patient's admitting medical physician in terms of blood pressure and glucose control. 3) Further medical management per admitting service.
[2021-07-15] MEDS: ACETAMINOPHEN TAB 500 MG TAB PO PRN (09:15)
--- NOTE | 2021-07-15 10:40 | CT ---
EXAMINATION TYPE: CT abdomen pelvis w con DATE OF EXAM: 07/15/2021 COMPARISON: CT 2 days ago HISTORY: Abdominal pain, Bacteremia CT DLP: 3935.9 mGycm, Automated Exposure Control for Dose Reduction was Utilized. CONTRAST: CT scan of the abdomen and pelvis is performed with oral and with IV Contrast, patient injected with 100 mL of Isovue 300. FINDINGS: LUNG BASES: Cardiomegaly with overlying sternal wires through nonfused sternum along with metallic ao rtic valve and left atrial appendage clip are all partially imaged. Tiny right pleural effusion is sl ightly improved from prior with associated basilar compressive atelectasis LIVER/GB: Liver is diffusely low dense consistent with diffuse fatty infiltration. Cholecystectomy cl ips are redemonstrated. PANCREAS: Moderate to severe fat replaced atrophy in the inferior head and uncinate process redemonst rated. SPLEEN: No significant abnormality is seen. ADRENALS: No significant abnormality is seen. KIDNEYS: Symmetric cortical medullary uptake and excretion without hydronephrosis seen bilaterally. BOWEL: Oral contrast only reaches jejunal loops in the left abdomen. Air fluid level in mildly disten ded stomach is present. Scattered air-fluid levels incidental slightly prominent small bowel loops th roughout the anterior abdomen. Mildly dilated jejunal loop up to 3.9 cm left mid abdomen coronal imag e 37. There is nondistended terminal ileum in the right lower quadrant and pelvis. Gradual transition to less distended small bowel loops in the right abdomen. Fecal material is seen in nondistended col on. Findings are new to most recent CT. PROSTATE/SEMINAL VESICLES: No gross abnormality seen. LYMPH NODES: No greater than 1cm abdominal or pelvic lymph nodes are appreciated. OSSEOUS STRUCTURES: Multilevel facet arthropathy in the lower lumbar spine. OTHER: Moderate peripheral mixed plaque in the aorta extends into branch vessels. Small fat-containin g umbilical hernia. IMPRESSION: Findings are consistent with developing partial mid to distal small bowel obstruction as detailed above.
[2021-07-15 11:41] LABS: Glucose,Whole Blood 160 mg/dL (75-99)
[2021-07-15] MEDS: lisinopriL 20 MG TAB PO SCH (12:50)
[2021-07-15] MEDS: VANCOMYCIN 2,000 MG in SODIUM CHLORIDE 0.9% 500 ML 500 ML IVPB SCH ×2 (13:31→23:44)
--- NOTE | 2021-07-15 13:31 | P.PN ---
Subjective This is a pleasant 65 years old male with past medical history of Coronary Artery Disease status post stent, Heart Failure, CVA/TIA, Diabetes Mellitus, GERD, Hyperlipidemia, Hypertension, Osteoarthritis , Sleep Apnea/CPAP/BIPAP, HX TN X 2, HX CVA'S/TIA'S - LEFT ARM & LEG WEAKNESS, FACTOR 5 BLOOD DISORDER., DIABETIC NEUROPATHY IN FEET AND LEGS., SLEEP APNEA WITH C-PAP , Chronic back pain Patient presents because of altered mental status. Open patient woke up this morning and he was alert awake oriented 3. Patient told me that he is been having vomiting and diarrhea for about a week, his diarrhea about twice per day until yesterday which is stopped and he does not have bowel movement since yesterday. He was vomiting about 2-3 times per day and again to yesterday and his vomiting stopped. And yesterday evening he become more somnolent and his checked his blood pressure and was 93/50 so she called 911 and send him to the emergency room. Patient takes only lisinopril 40 mg daily for hypertension which he was compliant with. Also patient reports low appetite last time he ate about possible of soup about 2 days ago. Patient also complained from periumbilical abdominal pain about 9/10 in severity, nonspecific character, nonradiating. However it is hard to localize because of his large body habitus. He denies chest pain or dyspnea. He feels generally weak but mild headache. He makes little urine and it is dark area He complains from chronic low back pain since 1986, severe in the lower back, it is the same over the last 4 years, no difficulty in moving legs, no numbness. He stated that he takes liquids since 1996 secondary to stroke. Patient states that he walks using a cane with no difficulty and he works at his baseline. He denies smoking, alcohol or illicit drugs Vitas looks stable, blood pressure elevated this morning 173/71, patient saturation 94% on 2 L oxygen via nasal cannula Labs on admission showed leukocytosis of 18.3. CBC is unremarkable, INR is 1.0. Sodium was 133, rest of BMP is unremarkable. Glucose is elevated at 260. Lactic acid high at 3.9. Liver enzymes are unremarkable. Troponin is negative at less than 0.012. Urine analysis showed glucosuria, urine drug screen is negative. Serum alcohol less than 10. C. diff is negative Coronal virus detected. EKG showed sinus bradycardia at [address]-T changes, QTC is 460 CT of the chest abdomen and pelvis,: Right pleural effusion with pulmonary interstitial edema and bibasilar atelectasis. This could be related to co ngestive heart failure. Moderate atherosclerotic vascular disease. No acute abdomen within the abdomen and pelvis Mild atrophy. Old right occipital lobe infarct. No acute intracranial abnormality ProBNP is normal at 617. 07/14/2021 Patient today was very comfortable that his pain is controlled, his blood pressure in the morning was much controlled with systolic and 120, later on it was still slightly elevated but controlled at 153/69, he is saturating low 90s on 3 L oxygen via nasal cannula Labs showing distal leukocytosis at 19 K. Chest x-ray showing mild to moderate CHF but clinically he does not behave like CHF and there is also abdominal x-ray showing dilated small bowel suspicious for severe ileus versus small bowel obstruction with right basilar infiltrates Blood culture is growing a gram-positive cocci, patient is currently on Zosyn and normal saline at 75 mL per hour as well as Eliquis home dose of 5 mg and morphine for pain. Infectious disease team were consulted. Cardiology consult recommended to continue with the same treatment, CHF is under control per the recommendation Patient currently is nothing by mouth Lactic acid is back to normal 07/15/2021 Patient have significant abdominal distention and repeat CAT scan today showing partial mid to distal small bowel obstruction which is a new compared to the admitting CAT scan. Also patient has positive blood culture with gram-positive cocci in clusters which could be contamination versus abdominal source. Therefore his antibiotics was adjusted to Unasyn and IV vancomycin. Other than that patient was lying in bed on this side. And not complaining of from much distress but she looks calm. He still nothing by mouth, with no nausea vomiting. He has winston-Umbilical abdominal tenderness and abdomen distended. Patient with normal bowel movements No significant respiratory symptoms. Blood pressure is 160/67 and patient has low-grade fever about 100. Continue with antibiotics as above, continue with the Eliquis and continue with normal saline at 75 mL/h Several consultants on the case. Objective - Vital Signs Vital signs: Vital Signs Temp 100.0 F H 07/15/21 08:00 Pulse 85 07/15/21 08:00 Resp 18 07/15/21 08:00 BP 160/67 07/15/21 08:00 Pulse Ox 92 L 07/15/21 08:00 Intake & Output 07/14/21 07/15/21 07/15/21 18:59 06:59 18:59 Output Total 350 Balance -350 Output: Urine 350 Other: Voiding Method Diaper Urinal Incontinent Diaper - Exam -GENERAL: The patient is alert and oriented x3, not in any acute distress. Morbidly obese HEENT: Pupils are round and equally reacting to light. EOMI. No scleral icterus. No conjunctival pallor. Normocephalic, atraumatic. No pharyngeal erythema. No thyromegaly. CARDIOVASCULAR: S1 and S2 present. No murmurs, rubs, or gallops. PULMONARY: Chest is clear to auscultation, no wheezing or crackles. -ABDOMEN: Soft, mild periumbilical tenderness, no rebound tenderness, distended , normoactive bowel sounds. No palpable organomegaly. MUSCULOSKELETAL: No joint swelling or deformity. EXTREMITIES: No cyanosis, clubbing, or pedal edema. NEUROLOGICAL: Gross neurological examination did not reveal any focal deficits. SKIN: No rashes. No petechiae - Labs CBC & Chem 7: 07/14/21 05:17 07/14/21 05:17 Labs: Abnormal Lab Results - Last 24 Hours (Table) 07/13/21 07/14/21 07/14/21 Range/Units 08:40 11:31 16:36 POC Glucose (mg/dL) 186 H 167 H (75-99) mg/dL C-Reactive Protein (0.00-0.80) mg/dL Procalcitonin (0.02-0.09) ng/mL Lamotrigine 0.2 L (2.0-15.0) ug/mL 07/14/21 07/15/21 07/15/21 Range/Units 20:51 04:36 04:36 POC Glucose (mg/dL) 154 H (75-99) mg/dL C-Reactive Protein 8.20 H (0.00-0.80) mg/dL Procalcitonin 0.15 H (0.02-0.09) ng/mL Lamotrigine (2.0-15.0) ug/mL 07/15/21 Range/Units 07:54 POC Glucose (mg/dL) 147 H (75-99) mg/dL C-Reactive Protein (0.00-0.80) mg/dL Procalcitonin (0.02-0.09) ng/mL Lamotrigine (2.0-15.0) ug/mL Microbiology - Last 24 Hours (Table) 07/13/21 04:23 Blood Culture - Preliminary Blood No Growth after 48 hours 07/13/21 04:15 Blood Culture Gram Stain - Preliminary Blood 07/13/21 04:15 Blood Culture - Final Blood Assessment and Plan Assessment: Mid and lower small bowel obstruction right lower lobe pneumonia rather than CHF. Most likely aspiration pneumonia from recurrent vomiting Gram-positive bacteremia, contamination versus intra-abdominal source Mild acute hypoxic respiratory failure Limited lactic acid, improving Hypertension Hyperlipidemia History of coronary artery disease status post stent Chronic heart failure History of CVA with left hemiparesis. CT showing RIGHT occipital infarct Diabetes mellitus with diabetic neuropathy Sleep apnea on CPAP Chronic back pain History of osteoarthritis History of benign prostatic hypertrophy Morbid obesity with BMI of 42.8 Plan: This is a pleasant 65 years old male who presents with periods of altered mental status, pneumonia versus CHF Continue with antibiotics as per ID team, currently on Unasyn and vancomycin Follow-up sputum culture, blood culture Swallow evaluation Hold metformin for patient is nothing by mouth, continue with insulin sliding scale Continue with oxygen Nothing by mouth Infectious disease consult Surgical team consult for abdominal pain and bowel obstruction Labs and medication were reviewed.. Continue same treatment. Continue with symptomatic treatment. Resume home medication. Monitor lytes and vitals. DVT and GI prophylaxis. Further recommendations depends on the clinical course of the patient DVT prophylaxis: Eliquis , we will change it to Lovenox in case patient will need surgery GI Prophylaxis: Pepcid PT/OT: Pending Prognosis is guarded
[2021-07-15 16:54] LABS: Glucose,Whole Blood 139 mg/dL (75-99)
[2021-07-15 20:17] LABS: Glucose,Whole Blood 137 mg/dL (75-99)
[2021-07-15] MEDS: diphenhydrAMINE 25 MG CAP PO PRN (20:26)
[2021-07-16] MEDS: AMPICILLIN-SULBACTAM 3 GM in SODIUM CHLORIDE 0.9% 100 ML IVPB SCH ×4 (05:52→23:46)
[2021-07-16 07:10] LABS: Glucose,Whole Blood 130 mg/dL (75-99)
[2021-07-16] MEDS: INSULIN ASPART (NovoLOG) 100 UNIT/ML VIAL SQ SCH ×4 (07:12→20:46)
[2021-07-16] MEDS ORDERED: FUROSEMIDE 10 MG/ML 4 ML VIAL IV STA (07:13)
--- NOTE | 2021-07-16 08:00 | ECHOF ---
Referral Reason:Cardiomegaly, abdominal pain, lactic acidosis MEASUREMENTS -------- HEIGHT: 180.3 cm WEIGHT: 138.8 kg BP: 161/78 RVIDd: 3.5 cm (< 3.3) IVSd: 1.4 cm (0.6 - 1.1) LVIDd: 6.7 cm (3.9 - 5.3) LVPWd: 1.4 cm (0.6 - 1.1) IVSs: 1.8 cm LVIDs: 4.2 cm LVPWs: 1.8 cm LA Diam: 4.3 cm (2.7 - 3.8) LAESV Index (A-L): 36.16 ml/m Ao Diam: 3.6 cm (2.0 - 3.7) AV Cusp: 2.1 cm (1.5 - 2.6) MV EXCURSION: 10.542 mm (> 18.000) MV EF SLOPE: 78 mm/s (70 - 150) EPSS: 1.2 cm MV E Jake: 1.26 m/s MV DecT: 223 ms MV A Jake: 0.79 m/s MV E/A Ratio: 1.60 AV maxP.79 mmHg AV meanP.12 mmHg RAP: 5.00 mmHg RVSP: 36.58 mmHg FINDINGS -------- Sinus rhythm. This was a technically adequate study. The left ventricle is moderately dilated. There is moderate concentric left ventricular hypertrophy . Overall left ventricular systolic function is low-normal with, an EF between 50 - 55 %. The right ventricle is mildly enlarged. LA is moderately dilated 34-39 ml/m2 The right atrium is normal in size. Peak/mean gradient across the Aortic Valve is 35.79mmHg / 20.12mmHg. 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 Mild mitral annular calcification present. There is trace mitral regurgitation. Mild tricuspid regurgitation present. There is mild pulmonary hypertension. The right ventricular systolic pressure, as measured by Doppler, is 36.58mmHg. The pulmonic valve was not well visualized. The aortic root size is normal. Normal inferior vena cava with normal inspiratory collapse consistent with estimated right atrial pre ssure of 5 mmHg. There is no pericardial effusion. CONCLUSIONS -------- 1. The left ventricle is moderately dilated. 2. There is moderate concentric left ventricular hypertrophy. 3. Overall left ventricular systolic function is low-normal with, an EF between 50 - 55 %. 4. The right ventricle is mildly enlarged. 5. LA is moderately dilated 34-39 ml/m2 6. Peak/mean gradient across the Aortic Valve is 35.79mmHg / 20.12mmHg. 7. 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 8. Mild mitral annular calcification present. 9. There is trace mitral regurgitation. 10. Mild tricuspid regurgitation present. 11. There is mild pulmonary hypertension. 12. The right ventricular systolic pressure, as measured by Doppler, is 36.58mmHg. 13. There is no pericardial effusion. IRRIGATION ENGINEER: Navya Lizama RDCS
[2021-07-16 09:53] LABS: African American GFR (CKD) 113.2 (60.0-200.0); Anion Gap 16.6 mmol/L (10.00-18.00); BUN/Creat Ratio 13.57 Ratio (12.00-20.00); Blood Urea Nitrogen 9.5 mg/dL (9.0-27.0); Calcium 8.5 mg/dL (8.7-10.3); Carbon Dioxide 21.4 mmol/L (20.0-27.5); Non-African American GFR(CKD) 97.7 (60.0-200.0); Potassium 3.9 mmol/L (3.5-5.5)
[2021-07-16] MEDS: APIXABAN 5 MG TAB PO SCH ×2 (09:53→20:11)
[2021-07-16] MEDS: amLODIPine 5 MG TAB PO SCH (09:53)
[2021-07-16] MEDS: TAMSULOSIN 0.4 MG CAP.ER.24H PO SCH (09:53)
[2021-07-16] MEDS: PANTOPRAZOLE 40 MG/10 ML VIAL IVP SCH ×2 (09:53→20:11)
[2021-07-16] MEDS: METOPROLOL TARTRATE 25 MG TAB PO SCH ×2 (09:54→20:11)
[2021-07-16] MEDS: ATORVASTATIN 80 MG TAB PO SCH (09:54)
[2021-07-16] MEDS: NYSTATIN 100,000 UNIT/GM OINT 30 GM TUBE TOPICAL SCH ×2 (09:55→20:11)
[2021-07-16] MEDS: GABAPENTIN 400 MG CAP PO SCH ×3 (09:55→20:59)
[2021-07-16] MEDS: lamoTRIgine 25 MG TAB PO SCH (09:55)
[2021-07-16] MEDS: SODIUM CHLORIDE 0.9% 1,000 ML IV SCH (09:56)
[2021-07-16] MEDS: MORPHINE SULFATE 4 MG/ML SYRINGE IVP PRN (10:10)
[2021-07-16] MEDS: VANCOMYCIN 2,000 MG in SODIUM CHLORIDE 0.9% 500 ML 500 ML IVPB SCH ×2 (10:11→22:52)
[2021-07-16 10:31] LABS: C Reactive Protein 10.3 mg/dL (0.00-0.80); Magnesium 1.7 mg/dL (1.5-2.4)
[2021-07-16 11:37] LABS: Glucose,Whole Blood 134 mg/dL (75-99)
[2021-07-16] MEDS: lisinopriL 20 MG TAB PO SCH (12:58)
--- NOTE | 2021-07-16 13:21 | CDI ---
Documentation Clarification Form Date: 07/16/2021 12:43:35 PM From: Vilma Boswell RN, CCDS Admit Date: 07/13/2021 06:36:00 AM Patient Name: Mratita Levine Visit Number: [id number] Discharge Date: ATTENTION: The Clinical Documentation Specialists (CDI) and [facility] Coding Staff appreciate your assistance in clarifying documentation. Please respond to the clarification below the line at the bottom and electronically sign. The CDI & [facility] Coding staff will review the response and follow-up if needed. Please note: Queries are made part of the Legal Health Record. If you have any questions, please contact the author of this message via ITS. Dr. Fatoumata Bailey Your patient has the documented symptom of Altered Mental Status in consult on 07/13/21. Additional clarification regarding the etiology/cause of this symptom is requested. Neurology consult: Altered mental status, resolved-multifactorial, secondary to infection, elevated blood pressure and dehydration. History/Risk Factors: Coronary Artery Disease, Heart failure, Diabetes Mellitus, Hypertension, CVA, Factor V Leiden disorder Clinical Indicators: 65-year-old male present to ED with mental status changes noted in general appearance as obtunded. . He had prolonged vomiting and diarrhea upper abdominal pain. exam: There is balantis affecting the glans. 07/13 Vital signs: 146/77 54 16 97.5 99 % 6/L NC 07/13 Labs: WBC 18.3, NA+ 133, Lactic acid 3.9 CT Abdomen: Right pleural effusion with pulmonary interstitial edema and basilar atelectasis. This could relate to congestive heart failure. CT Brain: Old right occipital lobe infarct. Treatment: Neurological assessment per protocol Limit/hold any type of sedating medications, including narcotics Continue blood pressure control Continue to control blood sugars Monitor CBC, Daily Please clarify the etiology of the symptom of Altered Mental Status: [x ] Metabolic Encephalopathy due to infection] [ ] Other condition (please specify) [ ] Unable to determine (Template Last Revised: July 2020) MTDD
--- NOTE | 2021-07-16 13:42 | CDI ---
Documentation Clarification Form Date: 07/16/2021 01:27:13 PM From: Vilma Boswell RN, CCDS Admit Date: 07/13/2021 06:36:00 AM Patient Name: Martita Levine Visit Number: [id number] Discharge Date: ATTENTION: The Clinical Documentation Specialists (CDI) and [facility] Coding Staff appreciate your assistance in clarifying documentation. Please respond to the clarification below the line at the bottom and electronically sign. The CDI & [facility] Coding staff will review the response and follow-up if needed. Please note: Queries are made part of the Legal Health Record. If you have any questions, please contact the author of this message via ITS. Dr. Faith E Sheet Your patient has the documented diagnosis of unspecified chronic heart failure in the progress notes 07/15/21. Additional information regarding the type of CHF is requested. History/Risk Factors: Coronary Artery Disease, Heart failure, Diabetes Mellitus, Hypertension, CVA, Factor V Leiden disorder Clinical Indicators: 65-year-old male present to ED with mental status changes noted in general appearance as obtunded. 07/13 Vital signs: 146/77 54 16 97.5 99 % 6/L NC 07/13 Labs: WBC 18.3, NA+ 133, Lactic acid 3.9 07/13 BNP: 617 07/15 Echocardiogram Results: Overall left ventricular systolic function is low- normal with, an EF between 50-55 % 07/13 Chest X Ray/Abdomen: Right pleural effusion with pulmonary interstitial edema and basilar atelectasis. This could relate to congestive heart failure. 07/14 CXR: Findings consistent with mild to moderate CHF essentially unchanged compared to previous. Treatment: Norvasc 5 mg po daily Lopressor 25 mg po bid Lasix 40 mg IV once 07/16 In your professional opinion, can you please clarify the acuity and type of CHF if known? [ ] Acute Diastolic Heart Failure (preserved EF) [ ] Chronic Diastolic Heart Failure (preserved EF) [ ] Acute on Chronic Diastolic Heart Failure (preserved EF) [ ] Other, please specify [ ] Unable to determine (Template Last Revised: July 2020) Chronic Diastolic Heart Failure MTDD
[2021-07-16 16:46] LABS: Glucose,Whole Blood 111 mg/dL (75-99)
--- NOTE | 2021-07-16 16:57 | P.PN ---
Subjective Progress Note Date: 07/16/21 Patient did have two small BM today, No NV. Objective - Vital Signs Vital signs: Vital Signs Temp 97.9 F 07/16/21 14:00 Pulse 45 L 07/16/21 14:00 Resp 18 07/16/21 14:00 BP 153/70 07/16/21 14:00 Pulse Ox 94 L 07/16/21 14:00 Intake & Output 07/15/21 07/16/21 07/16/21 18:59 06:59 18:59 Intake Total 0 Output Total 400 1250 2450 Balance -400 -1250 -2450 Intake: Oral 0 Output: Urine 400 1250 2450 Other: Voiding Method Urinal Bedpan Diaper Urinal Diaper # Voids 1 - Constitutional General appearance: Present: cooperative - Gastrointestinal Gastrointestinal Comment(s): S/Non tended, mild distention, no RRG - Psychiatric Psychiatric: Present: A&O x's 3 - Labs CBC & Chem 7: 07/14/21 05:17 07/16/21 05:08 Labs: Abnormal Lab Results - Last 24 Hours (Table) 07/15/21 07/15/21 07/16/21 Range/Units 16:52 20:08 05:08 Glucose 135 H (70-110) mg/dL POC Glucose (mg/dL) 139 H 137 H (75-99) mg/dL Calcium 8.5 L (8.7-10.3) mg/dL C-Reactive Protein 10.30 H (0.00-0.80) mg/dL 07/16/21 07/16/21 Range/Units 07:07 11:35 Glucose (70-110) mg/dL POC Glucose (mg/dL) 130 H 134 H (75-99) mg/dL Calcium (8.7-10.3) mg/dL C-Reactive Protein (0.00-0.80) mg/dL Microbiology - Last 24 Hours (Table) 07/15/21 04:36 Blood Culture - Preliminary Blood No Growth after 24 hours 07/13/21 04:23 Blood Culture - Preliminary Blood No Growth after 72 hours 07/13/21 04:15 Blood Culture Gram Stain - Final Blood Blood Culture - Final Micrococcus species Assessment and Plan Assessment: ileus Plan: Patient does appear to have an ileus versus partial small bowel obstruction. He is having small bowel movements and had diarrhea prior to his arrival. We'll plan for repeat x-ray in the morning to see if contrast made it through to the colon. No plans for acute surgical intervention
[2021-07-16 20:44] LABS: Glucose,Whole Blood 107 mg/dL (75-99)
--- NOTE | 2021-07-16 20:51 | P.PN ---
Subjective This is a pleasant 65 years old male with past medical history of Coronary Artery Disease status post stent, Heart Failure, CVA/TIA, Diabetes Mellitus, GERD, Hyperlipidemia, Hypertension, Osteoarthritis , Sleep Apnea/CPAP/BIPAP, HX TN X 2, HX CVA'S/TIA'S - LEFT ARM & LEG WEAKNESS, FACTOR 5 BLOOD DISORDER., DIABETIC NEUROPATHY IN FEET AND LEGS., SLEEP APNEA WITH C-PAP , Chronic back pain Patient presents because of altered mental status. Open patient woke up this morning and he was alert awake oriented 3. Patient told me that he is been having vomiting and diarrhea for about a week, his diarrhea about twice per day until yesterday which is stopped and he does not have bowel movement since yesterday. He was vomiting about 2-3 times per day and again to yesterday and his vomiting stopped. And yesterday evening he become more somnolent and his checked his blood pressure and was 93/50 so she called 911 and send him to the emergency room. Patient takes only lisinopril 40 mg daily for hypertension which he was compliant with. Also patient reports low appetite last time he ate about possible of soup about 2 days ago. Patient also complained from periumbilical abdominal pain about 9/10 in severity, nonspecific character, nonradiating. However it is hard to localize because of his large body habitus. He denies chest pain or dyspnea. He feels generally weak but mild headache. He makes little urine and it is dark area He complains from chronic low back pain since 1986, severe in the lower back, it is the same over the last 4 years, no difficulty in moving legs, no numbness. He stated that he takes liquids since 1996 secondary to stroke. Patient states that he walks using a cane with no difficulty and he works at his baseline. He denies smoking, alcohol or illicit drugs Vitas looks stable, blood pressure elevated this morning 173/71, patient saturation 94% on 2 L oxygen via nasal cannula Labs on admission showed leukocytosis of 18.3. CBC is unremarkable, INR is 1.0. Sodium was 133, rest of BMP is unremarkable. Glucose is elevated at 260. Lactic acid high at 3.9. Liver enzymes are unremarkable. Troponin is negative at less than 0.012. Urine analysis showed glucosuria, urine drug screen is negative. Serum alcohol less than 10. C. diff is negative Coronal virus detected. EKG showed sinus bradycardia at [address]-T changes, QTC is 460 CT of the chest abdomen and pelvis,: Right pleural effusion with pulmonary interstitial edema and bibasilar atelectasis. This could be related to co ngestive heart failure. Moderate atherosclerotic vascular disease. No acute abdomen within the abdomen and pelvis Mild atrophy. Old right occipital lobe infarct. No acute intracranial abnormality ProBNP is normal at 617. 07/14/2021 Patient today was very comfortable that his pain is controlled, his blood pressure in the morning was much controlled with systolic and 120, later on it was still slightly elevated but controlled at 153/69, he is saturating low 90s on 3 L oxygen via nasal cannula Labs showing distal leukocytosis at 19 K. Chest x-ray showing mild to moderate CHF but clinically he does not behave like CHF and there is also abdominal x-ray showing dilated small bowel suspicious for severe ileus versus small bowel obstruction with right basilar infiltrates Blood culture is growing a gram-positive cocci, patient is currently on Zosyn and normal saline at 75 mL per hour as well as Eliquis home dose of 5 mg and morphine for pain. Infectious disease team were consulted. Cardiology consult recommended to continue with the same treatment, CHF is under control per the recommendation Patient currently is nothing by mouth Lactic acid is back to normal 07/15/2021 Patient have significant abdominal distention and repeat CAT scan today showing partial mid to distal small bowel obstruction which is a new compared to the admitting CAT scan. Also patient has positive blood culture with gram-positive cocci in clusters which could be contamination versus abdominal source. Therefore his antibiotics was adjusted to Unasyn and IV vancomycin. Other than that patient was lying in bed on this side. And not complaining of from much distress but she looks calm. He still nothing by mouth, with no nausea vomiting. He has winston-Umbilical abdominal tenderness and abdomen distended. Patient with normal bowel movements No significant respiratory symptoms. Blood pressure is 160/67 and patient has low-grade fever about 100. Continue with antibiotics as above, continue with the Eliquis and continue with normal saline at 75 mL/h Several consultants on the case. 07/16/2021 Patient admitted with nausea vomiting and diarrhea but then developed abdominal distention and constipation and his CAT scan showing ileus versus bowel obstruction, patient With bowel rest and IV fluid and going to repeat abdominal x-ray tomorrow. Also we'll check chest x-ray tomorrow as he has some evidence of pneumonia and is mildly tachypneic. He has also has micrococcus BACTEREMIA. And he is covered with Unasyn and IV vancomycin per ID team. Objective - Vital Signs Vital signs: Vital Signs Temp 98.1 F 07/16/21 07:45 Pulse 82 07/16/21 07:45 Resp 18 07/16/21 07:45 BP 154/68 07/16/21 07:45 Pulse Ox 94 L 07/16/21 07:45 Intake & Output 07/15/21 07/16/21 07/16/21 18:59 06:59 18:59 Intake Total 0 Output Total 400 1250 Balance -400 -1250 Intake: Oral 0 Output: Urine 400 1250 Other: Voiding Method Urinal Diaper # Voids 1 - Exam -GENERAL: The patient is alert and oriented x3, not in any acute distress. Morbidly obese HEENT: Pupils are round and equally reacting to light. EOMI. No scleral icterus. No conjunctival pallor. Normocephalic, atraumatic. No pharyngeal erythema. No thyromegaly. CARDIOVASCULAR: S1 and S2 present. No murmurs, rubs, or gallops. PULMONARY: Chest is clear to auscultation, no wheezing or crackles. -ABDOMEN: Soft, mild periumbilical tenderness, no rebound tenderness, distended , normoactive bowel sounds. No palpable organomegaly. MUSCULOSKELETAL: No joint swelling or deformity. EXTREMITIES: No cyanosis, clubbing, or pedal edema. NEUROLOGICAL: Gross neurological examination did not reveal any focal deficits. SKIN: No rashes. No petechiae - Labs CBC & Chem 7: 07/14/21 05:17 07/16/21 05:08 Labs: Abnormal Lab Results - Last 24 Hours (Table) 07/15/21 07/15/21 07/15/21 Range/Units 11:40 16:52 20:08 Glucose (70-110) mg/dL POC Glucose (mg/dL) 160 H 139 H 137 H (75-99) mg/dL Calcium (8.7-10.3) mg/dL 07/16/21 07/16/21 Range/Units 05:08 07:07 Glucose 135 H (70-110) mg/dL POC Glucose (mg/dL) 130 H (75-99) mg/dL Calcium 8.5 L (8.7-10.3) mg/dL Microbiology - Last 24 Hours (Table) 07/15/21 04:36 Blood Culture - Preliminary Blood No Growth after 24 hours 07/13/21 04:23 Blood Culture - Preliminary Blood No Growth after 72 hours 07/13/21 04:15 Blood Culture Gram Stain - Final Blood Blood Culture - Final Micrococcus species Assessment and Plan Assessment: Mid and lower small bowel obstruction right lower lobe pneumonia rather than CHF. Most likely aspiration pneumonia from recurrent vomiting Gram-positive bacteremia, contamination versus intra-abdominal source Mild acute hypoxic respiratory failure Limited lactic acid, improving Hypertension Hyperlipidemia History of coronary artery disease status post stent Chronic heart failure History of CVA with left hemiparesis. CT showing RIGHT occipital infarct Diabetes mellitus with diabetic neuropathy Sleep apnea on CPAP Chronic back pain History of osteoarthritis History of benign prostatic hypertrophy Morbid obesity with BMI of 42.8 Plan: This is a pleasant 65 years old male who presents with periods of altered mental status, pneumonia versus CHF Continue with antibiotics as per ID team, currently on Unasyn and vancomycin Hold metformin for patient is nothing by mouth, continue with insulin sliding scale Continue with oxygen Nothing by mouth Infectious disease consult Surgical team consult for abdominal pain and bowel obstruction Check chest x-ray and abdominal x-ray in the morning Labs and medication were reviewed.. Continue same treatment. Continue with symptomatic treatment. Resume home medication. Monitor lytes and vitals. DVT and GI prophylaxis. Further recommendations depends on the clinical course of the patient DVT prophylaxis: Eliquis GI Prophylaxis: Pepcid PT/OT: Pending Prognosis is guarded
--- NOTE | 2021-07-17 00:01 | P.PN ---
Subjective Progress Note Date: 07/15/21 Principal diagnosis: Bacteremia and possible abdominal infection Interval history : Patient is a 65-year-old male presenting to the hospital for nausea vomiting diarrhea and abdominal pain in this patient also have positive blood culture with gram-positive cocci. On today's evaluation that is 07/15/2021, the patient denies having any fever or any chills, abdominal pain has slightly decreased intensity no further nausea vomiting no chest pain shortness of breath or cough and no further diarrhea Objective - Vital Signs Vital signs: Vital Signs Temp 100.0 F H 07/15/21 08:00 Pulse 85 07/15/21 08:00 Resp 18 07/15/21 08:00 BP 160/67 07/15/21 08:00 Pulse Ox 92 L 07/15/21 08:00 Intake & Output 07/14/21 07/15/21 07/15/21 18:59 06:59 18:59 Output Total 350 Balance -350 Output: Urine 350 Other: Voiding Method Diaper Urinal Incontinent Diaper - Exam General description is an elderly male lying in bed in no distress. Respiratory system:Unlabored breathing, decreased intensity in breath sounds. No wheeze. Heart S1, S2. Regular rate and rhythm. Abdomen mild distention but no tenderness. Extremities: No edema feet - Labs CBC & Chem 7: 07/14/21 05:17 07/16/21 05:08 Labs: Abnormal Lab Results - Last 24 Hours (Table) 07/13/21 07/14/21 07/14/21 Range/Units 08:40 16:36 20:51 POC Glucose (mg/dL) 167 H 154 H (75-99) mg/dL C-Reactive Protein (0.00-0.80) mg/dL Procalcitonin (0.02-0.09) ng/mL Lamotrigine 0.2 L (2.0-15.0) ug/mL 07/15/21 07/15/21 07/15/21 Range/Units 04:36 04:36 07:54 POC Glucose (mg/dL) 147 H (75-99) mg/dL C-Reactive Protein 8.20 H (0.00-0.80) mg/dL Procalcitonin 0.15 H (0.02-0.09) ng/mL Lamotrigine (2.0-15.0) ug/mL 07/15/21 Range/Units 11:40 POC Glucose (mg/dL) 160 H (75-99) mg/dL C-Reactive Protein (0.00-0.80) mg/dL Procalcitonin (0.02-0.09) ng/mL Lamotrigine (2.0-15.0) ug/mL Microbiology - Last 24 Hours (Table) 07/13/21 04:23 Blood Culture - Preliminary Blood No Growth after 48 hours 07/13/21 04:15 Blood Culture Gram Stain - Preliminary Blood 07/13/21 04:15 Blood Culture - Final Blood Assessment and Plan Assessment: 1-patient with a positive culture with gram-positive cocci. Sensitivities pending continue with the vancomycin 2-patient with abdominal pain nausea and vomiting concerning for abdominal source CT abdomen and pelvis is currently pending continue with the Unasyn
--- NOTE | 2021-07-17 00:02 | P.PN ---
Subjective Progress Note Date: 07/16/21 Principal diagnosis: Bacteremia and possible abdominal infection Interval history : Patient is a 65-year-old male presenting to the hospital for nausea vomiting diarrhea and abdominal pain in this patient also have positive blood culture with gram-positive cocci. On today's evaluation that is 07/16/2021, the patient remains to be afebrile, the patient abdominal pain has slightly decreased intensity no further nausea vomiting, the patient denies chest pain shortness of breath or cough and no further diarrhea Objective - Vital Signs Vital signs: Vital Signs Temp 98.4 F 07/16/21 18:27 Pulse 75 07/16/21 18:27 Resp 20 07/16/21 19:31 BP 106/62 07/16/21 18:27 Pulse Ox 96 07/16/21 18:27 Intake & Output 07/16/21 07/16/21 07/17/21 06:59 18:59 06:59 Intake Total 240 Output Total 1250 2450 Balance -1250 -2450 240 Intake: Oral 240 Output: Urine 1250 2450 Other: Voiding Method Urinal Bedpan Bedpan Diaper Urinal Urinal Diaper Diaper # Voids 1 - Exam General description is an elderly male lying in bed in no distress. Respiratory system:Unlabored breathing, decreased intensity in breath sounds. No wheeze. Heart S1, S2. Regular rate and rhythm. Abdomen mild distention but no tenderness. Extremities: No edema feet - Labs CBC & Chem 7: 07/14/21 05:17 07/16/21 05:08 Labs: Abnormal Lab Results - Last 24 Hours (Table) 07/16/21 07/16/21 07/16/21 Range/Units 05:08 07:07 11:35 Glucose 135 H (70-110) mg/dL POC Glucose (mg/dL) 130 H 134 H (75-99) mg/dL Calcium 8.5 L (8.7-10.3) mg/dL C-Reactive Protein 10.30 H (0.00-0.80) mg/dL 07/16/21 07/16/21 Range/Units 16:44 20:32 Glucose (70-110) mg/dL POC Glucose (mg/dL) 111 H 107 H (75-99) mg/dL Calcium (8.7-10.3) mg/dL C-Reactive Protein (0.00-0.80) mg/dL Microbiology - Last 24 Hours (Table) 07/15/21 04:36 Blood Culture - Preliminary Blood No Growth after 24 hours 07/13/21 04:23 Blood Culture - Preliminary Blood No Growth after 72 hours Assessment and Plan Assessment: 1-patient with a positive culture with gram-positive cocci. Which has been finalized as Micrococcus species likely contaminated discontinue vancomycin 2-patient with abdominal pain nausea and vomiting concerning for abdominal sourc e CT abdomen and pelvis did show small bowel obstruction surgery has been consulted continue with Arthur
[2021-07-17] MEDS: AMPICILLIN-SULBACTAM 3 GM in SODIUM CHLORIDE 0.9% 100 ML IVPB SCH ×3 (05:18→21:16)
[2021-07-17 07:04] LABS: Glucose,Whole Blood 153 mg/dL (75-99)
[2021-07-17] MEDS: INSULIN ASPART (NovoLOG) 100 UNIT/ML VIAL SQ SCH ×4 (07:56→21:17)
--- NOTE | 2021-07-17 08:40 | XR ---
EXAMINATION TYPE: XR abdomen acute w cxr DATE OF EXAM: 07/17/2021 COMPARISON: CT abdomen pelvis 07/15/2021 HISTORY: Bowel obstruction TECHNIQUE: Supine, upright, and frontal chest views of the abdomen and chest are obtained on 7 image s. FINDINGS: There are dilated loops of small and large bowel. Contrast is present within the distribution of the descending colon and rectum. Surgical clips are present in the right upper quadrant. Patient is post median sternotomy and left atrial appendage clip placement, cardiac valve replacement. Blunting is pr esent in the right costophrenic angle. No evident pneumothorax. No evident pneumoperitoneum. Dense va scular calcifications are noted incidentally. IMPRESSION: Findings could possibly represent partial bowel obstruction or ileus, correlate clinically, small rig ht pleural effusion and associated atelectasis.
[2021-07-17] MEDS ORDERED: PANTOPRAZOLE 40 MG/10 ML VIAL ONE (09:00)
[2021-07-17] MEDS ORDERED: APIXABAN 5 MG TAB ONE (09:00)
[2021-07-17] MEDS ORDERED: GABAPENTIN 400 MG CAP ONE (09:00)
[2021-07-17] MEDS ORDERED: ATORVASTATIN 80 MG TAB ONE (09:00)
[2021-07-17] MEDS ORDERED: lamoTRIgine 25 MG TAB ONE (09:00)
[2021-07-17] MEDS ORDERED: amLODIPine 5 MG TAB ONE (09:00)
[2021-07-17] MEDS ORDERED: TAMSULOSIN 0.4 MG CAP.ER.24H PO ONE (09:00)
[2021-07-17] MEDS ORDERED: VANCOMYCIN TROUGH DUE 1 EACH MISC MISCELLANE ONE (10:00)
[2021-07-17 10:21] LABS: African American GFR (CKD) >90 (>60 ml/min/1.73 sqM); Anion Gap 16 mmol/L; Blood Urea Nitrogen 9 mg/dL (9-20); Calcium 8.9 mg/dL (8.4-10.2); Carbon Dioxide 20 mmol/L (22-30); Chloride 101 mmol/L (98-107); Glucose 153 mg/dL (74-99); Magnesium 1.6 mg/dL (1.6-2.3); Non-African American GFR(CKD) >90 (>60 ml/min/1.73 sqM); Potassium 3.5 mmol/L (3.5-5.1); Sodium 137 mmol/L (137-145)
[2021-07-17 10:39] LABS: African American GFR (CKD) >90 (>60 ml/min/1.73 sqM); Non-African American GFR(CKD) >90 (>60 ml/min/1.73 sqM)
[2021-07-17 11:32] LABS: Glucose,Whole Blood 145 mg/dL (75-99)
[2021-07-17] MEDS: NYSTATIN 100,000 UNIT/GM OINT 30 GM TUBE TOPICAL SCH ×2 (11:40→21:18)
[2021-07-17] MEDS: VANCOMYCIN 2,000 MG in SODIUM CHLORIDE 0.9% 500 ML 500 ML IVPB SCH ×2 (12:29→22:04)
[2021-07-17] MEDS: PANTOPRAZOLE 40 MG/10 ML VIAL IVP SCH ×2 (12:29→21:18)
[2021-07-17] MEDS: METOPROLOL TARTRATE 25 MG TAB PO SCH ×2 (13:06→21:18)
[2021-07-17] MEDS: amLODIPine 5 MG TAB PO SCH (13:06)
[2021-07-17] MEDS: GABAPENTIN 400 MG CAP PO SCH ×3 (13:06→21:19)
[2021-07-17] MEDS: lamoTRIgine 25 MG TAB PO SCH (13:06)
[2021-07-17] MEDS: APIXABAN 5 MG TAB PO SCH ×2 (13:06→21:16)
[2021-07-17] MEDS: ATORVASTATIN 80 MG TAB PO SCH (13:06)
[2021-07-17] MEDS: TAMSULOSIN 0.4 MG CAP.ER.24H PO SCH (13:07)
[2021-07-17] MEDS: lisinopriL 20 MG TAB PO SCH ×2 (13:07→13:08)
[2021-07-17] MEDS ORDERED: Potassium Replacement Protocol 1 EACH MISC MISCELLANE PRN (14:08)
[2021-07-17] MEDS ORDERED: Magnesium Replacement Protocol 1 EACH MISC MISCELLANE PRN (14:08)
[2021-07-17 14:33] LABS: Basophils # (A) 0.06 X 10*3/uL (0.00-0.10); Basophils % (A) 0.5 %; Eosinophils # (A) 0.21 X 10*3/uL (0.04-0.35); Eosinophils % (A) 1.9 %; HCT 46.1 % (39.6-50.0); HGB 15.5 g/dL (13.0-17.0); Lymphocytes # (A) 2.14 X 10*3/uL (0.90-5.00); Lymphocytes % (A) 19.5 %; MCH 30.6 pg (27.0-32.0); MCHC 33.6 g/dL (32.0-37.0); MCV 91.1 fL (80.0-97.0); Mean Platelet Volume 11.6 fL (9.5-12.2); Monocytes # (A) 0.79 X 10*3/uL (0.20-1.00); Monocytes % (A) 7.2 %; Neutrophils # (A) 7.75 X 10*3/uL (1.80-7.70); Neutrophils % (A) 70.6 %; Platelet Count 239 X 10*3/uL (140-440); RBC 5.06 X 10*6/uL (4.40-5.60); RDW 13.8 % (11.5-14.5); WBC 10.98 X 10*3/uL (4.50-10.00)
[2021-07-17] MEDS: POTASSIUM CHLORIDE ER 20 MEQ TAB.ER PO SCH ×2 (14:41→16:29)
[2021-07-17] MEDS: SODIUM CHLORIDE 0.9% 1,000 ML IV SCH (14:50)
--- NOTE | 2021-07-17 15:48 | P.PN ---
Subjective Progress Note Date: 07/17/21 patient had several large BMs overnight and today. He is feeling better today and there was air and contrast in the colon on xray today Objective - Vital Signs Vital signs: Vital Signs Temp 98.5 F 07/17/21 14:00 Pulse 81 07/17/21 14:00 Resp 20 07/17/21 14:00 BP 155/91 07/17/21 14:00 Pulse Ox 97 07/17/21 14:00 Intake & Output 07/16/21 07/17/21 07/17/21 18:59 06:59 18:59 Intake Total 240 20 Output Total 2450 300 Balance -2450 240 -280 Intake: IV 20 Invasive Line 4 20 Oral 240 Output: Urine 2450 300 Other: Voiding Method Bedpan Bedpan Urinal Urinal Urinal Diaper Diaper Diaper # Voids 1 # Bowel Movements 1 - Constitutional General appearance: Present: cooperative - Gastrointestinal Gastrointestinal Comment(s): s/nt/nd - Labs CBC & Chem 7: 07/17/21 10:00 07/17/21 10:00 Labs: Abnormal Lab Results - Last 24 Hours (Table) 07/16/21 07/16/21 07/17/21 Range/Units 16:44 20:32 07:03 WBC (4.50-10.00) X 10*3/uL Neutrophils # (1.80-7.70) X 10*3/uL Carbon Dioxide (22-30) mmol/L Glucose (74-99) mg/dL POC Glucose (mg/dL) 111 H 107 H 153 H (75-99) mg/dL 07/17/21 07/17/21 07/17/21 Range/Units 10:00 10:00 11:30 WBC 10.98 H (4.50-10.00) X 10*3/uL Neutrophils # 7.75 H (1.80-7.70) X 10*3/uL Carbon Dioxide 20 L (22-30) mmol/L Glucose 153 H (74-99) mg/dL POC Glucose (mg/dL) 145 H (75-99) mg/dL Microbiology - Last 24 Hours (Table) 07/15/21 04:36 Blood Culture - Preliminary Blood No Growth after 48 hours 07/13/21 04:23 Blood Culture - Preliminary Blood No Growth after 96 hours Assessment and Plan Assessment: ileus Plan: Patient had BM, contrast and air in the colon. No sign of obstruction, advance diet as toelrated no plans for surgical management
--- NOTE | 2021-07-17 16:05 | P.PN ---
Subjective Progress Note Date: 07/17/21 This is a pleasant 65 years old male with past medical history of Coronary Artery Disease status post stent, Heart Failure, CVA/TIA, Diabetes Mellitus, GERD, Hyperlipidemia, Hypertension, Osteoarthritis , Sleep Apnea/CPAP/BIPAP, HX CT X 2, HX CVA'S/TIA'S - LEFT ARM & LEG WEAKNESS, FACTOR 5 BLOOD DISORDER., DIABETIC NEUROPATHY IN FEET AND LEGS., SLEEP APNEA WITH C-PAP , Chronic back pain Patient presents because of altered mental status. Open patient woke up this morning and he was alert awake oriented 3. Patient told me that he is been having vomiting and diarrhea for about a week, his diarrhea about twice per day until yesterday which is stopped and he does not have bowel movement since yesterday. He was vomiting about 2-3 times per day and again to yesterday and his vomiting stopped. And yesterday evening he become more somnolent and his checked his blood pressure and was 93/50 so she called 911 and send him to the emergency room. Patient takes only lisinopril 40 mg daily for hypertension which he was compliant with. Also patient reports low appetite last time he ate about possible of soup about 2 days ago. Patient also complained from periumbilical abdominal pain about 9/10 in severity, nonspecific character, nonradiating. However it is hard to localize because of his large body habitus. He denies chest pain or dyspnea. He feels generally weak but mild headache. He makes little urine and it is dark area He complains from chronic low back pain since 1986, severe in the lower back, it is the same over the last 4 years, no difficulty in moving legs, no numbness. He stated that he takes liquids since 1996 secondary to stroke. Patient states that he walks using a cane with no difficulty and he works at his baseline. He denies smoking, alcohol or illicit drugs Vitas looks stable, blood pressure elevated this morning 173/71, patient saturation 94% on 2 L oxygen via nasal cannula Labs on admission showed leukocytosis of 18.3. CBC is unremarkable, INR is 1.0. Sodium was 133, rest of BMP is unremarkable. Glucose is elevated at 260. Lactic acid high at 3.9. Liver enzymes are unremarkable. Troponin is negative at less than 0.012. Urine analysis showed glucosuria, urine drug screen is negative. Serum alcohol less than 10. C. diff is negative Coronal virus detected. EKG showed sinus bradycardia at [address]-T changes, QTC is 460 CT of the chest abdomen and pelvis,: Right pleural effusion with pulmonary interstitial edema and bibasilar atelectasis. This could be related to congestive heart failure. Moderate atherosclerotic vascular disease. No acute abdomen within the abdomen and pelvis Mild atrophy. Old right occipital lobe infarct. No acute intracranial abnormality ProBNP is normal at 617. 07/14/2021 Patient today was very comfortable that his pain is controlled, his blood pressure in the morning was much controlled with systolic and 120, later on it was still slightly elevated but controlled at 153/69, he is saturating low 90s on 3 L oxygen via nasal cannula Labs showing distal leukocytosis at 19 K. Chest x-ray showing mild to moderate CHF but clinically he does not behave like CHF and there is also abdominal x-ray showing dilated small bowel suspicious for severe ileus versus small bowel obstruction with right basilar infiltrates Blood culture is growing a gram-positive cocci, patient is currently on Zosyn and normal saline at 75 mL per hour as well as Eliquis home dose of 5 mg and morphine for pain. Infectious disease team were consulted. Cardiology consult recommended to continue with the same treatment, CHF is under control per the recommendation Patient currently is nothing by mouth Lactic acid is back to normal 07/15/2021 Patient have significant abdominal distention and repeat CAT scan today showing partial mid to distal small bowel obstruction which is a new compared to the admitting CAT scan. Also patient has positive blood culture with gram-positive cocci in clusters which could be contamination versus abdominal source. Therefore his antibiotics was adjusted to Unasyn and IV vancomycin. Other than that patient was lying in bed on this side. And not complaining of from much distress but she looks calm. He still nothing by mouth, with no nausea vomiting. He has winston-Umbilical abdominal tenderness and abdomen distended. Patient with normal bowel movements No significant respiratory symptoms. Blood pressure is 160/67 and patient has low-grade fever about 100. Continue with antibiotics as above, continue with the Eliquis and continue with normal saline at 75 mL/h Several consultants on the case. 07/16/2021 Patient admitted with nausea vomiting and diarrhea but then developed abdominal distention and constipation and his CAT scan showing ileus versus bowel obstruction, patient With bowel rest and IV fluid and going to repeat abdominal x-ray tomorrow. Also we'll check chest x-ray tomorrow as he has some evidence of pneumonia and is mildly tachypneic. He has also has micrococcus BACTEREMIA. And he is covered with Unasyn and IV vancomycin per ID team. 07/17/2021 Patient is evaluated today resting in bed. He states that he is not passing gas, he had 2 bowel movements yesterday and 2 throughout the evening or more this morning they're all loose diarrhea. He denies any blood or mucus in the stool. There is tympany with percussion midepigastric region. Abdomen is nontender, hyperactive bowel sounds. Acute abdomen x-ray this morning shows findings possibly represent partial bowel obstruction or ileus, small right pleural effusion and associated atelectasis present. Labs today show a sodium of 137, potassium 3.5, BUN 9, creatinine 0.76, CO2 20, blood sugars in the 140s, mag 1.6. Vital signs today show temperature 98.8, heart rate 77, blood pressure 144/76 to 95% on CPAP. Repeat blood cultures are negative. ROS Constitutional: Denied any fatigue denied any fever. Cardio vascular: denied any chest pain, palpitations Gastrointestinal denied any nausea vomiting Pulmonary: Denied any shortness of breath cough Neurologic denied any new focal deficits All inpatient medications were reviewed and appropriate changes in these medications as dictated in the interval history and assessment and plan. PHYSICAL EXAMINATION: GENERAL: The patient is alert and oriented x3, not in any acute distress. Well developed, well nourished. HEENT: Pupils are round and equally reacting to light. EOMI. No scleral icterus. No conjunctival pallor. Normocephalic, atraumatic. No pharyngeal erythema. No thyromegaly. CARDIOVASCULAR: S1 and S2 present. No murmurs, rubs, or gallops. PULMONARY: Chest is clear to auscultation, no wheezing or crackles. ABDOMEN: Soft, nontender, nondistended, normoactive bowel sounds. No palpable organomegaly. MUSCULOSKELETAL: No joint swelling or deformity. EXTREMITIES: No cyanosis, clubbing, or pedal edema. NEUROLOGICAL: Gross neurological examination did not reveal any focal deficits. SKIN: No rashes. Assessment and plan Assessment Partial bowel obstruction vs ileus Mild acute hypoxic respiratory failure secondary to right lower lobe pneumonia vs. CHF, more likely aspiration pneumonia from recurrent emesis. Gram positive bacteremia, contamination vs. intra-abdominal source; repeat cultures negative, pending finalized cultures Hypokalemia and hypomagnesemia secondary to diarrhea Hypertension Hyperlipidemia History of coronary artery disease status post stent Chronic congestive heart failure mild systolic and diastolic with an EF of 50- 55%, not in acute exacerbation Mild pulmonary hypertension History of CVA with left hemiparesis, CT showing old right occipital infarct with no acute abnormality Diabetes mellitus type 2 with diabetic neuropathy, metformin on hold Sleep apnea on CPAP Chronic back pain Morbid obesity GI prophylaxis: Protonix DVT prophylaxis: Eliquis Full code Plan Continue NPO diet Continue IV antibiotics as recommended by ID Continue with NovoLog sliding scale coverage Repeat labs in the morning Objective - Vital Signs Vital signs: Vital Signs Temp 98.8 F 07/17/21 11:51 Pulse 92 07/17/21 11:51 Resp 16 07/17/21 11:51 BP 144/76 07/17/21 11:51 Pulse Ox 95 07/17/21 11:51 Intake & Output 07/16/21 07/17/21 07/17/21 18:59 06:59 18:59 Intake Total 240 20 Output Total 2450 300 Balance -2450 240 -280 Intake: IV 20 Invasive Line 4 20 Oral 240 Output: Urine 2450 300 Other: Voiding Method Bedpan Bedpan Urinal Urinal Urinal Diaper Diaper Diaper # Voids 1 # Bowel Movements 1 - Labs CBC & Chem 7: 07/14/21 05:17 07/17/21 10:00 Labs: Abnormal Lab Results - Last 24 Hours (Table) 07/16/21 07/16/21 07/17/21 Range/Units 16:44 20:32 07:03 Carbon Dioxide (22-30) mmol/L Glucose (74-99) mg/dL POC Glucose (mg/dL) 111 H 107 H 153 H (75-99) mg/dL 07/17/21 07/17/21 Range/Units 10:00 11:30 Carbon Dioxide 20 L (22-30) mmol/L Glucose 153 H (74-99) mg/dL POC Glucose (mg/dL) 145 H (75-99) mg/dL Microbiology - Last 24 Hours (Table) 07/15/21 04:36 Blood Culture - Preliminary Blood No Growth after 48 hours 07/13/21 04:23 Blood Culture - Preliminary Blood No Growth after 96 hours
[2021-07-17 16:16] LABS: Glucose,Whole Blood 158 mg/dL (75-99)
[2021-07-17] MEDS: MAGNESIUM SULFATE-D5W PMX 1 GM in DEXTROSE/WATER 1 100ML.BAG IVPB SCH ×2 (16:51→17:59)
[2021-07-17 20:12] LABS: Glucose,Whole Blood 219 mg/dL (75-99)
--- NOTE | 2021-07-17 22:09 | P.PN ---
Subjective Progress Note Date: 07/17/21 Principal diagnosis: Bacteremia and possible abdominal infection Interval history : Patient is a 65-year-old male presenting to the hospital for nausea vomiting diarrhea and abdominal pain in this patient also have positive blood culture with gram-positive cocci. On today's evaluation that is 07/17/2021, The patient remains to be afebrile, the patient is feeling much better he is breathing comfortably he denies having any nausea no vomiting did have few bowel movements no blood or mucus in the stool and abdominal pain has resolved Objective - Vital Signs Vital signs: Vital Signs Temp 98.8 F 07/17/21 11:51 Pulse 92 07/17/21 11:51 Resp 16 07/17/21 11:51 BP 144/76 07/17/21 11:51 Pulse Ox 95 07/17/21 11:51 Intake & Output 07/16/21 07/17/21 07/17/21 18:59 06:59 18:59 Intake Total 240 Output Total 2450 300 Balance -2450 240 -300 Intake: Oral 240 Output: Urine 2450 300 Other: Voiding Method Bedpan Bedpan Urinal Urinal Urinal Diaper Diaper Diaper - Exam General description is an elderly male lying in bed in no distress. Respiratory system:Unlabored breathing, decreased intensity in breath sounds. No wheeze. Heart S1, S2. Regular rate and rhythm. Abdomen mild distention but no tenderness. Extremities: No edema feet - Labs CBC & Chem 7: 07/17/21 10:00 07/17/21 10:00 Labs: Abnormal Lab Results - Last 24 Hours (Table) 07/16/21 07/16/21 07/17/21 Range/Units 16:44 20:32 07:03 Carbon Dioxide (22-30) mmol/L Glucose (74-99) mg/dL POC Glucose (mg/dL) 111 H 107 H 153 H (75-99) mg/dL 07/17/21 07/17/21 Range/Units 10:00 11:30 Carbon Dioxide 20 L (22-30) mmol/L Glucose 153 H (74-99) mg/dL POC Glucose (mg/dL) 145 H (75-99) mg/dL Microbiology - Last 24 Hours (Table) 07/15/21 04:36 Blood Culture - Preliminary Blood No Growth after 48 hours 07/13/21 04:23 Blood Culture - Preliminary Blood No Growth after 96 hours Assessment and Plan Assessment: 1-patient with a positive culture with gram-positive cocci. Which has been finalized as Micrococcus species likely contaminated , Patient is currently being monitored off vancomycin 2-patient with abdominal pain nausea and vomiting concerning for abdominal source CT abdomen and pelvis did show small bowel obstruction And the patient is currently being monitored by general surgery patient seem to have shown overall improvement clinically and continue with the Unasyn Time with Patient: Less than 30
[2021-07-18] MEDS: AMPICILLIN-SULBACTAM 3 GM in SODIUM CHLORIDE 0.9% 100 ML IVPB SCH ×3 (02:24→15:59)
[2021-07-18] MEDS: INSULIN ASPART (NovoLOG) 100 UNIT/ML VIAL SQ SCH ×3 (07:29→16:49)
[2021-07-18] MEDS: TAMSULOSIN 0.4 MG CAP.ER.24H PO SCH (07:38)
[2021-07-18] MEDS: PANTOPRAZOLE 40 MG/10 ML VIAL IVP SCH (07:38)
[2021-07-18] MEDS: APIXABAN 5 MG TAB PO SCH (07:38)
[2021-07-18] MEDS: METOPROLOL TARTRATE 25 MG TAB PO SCH (07:38)
[2021-07-18] MEDS: GABAPENTIN 400 MG CAP PO SCH ×2 (07:38→15:59)
[2021-07-18] MEDS: lamoTRIgine 25 MG TAB PO SCH (07:39)
[2021-07-18] MEDS: amLODIPine 5 MG TAB PO SCH (07:39)
[2021-07-18] MEDS: ATORVASTATIN 80 MG TAB PO SCH (07:39)
[2021-07-18] MEDS: NYSTATIN 100,000 UNIT/GM OINT 30 GM TUBE TOPICAL SCH (07:40)
[2021-07-18 09:23] LABS: Basophils # (A) 0.03 X 10*3/uL (0.00-0.10); Basophils % (A) 0.3 %; Eosinophils # (A) 0.48 X 10*3/uL (0.04-0.35); HCT 42.6 % (39.6-50.0); HGB 14.7 g/dL (13.0-17.0); Lymphocytes # (A) 2.14 X 10*3/uL (0.90-5.00); Lymphocytes % (A) 22.4 %; MCH 30.8 pg (27.0-32.0); MCHC 34.5 g/dL (32.0-37.0); MCV 89.3 fL (80.0-97.0); Mean Platelet Volume 11.1 fL (9.5-12.2); Monocytes # (A) 0.92 X 10*3/uL (0.20-1.00); Monocytes % (A) 9.6 %; Neutrophils # (A) 5.97 X 10*3/uL (1.80-7.70); Neutrophils % (A) 62.4 %; Platelet Count 237 X 10*3/uL (140-440); RBC 4.77 X 10*6/uL (4.40-5.60); RDW 13.7 % (11.5-14.5); WBC 9.57 X 10*3/uL (4.50-10.00)
[2021-07-18 09:51] LABS: Glucose,Whole Blood 128 mg/dL (75-99)
[2021-07-18 10:30] LABS: African American GFR (CKD) 109.6 (60.0-200.0); Anion Gap 11.9 mmol/L (10.00-18.00); BUN/Creat Ratio 7.99 Ratio (12.00-20.00); Blood Urea Nitrogen 6.1 mg/dL (9.0-27.0); Calcium 8.6 mg/dL (8.7-10.3); Carbon Dioxide 22.4 mmol/L (20.0-27.5); Non-African American GFR(CKD) 94.6 (60.0-200.0); Potassium 3.3 mmol/L (3.5-5.5)
[2021-07-18] MEDS: SODIUM CHLORIDE 0.9% 1,000 ML IV SCH (10:34)
[2021-07-18] MEDS: VANCOMYCIN 2,000 MG in SODIUM CHLORIDE 0.9% 500 ML 500 ML IVPB SCH (11:43)
[2021-07-18 11:49] LABS: Glucose,Whole Blood 170 mg/dL (75-99)
[2021-07-18 13:22] VITALS: BMI 42.7
[2021-07-18 14:08] VITALS: BP 166/65; PULSE 89; RESP 16; TEMP 98
[2021-07-18] MEDS ORDERED: POTASSIUM CHLORIDE ER 20 MEQ TAB.ER PO STA (14:23)
[2021-07-18 16:51] LABS: Glucose,Whole Blood 182 mg/dL (75-99)
--- NOTE | 2021-07-19 17:17 | P.DS ---
Providers Date of admission: 07/13/21 06:36 Attending physician: Rosalva Eric Consults: 07/13/21 07:57 Consult Physician Urgent Consulting Provider: Fatoumata Bailey Consult Reason/Comments: p/w AMS, H/O stroke Do you want consulting provider notified?: Yes 07/13/21 10:52 Consult Physician Urgent Consulting Provider: Garrett Luciano Consult Reason/Comments: abd pain , high lactic acid Do you want consulting provider notified?: Yes 07/14/21 11:31 Consult Physician Urgent Consulting Provider: Edie Alford Consult Reason/Comments: sepsis Do you want consulting provider notified?: Yes Primary care physician: Corrine Coronel MD Hospital Course: Final Diagnosis Altered mental status multifactorial on admission, due to combination of toxic encephalopathy from infection, dehydration Partial bowel obstruction vs ileus Mild acute hypoxic respiratory failure secondary to right lower lobe pneumonia vs. CHF, more likely aspiration pneumonia from recurrent emesis. Gram positive bacteremia, contamination vs. intra-abdominal source; repeat cultures negative, pending finalized cultures Hypokalemia and hypomagnesemia secondary to diarrhea Hypertension Hyperlipidemia History of coronary artery disease status post stent Chronic congestive heart failure mild systolic and diastolic with an EF of 50- 55%, not in acute exacerbation Mild pulmonary hypertension History of CVA with left hemiparesis, CT showing old right occipital infarct with no acute abnormality Diabetes mellitus type 2 with diabetic neuropathy, metformin on hold Sleep apnea on CPAP Chronic back pain Morbid obesity Discharge Disposition Patient Alert and oriented x4 stable for discharge cleared by all consultations. Hospital Course This is a 65-year-old male who presents to the hospital past medical history significant for coronary artery disease, status post stenting, heart failure, CVA TIA, diabetes mellitus type 2, GERD, hyperlipidemia, hypertension, osteoarthritis, sleep apnea with CPAP, [place] 2, CVA TIA 2, residual left arm and left leg weakness, factor for blood disorder, diabetic neuropathy in feet and legs and chronic back pain. Patient presents because of altered mental status, however when he woke up the morning of admission at home he was alert and oriented 3. Patient told provider in the [facility] is having ongoing diarrhea and then his bowel movements suddenly stopped yesterday. He was vomiting about 2 times a day and again yesterday and suddenly stopped. He became somnolent and mildly hypotensive so called 911 and patient was brought into the [facility]. Patient also complained from periumbilical abdominal pain about 9/10 in severity, nonspecific character, nonradiating. However it is hard to localize because of his large body habitus. He denies chest pain or dyspnea. He feels generally weak but mild headache. He makes little urine and it is dark area He complains from chronic low back pain since 1986, severe in the lower back, it is the same over the last 4 years, no difficulty in moving legs, no numbness. He stated that he takes liquids since 1996 secondary to stroke. Patient states that he walks using a cane with no difficulty and he works at his baseline. He denies smoking, alcohol or illicit drugs. Vitas looks stable, blood pressure elevated this morning 173/71, patient saturation 94% on 2 L oxygen via nasal cannula Labs on admission showed leukocytosis of 18.3. CBC is unremarkable, INR is 1.0. Sodium was 133, rest of BMP is unremarkable. Glucose is elevated at 260. Lactic acid high at 3.9. Liver enzymes are unremarkable. Troponin is negative at less than 0.012. Urine analysis showed glucosuria, urine drug screen is negative. Serum alcohol less than 10. C. diff is negative Pérez virus PCR is negative EKG showed sinus bradycardia at [address]-T changes, QTC is 460 CT of the chest abdomen and pelvis,: Right pleural effusion with pulmonary interstitial edema and bibasilar atelectasis. This could be related to congestive heart failure. Moderate atherosclerotic vascular disease. No acute abdomen within the abdomen and pelvis Mild atrophy. Old right occipital lobe infarct. No acute intracranial abnormality ProBNP is normal at 617. Patient was admitted to the hospital with consultations placed to neurology, surgical services, cardiology, and ID services. -Brain CT shows mild atrophy with old right occipital lobe infarct with no acute intracranial abnormality. -Abdomen x-ray shows numerous dilated small bowel loops correlate with small bowel obstruction with severe ileus also a differential diagnosis of right basilar infiltrate. -Echocardiogram shows an EF of 50-55% with left atrium moderately dilated, mild tricuspid regurgitation, mild pulmonary hypertension there is no pericardial effusion. Patient was treated conservatively by surgical services with bowel rest and nothing by mouth diet, IV fluids and medications. He did have numerous bowel movements on the 18 and and is passing gas. He is alert and oriented 4. Repeat imaging shows contrast in the colon with no signs of obstruction. Advance diet as tolerated with no plans for surgical management. Patient was found positive for micrococcus species and the blood with subsequent blood cultures negative. He was treated with IV unasyn inpatient, and discharged on oral augmentin for 7 more days as recommended by ID consultation. 07/18/2021 Patient IS sitting up in the bed. He developed a PT OT recommended home on discharge. Labs today show a unremarkable blood count, potassium 3.3, glucose in the 160s. We did replace potassium per protocol and will recheck in 1-2 days. Vital signs have remained stable. He is afebrile, blood pressure 166/65 and 97% room air. Abdomen is nontender, and soft. He is obese with a round abdomen. There are positive bowel sounds. He denies nausea vomiting or diarrhea. He denies chest pain, cough or shortness of breath. Denies dysuria, urgency, frequency. He is stable for discharge to follow up with providers. Encourage oral hydration and bowel regimen. Please see medication reconciliation for list of current medications. Thank you for allowing us participate in the care of this patient. Patient Condition at Discharge: Stable Plan - Discharge Summary New Discharge Prescriptions: New amLODIPine [Norvasc] 5 mg PO DAILY #30 tab Famotidine [Pepcid] 20 mg PO BID 7 Days #14 tablet Metoprolol Tartrate [Lopressor] 25 mg PO BID 30 Days #60 tab Nystatin 100,000 Unit/gm Oint [Mycostatin Oint] 1 applic TOPICAL BID #1 cream Acetaminophen Tab [Tylenol] 1,000 mg PO Q6HR PRN tab PRN Reason: Fever And/ Or Pain Potassium Chloride [Potassium Chloride ER] 10 meq PO DAILY #30 tab Amoxicillin/Potassium Clav [Augmentin 875-125 Tablet] 1 tab PO BID 7 Days #14 tab Continue metFORMIN HCL [Glucophage] 1,000 mg PO BID lamoTRIgine [LaMICtal] 25 mg PO DAILY Tamsulosin HCl [Flomax] 0.8 mg PO DAILY@1200 Gabapentin [Neurontin] 800 mg PO TID Apixaban [Eliquis] 5 mg PO BID #60 tab Atorvastatin [Lipitor] 80 mg PO DAILY lisinopriL 40 mg PO DAILY@1200 Discontinued Nystatin 100,000Unit/gm Cream [Mycostatin Cream] 1 applic TOPICAL BID PRN PRN Reason: Rash Discharge Medication List Gabapentin [Neurontin] 800 mg PO TID 04/21/19 [History] Tamsulosin HCl [Flomax] 0.8 mg PO DAILY@1200 04/21/19 [History] lamoTRIgine [LaMICtal] 25 mg PO DAILY 04/21/19 [History] metFORMIN HCL [Glucophage] 1,000 mg PO BID 04/21/19 [History] Apixaban [Eliquis] 5 mg PO BID #60 tab 06/06/19 [Rx] Atorvastatin [Lipitor] 80 mg PO DAILY 07/13/21 [History] lisinopriL 40 mg PO DAILY@1200 07/13/21 [History] Acetaminophen Tab [Tylenol] 1,000 mg PO Q6HR PRN tab 07/18/21 [Rx] Amoxicillin/Potassium Clav [Augmentin 875-125 Tablet] 1 tab PO BID 7 Days #14 tab 07/18/21 [Rx] Famotidine [Pepcid] 20 mg PO BID 7 Days #14 tablet 07/18/21 [Rx] Metoprolol Tartrate [Lopressor] 25 mg PO BID 30 Days #60 tab 07/18/21 [Rx] Nystatin 100,000 Unit/gm Oint [Mycostatin Oint] 1 applic TOPICAL BID #1 cream 07/18/21 [Rx] Potassium Chloride [Potassium Chloride ER] 10 meq PO DAILY #30 tab 07/18/21 [Rx] amLODIPine [Norvasc] 5 mg PO DAILY #30 tab 07/18/21 [Rx] Follow up Appointment(s)/Referral(s): Kellen Greene NPC [Family Provider] - 1-2 days Ambulatory/Diagnostic Orders: Basic Metabolic Panel [LAB.AMB] Time Frame: 3 Days, Location: None Selected Complete Blood Count w/diff [LAB.AMB] Time Frame: 3 Days, Location: None Selected Patient Instructions/Handouts: Low Fiber Diet (DC), Balanitis (GEN) Discharge Disposition: HOME SELF-CARE
== END 2021-07-18 18:10 | disposition home or self-care (01) | DRG 177 ==
LOC: EC 02:10 → 4SSUR 06:36
PROVIDERS: ADMIT Hospitalist; ATTEND Hospitalist
PROC: 05HF33Z Insertion of Infusion Device into Left Cephalic Vein, Percutaneous Approach (ICD-10-PCS; principal; 2021-07-17 13:55)
DX: J69.0 Pneumonitis due to inhalation of food and vomit (principal); J96.01 Acute respiratory failure with hypoxia; G93.41 Metabolic encephalopathy; G92.9 Unspecified toxic encephalopathy; D68.51 Activated protein C resistance; Z68.41 Body mass index [BMI] 40.0-44.9, adult; E87.2 Acidosis; I16.1 Hypertensive emergency; I69.354 Hemiplegia and hemiparesis following cerebral infarction affecting left non-dominant side; J98.11 Atelectasis; K56.609 Unspecified intestinal obstruction, unspecified as to partial versus complete obstruction; K56.7 Ileus, unspecified; I50.32 Chronic diastolic (congestive) heart failure; J18.9 Pneumonia, unspecified organism; B96.89 Other specified bacterial agents as the cause of diseases classified elsewhere; R00.1 Bradycardia, unspecified; Z20.822 Contact with and (suspected) exposure to COVID-19; E11.40 Type 2 diabetes mellitus with diabetic neuropathy, unspecified; E11.65 Type 2 diabetes mellitus with hyperglycemia; E66.01 Morbid (severe) obesity due to excess calories; E78.5 Hyperlipidemia, unspecified; E83.42 Hypomagnesemia; E86.0 Dehydration; E87.6 Hypokalemia; F32.A Depression, unspecified; F41.9 Anxiety disorder, unspecified; G47.30 Sleep apnea, unspecified; G89.29 Other chronic pain; I25.10 Atherosclerotic heart disease of native coronary artery without angina pectoris; I25.2 Old myocardial infarction; I27.20 Pulmonary hypertension, unspecified; I11.0 Hypertensive heart disease with heart failure; I71.2 Thoracic aortic aneurysm, without rupture; N40.0 Benign prostatic hyperplasia without lower urinary tract symptoms; N48.1 Balanitis; Z79.01 Long term (current) use of anticoagulants; Z79.84 Long term (current) use of oral hypoglycemic drugs; Z79.899 Other long term (current) drug therapy; Z80.0 Family history of malignant neoplasm of digestive organs; Z82.49 Family history of ischemic heart disease and other diseases of the circulatory system; Z83.3 Family history of diabetes mellitus; Z90.49 Acquired absence of other specified parts of digestive tract; Z95.2 Presence of prosthetic heart valve; Z95.5 Presence of coronary angioplasty implant and graft
CPT/HCPCS: 36410; 36415; 70450; 71045; 71046; 71260; 74019; 74022; 74177; 76937; 80048; 80053; 80175; 80202; 80306; 80320; 81001; 82150; 82565; 83036; 83605; 83690; 83735; 83880; 84145; 84484; 85025; 85610; 85730; 86140; 87040; 87324; 87635; 93005; 93306; 96365; 96375; 99285

== ENCOUNTER 2024-10-16 19:56 | Inpatient (IN) | payer MEDICARE ==
--- NOTE | 2024-10-16 20:11 | ED ---
Chest Pain HPI - History of Present Illness MD Complaint: chest pain Onset/Timin -: hour(s) Onset: during rest Pain Location: right chest Pain Radiation: RUE, jaw/teeth Severity: severe Quality: aching Consistency: constant Improves With: medication-other (Metoprolol) Worsens With: nothing Anginal Symptoms: dyspnea Treatments Prior to Arrival: other (Prolonged) <Jean Londono - Last Filed: 10/16/24 21:19> <Susan Sanford - Last Filed: 10/17/24 22:37> - General Stated Complaint: Chest Pain Time Seen by Provider: 10/16/24 19:58 - History of Present Illness Initial Comments: This patient is a 69-year-old man with history of coronary artery bypass and aortic valve replacement approximately 3 years ago who presents evaluation of chest pain also radiating to the right shoulder and to the neck. The patient states that he had gone to Easter dinner at his daughter's house. After eating he went home and was lying down resting when he had onset of pain. (Jean Londono) - Related Data Home Medications Medication Instructions Recorded Confirmed Tamsulosin HCl [Flomax] 0.8 mg PO DAILY@1600 04/21/19 10/17/24 Atorvastatin [Lipitor] 80 mg PO HS 07/13/21 10/17/24 Aspirin EC [Ecotrin Low Dose] 81 mg PO DAILY 10/17/24 10/17/24 Carbidopa-Levodopa 25-100 mg 1 tab PO TID 10/17/24 10/17/24 [Sinemet 25-100] Cholestyramine (with Sugar) 4 gm PO AC-TID 10/17/24 10/17/24 [Questran] Clopidogrel [Plavix] 75 mg PO DAILY 10/17/24 10/17/24 Furosemide [Lasix] 20 mg PO DAILY 10/17/24 10/17/24 Gabapentin 600 mg PO TID 10/17/24 10/17/24 Isosorbide Mononitrate ER [Imdur] 30 mg PO DAILY 10/17/24 10/17/24 L.acidoph,Paracasei, B.lactis 1 cap PO DAILY 10/17/24 10/17/24 [Probiotic] Metoprolol Tartrate [Lopressor] 12.5 mg PO DAILY 10/17/24 10/17/24 Venlafaxine HCl ER [Effexor Xr] 150 mg PO DAILY 10/17/24 10/17/24 lamoTRIgine [LaMICtal] 100 mg PO BID 10/17/24 10/17/24 lisinopriL [Zestril] 5 mg PO HS 10/17/24 10/17/24 methocarbamoL [Robaxin-750] 750 mg PO TID 10/17/24 10/17/24 Previous Rx's Medication Instructions Recorded Famotidine [Pepcid] 20 mg PO BID 7 Days #14 tablet 07/18/21 Potassium Chloride [Potassium 10 meq PO DAILY #30 tab 07/18/21 Chloride ER] Allergies Allergy/AdvReac Type Severity Reaction Status Date / Time nitroglycerin AdvReac Severe SL nitro Verified 10/17/24 10:03 caused severe low HR and B/P adhesive AdvReac blisters Verified 10/17/24 10:03 Review of Systems ROS Other: All systems not noted in ROS Statement are negative. Constitutional: Denies: fever, chills Respiratory: Reports: dyspnea. Denies: cough Cardiovascular: Reports: chest pain. Denies: palpitations, orthopnea, edema, syncope Gastrointestinal: Denies: abdominal pain, nausea, vomiting, diarrhea Genitourinary: Denies: dysuria, hematuria Musculoskeletal: Denies: back pain Skin: Denies: rash Neurological: Denies: headache, weakness, numbness <Jean Londono - Last Filed: 10/16/24 21:19> ROS Other: All systems not noted in ROS Statement are negative. <Susan Sanford - Last Filed: 10/17/24 22:37> ROS Statement: Those systems with pertinent positive or pertinent negative responses have been documented in the HPI. EKG Findings - EKG Results: EKG: interpreted by ERMD, sinus rhythm (Rate 70 bpm), normal axis - Blocks, [place], Hypertrophy, ST Abn: Chamber hypertrophy or enlargement: left ventricular hypertrophy or enlargement (LVE) <Jean Londono - Last Filed: 10/16/24 21:19> Past Medical History Past Medical History: Blood Disorder, Coronary Artery Disease (CAD), Chest Pain / Angina, Heart Failure, CVA/TIA, Diabetes Mellitus, GERD/Reflux, Hyperlipidemia, Hypertension, Myocardial Infarction ([place]), Osteoarthritis (OA), Sleep Apnea/CPAP/BIPAP Additional Past Medical History / Comment(s): HX [place] X 2, HX CVA'S/TIA'S - LEFT ARM & LEG WEAKNESS, FACTOR 5 BLOOD DISORDER., DIABETIC NEUROPATHY IN FEET AND LEGS., SLEEP APNEA WITH C-PAP ., BACK PAIN , INDIGESTION., SEE CARDIOLOGY H & P. Last Myocardial Infarction Date:: 2014 History of Any Multi-Drug Resistant Organisms: None Reported Past Surgical History: Cholecystectomy, Heart Catheterization, Heart Catheterization With Stent, Orthopedic Surgery, Tonsillectomy Additional Past Surgical History / Comment(s): Radio Freq Proc to Back 04-01-16, R TOTAL KNEE. R KNEE ARTHROSCOPIES ., CARDIAC CATH [address] Jorge Luis SMITH.04/07/14 HEART CATH WITH STENT TO MID LAD. Past Anesthesia/Blood Transfusion Reactions: Previous Problems w/ Anesthesia, Postoperative Nausea & Vomiting (PONV) Additional Past Anesthesia/Blood Transfusion Reaction / Comment(s): LOOPY- (HALLUCINATED) Date of Last Stent Placement:: 2014 Past Psychological History: Anxiety, Depression Smoking Status: Never smoker Past Alcohol Use History: None Reported - Past Family History Sister(s) Family Medical History: Coronary Artery Disease (CAD), Diabetes Mellitus Additional Family Medical History / Comment(s): SISTER(1) HAD DM, SISTER(2) HAD CAD-CABG Father Family Medical History: Cancer Additional Family Medical History / Comment(s): FATHER OF [place] AT AGE 76 YRS. Mother Family Medical History: Cancer, Congestive Heart Failure (CHF), Myocardial Infarction ([place]) Additional Family Medical History / Comment(s): MOTHER AT AGE 57 OR [place]. MOM HAD PSYCHOLOLGICAL ISSUES. <Jean Londono - Last Filed: 10/16/24 21:19> General Exam General appearance: alert, in no apparent distress Head exam: Present: atraumatic, normocephalic Eye exam: Present: normal appearance. Absent: scleral icterus, conjunctival injection ENT exam: Present: normal oropharynx Neck exam: Present: normal inspection, full ROM. Absent: tenderness, meningismus Respiratory exam: Present: normal lung sounds bilaterally. Absent: respiratory distress, wheezes, rales, rhonchi, stridor, accessory muscle use Cardiovascular Exam: Present: regular rate, normal rhythm, normal heart sounds. Absent: systolic murmur, diastolic murmur, rubs, gallop GI/Abdominal exam: Present: soft. Absent: distended, tenderness, guarding, rebound, rigid, mass Extremities exam: Present: normal inspection, normal capillary refill. Absent: pedal edema, calf tenderness Back exam: Present: normal inspection. Absent: CVA tenderness (R), CVA tenderness (L) Neurological exam: Present: alert Skin exam: Present: warm, dry, intact, normal color. Absent: rash <Jean Londono - Last Filed: 10/16/24 21:19> Course Vital Signs 10/16/24 10/16/24 10/16/24 20:01 20:13 23:00 Temperature 97.8 F 98.1 F Pulse Rate 69 61 Respiratory 20 20 Rate Blood Pressure 145/76 116/68 O2 Sat by Pulse 94 L 96 95 Oximetry 10/17/24 10/17/24 10/17/24 00:30 00:37 00:52 Temperature Pulse Rate 60 62 61 Respiratory Rate Blood Pressure 121/64 124/80 135/76 O2 Sat by Pulse 95 94 L 95 Oximetry 10/17/24 10/17/24 10/17/24 00:58 01:15 01:30 Temperature Pulse Rate 60 61 62 Respiratory Rate Blood Pressure 136/73 119/72 120/79 O2 Sat by Pulse 95 94 L Oximetry 10/17/24 10/17/24 10/17/24 02:16 03:30 05:04 Temperature Pulse Rate 62 60 66 Respiratory 18 Rate Blood Pressure 111/72 99/60 117/68 O2 Sat by Pulse 96 Oximetry 10/17/24 10/17/24 10/17/24 05:23 05:45 06:15 Temperature 97.6 F Pulse Rate 62 60 60 Respiratory 18 20 Rate Blood Pressure 97/59 119/63 110/67 O2 Sat by Pulse 96 95 Oximetry 10/17/24 10/17/24 10/17/24 08:10 12:11 15:59 Temperature 98.8 F 97.8 F Pulse Rate 59 L 61 60 Respiratory 18 15 16 Rate Blood Pressure 137/71 139/85 117/76 O2 Sat by Pulse 96 96 94 L Oximetry Chest Pain MDM <Susan Sanford - Last Filed: 10/17/24 22:37> - MDM Was patient admitted / discharged? Hospital course, mention meds given and route, prescriptions, significant lab abnormalities, going to OR and other pertinent info. @Admission-patient was signed out to myself by off going physician Dr. Johnson. Briefly he is a 69-year-old gentleman past medical history of CAD, 5 prior cardiac stents, cardiac bypass, prior CVA, currently anticoagulated on Eliquis, who presented today after he was lying on a began experiencing right sided chest pain that radiated to his jaw. He states he checked his blood pressure at home and it was high. He states that when he has felt this before he is concerned that it is his heart sooner that he should come to the emergency department. Patient was signed out pending completion of labs, anticipated admission. On my assessment patient is well-appearing, in no acute distress on his home oxygen nasal cannula. He currently denies chest pain. He is pleasant and jovial. Discussed with the patient anticipated admission he is understanding and agreeable plan of care. Labs are significant for troponin of 0.043. I again reviewed EKG that was obtained earlier prior to my taking over care of the patient. It appeared to show possible [address] depression in leads V4 V5 without reciprocal elevations. Patient's RN did note that he endorsed some residual right-sided jaw pain. For this reason repeat EKG was obtained, it did not appear to show any significant new ST depressions or elevations though given patient's significant cardiac history, initial EKG findings and elevated troponin, I did reach out to Dr. Madera who kindly reviewed patient's EKGs, recommended heparin and nitro infu sions. I updated patient to these findings and this plan of care which she was agreeable. Of note patient does have a documented allergy to sublingual nitroglycerin of hypotension and bradycardia, currently patient's heart rate is in the 60s and his blood pressure is within acceptable limits. A small fluid bolus was ordered as well as heparin and nitro drips. Patient was admitted to the internal medicine service, case was discussed with Dr. Sebastian who kindly accepted patient for admission. Undiagnosed new problem with uncertain prognosis? @ -No Drug Therapy requiring intensive monitoring for toxicity (Heparin, Nitro, Insulin, Cardizem)? Nitro drip, heparin Were any procedures done? @ -No Diagnosis/symptom? @NSTEMI Acute, or Chronic, or Acute on Chronic? Acute Uncomplicated (without systemic symptoms) or Complicated (systemic symptoms)? @Complicated Side effects of treatment? @ -No Exacerbation, Progression, or Severe Exacerbation? @ -No Poses a threat to life or bodily function? How? (Chest pain, [place], [place], pneumonia, PE, COPD, DKA, ARF, appy, cholecystitis, CVA, Diverticulitis, Homicidal, Suicidal, threat to staff... and all critical care pts) @ -Yes, if left untreated could progress to STEMI and cardiac arrest. (Susan Sanford) Disposition <Jean Londono - Last Filed: 10/16/24 21:19> <Susan Sanford - Last Filed: 10/17/24 22:37> Clinical Impression: Acute non-ST elevation myocardial infarction (NSTEMI) Disposition: ADMITTED IP TO THIS HOSP Condition: Stable
[2024-10-16] MEDS ORDERED: RX INFO: IV CONTRAST WAS GIVEN 1 EACH MISC MISCELLANE PRN (20:26)
[2024-10-16 21:27] LABS: Basophils # (A) 0.03 10*3/uL (0.00-0.10); Basophils % (A) 0.4 %; Eosinophils # (A) 0.54 10*3/uL (0.04-0.35); Eosinophils % (A) 6.9 %; HCT 42.5 % (39.6-50.0); HGB 14.5 g/dL (13.0-17.0); Lymphocytes # (A) 2.37 10*3/uL (0.90-5.00); Lymphocytes % (A) 30.2 %; MCH 32.9 pg (27.0-32.0); MCHC 34.1 g/dL (32.0-37.0); MCV 96.4 fL (80.0-97.0); Mean Platelet Volume 10.4 fL (9.5-12.2); Monocytes # (A) 0.43 10*3/uL (0.20-1.00); Monocytes % (A) 5.5 %; Neutrophils # (A) 4.47 10*3/uL (1.80-7.70); Neutrophils % (A) 56.9 %; Platelet Count 195 10*3/uL (140-440); RBC 4.41 10*6/uL (4.40-5.60); RDW 14.3 % (11.5-14.5); WBC 7.85 10*3/uL (4.50-10.00)
[2024-10-16 21:41] LABS: INR 0.9 (<1.2); Partial Thromboplastin Time 25.6 sec (22.0-30.0); Prothrombin Time 10.3 sec (10.0-12.5)
[2024-10-16 21:45] LABS: ALT 22 U/L (4-49); AST 23 U/L (17-59); African American GFR (CKD) >90 (>60 ml/min/1.73 sqM); Albumin 3.7 g/dL (3.5-5.0); Alkaline Phosphatase 96 U/L (38-126); Amylase 71 U/L (30-110); Anion Gap 8 mmol/L; Blood Urea Nitrogen 18 mg/dL (9-20); Carbon Dioxide 25 mmol/L (22-30); Chloride 104 mmol/L (98-107); Glucose 174 mg/dL (74-99); Lipase 188 U/L (23-300); Magnesium 1.8 mg/dL (1.6-2.3); Non-African American GFR(CKD) 81 (>60 ml/min/1.73 sqM); Sodium 137 mmol/L (137-145); Total Bilirubin 0.4 mg/dL (0.2-1.3); Total Protein 6.3 g/dL (6.3-8.2)
[2024-10-16 21:47] LABS: Potassium 4.5 mmol/L (3.5-5.1)
[2024-10-16] MEDS: ENOXAPARIN 150 MG/ML SYRINGE SQ STA (21:55)
--- NOTE | 2024-10-16 23:13 | CT ---
EXAMINATION TYPE: CT chest w con CT DLP: 1093.1 mGycm, Automated exposure control for dose reduction was used. DATE OF EXAM: 10/16/2024 10:31 PM COMPARISON: Chest radiograph 07/14/2021, CT chest abdomen pelvis 07/13/2021 CLINICAL INDICATION:Male, 69 years old with history of chest pain; [facility], Patient presents to ED via EM S with reports of "high blood pressure and chest pain that started at 6:30pm". Per EMS patient has "r ight sided chest pain radiating to jaw and right arm". Per EMS patient has a "headache and SOB". Per EMS patient has HX of "HTN, 5 cardiac stents, triple bypass, aortic valve replacement, parkinsons, di abetes". Per EMS patient is "sensitive to sublingual Nitro". TECHNIQUE: Multiple axial images were obtained through the chest following the administration of 100 cc of Isovue 300. . Coronal and sagittal reformats reviewed. FINDINGS: LUNGS/ PLEURA: No pneumothorax. Trace right pleural effusion with associated atelectasis. Respiratory motion limits evaluation. Minimal linear atelectasis within the right middle lobe and lingula. AIRWAY: Patent and unremarkable.. HEART: Cardiomegaly is demonstrated.Left atrial appendage occlusion device. Postsurgical changes from aortic valvular replacement. No pericardial effusion. Coronary artery atherosclerotic changes and st ents present. Dense mitral annulus calcifications. MEDIASTINUM: No gross evidence of adenopathy. VASCULATURE: No aortic aneurysm. Suggested moderate stenosis of the origin of the right common carot id artery secondary to calcified plaque. Mild stenosis suggested at the origin of the right subclavia n artery secondary to calcified plaque. Mild to moderate stenosis suggested origin of the left common carotid artery secondary to calcified plaque. MUSCULOSKELETAL: No acute osseous abnormalities. Sternotomy fixation hardware. Two-level degenerative disc disease with anterior osteophytosis of the thoracic spine. SOFT TISSUES/LYMPH NODES: Unremarkable. LOWER NECK: No significant findings. UPPER ABDOMEN: Gallbladder is surgically absent. Calcified granuloma within the left hepatic lobe. Hi gh-grade stenosis with large noncalcified plaque in stent at the celiac axis. IMPRESSION: 1. Trace right pleural effusion with associated subsegmental atelectasis of the right lower lobe. 2. Cardiomegaly with postsurgical changes of the heart. [facility], , 10/16/2024 11:11 PM
[2024-10-16] MEDS: SODIUM CHLORIDE 0.9% 500 ML 500 ML IV ONE (23:43)
[2024-10-16] MEDS ORDERED: MORPHINE SULFATE 2 MG/ML SYRINGE IVP PRN (23:54)
[2024-10-16] MEDS ORDERED: NITROGLYCERIN SL TABS 0.4 MG TAB SUBLINGUAL PRN (23:54)
[2024-10-17] MEDS: HEPARIN SODIUM 1,000 UN/ML (10ML VL) IV ONE (00:25)
[2024-10-17] MEDS: HEPARIN SOD,PORK IN 0.45% NACL 25,000 UNIT in 0.45% NACL 1 250ML.BAG IV SCH (00:29)
[2024-10-17] MEDS: NITROGLYCERIN-D5W PMX 50 MG in DEXTROSE/WATER 1 250ML.BAG IV SCH (00:32)
[2024-10-17] MEDS: GABAPENTIN 300 MG CAP PO SCH (01:44)
[2024-10-17] MEDS: lamoTRIgine 100 MG TAB PO SCH (01:44)
[2024-10-17] MEDS: METOPROLOL TARTRATE 12.5 MG TAB PO SCH (03:34)
[2024-10-17 05:54] LABS: Basophils # (A) 0.03 10*3/uL (0.00-0.10); Basophils % (A) 0.4 %; Eosinophils # (A) 0.49 10*3/uL (0.04-0.35); Eosinophils % (A) 6.6 %; HCT 41.9 % (39.6-50.0); HGB 14.3 g/dL (13.0-17.0); Lymphocytes # (A) 3.15 10*3/uL (0.90-5.00); Lymphocytes % (A) 42.3 %; MCH 32.9 pg (27.0-32.0); MCHC 34.1 g/dL (32.0-37.0); MCV 96.3 fL (80.0-97.0); Mean Platelet Volume 10.6 fL (9.5-12.2); Monocytes # (A) 0.39 10*3/uL (0.20-1.00); Monocytes % (A) 5.2 %; Neutrophils # (A) 3.38 10*3/uL (1.80-7.70); Neutrophils % (A) 45.4 %; Platelet Count 192 10*3/uL (140-440); RBC 4.35 10*6/uL (4.40-5.60); RDW 14.6 % (11.5-14.5); WBC 7.45 10*3/uL (4.50-10.00)
[2024-10-17 06:05] LABS: Prothrombin Time 11.1 sec (10.0-12.5)
[2024-10-17] MEDS: ASPIRIN 325 MG TAB PO SCH (08:09)
[2024-10-17 09:07] LABS: Chol/HDL Ratio 4.01 Ratio
[2024-10-17] MEDS ORDERED: ALPRAZolam 0.5 MG TAB PO PRN (09:22)
[2024-10-17] MEDS ORDERED: ALPRAZolam 0.25 MG TAB PO PRN (09:22)
[2024-10-17] MEDS: SODIUM CHLORIDE 0.9% 1,000 ML IV SCH (09:30)
[2024-10-17] MEDS ORDERED: lamoTRIgine 100 MG TAB PO SCH (11:45)
[2024-10-17] MEDS ORDERED: GABAPENTIN 300 MG CAP PO SCH (11:45)
[2024-10-17] MEDS: FAMOTIDINE 20 MG TAB PO SCH (12:14)
[2024-10-17] MEDS: methocarbamoL 750 MG TAB PO SCH (12:14)
[2024-10-17] MEDS: POTASSIUM CHLORIDE ER 10 MEQ TAB.ER.PRT PO SCH (12:14)
[2024-10-17] MEDS: VENLAFAXINE HCL ER 150 MG CAP PO SCH (12:14)
[2024-10-17] MEDS: FUROSEMIDE 20 MG TAB PO SCH (12:14)
[2024-10-17] MEDS: CHOLESTYRAMINE (WITH SUGAR) 4 GM PACKET PO SCH (12:14)
[2024-10-17] MEDS: CARBIDOPA-LEVODOPA 25-100 MG 1 EACH TAB PO SCH (12:14)
--- NOTE | 2024-10-17 12:31 | CA ---
Transthoracic Echo Report Name: Martita Levine Age: 69 Gender: M : 1955 Exam Date: 10/17/2024 10:17 Exam Location: [facility] Ht (in): 72 Wt (lb): 297 Ordering Physician: Susan Sanford MD Attending/Referring Phys: Emergency Planner Karen Pack RDCS Procedure CPT: Indications: nstemi Cardiac Hx: Technical Quality: Very technically difficult study Contrast 1: Definity Total Dose (mL): 6 Contrast 2: Total Dose (mL): MEASUREMENTS (Male / Female) Normal Values 2D ECHO LV Diastolic Diameter PLAX 6.3 cm 4.2 - 5.9 / 3.9 - 5.3 cm LV Systolic Diameter PLAX 4.4 cm IVS Diastolic Thickness 1.4 cm 0.6 - 1.0 / 0.6 - 0.9 cm LVPW Diastolic Thickness 1.3 cm 0.6 - 1.0 / 0.6 - 0.9 cm LV Relative Wall Thickness 0.4 LVOT Diameter 2.3 cm LV Diastolic Volume MOD BP 126.0 cm??? 67 - 155 / 56 - 104 cm??? LV Systolic Volume MOD BP 68.3 cm??? 22 - 58 / 19 - 49 cm??? LV Ejection Fraction MOD BP 45.8 % >= 55 % LV Cardiac Index MOD BP 1230.8 cm???/min???m??? LV Diastolic Volume MOD 4C 141.4 cm??? LV Systolic Volume MOD 4C 65.3 cm??? LV Ejection Fraction MOD 4C 53.8 % LV Cardiac Index MOD 4C 1621.9 cm???/min???m??? LV Diastolic Length 4C 8.6 cm LV Systolic Length 4C 7.3 cm LV Diastolic Volume MOD 2C 111.0 cm??? LV Systolic Volume MOD 2C 64.1 cm??? LV Ejection Fraction MOD 2C 42.3 % LV Cardiac Index MOD 2C 1001.5 cm???/min???m??? LV Diastolic Length 2C 8.7 cm LV Systolic Length 2C 8.1 cm LA Volume 89.3 cm??? 18 - 58 / 22 - 52 cm??? LA Volume Index 33.4 cm???/m??? 16 - 28 cm???/m??? M-MODE LV Diastolic Diameter MM 7.0 cm 4.2 - 5.9 / 3.9 - 5.3 cm LV Systolic Diameter MM 5.2 cm LV Cardiac Index MM Teich 2700.1 cm???/min???m??? IVS Diastolic Thickness MM 1.4 cm 0.6 - 1.0 / 0.6 - 0.9 cm LVPW Diastolic Thickness MM 1.6 cm 0.6 - 1.0 / 0.6 - 0.9 cm LV Relative Wall Thickness MM 0.4 0.24 - 0.42 / 0.22 - 0.42 LV Mass Index MM 211.3 g/m??? 49 - 115 / 43 - 95 g/m??? DOPPLER AV Peak Velocity 459.7 cm/s AV Peak Gradient 84.5 mmHg AV Mean Velocity 358.6 cm/s AV Mean Gradient 55.3 mmHg AV Velocity Time Integral 134.1 cm LVOT Peak Velocity 127.7 cm/s LVOT Peak Gradient 6.5 mmHg LVOT Velocity Time Integral 29.3 cm LVOT Stroke Volume 123.9 cm??? LVOT Stroke Volume Index 49.2 ml/m??? LVOT Cardiac Index 2642.8 cm???/min???m??? AV Area Cont Eq vti 0.9 cm??? AV Area Cont Eq pk 1.2 cm??? MV Peak Velocity 119.2 cm/s MV Peak Gradient 5.7 mmHg MV Mean Velocity 68.0 cm/s MV Mean Gradient 2.1 mmHg MV Velocity Time Integral 38.9 cm MV Area PHT 3.4 cm??? Mitral E Point Velocity 95.7 cm/s Mitral A Point Velocity 90.7 cm/s Mitral E to A Ratio 1.1 MV Deceleration Time 223.5 ms PV Peak Velocity 98.0 cm/s PV Peak Gradient 3.8 mmHg FINDINGS Left Ventricle Left ventricular ejection fraction is estimated at 45-50 %. Mildly increased left ventricular wall thickness. Mild left ventricular dilatation. Right Ventricle Right ventricle not well visualized. Unable to estimate the right ventricular systolic pressure. Right Atrium Right atrium not well visualized. Left Atrium Mildly increased left atrial volume. Mildly increased left atrial area. Mitral Valve Mitral valve thickened. Mitral annular calcification. No evidence for mitral valve prolapse. No mitral stenosis. No mitral regurgitation. Aortic Valve Bioprosthetic aortic valve with stenosis with a peak velocity of 4.6 m/s, peak gradient 85 mmHg, mean gradient 55 mmHg, and estimated aortic valve area of 0.9 cm???. No paravalvular aortic regurgitation. The valve was not well-visualized Tricuspid Valve Tricuspid valve not well visualized. No tricuspid stenosis, regurgitation or prolapse. Pulmonic Valve Pulmonic valve not well visualized. Pericardium No pericardial effusion. Aorta Aortic root and proximal ascending aorta not well visualized. CONCLUSIONS Technically difficult study. Definity ECHO contrast used for improved visualization of the endocardial borders (inadequate visualization of two or more contiguous segments). Mild impairment of the left ventricular systolic function Bioprosthetic aortic valve, not well-visualized with a mean gradient of 55 mmHg consistent with severe mitral regurg aortic stenosis Limited Doppler study of the mitral and tricuspid valve Previewed by: Dr. Benigno Bourgeois MD (Electronically Signed) Final Date: 17 October 2024 12:31
--- NOTE | 2024-10-17 13:17 | P.CRDCN ---
History of Present Illness Consult date: 10/17/24 Requesting physician: Susan Sanford Reason for Consult (text): NSTEMI Chief complaint: Chest pain History of present illness: Patient is a 69 year old male with past medical history of Type II Diabetes mellitus, CAD S/p CABG and prior stenting to LAD, Heart failure with last known EF 45-50%(08/22/24), Hyperlipidemia, Hypertension, MARIA D on CPAP presented to the ED with chest pain. Patient reported right sided chest pain that started yesterday. He states having Easter dinner at his daughter's place. After the dinner he was laying down when his symptoms started. The pain radiated to his right shoulder and arm up to the elbow. Associated with that he experienced nausea. Denies any relieving or provoking factors. He denies increased physical activity recently. Denies any changes with position changes. Patient measured his blood pressure at home that was elevated to 199//111. EMS was called, and they found him to have a BP of 173/111. On 06/02/2019 patient underwent tissue aortic valve replacement 25 mm Inspiris bovine pericardial valve. CABG grafting x 3 with LIM to LAD, saphenous vein graft to first diagonal, saphenous vein graft to first obtuse marginal. Ligation of left atrial appendage with 35mm AtriClip Patients home cardiac medications include aspirin 81 mg p.o. daily, Lipitor 80 mg p.o. at bedtime, Plavix 75 mg p.o. daily, Lasix 20 mg p.o. daily, Imdur 30 mg p.o. daily, lisinopril 5 mg p.o. at bedtime, metoprolol 12.5 mg p.o. daily. Denies fever, chills, cough, palpitations, abdominal pain, vomiting, hematuria, dysuria, hematochezia, melena, headache, slurred speech, numbness, tingling, dizziness, lightheadedness, blurred vision, double vision. ED documentation reviewed. In the ED patient was treated with Aspirin 325 mg, Heparin drip, Nitro drip. Vitals T 97.6 F, SC 15 bpm, RR 18, BP 137/71, SpO2 96% on 3 L nasal cannula EKG independently interpreted as sinus rhythm, first-degree AV block, SC 208 ms, rate 63 bpm, QTc [address] shows trace right pleural effusion with associated subsegmental atelectasis of the right lower lobe, cardiomegaly with postsurgical changes of the heart Labs show WBC 7.45, hemoglobin 14.3, platelet count 192, INR 1.0, sodium 137, potassium 4.5, creatinine 0.95 Troponin I 0.043, 0.231, 0.406, 0.400 Lipid panel shows triglycerides 254, cholesterol 149, LDL 61, HDL 37.2, VLDL 50.8 Echocardiogram 08/22/24: Normal LV size with mild LV dysfunction, EF 45 to 50%, mild left ventricular hypertrophy, mild MR, mild TR, mild SC Review of systems: Pertinent positives and negatives as discussed in HPI, a complete review of systems was performed and all other systems are negative. Physical examination: Vital signs reviewed GENERAL: This is a 69-year-old obese male in no acute respiratory distress. HEENT: Head is atraumatic, normocephalic. Pupils equal, round. Sclerae is anicteric. NECK: Supple. No JVD. Left carotid bruit LUNGS: Clear to auscultation. No wheezes or rhonchi. No intercostal retractions. HEART: Regular rate and rhythm. Ejection systolic murmur, Second heart sound is preserved. ABDOMEN: Soft No tenderness. EXTREMITIES: No pedal edema. No calf tenderness. NEUROLOGICAL: Patient is awake and alert, strength 4/5 in left upper and lower extremity, strength 5/5 in right upper and lower extremity Assessment: NSTEMI Hypertensive emergency, resolved Coronary artery disease S/p prior stenting to LAD and CABG Possible mild to moderate Aortic stenosis Left carotid bruit Nonrheumatic aortic valve stenosis S/p Surgical aortic valve replacement Essential hypertension Hyperlipidemia Type II Diabetes Mellitus Factor V Leiden deficiency History of TIA/Stroke with residual deficits Plan: Continue Heparin drip Discontinue Nitro drip Start 0.9 normal saline at 75 ml/hr Obtain echocardiogram and Carotid Doppler Continue telemetry monitoring Schedule for Cardiac cath tomorrow NPO after midnight Resume home cardiac medications Dictation was produced using [employer] dictation software. please excuse any grammatical, word or spelling errors. Felipa Mcnair MD PGY-1 IM Past Medical History Past Medical History: Blood Disorder, Coronary Artery Disease (CAD), Chest Pain / Angina, Heart Failure, CVA/TIA, Diabetes Mellitus, GERD/Reflux, Hyperlipi demia, Hypertension, Myocardial Infarction ([place]), Osteoarthritis (OA), Sleep Apnea/CPAP/BIPAP Additional Past Medical History / Comment(s): HX SC X 2, HX CVA'S/TIA'S - LEFT ARM & LEG WEAKNESS, FACTOR 5 BLOOD DISORDER., DIABETIC NEUROPATHY IN FEET AND LEGS., SLEEP APNEA WITH C-PAP ., BACK PAIN , INDIGESTION., SEE CARDIOLOGY H & P. Last Myocardial Infarction Date:: 2014 History of Any Multi-Drug Resistant Organisms: None Reported Past Surgical History: Cholecystectomy, Heart Catheterization, Heart Catheterization With Stent, Orthopedic Surgery, Tonsillectomy Additional Past Surgical History / Comment(s): Radio Freq Proc to Back 04-01-16, R TOTAL KNEE. R KNEE ARTHROSCOPIES ., CARDIAC CATH [address] Jorge Luis SMITH.04/07/14 HEART CATH WITH STENT TO MID LAD. Past Anesthesia/Blood Transfusion Reactions: Previous Problems w/ Anesthesia, Postoperative Nausea & Vomiting (PONV) Additional Past Anesthesia/Blood Transfusion Reaction / Comment(s): LOOPY- (HALLUCINATED) Date of Last Stent Placement:: 2014 Past Psychological History: Anxiety, Depression Smoking Status: Never smoker Past Alcohol Use History: None Reported - Past Family History Sister(s) Family Medical History: Coronary Artery Disease (CAD), Diabetes Mellitus Additional Family Medical History / Comment(s): SISTER(1) HAD DM, SISTER(2) HAD CAD-CABG Father Family Medical History: Cancer Additional Family Medical History / Comment(s): FATHER OF COLON [place] AT AGE 76 YRS. Mother Family Medical History: Cancer, Congestive Heart Failure (CHF), Myocardial Infarction (SC) Additional Family Medical History / Comment(s): MOTHER AT AGE 57 OR [place]. MOM HAD PSYCHOLOLGICAL ISSUES. Medications and Allergies Home Medications Medication Instructions Recorded Confirmed Type Tamsulosin HCl [Flomax] 0.8 mg PO DAILY@1600 04/21/19 10/17/24 History Atorvastatin [Lipitor] 80 mg PO HS 07/13/21 10/17/24 History Famotidine [Pepcid] 20 mg PO BID 7 Days #14 tablet 07/18/21 10/17/24 Rx Potassium Chloride [Potassium 10 meq PO DAILY #30 tab 07/18/21 10/17/24 Rx Chloride ER] Aspirin EC [Ecotrin Low Dose] 81 mg PO DAILY 10/17/24 10/17/24 History Carbidopa-Levodopa 25-100 mg 1 tab PO TID 10/17/24 10/17/24 History [Sinemet 25-100] Cholestyramine (with Sugar) 4 gm PO AC-TID 10/17/24 10/17/24 History [Questran] Clopidogrel [Plavix] 75 mg PO DAILY 10/17/24 10/17/24 History Furosemide [Lasix] 20 mg PO DAILY 10/17/24 10/17/24 History Gabapentin 600 mg PO TID 10/17/24 10/17/24 History Isosorbide Mononitrate ER [Imdur] 30 mg PO DAILY 10/17/24 10/17/24 History L.acidoph,Paracasei, B.lactis 1 cap PO DAILY 10/17/24 10/17/24 History [Probiotic] Metoprolol Tartrate [Lopressor] 12.5 mg PO DAILY 10/17/24 10/17/24 History Venlafaxine HCl ER [Effexor Xr] 150 mg PO DAILY 10/17/24 10/17/24 History lamoTRIgine [LaMICtal] 100 mg PO BID 10/17/24 10/17/24 History lisinopriL [Zestril] 5 mg PO HS 10/17/24 10/17/24 History methocarbamoL [Robaxin-750] 750 mg PO TID 10/17/24 10/17/24 History Allergies Allergy/AdvReac Type Severity Reaction Status Date / Time nitroglycerin AdvReac Severe SL nitro Verified 10/17/24 10:03 caused severe low HR and B/P adhesive AdvReac blisters Verified 10/17/24 10:03 Physical Exam Vitals: Vital Signs Temp Pulse Resp BP Pulse Ox 10/17/24 08:10 59 L 18 137/71 96 10/17/24 06:15 97.6 F 60 20 110/67 95 10/17/24 05:45 60 119/63 10/17/24 05:23 62 18 97/59 96 10/17/24 05:04 66 18 117/68 96 10/17/24 03:30 60 99/60 10/17/24 02:16 62 111/72 10/17/24 01:30 62 120/79 10/17/24 01:15 61 119/72 94 L 10/17/24 00:58 60 136/73 95 10/17/24 00:52 61 135/76 95 10/17/24 00:37 62 124/80 94 L 10/17/24 00:30 60 121/64 95 10/16/24 23:00 98.1 F 61 20 116/68 95 10/16/24 20:13 96 10/16/24 20:01 97.8 F 69 20 145/76 94 L Intake and Output 10/16/24 10/17/24 10/17/24 22:59 06:59 14:59 Intake Total 4.825 Output Total 500 Balance -495.175 Intake: Intake, IV Titration 4.825 Amount Nitroglycerin-D5w Pmx 50 4.825 mg In Dextrose/Water 1 250ml.bag @ 5 MCG/MIN 1.5 mls/hr IV .Q24H [facility] Rx#: [id number] Output: Urine 500 Other: Weight 134.717 kg Results 10/17/24 05:15 10/16/24 21:12 Cardiac Enzymes 10/16/24 10/16/24 10/16/24 Range/Units 21:12 21:12 23:55 AST 23 (17-59) U/L Troponin I 0.043 H* 0.231 H* (0.000-0.034) ng/mL 10/17/24 10/17/24 Range/Units 03:34 05:15 AST (17-59) U/L Troponin I 0.406 H* 0.400 H* (0.000-0.034) ng/mL Coagulation 10/16/24 10/16/24 10/17/24 Range/Units 21:12 23:56 05:15 PT 10.3 11.1 (10.0-12.5) sec APTT 25.6 43.1 H 40.0 H (22.0-30.0) sec Lipids 10/16/24 Range/Units 21:12 Triglycerides 254.00 H (0.00-149.00) mg/dL Cholesterol 149.00 (0.00-200.00) mg/dL HDL Cholesterol 37.20 L (40.00-60.00) mg/dL Cholesterol/HDL Ratio 4.01 Ratio CBC 10/16/24 10/17/24 Range/Units 21:12 05:15 WBC 7.85 7.45 (4.50-10.00) 10*3/uL RBC 4.41 4.35 L (4.40-5.60) 10*6/uL Hgb 14.5 14.3 (13.0-17.0) g/dL Hct 42.5 41.9 (39.6-50.0) % Plt Count 195 192 (140-440) 10*3/uL Comprehensive Metabolic Panel 10/16/24 Range/Units 21:12 Sodium 137 (137-145) mmol/L Potassium 4.5 (3.5-5.1) mmol/L Chloride 104 (98-107) mmol/L Carbon Dioxide 25 (22-30) mmol/L BUN 18 (9-20) mg/dL Creatinine 0.95 (0.66-1.25) mg/dL Glucose 174 H (74-99) mg/dL Calcium 9.0 (8.4-10.2) mg/dL AST 23 (17-59) U/L ALT 22 (4-49) U/L Alkaline Phosphatase 96 (38-126) U/L Total Protein 6.3 (6.3-8.2) g/dL Albumin 3.7 (3.5-5.0) g/dL Current Medications Generic Name Dose Route Start Last Admin Trade Name Freq PRN Reason Stop Dose Admin Acetaminophen 650 mg 10/16/24 23:54 Acetaminophen Tab 325 Mg Tab PO Q4HR PRN Pain Alprazolam 0.25 mg 10/17/24 09:22 Alprazolam 0.25 Mg Tab PO Q6HR PRN Mild Anxiety Alprazolam 0.5 mg 10/17/24 09:22 Alprazolam 0.5 Mg Tab PO Q6HR PRN Moderate Anxiety Aspirin 81 mg 10/18/24 09:00 Aspirin 81 Mg PO DAILY SANDY Aspirin 325 mg 10/18/24 07:00 Aspirin 325 Mg Tab PO 10/18/24 07:01 ONCE ONE Atorvastatin Calcium 80 mg 10/18/24 07:00 Atorvastatin 80 Mg Tab PO 10/18/24 07:01 ONCE ONE Gabapentin 600 mg 10/17/24 00:30 10/17/24 08:09 Gabapentin 300 Mg Cap PO 600 mg TID [facility] Administration Heparin Sodium (Porcine) 0 unit 10/16/24 22:58 Heparin Sodium 1,000 Un/Ml (10ml Vl) IV PER PROTOCOL PRN Low PTT Protocol Heparin Sodium/Sodium Chloride 250 mls @ 10 mls/hr 10/16/24 23:00 10/17/24 0 0:29 25,000 unit/ Sodium Chloride IV 7.423 units/kg/hr .Q24H SANDY 10 mls/hr Administration Protocol 7.423 UNITS/KG/HR Sodium Chloride 1,000 mls @ 75 mls/hr 10/17/24 09:30 10/17/24 09:30 Saline 0.9% IV 75 mls/hr .[id number] SANDY Administration Heparin Sodium (Porcine) 10, 1,001 mls @ 999 mls/hr 10/18/24 07:00 000 unit/ Sodium Chloride IRRIGATION 10/18/24 23:00 ONCE PRN INTRA-OP Heparin Sodium (Porcine) 2,500 250.5 mls @ 250 mls/hr 10/18/24 07:00 unit/ Sodium Chloride IRRIGATION 10/18/24 23:00 ONCE PRN INTRA-OP Lamotrigine 100 mg 10/17/24 00:30 10/17/24 08:09 Lamotrigine 100 Mg Tab PO 100 mg BID SANDY Administration Metoprolol Tartrate 12.5 mg 10/17/24 00:30 10/17/24 08:08 Metoprolol Tartrate 12.5 Mg Tab PO Not Given BID [facility] Miscellaneous Information 1 each 10/16/24 20:26 Rx Info: Iv Contrast Was Given 1 Each Misc MISCELLANE 10/18/24 20:27 DAILY PRN Per Protocol Morphine Sulfate 2 mg 10/16/24 23:54 Morphine Sulfate 2 Mg/Ml Syringe IVP 10/18/24 23:00 Q5M PRN Chest Pain Intake and Output 10/16/24 10/17/24 10/17/24 22:59 06:59 14:59 Intake Total 4.825 Output Total 500 Balance -495.175 Intake: Intake, IV Titration 4.825 Amount Nitroglycerin-D5w Pmx 50 4.825 mg In Dextrose/Water 1 250ml.bag @ 5 MCG/MIN 1.5 mls/hr IV .Q24H [facility] Rx#: [id number] Output: Urine 500 Other: Weight 134.717 kg 10/17/24 05:15 10/16/24 21:12
--- NOTE | 2024-10-17 14:29 | US ---
EXAMINATION TYPE: US carotid duplex BILAT DATE OF EXAM: 10/17/2024 COMPARISON: [facility] 2018 CLINICAL INDICATION: Male, 69 years old with history of chest pain, carotid bruit; TECHNIQUE: Grayscale, color Doppler and spectral Doppler evaluation of the bilateral carotid systems and vertebral arteries. Indirect Doppler criteria was utilized. FINDINGS: EXAM MEASUREMENTS: RIGHT: Peak Systolic Velocity (PSV) cm/sec ----- Right CCA: 67.8 ----- Right ICA: 168.6 ----- Right ECA: 114.0 ICA/CCA ratio: 2.5 RIGHT: End Diastole cm/sec ----- Right CCA: 14.1 ----- Right ICA: 48.5 ----- Right ECA: 9.0 LEFT: Peak Systolic Velocity (PSV) cm/sec ----- Left CCA: 85.4 ----- Left ICA: 194.2 ----- Left ECA: 164.7 ICA/CCA ratio: 2.3 LEFT: End Diastole cm/sec ----- Left CCA: 19.3 ----- Left ICA: 45.5 ----- Left ECA: 0.0 VERTEBRALS (direction of flow): Right Vertebral: Antegrade Left Vertebral: Antegrade Rhythm: Normal Unable to obtain left proximal ICA due to shadowing from plaque IMPRESSION: Moderate to severe amount of atherosclerotic plaque at the carotid bifurcations bilaterally. Right: 50-69% stenosis of the carotid bifurcation. Left: 50-69% stenosis of the carotid bifurcation. Criteria for Assigning % of Stenosis / Diameter reduction (Estimation based on the indirect measurements of the internal carotid artery velocities (ICA PSV). 1. Normal (no stenosis)=ICA PSV < 180 cm/s: ratio < 2.0: ICA EDV<40 cm/s. 2. Less than 50% stenosis=ICA PSV < 180 cm/s: ratio < 2.0: ICA EDV<40 cm/s. 3. 50 to 69% stenosis=ICA PSV of 180 to 230 cm/s: ration 2.0 ? 4.0: ICA EDV 40-100 cm/s. PSV 125-180 cm/sec and ICA/CCA PSV Ratio ? 2.0 is also consistent with 50-69% stenosis 4. Greater than 70% stenosis to near occlusion= ICA PSV > 230 cm/s: ratio > 4.0: ICA EDV > 100 cm/s. 5. Near occlusion= ICA PSV velocities may be low or undetectable: variable ratio and ICA EDV. 6. Total occlusion=unable to detect flow. [facility], , 10/17/2024 2:26 PM
[2024-10-17] MEDS: TAMSULOSIN 0.4 MG CAP.ER.24H PO SCH (15:49)
[2024-10-17] MEDS ORDERED: DEXTROSE 50% SYRINGE 50 ML IVP PRN ×2 (16:46)
--- NOTE | 2024-10-17 16:51 | P.HPIM ---
History of Present Illness H&P Date: 10/17/24 History of present illness; Patient is a 69-year-old male with history of CAD status post stenting to LAD and CABG, and aortic valve replacement approximately 3 years ago, 2 previous MIs, who presented with chest pain. Pain began while at rest and was located in the right chest severe constant in nature with radiation to the right upper extremity and jaw. Patient states his pain improved with metoprolol. He also had associated shortness of breath. At this time patient is denying chest pain, palpitations, shortness of breath, diaphoresis. Spoke with the ER physician, patient admission was accepted by internal medicine service for treatment. REVIEW OF SYSTEMS: Pertinent positives and negatives noted in HPI. PHYSICAL EXAMINATION: Vitals reviewed GENERAL: Resting comfortably in bed. Obese. EYES: PERRL, no scleral injection or icterus. No vision loss HENT: Normocephalic, atraumatic, hearing grossly intact, moist mucous membranes NECK: No tracheal deviation, full range of motion. CARDIOVASCULAR: S1 and S2 present. No murmurs, rubs, or gallops. Scar from previous cardiac procedure. PULMONARY: Chest is clear to auscultation, no wheezing, rhonchi, or crackles. ABDOMEN: Soft, nontender, nondistended. No palpable organomegaly. MUSCULOSKELETAL: No apparent joint swelling and deformities. EXTREMITIES: No apparent cyanosis, clubbing. Trace pedal edema. NEUROLOGICAL: Alert and oriented. Gross neurological examination with no apparent focal deficits. SKIN: No apparent rashes. ER FINDINGS: Labs significant for glucose 174, troponin 0.043 => peak troponin 0.406 => 0.400, triglycerides 256, HDL 37, amylase 71, lipase 188 EKG independently interpreted as sinus rhythm, first-degree AV block, GA 208 ms, rate 63 bpm, QTc 406 ms Chest x-ray done independently interpreted showed no acute cardiopulmonary process. CT chest independently interpreted showed trace right pleural effusions with subsegmental atelectasis of the right lower lobe, cardiomegaly with postsurgical changes of the heart Assessment and Plan: In summary, patient is a 69-year-old male with history of CAD status post stenting to LAD and CABG, and aortic valve replacement approximately 3 years ago, 2 previous MIs, who presented with chest pain. # NSTEMI #Hypertensive emergency, resolved #Coronary artery disease S/p prior stenting to LAD and CABG #Nonrheumatic aortic valve stenosis S/p Surgical aortic valve replacement #Heart failure with last known EF 45-50% (08/22/24) - Peak troponin 0.406 Continue Aspirin 81 mg daily Continue Heparin infusion Continue Metoprolol 25 mg twice daily Continue Lipitor 80 mg daily Cardiac catheterization planned for tomorrow Cardiology consulted Chronic Medical Conditions #Essential hypertension #Hyperlipidemia #Type II Diabetes Mellitus #Factor V Leiden deficiency #History of TIA/Stroke with residual deficits DVT ppx: Heparin infusion Code status: Full code F: IV Normal saline 75 mL/hr E: Replete as needed N: Heart healthy diet, n.p.o. after midnight A: Ambulatory Anticipated discharge place: Pending clinical course Anticipated discharge time: Pending clinical course Dr. Uribe seen patient with resident, present during exam, and agreed with findings. Dictation was produced using [employer] dictation software. Please excuse any grammatical, word or spelling errors. Past Medical History Past Medical History: Blood Disorder, Coronary Artery Disease (CAD), Chest Pain / Angina, Heart Failure, CVA/TIA, Diabetes Mellitus, GERD/Reflux, Hyperlipidemia, Hypertension, Myocardial Infarction ([place]), Osteoarthritis (OA), Sleep Apnea/CPAP/BIPAP Additional Past Medical History / Comment(s): HX MO X 2, HX CVA'S/TIA'S - LEFT ARM & LEG WEAKNESS, FACTOR 5 BLOOD DISORDER., DIABETIC NEUROPATHY IN FEET AND LEGS., SLEEP APNEA WITH C-PAP ., BACK PAIN , INDIGESTION., SEE CARDIOLOGY H & P. Last Myocardial Infarction Date:: 2014 History of Any Multi-Drug Resistant Organisms: None Reported Past Surgical History: Cholecystectomy, Heart Catheterization, Heart Catheterization With Stent, Orthopedic Surgery, Tonsillectomy Additional Past Surgical History / Comment(s): Radio Freq Proc to Back 04-01-16, R TOTAL KNEE. R KNEE ARTHROSCOPIES ., CARDIAC CATH [address] Jorge Luis SMITH.04/07/14 HEART CATH WITH STENT TO MID LAD. Past Anesthesia/Blood Transfusion Reactions: Previous Problems w/ Anesthesia, Postoperative Nausea & Vomiting (PONV) Additional Past Anesthesia/Blood Transfusion Reaction / Comment(s): LOOPY- (HALLUCINATED) Date of Last Stent Placement:: 2014 Past Psychological History: Anxiety, Depression Smoking Status: Never smoker Past Alcohol Use History: None Reported - Past Family History Sister(s) Family Medical History: Coronary Artery Disease (CAD), Diabetes Mellitus Additional Family Medical History / Comment(s): SISTER(1) HAD DM, SISTER(2) HAD CAD-CABG Father Family Medical History: Cancer Additional Family Medical History / Comment(s): FATHER OF COLON CA AT AGE 76 YRS. Mother Family Medical History: Cancer, Congestive Heart Failure (CHF), Myocardial Infarction ([place]) Additional Family Medical History / Comment(s): MOTHER AT AGE 57 OR [place]. MOM HAD PSYCHOLOLGICAL ISSUES. Medications and Allergies Home Medications Medication Instructions Recorded Confirmed Type Tamsulosin HCl [Flomax] 0.8 mg PO DAILY@1600 04/21/19 10/17/24 History Atorvastatin [Lipitor] 80 mg PO HS 07/13/21 10/17/24 History Famotidine [Pepcid] 20 mg PO BID 7 Days #14 tablet 07/18/21 10/17/24 Rx Potassium Chloride [Potassium 10 meq PO DAILY #30 tab 07/18/21 10/17/24 Rx Chloride ER] Aspirin EC [Ecotrin Low Dose] 81 mg PO DAILY 10/17/24 10/17/24 History Carbidopa-Levodopa 25-100 mg 1 tab PO TID 10/17/24 10/17/24 History [Sinemet 25-100] Cholestyramine (with Sugar) 4 gm PO AC-TID 10/17/24 10/17/24 History [Questran] Clopidogrel [Plavix] 75 mg PO DAILY 10/17/24 10/17/24 History Furosemide [Lasix] 20 mg PO DAILY 10/17/24 10/17/24 History Gabapentin 600 mg PO TID 10/17/24 10/17/24 History Isosorbide Mononitrate ER [Imdur] 30 mg PO DAILY 10/17/24 10/17/24 History L.acidoph,Paracasei, B.lactis 1 cap PO DAILY 10/17/24 10/17/24 History [Probiotic] Metoprolol Tartrate [Lopressor] 12.5 mg PO DAILY 10/17/24 10/17/24 History Venlafaxine HCl ER [Effexor Xr] 150 mg PO DAILY 10/17/24 10/17/24 History lamoTRIgine [LaMICtal] 100 mg PO BID 10/17/24 10/17/24 History lisinopriL [Zestril] 5 mg PO HS 10/17/24 10/17/24 History methocarbamoL [Robaxin-750] 750 mg PO TID 10/17/24 10/17/24 History Allergies Allergy/AdvReac Type Severity Reaction Status Date / Time nitroglycerin AdvReac Severe SL nitro Verified 10/17/24 10:03 caused severe low HR and B/P adhesive AdvReac blisters Verified 10/17/24 10:03 Physical Exam Vitals: Vital Signs Temp Pulse Resp BP Pulse Ox 10/17/24 08:10 59 L 18 137/71 96 10/17/24 06:15 97.6 F 60 20 110/67 95 10/17/24 05:45 60 119/63 10/17/24 05:23 62 18 97/59 96 10/17/24 05:04 66 18 117/68 96 10/17/24 03:30 60 99/60 10/17/24 02:16 62 111/72 10/17/24 01:30 62 120/79 10/17/24 01:15 61 119/72 94 L 10/17/24 00:58 60 136/73 95 10/17/24 00:52 61 135/76 95 10/17/24 00:37 62 124/80 94 L 10/17/24 00:30 60 121/64 95 10/16/24 23:00 98.1 F 61 20 116/68 95 10/16/24 20:13 96 10/16/24 20:01 97.8 F 69 20 145/76 94 L Intake and Output 10/16/24 10/17/24 10/17/24 22:59 06:59 14:59 Intake Total 4.825 Output Total 500 Balance -495.175 Intake: Intake, IV Titration 4.825 Amount Nitroglycerin-D5w Pmx 50 4.825 mg In Dextrose/Water 1 250ml.bag @ 5 MCG/MIN 1.5 mls/hr IV .Q24H [facility] Rx#: [id number] Output: Urine 500 Other: Weight 134.717 kg Results CBC & Chem 7: 10/17/24 05:15 10/16/24 21:12 Labs: Abnormal Lab Results - Last 24 Hours (Table) 10/16/24 10/16/24 10/16/24 Range/Units 21:12 21:12 21:12 RBC (4.40-5.60) 10*6/uL MCH 32.9 H (27.0-32.0) pg Eosinophils # 0.54 H (0.04-0.35) 10*3/uL APTT (22.0-30.0) sec Glucose 174 H (74-99) mg/dL Troponin I 0.043 H* (0.000-0.034) ng/mL Triglycerides (0.00-149.00) mg/dL VLDL Cholesterol, Calc (5.00-40.00) mg/dL HDL Cholesterol (40.00-60.00) mg/dL 10/16/24 10/16/24 10/16/24 Range/Units 21:12 23:55 23:56 RBC (4.40-5.60) 10*6/uL MCH (27.0-32.0) pg Eosinophils # (0.04-0.35) 10*3/uL APTT 43.1 H (22.0-30.0) sec Glucose (74-99) mg/dL Troponin I 0.231 H* (0.000-0.034) ng/mL Triglycerides 254.00 H (0.00-149.00) mg/dL VLDL Cholesterol, Calc 50.80 H (5.00-40.00) mg/dL HDL Cholesterol 37.20 L (40.00-60.00) mg/dL 10/17/24 10/17/24 10/17/24 Range/Units 03:34 05:15 05:15 RBC (4.40-5.60) 10*6/uL MCH (27.0-32.0) pg Eosinophils # (0.04-0.35) 10*3/uL APTT 40.0 H (22.0-30.0) sec Glucose (74-99) mg/dL Troponin I 0.406 H* 0.400 H* (0.000-0.034) ng/mL Triglycerides (0.00-149.00) mg/dL VLDL Cholesterol, Calc (5.00-40.00) mg/dL HDL Cholesterol (40.00-60.00) mg/dL 10/17/24 Range/Units 05:15 RBC 4.35 L (4.40-5.60) 10*6/uL MCH 32.9 H (27.0-32.0) pg Eosinophils # 0.49 H (0.04-0.35) 10*3/uL APTT (22.0-30.0) sec Glucose (74-99) mg/dL Troponin I (0.000-0.034) ng/mL Triglycerides (0.00-149.00) mg/dL VLDL Cholesterol, Calc (5.00-40.00) mg/dL HDL Cholesterol (40.00-60.00) mg/dL
[2024-10-17 16:55] LABS: Glucose,Whole Blood 138 mg/dL (70-110)
[2024-10-17] MEDS: INSULIN LISPRO (HumaLOG) 100 UNIT/ML 10 mL VL SQ SCH (17:12)
[2024-10-17 19:39] LABS: Glucose,Whole Blood 127 mg/dL (70-110)
[2024-10-17] MEDS: lisinopriL 5 MG TAB PO SCH (21:01)
[2024-10-17] MEDS: ATORVASTATIN 80 MG TAB PO SCH (21:01)
[2024-10-17] MEDS: HEPARIN SODIUM 1,000 UN/ML (10ML VL) IV PRN (21:44)
[2024-10-18 04:34] LABS: African American GFR (CKD) >90 (>60 ml/min/1.73 sqM); Anion Gap 8 mmol/L; Blood Urea Nitrogen 17 mg/dL (9-20); Calcium 9.5 mg/dL (8.4-10.2); Carbon Dioxide 22 mmol/L (22-30); Chloride 107 mmol/L (98-107); Glucose 118 mg/dL (74-99); Non-African American GFR(CKD) 86 (>60 ml/min/1.73 sqM); Potassium 4.3 mmol/L (3.5-5.1); Sodium 137 mmol/L (137-145)
[2024-10-18 04:36] LABS: Mean Platelet Volume 11.2 fL (9.5-12.2); Platelet Count 165 10*3/uL (140-440)
[2024-10-18] MEDS: ASPIRIN 81 MG PO SCH (06:04)
[2024-10-18 06:14] LABS: Glucose,Whole Blood 122 mg/dL (70-110)
[2024-10-18] MEDS: ATORVASTATIN 80 MG TAB PO ONE (06:22)
[2024-10-18] MEDS: ASPIRIN 325 MG TAB PO ONE (06:22)
[2024-10-18] MEDS ORDERED: HEPARIN SODIUM,PORCINE (1 ML) 2,500 UNIT in SODIUM CHLORIDE 0.9% 250 ML IRRIGATION PRN (07:00)
[2024-10-18] MEDS ORDERED: HEPARIN SODIUM,PORCINE 10,000 UNIT in SODIUM CHLORIDE 0.9% 1,000 ML IRRIGATION PRN (07:00)
[2024-10-18] MEDS: HEPARIN SODIUM,PORCINE (1 ML) 2,500 UNIT in SODIUM CHLORIDE 0.9% 250 ML IRRIGATION ONE (07:14)
[2024-10-18] MEDS: IV FLUID CONTINUATION 900 ML IV ONE (07:14)
[2024-10-18] MEDS: HEPARIN SODIUM,PORCINE 10,000 UNIT in SODIUM CHLORIDE 0.9% 1,000 ML IRRIGATION ONE (07:14)
[2024-10-18] MEDS: MIDAZOLAM 2 MG/2 ML VIAL IVP ONE (07:30)
[2024-10-18] MEDS: LIDOCAINE 1% INJ 10MG/ML (20 ML MDV) SQ ONE (07:32)
[2024-10-18] MEDS: IOPAMIDOL-370 100ML BTL INJ ONE ×2 (08:02→08:03)
--- NOTE | 2024-10-18 09:52 | CC ---
CARDIAC CATHETERIZATION REPORT INDICATION: Non ST-segment elevation [place] in a patient with known CAD, status post prior bypass surgery and aortic valve replacement. PROCEDURE NOTE: After obtaining informed consent, left heart catheterization, coronary angiogram and selective injection of the bypass grafts and aortogram were performed via the right femoral artery using standard Lonnie catheters. The patient tolerated the procedure well without any obvious immediate complications. Total sedation time was 30 minutes. A femoral angiogram was performed, and Angio-Seal was deployed for hemostasis. FINDINGS: 1. Hemodynamics: Central aortic pressure is 120/70 mm. 2. Left ventriculogram: Left ventriculogram is not performed. 3. Aortogram was done, shows mild aneurysmal dilatation of the ascending aorta with 1+ aortic regurgitation. 4. [place] coronaries: a.Right coronary artery is a large dominant vessel, appears calcified with a moderate atherosclerotic plaque as it bifurcates into PDA and PLV. b.Left main coronary artery appears calcified, but is free of significant stenosis. Divides into left anterior descending coronary artery and circumflex coronary artery. LAD shows an 80% stenosis in the proximal portion. c.Circumflex coronary artery is subtotally occluded in the proximal part. There is competitive flow noted in the LAD, diag, and the circ. 5. Selective injection of the bypass grafts: LIM to LAD appears patent. Proximal and distal anastomotic sites and the graft are free of significant disease. The [place] LAD appears free of significant disease. 6. Selective injection of the venous graft: This is a jump graft to OM and diagonal and appears patent. There is mild 30% to 40% stenosis in the proximal portion of the graft. There is a graft to the circumflex coronary artery and the diagonal graft is attached to the circ graft. They are both patent and free of significant disease. CONCLUSIONS: 1. [place] 3-vessel coronary artery disease as described above with patent LIM to LAD, patent venous graft to OM and diagonal, it is a jump graft. 2. Aneurysmal dilatation of the ascending aorta. PLAN: The patient's management is going to be with optimal medical therapy and risk factor modification. MMODL / IJN: [id number] /
[2024-10-18 10:56] VITALS: BMI 41.3
[2024-10-18 11:29] LABS: Glucose,Whole Blood 122 mg/dL (70-110)
--- NOTE | 2024-10-18 11:43 | P.PN ---
Subjective Progress Note Date: 10/18/24 Principal diagnosis: HPI: This gentleman underwent a cardiac cath today which revealed that there was moderate disease in the distal dominant RCA that was not grafted. He is grafts are patent. Probably has some small vessel disease. Will continue medical therapy findings reviewed with the patient again. He is doing well post cath vitals are stable. Right groin site is clean and dry with a good pulse. Plan is to continue current medical regimen and see how he does. Echo revealed significant gradient across the bioprosthetic aortic valve but this may be overestimated we will pursue conservative management at this time and see how he does. PHYSICIAL EXAM: Vitals are stable JVD 1 cm no carotid bruit S1-S2 heard normally ejection systolic murmur at the base of the heart with preserved second heart sound lungs reveal decent air entry right groin is clean and dry pulses are good Central nervous system grossly no focal deficits mild left-sided weakness. IMPRESSION: 1. Non-ST elevation [place] probable small vessel disease bypass grafts are patent moderate disease in [place] RCA. 2. History of CVA with good recovery. 3. Status post aortic valve replacement in 2019 moderate stenosis. 4. Benign hypertension. 5. Hypercholesterolemia. RECOMMENDATIONS: Medications possibly discharge him tomorrow continue current medical regimen BP control is optimal.. Objective - Vital Signs Vital signs: Vital Signs Temp 97.8 F 10/18/24 08:30 Pulse 56 L 10/18/24 10:15 Resp 10 L 10/18/24 10:15 BP 113/64 10/18/24 10:15 Pulse Ox 94 L 10/18/24 10:15 FiO2 Intake & Output 10/17/24 10/18/24 10/18/24 18:59 06:59 18:59 Intake Total 175 805.000 702 Balance 175 805.000 702 Weight 138.7 kg 138.3 kg 138.3 kg Intake: IV 75 75 702 Sodium Chloride 0.9% 1, 75 75 600 000 ml @ 75 mls/hr IV . [id number] [facility] Rx#:[id number] Intake, IV Titration 250.000 Amount Heparin Sod,Pork in 0.45% 250.000 NaCl 25,000 unit In 0.45 % NaCl 1 250ml.bag @ 7. 423 UNITS/KG/HR 10 mls/hr IV .Q24H [facility] Rx#: [id number] Oral 100 480 Other: Voiding Method Toilet Urinal # Voids 1 3 0 - Labs CBC & Chem 7: 10/18/24 03:57 10/18/24 03:57 Labs: Abnormal Lab Results - Last 24 Hours (Table) 10/17/24 10/17/24 10/17/24 Range/Units 11:48 16:54 19:37 APTT 35.7 H (22.0-30.0) sec Glucose (74-99) mg/dL POC Glucose (mg/dL) 138 H 127 H (70-110) mg/dL 10/18/24 10/18/24 10/18/24 Range/Units 03:57 03:57 06:12 APTT 41.2 H (22.0-30.0) sec Glucose 118 H (74-99) mg/dL POC Glucose (mg/dL) 122 H (70-110) mg/dL 10/18/24 Range/Units 11:26 APTT (22.0-30.0) sec Glucose (74-99) mg/dL POC Glucose (mg/dL) 122 H (70-110) mg/dL
--- NOTE | 2024-10-18 15:23 | P.PN ---
Subjective Progress Note Date: 10/18/24 History of present illness; Patient is a 69-year-old male with history of CAD status post stenting to LAD a nd CABG, and aortic valve replacement approximately 3 years ago, 2 previous MIs, who presented with chest pain. Pain began while at rest and was located in the right chest severe constant in nature with radiation to the right upper extremity and jaw. Patient states his pain improved with metoprolol. He also had associated shortness of breath. At this time patient is denying chest pain, palpitations, shortness of breath, diaphoresis. 10/18/2024 Patient seen and examined at bedside in the ICU. He completed cardiac catheterization today. He is has no complaints of chest pain, or shortness of breath. Heparin infusion discontinued. REVIEW OF SYSTEMS: Pertinent positives and negatives noted in HPI. PHYSICAL EXAMINATION: Vitals reviewed GENERAL: Resting comfortably in bed. Obese. CARDIOVASCULAR: S1 and S2 present. No murmurs, rubs, or gallops. Scar from previous cardiac procedure. PULMONARY: Chest is clear to auscultation, no wheezing, rhonchi, or crackles. ABDOMEN: Soft, nontender, nondistended. No palpable organomegaly. MUSCULOSKELETAL: No apparent joint swelling and deformities. EXTREMITIES: No apparent cyanosis, clubbing. Trace pedal edema. NEUROLOGICAL: Alert and oriented. Gross neurological examination with no apparent focal deficits. SKIN: No apparent rashes. Objective FINDINGS: Labs significant for APTT 41.2, potassium 4.3 glucose 118 Carotid Doppler with findings of: Moderate to severe amount of atherosclerotic plaque at the carotid bifurcations bilaterally. Right: 50-69% stenosis of the carotid bifurcation. Left: 50-69% stenosis of the carotid bifurcation. Echocardiogram reviewed Assessment and Plan: In summary, patient is a 69-year-old male with history of CAD status post stenting to LAD and CABG, and aortic valve replacement approximately 3 years ago, 2 previous MIs, who presented with chest pain. # NSTEMI #Hypertensive emergency, resolved #Coronary artery disease S/p prior stenting to LAD and CABG #Nonrheumatic aortic valve stenosis S/p Surgical aortic valve replacement #Heart failure with last known EF 45-50% (08/22/24) - Peak troponin 0.406 Continue Aspirin 81 mg daily, metoprolol 25 mg twice daily, Lipitor 80 mg daily S/p cardiac cath, cardiology will manage medically Cardiology following Chronic Medical Conditions #Essential hypertension #Hyperlipidemia #Type II Diabetes Mellitus #Factor V Leiden deficiency #History of TIA/Stroke with residual deficits Code status: Full code F: IV Normal saline 75 mL/hr E: Replete as needed N: Heart healthy diet A: Ambulatory Anticipated discharge place: Home Anticipated discharge time: Tomorrow Dr. Uribe seen patient with resident, present during exam, and agreed with findings. Dictation was produced using [employer] dictation software. Please excuse any grammatical, word or spelling errors. Objective - Vital Signs Vital signs: Vital Signs Temp 97.6 F 10/18/24 03:59 Pulse 75 10/18/24 03:59 Resp 14 10/18/24 03:59 BP 138/74 10/18/24 03:59 Pulse Ox 96 10/18/24 03:59 FiO2 Intake & Output 10/17/24 10/18/24 10/18/24 18:59 06:59 18:59 Intake Total 175 805.000 Balance 175 805.000 Weight 138.7 kg 138.3 kg Intake: IV 75 75 Sodium Chloride 0.9% 1, 75 75 000 ml @ 75 mls/hr IV . [id number] [facility] Rx#:[id number] Intake, IV Titration 250.000 Amount Heparin Sod,Pork in 0.45% 250.000 NaCl 25,000 unit In 0.45 % NaCl 1 250ml.bag @ 7. 423 UNITS/KG/HR 10 mls/hr IV .Q24H [facility] Rx#: [id number] Oral 100 480 Other: Voiding Method Toilet Urinal # Voids 1 3 - Labs CBC & Chem 7: 10/18/24 03:57 10/18/24 03:57 Labs: Abnormal Lab Results - Last 24 Hours (Table) 10/16/24 10/17/24 10/17/24 Range/Units 21:12 11:48 16:54 APTT 35.7 H (22.0-30.0) sec Glucose (74-99) mg/dL POC Glucose (mg/dL) 138 H (70-110) mg/dL Triglycerides 254.00 H (0.00-149.00) mg/dL VLDL Cholesterol, Calc 50.80 H (5.00-40.00) mg/dL HDL Cholesterol 37.20 L (40.00-60.00) mg/dL 10/17/24 10/18/24 10/18/24 Range/Units 19:37 03:57 03:57 APTT 41.2 H (22.0-30.0) sec Glucose 118 H (74-99) mg/dL POC Glucose (mg/dL) 127 H (70-110) mg/dL Triglycerides (0.00-149.00) mg/dL VLDL Cholesterol, Calc (5.00-40.00) mg/dL HDL Cholesterol (40.00-60.00) mg/dL 10/18/24 Range/Units 06:12 APTT (22.0-30.0) sec Glucose (74-99) mg/dL POC Glucose (mg/dL) 122 H (70-110) mg/dL Triglycerides (0.00-149.00) mg/dL VLDL Cholesterol, Calc (5.00-40.00) mg/dL HDL Cholesterol (40.00-60.00) mg/dL
[2024-10-18 16:47] LABS: Glucose,Whole Blood 135 mg/dL (70-110)
[2024-10-18 21:32] LABS: Glucose,Whole Blood 125 mg/dL (70-110)
[2024-10-18] MEDS: ONDANSETRON 4 MG/2 ML VIAL IVP PRN (23:16)
[2024-10-18] MEDS ORDERED: hydrALAZINE HCL 20 MG/ML 1 ML VIAL IVP PRN (23:46)
[2024-10-18] MEDS: MORPHINE SULFATE 2 MG/ML SYRINGE IVP PRN (23:54)
[2024-10-19] MEDS: IPRATROPIUM-ALBUTEROL 3 ML NEB INHALATION PRN (00:03)
[2024-10-19] MEDS: lisinopriL 5 MG TAB PO SCH (00:10)
[2024-10-19] MEDS: PANTOPRAZOLE 40 MG/10 ML VIAL IVP ONE (00:10)
--- NOTE | 2024-10-19 02:19 | XR ---
EXAM: XR Chest, 1 View CLINICAL HISTORY: ITS.REASON XR Reason: new onset wheezing TECHNIQUE: Frontal view of the chest. COMPARISON: No relevant prior studies available. IMPRESSION: Cardiomegaly. Increased interstitial opacities throughout the right lung.
[2024-10-19 05:58] LABS: Glucose,Whole Blood 136 mg/dL (70-110)
[2024-10-19 06:09] LABS: Mean Platelet Volume 10.6 fL (9.5-12.2); Platelet Count 184 10*3/uL (140-440)
[2024-10-19 10:59] LABS: Glucose,Whole Blood 157 mg/dL (70-110)
--- NOTE | 2024-10-19 14:08 | P.PN ---
Subjective Progress Note Date: 10/19/24 HPI: This gentleman had an episode of palpitations sinus tachycardia and also hypertension requiring a breathing treatment and intravenous hydralazine he feels well now blood pressure is good no symptoms of chest pain or shortness of breath. He has history of bypass surgery previous aortic valve replacement with increased gradient that needs to be addressed at a later date. He also has history of previous CVA. At this time patient is comfortable his previous episode that happened in the night cannot be explained but EKG is pretty much baseline vitals are stable. PHYSICIAL EXAM: No JVD S1-S2 are normal ejection systolic murmur is audible second heart sound is preserved lungs are clear abdomen is soft lower extremities reveal diminished pulses Central nervous system normal. IMPRESSION: 1. CAD with prior bypass surgery and aortic valve replacement open surgery.. 2. History of CVA. 3. Non-ST elevation [place] without significant disease in major vessels. 4. Benign hypertension. 5.. RECOMMENDATIONS: Continue current therapy increase activity if he does well may be discharged tomorrow BP control appears to be good.. Objective - Vital Signs Vital signs: Vital Signs Temp 97.9 F 10/19/24 12:00 Pulse 63 10/19/24 12:00 Resp 18 10/19/24 12:00 BP 94/45 10/19/24 12:00 Pulse Ox 95 10/19/24 12:00 FiO2 4 10/19/24 10:04 Intake & Output 10/18/24 10/19/24 10/19/24 18:59 06:59 18:59 Intake Total 2051 450 480 Balance 2051 450 480 Weight 138.3 kg 140.8 kg Intake: IV 1302 450 Sodium Chloride 0.9% 1, 1200 450 000 ml @ 75 mls/hr IV . [id number] [facility] Rx#:[id number] Oral 750 480 Other: Voiding Method Toilet Toilet Toilet Urinal Urinal Urinal # Voids 2 2 1 # Bowel Movements 1 - Labs CBC & Chem 7: 10/19/24 05:08 10/18/24 03:57 Labs: Abnormal Lab Results - Last 24 Hours (Table) 10/18/24 10/18/24 10/19/24 Range/Units 16:45 21:31 05:56 POC Glucose (mg/dL) 135 H 125 H 136 H (70-110) mg/dL 10/19/24 Range/Units 10:57 POC Glucose (mg/dL) 157 H (70-110) mg/dL
--- NOTE | 2024-10-19 15:14 | P.PN ---
Subjective Progress Note Date: 10/19/24 History of present illness; Patient is a 69-year-old male with history of CAD status post stenting to LAD a nd CABG, and aortic valve replacement approximately 3 years ago, 2 previous MIs, who presented with chest pain. Pain began while at rest and was located in the right chest severe constant in nature with radiation to the right upper extremity and jaw. Patient states his pain improved with metoprolol. He also had associated shortness of breath. At this time patient is denying chest pain, palpitations, shortness of breath, diaphoresis. 10/18/2024 Patient seen and examined at bedside in the ICU. He completed cardiac catheterization today. He is has no complaints of chest pain, or shortness of breath. Heparin infusion discontinued. 10/19/2024 Patient seen and examined in the ICU. Overnight patient had episode of palpitations with chest pain radiating to jaw. He was given breathing treatment and IV hydralazine. He has no shortness of breath or chest pain at this time. REVIEW OF SYSTEMS: Pertinent positives and negatives noted in HPI. PHYSICAL EXAMINATION: Vitals reviewed GENERAL: Resting comfortably in bed. Obese. CARDIOVASCULAR: S1 and S2 present. No murmurs, rubs, or gallops. Scar from previous cardiac procedure. PULMONARY: Chest is clear to auscultation, no wheezing, rhonchi, or crackles. ABDOMEN: Soft, nontender, nondistended. No palpable organomegaly. MUSCULOSKELETAL: No apparent joint swelling and deformities. EXTREMITIES: No apparent cyanosis, clubbing. Trace pedal edema. NEUROLOGICAL: Alert and oriented. Gross neurological examination with no apparent focal deficits. SKIN: No apparent rashes. Objective FINDINGS: Labs significant for platelets 184, MPV 10.6, glucose 157 Chest x-ray with cardiomegaly and increased interstitial opacities throughout the lung Assessment and Plan: In summary, patient is a 69-year-old male with history of CAD status post stenting to LAD and CABG, and aortic valve replacement approximately 3 years ago, 2 previous MIs, who presented with chest pain. # NSTEMI #Hypertensive emergency, resolved #Coronary artery disease S/p prior stenting to LAD and CABG #Nonrheumatic aortic valve stenosis S/p Surgical aortic valve replacement #Heart failure with last known EF 45-50% (10/17/24) - Peak troponin 0.406 Continue Aspirin 81 mg daily, metoprolol 25 mg twice daily, Lipitor 80 mg daily S/p cardiac cath, cardiology will manage medically Cardiology following, recommend to increase activity and discharge tomorrow patient stable Chronic Medical Conditions #Essential hypertension #Hyperlipidemia #Type II Diabetes Mellitus #Factor V Leiden deficiency #History of TIA/Stroke with residual deficits Code status: Full code Anticipated discharge place: Home Anticipated discharge time: Tomorrow Dr. Uribe seen patient with resident, present during exam, and agreed with findings. Dictation was produced using [employer] dictation software. Please excuse any grammatical, word or spelling errors. Objective - Vital Signs Vital signs: Vital Signs Temp 97.9 F 10/19/24 12:00 Pulse 63 10/19/24 12:00 Resp 18 10/19/24 12:00 BP 94/45 10/19/24 12:00 Pulse Ox 95 10/19/24 12:00 FiO2 4 10/19/24 10:04 Intake & Output 10/18/24 10/19/24 10/19/24 18:59 06:59 18:59 Intake Total 2 450 480 Balance 2051 450 480 Weight 138.3 kg 140.8 kg Intake: IV 1302 450 Sodium Chloride 0.9% 1, 1200 450 000 ml @ 75 mls/hr IV . [id number] [facility] Rx#:[id number] Oral 750 480 Other: Voiding Method Toilet Toilet Toilet Urinal Urinal Urinal # Voids 2 2 1 # Bowel Movements 1 - Labs CBC & Chem 7: 10/19/24 05:08 10/18/24 03:57 Labs: Abnormal Lab Results - Last 24 Hours (Table) 10/18/24 10/18/24 10/19/24 Range/Units 16:45 21:31 05:56 POC Glucose (mg/dL) 135 H 125 H 136 H (70-110) mg/dL 10/19/24 Range/Units 10:57 POC Glucose (mg/dL) 157 H (70-110) mg/dL
[2024-10-19 16:55] LABS: Glucose,Whole Blood 140 mg/dL (70-110)
[2024-10-19 20:06] LABS: Glucose,Whole Blood 138 mg/dL (70-110)
[2024-10-19] MEDS: ENOXAPARIN 150 MG/ML SYRINGE SQ SCH (20:35)
[2024-10-20 06:07] LABS: African American GFR (CKD) >90 (>60 ml/min/1.73 sqM); Anion Gap 9 mmol/L; Blood Urea Nitrogen 16 mg/dL (9-20); Carbon Dioxide 24 mmol/L (22-30); Chloride 104 mmol/L (98-107); Glucose 125 mg/dL (74-99); Non-African American GFR(CKD) 85 (>60 ml/min/1.73 sqM); Potassium 4.3 mmol/L (3.5-5.1); Sodium 137 mmol/L (137-145)
[2024-10-20 06:18] LABS: Glucose,Whole Blood 148 mg/dL (70-110)
[2024-10-20] MEDS ORDERED: fentaNYL (PF) 50 MCG/ML 5 ML AMP IVP PRN (09:03)
[2024-10-20] MEDS ORDERED: MIDAZOLAM 2 MG/2 ML VIAL IV PRN (09:03)
[2024-10-20 11:57] LABS: Glucose,Whole Blood 141 mg/dL (70-110)
--- NOTE | 2024-10-20 13:20 | P.PN ---
Subjective Progress Note Date: 10/20/24 Reason for Consult (text): NSTEMI History of present illness: This is a 69-year-old male patient of Dr. Jose Palacios with past medical history of coronary artery disease status post coronary artery bypass graft, aortic stenosis status post aortic valve replacement, hypertension, dyslipidemia, factor V Ley[place] deficiency. We have been asked to evaluate the patient for NSTEMI. Blood pressure 110/67, heart rate 60, pulse ox 95% on 3 L nasal cannula. Patient has been started on a heparin drip. -EKG: Sinus rhythm, LVH. -CT chest: Trace right pleural effusion with associated subsegmental atelectasis of the right lower lobe. Cardiomegaly with postsurgical changes of the heart. -Laboratory studies: Hemoglobin 14.3, WBC 7.5. Troponin 0.043, 0.231, 0.406, 0.4. Electrolytes and renal function, liver function within normal limits. -Home cardiac medications: -Echocardiogram performed in the office on 08/22/2024 revealed EF 45 to 50%, mild left ventricular hypertrophy. Biological AV prosthesis with high gradient consistent with valve dysfunction. Mild mitral regurgitation. Mitral valve is calcified. Mild tricuspid regurgitation. PASP 32. Estimated half year [place] - Cardiac catheterization performed in 2018 revealed [place] three-vessel coronary artery disease with patent stent within the proximal left anterior descending artery. Significant lesions within the diagonal OM1 and OM 2 2-3+ aortic regurgitation. -Aortic valve replacement with bovine pericardial valve performed 08/03/2018. -Coronary artery bypass grafting x 3 with left internal mammary artery to the left anterior descending artery, reverse saphenous vein graft to the first [place] gonal artery and reverse saphenous graft to the first obtuse marginal artery performed on 08/03/2018. 10/20 Patient has been transferred out of the intensive care unit. He underwent cardiac catheterization on 10/18 [place] three-vessel coronary artery disease with patent LIM to LAD, patent venous graft to OM and diagonal. Aneurysmal dilatation of the ascending aorta. Blood pressure 155/78, heart rate 60s to 90s, pulse ox 95% on CPAP. Repeat blood work reveals creatinine 0.91. Discussed with patient recommendations for GULSHAN and he is agreeable to move forward with this which will be scheduled tomorrow with Dr. Palacios. Echocardiogram reveals EF 45 to 50%. Bioprosthetic aortic valve not well-vi sualized with mean gradient of 55 mmHg. Physical examination: Gen: This is 69-year-old male patient in no acute distress. VS: reviewed HEENT: Head is atraumatic, normocephalic. Pupils equal, round. Sclerae is anicteric. NECK: Supple. No JVD. LUNGS: Clear to auscultation. No wheezes or rhonchi. No intercostal retractions. HEART: Regular rate and rhythm. No murmur. ABDOMEN: Soft No tenderness. EXTREMITIES: No pedal edema. No calf tenderness. NEUROLOGICAL: Patient is awake, alert and oriented x3. Assessment: NSTEMI status post [facility] 10/18 as above History of coronary artery disease with previous CABG in 2019 with previous stent History of aortic stenosis status post aortic valve replacement in 2019 Hypertension Dyslipidemia Factor V Leyden deficiency History of CVA Plan: Continue patient on aspirin, atorvastatin, Lasix 20 mg oral daily, lisinopril 10 mg at bedtime, Lopressor 12.5 mg twice daily, potassium chloride Schedule patient for GULSHAN tomorrow with Dr. Davey. N.p.o. after midnight Further recommendations to follow based upon clinical course Nurse practitioner note has been reviewed, I agree with documented findings and plan of care. Patient was seen and examined. Objective - Vital Signs Vital signs: Vital Signs Temp 98.5 F 10/20/24 07:57 Pulse 64 10/20/24 07:57 Resp 16 10/20/24 07:57 BP 155/78 10/20/24 07:57 Pulse Ox 95 10/20/24 07:57 FiO2 4 10/19/24 10:04 Intake & Output 10/19/24 10/20/24 10/20/24 18:59 06:59 18:59 Intake Total 480 10 240 Balance 480 10 240 Weight 137.9 kg Intake: IV 10 0.9 10 Oral 480 240 Other: Voiding Method Toilet Toilet Toilet Urinal # Voids 1 1 - Labs CBC & Chem 7: 10/19/24 05:08 10/20/24 05:19 Labs: Abnormal Lab Results - Last 24 Hours (Table) 10/19/24 10/19/24 10/19/24 Range/Units 10:57 16:53 20:04 Glucose (74-99) mg/dL POC Glucose (mg/dL) 157 H 140 H 138 H (70-110) mg/dL 10/20/24 10/20/24 Range/Units 05:19 06:17 Glucose 125 H (74-99) mg/dL POC Glucose (mg/dL) 148 H (70-110) mg/dL
--- NOTE | 2024-10-20 14:13 | P.PN ---
Subjective Progress Note Date: 10/20/24 History of present illness; Patient is a 69-year-old male with history of CAD status post stenting to LAD a nd CABG, and aortic valve replacement approximately 3 years ago, 2 previous MIs, who presented with chest pain. Pain began while at rest and was located in the right chest severe constant in nature with radiation to the right upper extremity and jaw. Patient states his pain improved with metoprolol. He also had associated shortness of breath. At this time patient is denying chest pain, palpitations, shortness of breath, diaphoresis. 10/18/2024 Patient seen and examined at bedside in the ICU. He completed cardiac catheterization today. He is has no complaints of chest pain, or shortness of breath. Heparin infusion discontinued. 10/19/2024 Patient seen and examined in the ICU. Overnight patient had episode of palpitations with chest pain radiating to jaw. He was given breathing treatment and IV hydralazine. He has no shortness of breath or chest pain at this time. 10/20/2024 Patient seen and examined at bedside. No acute events overnight. He was seen by cardiology and is planned to have a GULSHAN tomorrow. No new complaints. REVIEW OF SYSTEMS: Pertinent positives and negatives noted in HPI. PHYSICAL EXAMINATION: Vitals reviewed GENERAL: Resting comfortably in bed. Obese. CARDIOVASCULAR: S1 and S2 present. No murmurs, rubs, or gallops. Scar from previous cardiac procedure. PULMONARY: Chest is clear to auscultation, no wheezing, rhonchi, or crackles. ABDOMEN: Soft, nontender, nondistended. No palpable organomegaly. MUSCULOSKELETAL: No apparent joint swelling and deformities. EXTREMITIES: No apparent cyanosis, clubbing. Trace pedal edema. NEUROLOGICAL: Alert and oriented. Gross neurological examination with no apparent focal deficits. SKIN: No apparent rashes. Objective FINDINGS: Labs significant for sodium 137, potassium 4.3, glucose 125, calcium 9 No new imaging Assessment and Plan: In summary, patient is a 69-year-old male with history of CAD status post stenting to LAD and CABG, and aortic valve replacement approximately 3 years ago, 2 previous MIs, who presented with chest pain. # NSTEMI #Hypertensive emergency, resolved #Coronary artery disease S/p prior stenting to LAD and CABG #Nonrheumatic aortic valve stenosis S/p Surgical aortic valve replacement #Heart failure with last known EF 45-50% (10/17/24) - Peak troponin 0.406 Continue Aspirin 81 mg daily, metoprolol 25 mg twice daily, Lipitor 80 mg daily S/p cardiac cath, cardiology will manage medically Continue patient on aspirin, atorvastatin, Lasix 20 mg oral daily, lisinopril 10 mg at bedtime, Lopressor 12.5 mg twice daily, potassium chloride - Schedule patient for GULSHAN tomorrow with Dr. Palacios. - N.p.o. after midnight Chronic Medical Conditions #Essential hypertension #Hyperlipidemia #Type II Diabetes Mellitus #Factor V Leiden deficiency #History of TIA/Stroke with residual deficits Code status: Full code Anticipated discharge place: Home Anticipated discharge time: Tomorrow Dr. Uribe seen patient with resident, present during exam, and agreed with findings. Dictation was produced using [employer] dictation software. Please excuse any grammatical, word or spelling errors. Objective - Vital Signs Vital signs: Vital Signs Temp 98.2 F 10/20/24 11:35 Pulse 63 10/20/24 11:35 Resp 17 10/20/24 11:35 BP 136/78 10/20/24 11:35 Pulse Ox 94 L 10/20/24 11:35 FiO2 4 10/19/24 10:04 Intake & Output 10/19/24 10/20/24 10/20/24 18:59 06:59 18:59 Intake Total 480 10 600 Balance 480 10 600 Weight 137.9 kg Intake: IV 10 0.9 10 Oral 480 600 Other: Voiding Method Toilet Toilet Toilet Urinal # Voids 1 1 2 - Labs CBC & Chem 7: 10/19/24 05:08 10/20/24 05:19 Labs: Abnormal Lab Results - Last 24 Hours (Table) 10/19/24 10/19/24 10/20/24 Range/Units 16:53 20:04 05:19 Glucose 125 H (74-99) mg/dL POC Glucose (mg/dL) 140 H 138 H (70-110) mg/dL 10/20/24 10/20/24 Range/Units 06:17 11:54 Glucose (74-99) mg/dL POC Glucose (mg/dL) 148 H 141 H (70-110) mg/dL
[2024-10-20 16:40] LABS: Glucose,Whole Blood 133 mg/dL (70-110)
[2024-10-20 19:50] LABS: Glucose,Whole Blood 146 mg/dL (70-110)
[2024-10-21 05:58] LABS: Glucose,Whole Blood 119 mg/dL (70-110)
[2024-10-21] MEDS: BENZOCAINE SPRAY 1 EACH MM ONE (07:42)
[2024-10-21] MEDS: fentaNYL (PF) 50 MCG/ML 2 ML AMP IVP ONE (07:43)
[2024-10-21] MEDS: MIDAZOLAM 2 MG/2 ML VIAL IVP ONE (07:44)
--- NOTE | 2024-10-21 09:41 | ECHOS ---
STRESS ECHOCARDIOGRAM INDICATIONS: Prosthetic valve stenosis. PROCEDURE NOTE: After obtaining informed consent, transesophageal echocardiogram was performed in left lateral position using an Omniplane probe. Local and IV sedation were obtained using Xylocaine spray, Versed, and fentanyl. The patient tolerated the procedure well without any obvious immediate complications. Total sedation time was 10 minutes. FINDINGS: There is a bioprosthetic valve in aortic position, that appears calcified and shows severe restriction in leaflet mobility. Planimetry is somewhat suboptimal, but the valve area seems to be around 0.5 to 0.6 sq cm. There is no aortic regurgitation. Aortic root measures within normal limits. Mitral valve shows mitral annular calcification with mild central mitral regurgitation. There is mild tricuspid regurgitation. Interatrial septum there is no evidence of [id number] shunt by color- flow Doppler or oiyzx-wj-iusi shunt by agitated saline contrast study. Left atrium appears enlarged. Right atrium and right ventricle seemed to be within normal limits. Left ventricle has normal size and systolic function. CONCLUSIONS: There is severe stenosis of the other bioprosthetic aortic valve. PLAN: I am going to refer the patient to [facility] for valve and valve TAVR. MMODL / IJN: [id number] /
--- NOTE | 2024-10-21 10:28 | P.PN ---
Subjective Progress Note Date: 10/21/24 Reason for Consult (text): NSTEMI History of present illness: This is a 69-year-old male patient of Dr. Jose Palacios with past medical history of coronary artery disease status post coronary artery bypass graft, aortic stenosis status post aortic valve replacement, hypertension, dyslipidemia, factor V Leyden deficiency. We have been asked to evaluate the patient for NSTEMI. Blood pressure 110/67, heart rate 60, pulse ox 95% on 3 L nasal cannula. Patient has been started on a heparin drip. -EKG: Sinus rhythm, LVH. -CT chest: Trace right pleural effusion with associated subsegmental atelectasis of the right lower lobe. Cardiomegaly with postsurgical changes of the heart. -Laboratory studies: Hemoglobin 14.3, WBC 7.5. Troponin 0.043, 0.231, 0.406, 0.4. Electrolytes and renal function, liver function within normal limits. -Home cardiac medications: -Echocardiogram performed in the office on 08/22/2024 revealed EF 45 to 50%, mild left ventricular hypertrophy. Biological AV prosthesis with high gradient consistent with valve dysfunction. Mild mitral regurgitation. Mitral valve is calcified. Mild tricuspid regurgitation. PASP 32. Estimated half year [place] - Cardiac catheterization performed in 2018 revealed [place] three-vessel coronary artery disease with patent stent within the proximal left anterior descending artery. Significant lesions within the diagonal OM1 and OM 2 2-3+ aortic regurgitation. -Aortic valve replacement with bovine pericardial valve performed 08/03/2018. -Coronary artery bypass grafting x 3 with left internal mammary artery to the left anterior descending artery, reverse saphenous vein graft to the first denise gonal artery and reverse saphenous graft to the first obtuse marginal artery performed on 08/03/2018. 10/20 Patient has been transferred out of the intensive care unit. He underwent cardiac catheterization on 10/18 [place] three-vessel coronary artery disease with patent LIM to LAD, patent venous graft to OM and diagonal. Aneurysmal dilatation of the ascending aorta. Blood pressure 155/78, heart rate 60s to 90s, pulse ox 95% on CPAP. Repeat blood work reveals creatinine 0.91. Discussed with patient recommendations for GULSHAN and he is agreeable to move forward with this which will be scheduled tomorrow with Dr. Palacios. Echocardiogram reveals EF 45 to 50%. Bioprosthetic aortic valve not well-vi sualized with mean gradient of 55 mmHg. 10/21 Patient seen and examined. He underwent GULSHAN this morning with Dr. Palacios which revealed severe stenosis of the prosthetic aortic valve. Recommendations are for evaluation for TAVR. Blood pressure 108/60, heart rate 61, pulse ox 97% on room air. CTS will provide patient with information about the TAVR clinic and appointment will be made for a later date. Patient denies chest pain, chest pressure, shortness of breath, palpitations. Physical examination: Gen: This is 69-year-old male patient in no acute distress. VS: reviewed HEENT: Head is atraumatic, normocephalic. Pupils equal, round. Sclerae is anicteric. NECK: Supple. No JVD. LUNGS: Clear to auscultation. No wheezes or rhonchi. No intercostal retractions. HEART: Regular rate and rhythm. No murmur. ABDOMEN: Soft No tenderness. EXTREMITIES: No pedal edema. No calf tenderness. NEUROLOGICAL: Patient is awake, alert and oriented x3. Assessment: NSTEMI status post [facility] 10/18 as above History of coronary artery disease with previous CABG in 2019 with previous stent History of aortic stenosis status post aortic valve replacement in 2019 Hypertension Dyslipidemia Factor V Leyden deficiency History of CVA Plan: Continue patient on aspirin, atorvastatin, Lasix 20 mg oral daily, lisinopril 10 mg at bedtime, Lopressor 12.5 mg twice daily, potassium chloride Recommend the patient follow-up with the TAVR clinic Patient is cleared for discharge from cardiology and will follow-up with Dr. Palacios in 2 weeks. Nurse practitioner note has been reviewed, I agree with documented findings and plan of care. Patient was seen and examined. Objective - Vital Signs Vital signs: Vital Signs Temp 97.5 F L 10/21/24 08:15 Pulse 61 10/21/24 08:15 Resp 17 10/21/24 08:15 BP 108/60 10/21/24 08:15 Pulse Ox 97 10/21/24 08:15 FiO2 4 10/19/24 10:04 Intake & Output 10/20/24 10/21/24 10/21/24 18:59 06:59 18:59 Intake Total 1200 237 Balance 1200 237 Weight 136.5 kg Intake: Oral 1200 237 Other: Voiding Method Toilet Toilet # Voids 2 1 - Labs CBC & Chem 7: 10/19/24 05:08 10/20/24 05:19 Labs: Abnormal Lab Results - Last 24 Hours (Table) 10/20/24 10/20/24 10/20/24 Range/Units 11:54 16:37 19:49 POC Glucose (mg/dL) 141 H 133 H 146 H (70-110) mg/dL 10/21/24 Range/Units 05:56 POC Glucose (mg/dL) 119 H (70-110) mg/dL
[2024-10-21] MEDS: ACETAMINOPHEN TAB 325 MG TAB PO PRN (10:59)
--- NOTE | 2024-10-21 11:07 | P.DS ---
Providers Date of admission: 10/16/24 23:57 Expected date of discharge: 10/21/24 Attending physician: Lorenzo Sebastian MD Consults: 10/16/24 23:55 Consult Physician Urgent Consulting Provider: [facility] Consult Reason/Comments: NSTEMI Do you want consulting provider notified?: Already Contacted Primary care physician: Physician Nonstaff Hospital Course: Discharge diagnoses; # NSTEMI #Hypertensive emergency, #Coronary artery disease S/p prior stenting to LAD and CABG #Nonrheumatic aortic valve stenosis S/p Surgical aortic valve replacement #Severe stenosis of aortic prosthetic valve #Heart failure with last known EF 45-50% (10/17/24) #Essential hypertension #Hyperlipidemia #Type II Diabetes Mellitus #Factor V Leiden deficiency #History of TIA/Stroke with residual deficits Hospital course; History of present illness; Patient is a 69-year-old male with history of CAD status post stenting to LAD and CABG, and aortic valve replacement approximately 3 years ago, 2 previous MIs, who presented with chest pain. Pain began while at rest and was located in the right chest severe constant in nature with radiation to the right upper extremity and jaw. Patient states his pain improved with metoprolol. He also had associated shortness of breath. At this time patient is denying chest pain, palpitations, shortness of breath, diaphoresis. During hospital stay patient was seen for NSTEMI. He completed cardiac catheterization and cardiology determined he was fit to proceed with medical therapy. During stay he also had GULSHAN which revealed severe stenosis and prosthetic aortic valve. Cardiology recommendations to follow-up in TAVR clinic. Patient discharged home in stable condition. He will continue aspirin, atorvastatin, Lasix 20 mg oral daily, lisinopril 10 mg at bedtime, Lopressor 12.5 mg twice daily, potassium chloride. He will need follow-up with his PCP and Dr. Palacios in 2 weeks. PHYSICAL EXAMINATION: Vitals reviewed GENERAL: Resting comfortably in bed. Obese. CARDIOVASCULAR: S1 and S2 present. No murmurs, rubs, or gallops. Scar from previous cardiac procedure. PULMONARY: Chest is clear to auscultation, no wheezing, rhonchi, or crackles. ABDOMEN: Soft, nontender, nondistended. No palpable organomegaly. MUSCULOSKELETAL: No apparent joint swelling and deformities. EXTREMITIES: No apparent cyanosis, clubbing. Trace pedal edema. NEUROLOGICAL: Alert and oriented. Gross neurological examination with no apparent focal deficits. SKIN: No apparent rashes. Dr. Uribe seen patient with resident, present during exam, and agreed with findings. Dictation was produced using [employer] dictation software. please excuse any grammatical, word or spelling errors. Patient Condition at Discharge: Stable Plan - Discharge Summary Discharge Rx Participant: No New Discharge Prescriptions: No Action Tamsulosin HCl [Flomax] 0.8 mg PO DAILY@1600 Atorvastatin [Lipitor] 80 mg PO HS Famotidine [Pepcid] 20 mg PO BID 7 Days #14 tablet Venlafaxine HCl ER [Effexor Xr] 150 mg PO DAILY methocarbamoL [Robaxin-750] 750 mg PO TID lisinopriL [Zestril] 5 mg PO HS lamoTRIgine [LaMICtal] 100 mg PO BID Furosemide [Lasix] 20 mg PO DAILY Clopidogrel [Plavix] 75 mg PO DAILY Cholestyramine (with Sugar) [Questran] 4 gm PO AC-TID Carbidopa-Levodopa 25-100 mg [Sinemet 25-100] 1 tab PO TID Potassium Chloride [Potassium Chloride ER] 10 meq PO DAILY #30 tab L.acidoph,Paracasei, B.lactis [Probiotic] 1 cap PO DAILY Isosorbide Mononitrate ER [Imdur] 30 mg PO DAILY Gabapentin 600 mg PO TID Aspirin EC [Ecotrin Low Dose] 81 mg PO DAILY Metoprolol Tartrate [Lopressor] 12.5 mg PO DAILY Discharge Medication List Tamsulosin HCl [Flomax] 0.8 mg PO DAILY@1600 04/21/19 [History] Atorvastatin [Lipitor] 80 mg PO HS 07/13/21 [History] Famotidine [Pepcid] 20 mg PO BID 7 Days #14 tablet 07/18/21 [Rx] Potassium Chloride [Potassium Chloride ER] 10 meq PO DAILY #30 tab 07/18/21 [Rx] Aspirin EC [Ecotrin Low Dose] 81 mg PO DAILY 10/17/24 [History] Carbidopa-Levodopa 25-100 mg [Sinemet 25-100] 1 tab PO TID 10/17/24 [History] Cholestyramine (with Sugar) [Questran] 4 gm PO AC-TID 10/17/24 [History] Clopidogrel [Plavix] 75 mg PO DAILY 10/17/24 [History] Furosemide [Lasix] 20 mg PO DAILY 10/17/24 [History] Gabapentin 600 mg PO TID 10/17/24 [History] Isosorbide Mononitrate ER [Imdur] 30 mg PO DAILY 10/17/24 [History] L.acidoph,Paracasei, B.lactis [Probiotic] 1 cap PO DAILY 10/17/24 [History] Metoprolol Tartrate [Lopressor] 12.5 mg PO DAILY 10/17/24 [History] Venlafaxine HCl ER [Effexor Xr] 150 mg PO DAILY 10/17/24 [History] lamoTRIgine [LaMICtal] 100 mg PO BID 10/17/24 [History] lisinopriL [Zestril] 5 mg PO HS 10/17/24 [History] methocarbamoL [Robaxin-750] 750 mg PO TID 10/17/24 [History] Follow up Appointment(s)/Referral(s): Nonstaff,Physician [Primary Care Provider] - 1-2 days Eric Palacios MD [STAFF PHYSICIAN] - [facility] [NON-STAFF] - (We will contact you from the [facility] with a date and time for pre-TAVR testing as well as TAVR clinic date. Please feel free to contact us with any questions) Patient Instructions/Handouts: *[facility] - After Heart Catheterization - Biomedical Engineering Internship Instructions, Heart Attack (DC)
[2024-10-21 11:33] VITALS: BP 119/55; PULSE 62; RESP 16; TEMP 97.6
[2024-10-21 11:55] LABS: Glucose,Whole Blood 162 mg/dL (70-110)
[2024-10-21] MEDS ORDERED: BENZOCAINE SPRAY 1 EACH MM SCH (16:00)
== END 2024-10-21 12:18 | disposition home or self-care (01) | DRG 281 ==
LOC: EC 19:56 → 3SCARD 23:57 → 2SICU 10-17 17:22 → 3SCARD 10-19 16:31
PROVIDERS: ADMIT Internal Medicine; ATTEND Internal Medicine
PROC: B2131ZZ Fluoroscopy of Multiple Coronary Artery Bypass Grafts using Low Osmolar Contrast (ICD-10-PCS; 2024-10-18)
PROC: B2181ZZ Fluoroscopy of Left Internal Mammary Bypass Graft using Low Osmolar Contrast (ICD-10-PCS; 2024-10-18)
PROC: B2151ZZ Fluoroscopy of Left Heart using Low Osmolar Contrast (ICD-10-PCS; 2024-10-18)
PROC: B41FZZZ Fluoroscopy of Right Lower Extremity Arteries (ICD-10-PCS; 2024-10-18)
PROC: 4A023N7 Measurement of Cardiac Sampling and Pressure, Left Heart, Percutaneous Approach (ICD-10-PCS; principal; 2024-10-18 07:30)
PROC: B2111ZZ Fluoroscopy of Multiple Coronary Arteries using Low Osmolar Contrast (ICD-10-PCS; 2024-10-18 07:30)
PROC: B246ZZ4 Ultrasonography of Right and Left Heart, Transesophageal (ICD-10-PCS; 2024-10-21)
DX: I21.4 Non-ST elevation (NSTEMI) myocardial infarction (principal); D68.51 Activated protein C resistance; I16.1 Hypertensive emergency; I11.0 Hypertensive heart disease with heart failure; Z95.1 Presence of aortocoronary bypass graft; E11.42 Type 2 diabetes mellitus with diabetic polyneuropathy; E78.00 Pure hypercholesterolemia, unspecified; F32.A Depression, unspecified; I71.21 Aneurysm of the ascending aorta, without rupture; Z95.3 Presence of xenogenic heart valve; F41.9 Anxiety disorder, unspecified; I25.10 Atherosclerotic heart disease of native coronary artery without angina pectoris; I25.2 Old myocardial infarction; I35.0 Nonrheumatic aortic (valve) stenosis; I44.0 Atrioventricular block, first degree; Z79.01 Long term (current) use of anticoagulants; Z79.02 Long term (current) use of antithrombotics/antiplatelets; Z79.82 Long term (current) use of aspirin; Z79.899 Other long term (current) drug therapy; Z82.49 Family history of ischemic heart disease and other diseases of the circulatory system; Z95.5 Presence of coronary angioplasty implant and graft
CPT/HCPCS: 36415; 71045; 71260; 80048; 80053; 80061; 80175; 82150; 83690; 83735; 84484; 85025; 85049; 85610; 85730; 93005; 93306; 93312; 93320; 93325; 93455; 93567; 93880; 94640; 96361; 96365; 96366; 96368; 96372; 99291

== ENCOUNTER → 2024-11-08 | Outpatient (CLI) | payer MEDICARE ==
[2024-11-08 10:53] LABS: Basophils # (A) 0.03 10*3/uL (0.00-0.10); Basophils % (A) 0.3 %; Eosinophils # (A) 0.38 10*3/uL (0.04-0.35); Eosinophils % (A) 4.3 %; HCT 42.1 % (39.6-50.0); HGB 14.6 g/dL (13.0-17.0); Lymphocytes # (A) 2.26 10*3/uL (0.90-5.00); Lymphocytes % (A) 25.9 %; MCH 33.3 pg (27.0-32.0); MCHC 34.7 g/dL (32.0-37.0); MCV 96.1 fL (80.0-97.0); Mean Platelet Volume 11.5 fL (9.5-12.2); Monocytes # (A) 0.58 10*3/uL (0.20-1.00); Monocytes % (A) 6.6 %; Neutrophils # (A) 5.45 10*3/uL (1.80-7.70); Neutrophils % (A) 62.4 %; Platelet Count 197 10*3/uL (140-440); RBC 4.38 10*6/uL (4.40-5.60); RDW 14.3 % (11.5-14.5); WBC 8.74 10*3/uL (4.50-10.00)
[2024-11-08 10:58] LABS: Appearance,Urine Clear (Clear); Bilirubin,Urine Negative (Negative); Blood,Urine Negative (Negative); Color,Urine Colorless; Glucose,Urine (UA) Negative (Negative); Ketones,Urine Negative (Negative); Leukocyte Esterase,Urine Moderate (Negative); Mucus,Urine Rare /hpf; Nitrite,Urine Negative (Negative); PH, Urine 5.5 (5.0-8.0); Protein,Urine Negative (Negative); RBC,Urine 2 /hpf (0-5); Specific Gravity,Urine 1.013 (1.001-1.035); Urobilinogen,Urine <2.0 mg/dL (<2.0); WBC,Urine 4 /hpf (0-5)
[2024-11-08 11:16] LABS: Partial Thromboplastin Time 28.3 sec (22.0-30.0); Prothrombin Time 11.3 sec (10.0-12.5)
[2024-11-08 11:22] LABS: ALT 30 U/L (4-49); AST 19 U/L (17-59); African American GFR (CKD) 88 (>60 ml/min/1.73 sqM); Albumin 4.3 g/dL (3.5-5.0); Albumin/Globulin Ratio 1.7; Alkaline Phosphatase 110 U/L (38-126); Anion Gap 8 mmol/L; Blood Urea Nitrogen 18 mg/dL (9-20); Calcium 9.4 mg/dL (8.4-10.2); Carbon Dioxide 24 mmol/L (22-30); Chloride 106 mmol/L (98-107); Globulin 2.6 g/dL; Glucose 130 mg/dL (74-99); Magnesium 1.9 mg/dL (1.6-2.3); Non-African American GFR(CKD) 76 (>60 ml/min/1.73 sqM); Potassium 4.7 mmol/L (3.5-5.1); Sodium 138 mmol/L (137-145); Total Bilirubin 0.6 mg/dL (0.2-1.3); Total Protein 6.9 g/dL (6.3-8.2)
[2024-11-08 11:31] LABS: NT-Pro-B-Type Natriuretic Pept 788 pg/mL
--- NOTE | 2024-11-08 13:38 | CT ---
EXAMINATION TYPE: CT TAVR Planning DATE OF EXAM: 11/08/2024 COMPARISON: Correlation CT abdomen pelvis 07/15/2021 CLINICAL INDICATION: Male, 69 years old with history of I35.1 NONRHEUMATIC AORTIC (VALVE) INSUFFICIEN CY; TAVR planning. Nonrheumatic aortic valve insufficiency. TECHNIQUE: CT scan of the Neck, chest, abdomen and pelvis is performed with IV contrast; Helical imaging obtaine d through the chest, abdomen and pelvis during arterial phase dynamic administration of radiographic contrast intravenously. MIP imaging performed on a [employer] work station and submitted for review. CONTRAST: 150 ml mL of Isovue 370. CT DLP: 3117.30 mGycm, Automated exposure control for dose reduction was used. FINDINGS: See report from [employer] regarding preprocedural planning HEART AND PERICARDIUM: The heart is mildly enlarged without pericardial effusion. Median sternotomy w ires with post-CABG changes. There also appears to be a prosthetic aortic valve. AV Calcification Severity: Difficult to determine due to the presence of prosthetic aortic valve. ARTERIAL VASCULATURE: Borderline aneurysm ascending aorta 4.0 cm. Scattered mild atherosclerotic calcifications. Bovine con figuration to the aortic arch. Suspect a SMA stent. There appears to be severe atherosclerotic change s within the celiac axis. Bilateral moderate or severe atherosclerotic narrowing proximal left renal artery. Additional scattered mild atherosclerotic calcifications abdominal aorta and iliac arteries. PULMONARY ARTERIAL VASCULATURE: main right and left pulmonary artery is dilated up to 3.2 cm suggesti ng underlying pulmonary hypertension. NECK AND THYROID: Dominant left vertebral artery. The right vertebral artery may terminate as a PICA branch. Moderate mucosal thickening throughout the ethmoid air cells and mild within the right fronta l sinus. The orotracheal call appears clear. No cervical adenopathy seen. CHEST: LUNGS: Mild diffuse bronchial wall thickening. Trace right pleural effusion is unchanged from 2021 at the adjacent pleural parenchymal opacity, favored to represent chronic scarring. Mild diffuse bronch ial wall thickening suggests bronchitis or chronic asthma. Minimal emphysematous change. LARGE AIRWAYS: Central airways are patent. PLEURAL: Unchanged trace right pleural effusion. MEDIASTINUM AND ODILON: No mediastinal or hilar lymphadenopathy or soft tissue mass. SOFT TISSUES/LYMPH NODES: Unremarkable.Normal. MUSCULOSKELETAL: No acute osseous abnormalities ABDOMEN/PELVIS: Please note arterial phase of the imaging limits detailed evaluation of the solid abdominal organs. ABDOMEN LIVER: Mildly enlarged 19.0 cm. Calcified granuloma anterior left lower lobe. Portal venous system is patent. GALLBLADDER AND BILE DUCTS: Gallbladder surgically absent. No biliary ductal dilatation seen. PANCREAS: Unremarkable. SPLEEN: Unremarkable. ADRENAL GLANDS: Unremarkable. KIDNEYS AND URETERS: Tiny 9 mm cortical cyst lateral left kidney. Otherwise, symmetric uptake and exc retion of contrast from both kidneys. PELVIS BLADDER: Unremarkable REPRODUCTIVE: Unremarkable. ABDOMEN & PELVIS STOMACH AND BOWEL: No evidence of bowel obstruction. Mild/moderate stool burden. Redundant sigmoid co moncho. No pericolonic inflammatory change. PERITONEUM/RETROPERITONEUM: No evidence of pneumoperitoneum or free fluid. VASCULATURE: No evidence of aortic aneurysm. MUSCULOSKELETAL: No acute osseous abnormalities LYMPH NODES: No gross evidence for lymphadenopathy. SOFT TISSUE/ABDOMINAL WALL: 2.9 cm mixed soft tissue and fat density focus right posterior lower back within the subcutaneous adipose probably site of injury and fat necrosis. Rectus diastases of the 10 cm wide. Complex fat-containing umbilical hernias measuring up to 7.7 cm wide and 8.0 cm craniocauda l. Other Lines/Tubes/Devices/Hardware: None IMPRESSION: 1. Difficult assessment of aortic valve calcifications as there appears to be a prosthetic aortic va lve present. Clinically correlate. Additional post-CABG changes with previous median sternotomy. 2. Suspect chronic trace right pleural effusion and adjacent pleural parenchymal scarring. 3. COPD with minimal emphysema and pulmonary arterial hypertension. 4. Suspect an SMA stent. Severe atherosclerotic changes iliac axis. Moderate or severe stenosis left renal artery. 5. Moderate chronic ethmoid sinus disease. . 6. See report from [employer] regarding preprocedural planning [facility], , 11/08/2024 1:35 PM
[2024-11-08 15:59] LABS: Hepatitis A Antibody IgM Nonreactive (Nonreactive); Hepatitis B Core IgM Nonreactive (Nonreactive); Hepatitis B Surface Antigen Nonreactive (Nonreactive); Hepatitis C IgG Antibody Nonreactive (Nonreactive)
[2024-11-08 16:06] LABS: Chol/HDL Ratio 3.51 Ratio; LDL Cholesterol,Calculated 49.8 mg/dL (0.0-131.0)
== END | disposition home or self-care (01) ==
LOC: LABWHC1 09:51
PROVIDERS: ATTEND Thoracic Surgery (Cardiothoracic Vascular Surgery)
DX: Z01.818 Encounter for other preprocedural examination (principal); I35.2 Nonrheumatic aortic (valve) stenosis with insufficiency; I35.8 Other nonrheumatic aortic valve disorders; I70.1 Atherosclerosis of renal artery; J32.2 Chronic ethmoidal sinusitis; E87.8 Other disorders of electrolyte and fluid balance, not elsewhere classified; E87.0 Hyperosmolality and hypernatremia; E11.9 Type 2 diabetes mellitus without complications; E78.5 Hyperlipidemia, unspecified; N28.9 Disorder of kidney and ureter, unspecified; R58 Hemorrhage, not elsewhere classified; R35.0 Frequency of micturition; Z79.01 Long term (current) use of anticoagulants; Z79.899 Other long term (current) drug therapy; Z95.2 Presence of prosthetic heart valve; Z95.1 Presence of aortocoronary bypass graft
CPT/HCPCS: 94150; 83880; 80061; 80053; 80074; 84443; 83735; 85025; 85610; 85730; 81001; 87086; 83036; 71275; 36415 ×2; 74174; Q9967

== ENCOUNTER 2024-12-05 00:21 | Inpatient (IN) | payer MEDICARE ==
[2024-12-05] MEDS ORDERED: NALOXONE 0.4 MG/ML 1 ML VIAL IV PRN (00:28)
--- NOTE | 2024-12-05 00:34 | ED ---
SOB HPI - General Chief Complaint: Shortness of Breath Stated Complaint: resp failure Time Seen by Provider: 12/05/24 00:28 Source: EMS, RN notes reviewed, old records reviewed Mode of arrival: EMS Limitations: no limitations - History of Present Illness Initial Comments: This is a 69-year-old male to the ER for evaluation patient presents to the emergency room today te for evaluation regards to heart failure history of, patient was admitted to outside facility [facility] for hypoxic respiratory failure secondary to CHF MD Complaint: shortness of breath Severity: severe Severity scale (1-10): 10 Known History Of: congestive heart failure Associated Symptoms: denies other symptoms Treatments Prior to Arrival: oxygen, bronchodilator, NIPPV, intubation - Related Data Home Medications Medication Instructions Recorded Confirmed Tamsulosin HCl [Flomax] 0.8 mg PO DAILY@1600 04/21/19 12/05/24 Atorvastatin [Lipitor] 80 mg PO HS 07/13/21 12/05/24 Aspirin EC [Ecotrin Low Dose] 81 mg PO DAILY 10/17/24 12/05/24 Carbidopa-Levodopa 25-100 mg 1 tab PO TID 10/17/24 12/05/24 [Sinemet 25-100 mg] Clopidogrel [Plavix] 75 mg PO DAILY 10/17/24 12/05/24 Furosemide [Lasix] 20 mg PO DAILY 10/17/24 12/05/24 Gabapentin 600 mg PO TID 10/17/24 12/05/24 Isosorbide Mononitrate ER [Imdur] 30 mg PO DAILY 10/17/24 12/05/24 L.acidoph,Paracasei, B.lactis 1 cap PO DAILY 10/17/24 12/05/24 [Probiotic] Venlafaxine HCl ER [Effexor XR] 150 mg PO DAILY 10/17/24 12/05/24 lamoTRIgine [LaMICtal] 100 mg PO BID 10/17/24 12/05/24 methocarbamoL [Robaxin-750] 750 mg PO TID 10/17/24 12/05/24 LORazepam [Ativan] 0.5 mg PO QID PRN 12/05/24 12/05/24 Metoprolol Tartrate [Lopressor] 12.5 mg PO BID 12/05/24 12/05/24 lisinopriL [Zestril] 10 mg PO HS 12/05/24 12/05/24 Previous Rx's Medication Instructions Recorded Famotidine [Pepcid] 20 mg PO BID 7 Days #14 tablet 07/18/21 Potassium Chloride [Klor-Con M10] 10 meq PO DAILY #30 tab 07/18/21 Allergies Allergy/AdvReac Type Severity Reaction Status Date / Time nitroglycerin AdvReac Severe SL nitro Verified 12/05/24 00:32 caused severe low HR and B/P adhesive AdvReac blisters Verified 12/05/24 00:32 fentanyl AdvReac Unknown Verified 12/05/24 00:32 hydromorphone [From Dilaudid] AdvReac Hallucinati Verified 12/07/24 09:40 ons Review of Systems ROS Statement: Those systems with pertinent positive or pertinent negative responses have been documented in the HPI. ROS Other: All systems not noted in ROS Statement are negative. Past Medical History Past Medical History: Blood Disorder, Coronary Artery Disease (CAD), Chest Pain / Angina, Heart Failure, CVA/TIA, Diabetes Mellitus, GERD/Reflux, Hyperlipidemia, Hypertension, Myocardial Infarction ([place]), Musculoskeletal Disorder, Osteoarthritis (OA), Sleep Apnea/CPAP/BIPAP Additional Past Medical History / Comment(s): HX [place] X 2, HX CVA'S/TIA'S - LEFT ARM & LEG WEAKNESS, FACTOR 5 BLOOD DISORDER., DIABETIC NEUROPATHY IN FEET AND LEGS., SLEEP APNEA WITH C-PAP ., BACK PAIN , INDIGESTION., SEE CARDIOLOGY H & P. (Parkinson's new diagnosis) Last Myocardial Infarction Date:: 2014 History of Any Multi-Drug Resistant Organisms: None Reported Past Surgical History: Cholecystectomy, Heart Catheterization, Heart Catheterization With Stent, Orthopedic Surgery, Tonsillectomy Additional Past Surgical History / Comment(s): Radio Freq Proc to Back 04-01-16, R TOTAL KNEE. R KNEE ARTHROSCOPIES ., CARDIAC CATH [address] Jorge Luis SMITH.04/07/14 HEART CATH WITH STENT TO MID LAD. Past Anesthesia/Blood Transfusion Reactions: Previous Problems w/ Anesthesia, Postoperative Nausea & Vomiting (PONV) Additional Past Anesthesia/Blood Transfusion Reaction / Comment(s): LOOPY-(RICHTER LLUCINATED) (Don't give fentanyl and dialudid at same time) Date of Last Stent Placement:: 2014 Past Psychological History: Anxiety, Depression Smoking Status: Never smoker Past Alcohol Use History: None Reported - Past Family History Sister(s) Family Medical History: Coronary Artery Disease (CAD), Diabetes Mellitus Additional Family Medical History / Comment(s): SISTER(1) HAD DM, SISTER(2) HAD CAD-CABG Father Family Medical History: Cancer Additional Family Medical History / Comment(s): FATHER OF [place] AT AGE 76 YRS. Mother Family Medical History: Cancer, Congestive Heart Failure (CHF), Myocardial Infarction ([place]) Additional Family Medical History / Comment(s): MOTHER AT AGE 57 OR [place]. MOM HAD PSYCHOLOLGICAL ISSUES. General Exam General appearance: alert, in no apparent distress, anxious, in distress Head exam: Present: atraumatic, normocephalic, normal inspection Eye exam: Present: normal appearance, PERRL, EOMI. Absent: scleral icterus, conjunctival injection, periorbital swelling ENT exam: Present: normal exam, mucous membranes moist Neck exam: Present: normal inspection. Absent: tenderness, meningismus, lymphadenopathy Respiratory exam: Present: respiratory distress, wheezes, accessory muscle use, decreased breath sounds, prolonged expiratory. Absent: rales, rhonchi, stridor Cardiovascular Exam: Present: regular rate, normal rhythm, normal heart sounds. Absent: systolic murmur, diastolic murmur, rubs, gallop, clicks GI/Abdominal exam: Present: soft, normal bowel sounds. Absent: distended, tenderness, guarding, rebound, rigid Extremities exam: Present: normal inspection, full ROM, normal capillary refill. Absent: tenderness, pedal edema, joint swelling, calf tenderness Back exam: Present: normal inspection Neurological exam: Present: alert, oriented X3, CN II-XII intact Psychiatric exam: Present: normal affect, normal mood Skin exam: Present: warm, dry, intact, normal color. Absent: rash Course Vital Signs 12/05/24 12/05/24 12/05/24 00:24 00:36 00:37 Temperature 98.2 F Pulse Rate 66 Respiratory 18 Rate Blood Pressure 102/48 O2 Sat by Pulse 100 Oximetry Fraction of 100 100 Inspired Oxygen (FIO2) 12/05/24 12/05/24 12/05/24 00:43 01:31 01:35 Temperature 98.1 F Pulse Rate 74 84 Respiratory 18 18 Rate Blood Pressure 123/77 130/94 O2 Sat by Pulse 100 100 Oximetry Fraction of 60 Inspired Oxygen (FIO2) 12/05/24 12/05/24 12/05/24 02:00 03:00 03:30 Temperature 98.0 F Pulse Rate 80 77 77 Respiratory 18 18 19 Rate Blood Pressure 135/84 126/85 126/85 O2 Sat by Pulse 100 100 99 Oximetry Fraction of Inspired Oxygen (FIO2) 12/05/24 12/05/24 12/05/24 03:59 04:00 04:01 Temperature 98.1 F Pulse Rate 75 93 Respiratory 18 24 Rate Blood Pressure 132/92 128/85 O2 Sat by Pulse 98 98 Oximetry Fraction of 60 Inspired Oxygen (FIO2) 12/05/24 12/05/24 12/05/24 05:00 06:00 07:00 Temperature 98.1 F 98.3 F Pulse Rate 73 91 76 Respiratory 18 22 21 Rate Blood Pressure 129/80 108/64 111/72 O2 Sat by Pulse 97 97 98 Oximetry Fraction of Inspired Oxygen (FIO2) 12/05/24 07:24 Temperature Pulse Rate 84 Respiratory 20 Rate Blood Pressure 118/79 O2 Sat by Pulse 97 Oximetry Fraction of Inspired Oxygen (FIO2) - Reevaluation(s) Reevaluation #1: 12/05/24 00:33 Medical records reviewed Reevaluation #2: 12/05/24 00:33 Patient symptoms remain unchanged here in the ER symptoms improving here in the ER Reevaluation #3: Patient informed of results questions answered Reevaluation #4: Was pt. sent in by a medical professional or institution (, PA, GENERAL WORKER, urgent care, hospital, or half-way...) When possible be specific @ -no Did you speak to anyone other than the patient for history (EMS, parent, family, police, friend...)? What history was obtained from this source @ -no Did you review nursing and triage notes (agree or disagree)? Why? @ -agree Are old charts reviewed (outside hosp., previous admission, EMS record, old EKG, old radiological studies, urgent care reports/EKG's, half-way records)? R eport findings @ -yes Differential Diagnosis (chest pain, altered mental status, abdominal pain women, abdominal pain men, vaginal bleeding, weakness, fever, dyspnea, syncope, headache, dizziness, GI bleed, back pain, seizure, CVA, palpatations, mental health, musculoskeletal)? @ -prior EKG interpreted by me (3pts min.). @ -yes X-rays interpreted by me (1pt min.). @ -yes significant for CHF CT interpreted by me (1pt min.). @ -no U/S interpreted by me (1pt. min.). @ -no What testing was considered but not performed or refused? (CT, X-rays, U/S, labs)? Why? @ -none What meds were considered but not given or refused? Why? @ -none Did you discuss the management of the patient with other professionals (professionals i.e. DrOlga, PA, GENERAL WORKER, lab, RT, psych nurse, social science manager, transmission design engineer, teacher, security officer, child support case officer)? Give summary @ -no Was smoking cessation discussed for >3mins.? @ -no Was critical care preformed (if so, how long)? @ -yes31 Were there social determinants of health that impacted care today? How? (Homelessness, low income, unemployed, alcoholism, drug addiction, transportation, low edu. Level, literacy, decrease access to med. care, usp, rehab)? @ -none Was there de-escalation of care discussed even if they declined (Discuss DNR or withdrawal of care, Hospice)? DNR status @ -no What co-morbidities impacted this encounter? (DM, HTN, Smoking, COPD, CAD, Cancer, CVA, ARF, Chemo, Hep., AIDS, mental health diagnosis, sleep apnea, morbid obesity)? @ -none Was patient admitted / discharged? Hospital course, mention meds given and route, prescriptions, significant lab abnormalities, going to OR and other pertinent info. @ - 69 male to the ER for evaluation patient at this time will be admitted for CHF heart failure respiratory failure secondary to hypoxia from heart failure Admitted Undiagnosed new problem with uncertain prognosis? @ -no Drug Therapy requiring intensive monitoring for toxicity (Heparin, Nitro, Insulin, Cardizem)? @ -no Were any procedures done? @ -no Diagnosis/symptom? @ -CHF with hypoxic respiratory failure Acute, or Chronic, or Acute on Chronic? @ -Acute Uncomplicated (without systemic symptoms) or Complicated (systemic symptoms)? @ -Complicated Side effects of treatment? @ -no Exacerbation, Progression, or Severe Exacerbation? @ -exacerbation Poses a threat to life or bodily function? How? (Chest pain, [place], [place], pneumonia, PE, COPD, DKA, ARF, appy, cholecystitis, CVA, Diverticulitis, Homicidal, Suicidal, threat to staff... and all critical care pts) @ -yes with respiratory failure Reevaluation #5: Differential Dyspnea: Coronary syndrome, arrhythmia, tamponade, asthma, COPD, pulmonary embolism, pneumonia, pneumothorax, pulmonary effusion, anaphylaxis, diabetic ketoacidosis, flailed chest, pulmonary contusion, diaphragmatic rupture, anemia, neuromuscular, this is not meant to be an all-inclusive list. - Consultations Consultation #1: Spoke with Dr. Sarina lamb for ICU placement Medical Decision Making - Medical Decision Making 69 male to the ER for evaluation patient at this time will be admitted for CHF heart failure respiratory failure secondary to hypoxia from heart failure - Lab Data Result diagrams: 12/07/24 05:00 12/07/24 05:00 - EKG Data -: EKG Interpreted by Me - Radiology Data Radiology results: report reviewed (Chest x-ray positive for CHF positive ET tube), image reviewed Critical Care Time Critical Care Time: Yes Total Critical Care Time: 31 Disposition Clinical Impression: Altered mental status, Congestive heart failure, Acute pulmonary edema, Acute respiratory failure, Leukocytosis, Community acquired pneumonia Disposition: ADMITTED IP TO THIS HOSP Condition: Serious Is patient prescribed a controlled substance at d/c from ED?: No Time of Disposition: 00:45
[2024-12-05] MEDS: SODIUM CHLORIDE 0.9% 1,000 ML IV ONE (00:41)
[2024-12-05] MEDS: MIDAZOLAM 1 MG/ML 5 ML VIAL IV STA (00:53)
[2024-12-05] MEDS: FUROSEMIDE 10 MG/ML 4 ML VIAL IV SCH (01:02)
[2024-12-05] MEDS: SODIUM CHLORIDE 0.9% 1,000 ML IV SCH (01:15)
[2024-12-05 01:29] LABS: ABG Base Excess -4.1 mmol/L; ABG HCO3 23 mmol/L (21-25); ABG Oxygen Saturation 99.6 % (94-97); ABG PCO2 50 mmHg (35-45); ABG PH 7.28 (7.35-7.45); ABG PO2 332 mmHg (83-108); ABG TCO2 25 mmol/L (19-24); Allen Test Performed? Yes
[2024-12-05] MEDS: MIDAZOLAM HCL 50 MG in SODIUM CHLORIDE 0.9% 40 ML IV SCH (01:39)
--- NOTE | 2024-12-05 01:59 | XR ---
EXAM: XR Chest, 1 View CLINICAL HISTORY: ITS.REASON XR Reason: TRAUMA TECHNIQUE: Frontal view of the chest. COMPARISON: No relevant prior studies available. FINDINGS: Lungs: Airspace consolidation throughout the right mid-lower lung field, concerning for multilobar pneumonia. Pleural space: Unremarkable. No pneumothorax. Heart: Cardiomegaly. Mediastinum: Unremarkable. Bones/joints: Sternotomy wires. Tubes, lines and devices: Endotracheal tube terminates in the trachea. Feeding tube terminates in the stomach. IMPRESSION: Airspace consolidation throughout the right mid-lower lung field, concerning for multilobar pneumonia.
[2024-12-05 05:51] LABS: ABG Base Excess -2.4 mmol/L; ABG HCO3 24 mmol/L (21-25); ABG PCO2 48 mmHg (35-45); ABG PH 7.31 (7.35-7.45); ABG PO2 81 mmHg (83-108); ABG TCO2 26 mmol/L (19-24); Allen Test Performed? Yes
[2024-12-05 06:43] LABS: Basophils # (A) 0.03 10*3/uL (0.00-0.10); Basophils % (A) 0.2 %; HCT 43.4 % (39.6-50.0); HGB 14.8 g/dL (13.0-17.0); Lymphocytes # (A) 0.58 10*3/uL (0.90-5.00); Lymphocytes % (A) 3.7 %; MCH 32.9 pg (27.0-32.0); MCHC 34.1 g/dL (32.0-37.0); MCV 96.4 fL (80.0-97.0); Mean Platelet Volume 11.1 fL (9.5-12.2); Monocytes # (A) 0.24 10*3/uL (0.20-1.00); Monocytes % (A) 1.5 %; Neutrophils # (A) 14.74 10*3/uL (1.80-7.70); Neutrophils % (A) 94.1 %; Platelet Count 188 10*3/uL (140-440); RDW 13.7 % (11.5-14.5); WBC 15.67 10*3/uL (4.50-10.00)
[2024-12-05] MEDS: HEPARIN SODIUM 1,000 UN/ML (10ML VL) IV ONE (07:16)
[2024-12-05] MEDS: HEPARIN SOD,PORK IN 0.45% NACL 25,000 UNIT in 0.45% NACL 1 250ML.BAG IV SCH (07:17)
--- NOTE | 2024-12-05 07:30 | P.HPIM ---
History of Present Illness H&P Date: 12/05/24 Chief Complaint: Acute hypoxic respiratory failure requiring intubation Martita Storm is a 69-year-old male who was transferred to our facility from another hospital for acute hypoxic respiratory failure status post intubation. The patient presented to the other facility with difficulty breathing. It is unclear whether he had chest pains or fluid overload. He was intubated at the previous facility and transferred to our hospital for further care with concerns regarding congestive heart failure (CHF). In our emergency room, the patient was found to have urinary retention with 1000 cc of urine output after insertion of a Torres catheter. No further history is available at this time due to the patient's intubation status. Chest X-ray: Right and mid lower lung consolidation, no picture of fluid overload EKG: Lateral ST depression ABG: pH 7.28, CO2 50, O2 332 Troponins: Ordered, results pending review of systems Unable to obtain due to patient's intubation status on exam Constitutional: No acute distress, intubated sedated Eyes: Anicteric sclerae, moist conjunctiva, Pupils equal round reactive to light Lungs: decrease breath sounds right lower lung Clear to percussion Normal respiratory effort, no accessory muscle use Cardiovascular: Heart regular in rate and rhythm, No murmurs, gallops, or rubs No peripheral edema Abdominal: Soft Nontender, no guarding, rebound or rigidity Abdomen moving with respiration Normoactive bowel sounds Extremities: No digital cyanosis No clubbing Pedal pulses intact and symmetrical Radial pulses intact and symmetrical No calf tenderness Psychiatric: intubated and sedated Neuro unable to assess Past Medical History Past Medical History: Blood Disorder, Coronary Artery Disease (CAD), Chest Pain / Angina, Heart Failure, CVA/TIA, Diabetes Mellitus, GERD/Reflux, Hyperlipidemia, Hypertension, Myocardial Infarction ([place]), Musculoskeletal Disorder, Osteoarthritis ([place]), Sleep Apnea/CPAP/BIPAP Additional Past Medical History / Comment(s): HX [place] X 2, HX CVA'S/TIA'S - LEFT ARM & LEG WEAKNESS, FACTOR 5 BLOOD DISORDER., DIABETIC NEUROPATHY IN FEET AND LEGS., SLEEP APNEA WITH C-PAP ., BACK PAIN , INDIGESTION., SEE CARDIOLOGY H & P. (Parkinson's new diagnosis) Last Myocardial Infarction Date:: 2014 History of Any Multi-Drug Resistant Organisms: None Reported Past Surgical History: Cholecystectomy, Heart Catheterization, Heart Catheterization With Stent, Orthopedic Surgery, Tonsillectomy Additional Past Surgical History / Comment(s): Radio Freq Proc to Back 04-01-16, R TOTAL KNEE. R KNEE ARTHROSCOPIES ., CARDIAC CATH [address] Jorge Luis SMITH.04/07/14 HEART CATH WITH STENT TO MID LAD. Past Anesthesia/Blood Transfusion Reactions: Previous Problems w/ Anesthesia, Postoperative Nausea & Vomiting (PONV) Additional Past Anesthesia/Blood Transfusion Reaction / Comment(s): LOOPY- (HALLUCINATED) (Don't give fentanyl and dialudid at same time) Date of Last Stent Placement:: 2014 Past Psychological History: Anxiety, Depression Smoking Status: Never smoker Past Alcohol Use History: None Reported - Past Family History Sister(s) Family Medical History: Coronary Artery Disease (CAD), Diabetes Mellitus Additional Family Medical History / Comment(s): SISTER(1) HAD DM, SISTER(2) HAD CAD-CABG Father Family Medical History: Cancer Additional Family Medical History / Comment(s): FATHER OF [place]ON [place] AT AGE 76 YRS. Mother Family Medical History: Cancer, Congestive Heart Failure (CHF), Myocardial Infarction ([place]) Additional Family Medical History / Comment(s): MOTHER AT AGE 57 OR [place]. MOM HAD PSYCHOLOLGICAL ISSUES. Medications and Allergies Home Medications Medication Instructions Recorded Confirmed Type Tamsulosin HCl [Flomax] 0.8 mg PO DAILY@1600 04/21/19 10/17/24 History Atorvastatin [Lipitor] 80 mg PO HS 07/13/21 10/17/24 History Famotidine [Pepcid] 20 mg PO BID 7 Days #14 tablet 07/18/21 10/17/24 Rx Potassium Chloride [Klor-Con M10] 10 meq PO DAILY #30 tab 07/18/21 10/17/24 Rx Aspirin EC [Ecotrin Low Dose] 81 mg PO DAILY 10/17/24 10/17/24 History Carbidopa-Levodopa 25-100 mg 1 tab PO TID 10/17/24 10/17/24 History [Sinemet 25-100 mg] Cholestyramine (with Sugar) 4 gm PO AC-TID 10/17/24 10/17/24 History [Questran Packet] Clopidogrel [Plavix] 75 mg PO DAILY 10/17/24 10/17/24 History Furosemide [Lasix] 20 mg PO DAILY 10/17/24 10/17/24 History Gabapentin 600 mg PO TID 10/17/24 10/17/24 History Isosorbide Mononitrate ER [Imdur] 30 mg PO DAILY 10/17/24 10/17/24 History L.acidoph,Paracasei, B.lactis 1 cap PO DAILY 10/17/24 10/17/24 History [Probiotic] Venlafaxine HCl ER [Effexor XR] 150 mg PO DAILY 10/17/24 10/17/24 History lamoTRIgine [LaMICtal] 100 mg PO BID 10/17/24 10/17/24 History methocarbamoL [Robaxin-750] 750 mg PO TID 10/17/24 10/17/24 History Metoprolol Tartrate [Lopressor] 12.5 mg PO BID tab 10/21/24 Rx lisinopriL [Zestril] 10 mg PO HS tab 10/21/24 Rx Allergies Allergy/AdvReac Type Severity Reaction Status Date / Time nitroglycerin AdvReac Severe SL nitro Verified 12/05/24 00:32 caused severe low HR and B/P adhesive AdvReac blisters Verified 12/05/24 00:32 fentanyl AdvReac Unknown Verified 12/05/24 00:32 hydromorphone [From Dilaudid] AdvReac Unknown Verified 12/05/24 00:32 Physical Exam Vitals: Vital Signs Temp Pulse Resp BP Pulse Ox FiO2 12/05/24 07:24 84 20 118/79 97 12/05/24 06:00 98.3 F 78 18 119/76 100 12/05/24 05:00 98.1 F 73 18 106/69 98 12/05/24 04:00 98.1 F 75 18 132/92 98 12/05/24 03:59 60 12/05/24 03:00 98.0 F 77 18 126/85 100 12/05/24 02:00 80 18 135/84 100 12/05/24 01:35 60 12/05/24 01:31 98.1 F 84 18 130/94 100 12/05/24 00:43 74 18 123/77 100 12/05/24 00:37 100 12/05/24 00:36 100 12/05/24 00:24 98.2 F 66 18 102/48 100 Intake and Output 12/04/24 12/05/24 12/05/24 22:59 06:59 14:59 Intake Total 28.633 Output Total 1000 Balance -971.367 Intake: Intake, IV Titration 28.633 Amount Midazolam HCl 50 mg In 28.633 Sodium Chloride 0.9% 40 ml @ 1 MG/HR 1 mls/hr IV .Q24H [facility] Rx#:[id number] Output: Urine 1000 Uretheral (Torres) 1000 Other: Weight 133.9 kg Results CBC & Chem 7: 12/05/24 06:15 Labs: Abnormal Lab Results - Last 24 Hours (Table) 12/05/24 12/05/24 12/05/24 Range/Units 00:36 01:24 05:38 WBC (4.50-10.00) 10*3/uL MCH (27.0-32.0) pg Immature Gran # (0.00-0.04) 10*3/uL Neutrophils # (1.80-7.70) 10*3/uL Lymphocytes # (0.90-5.00) 10*3/uL Eosinophils # (0.04-0.35) 10*3/uL ABG pH 7.28 L (7.35-7.45) ABG pCO2 50 H (35-45) mmHg ABG pO2 332 H (83-108) mmHg ABG Total CO2 25 H (19-24) mmol/L ABG O2 Saturation 99.6 H (94-97) % Troponin I 0.237 H* 6.540 H* (0.000-0.034) ng/mL 12/05/24 12/05/24 Range/Units 05:47 06:15 WBC 15.67 H (4.50-10.00) 10*3/uL MCH 32.9 H (27.0-32.0) pg Immature Gran # 0.08 H (0.00-0.04) 10*3/uL Neutrophils # 14.74 H (1.80-7.70) 10*3/uL Lymphocytes # 0.58 L (0.90-5.00) 10*3/uL Eosinophils # 0.00 L (0.04-0.35) 10*3/uL ABG pH 7.31 L (7.35-7.45) ABG pCO2 48 H (35-45) mmHg ABG pO2 81 L (83-108) mmHg ABG Total CO2 26 H (19-24) mmol/L ABG O2 Saturation (94-97) % Troponin I (0.000-0.034) ng/mL Assessment and Plan Assessment: Acute hypoxic and hypercapnic respiratory failure: Patient transferred from another facility after intubation for respiratory distress. Possible pneumonia Chest X-ray shows right and mid lower lung consolidation. Start empiric antibiotic therapy with Rocephin 2 grams IV piggyback daily and azithromycin 500 milligrams IV piggyback daily. Monitor oxygenation and ventilator settings. Vent support ICU admission pulmonary consult NSTEMI: EKG shows lateral ST depressions. Initiate heparin drip. Continue to check troponins. Cardiology consult ordered for further evaluation and management. rectal aspirin check echocardiogram Urinary retention: 1000 cc of urine output after Torres catheter insertion in ER. Monitor urine output and assess for underlying causes. Plan: Continue current management including mechanical ventilation, antibiotics, and heparin drip Await cardiology consult and echocardiogram results Monitor troponins, renal function, and electrolytes DVT prophylaxis: Currently on heparin drip for suspected NSTEMI Code status: Full code Prognosis: Guarded no other blood work available for review , no paper work from [facility] available for review at this time Further history and examination will be obtained when the patient's condition allows.
[2024-12-05] MEDS ORDERED: AZITHROMYCIN 500 MG in SODIUM CHLORIDE 0.9% 250 ML IVPB SCH (08:00)
[2024-12-05] MEDS: IPRATROPIUM-ALBUTEROL 3 ML NEB INHALATION PRN (08:32)
[2024-12-05 10:08] LABS: ALT 36 U/L (4-49); AST 79 U/L (17-59); African American GFR (CKD) >90 (>60 ml/min/1.73 sqM); Alkaline Phosphatase 111 U/L (38-126); Anion Gap 11 mmol/L; Blood Urea Nitrogen 24 mg/dL (9-20); Calcium 8.8 mg/dL (8.4-10.2); Carbon Dioxide 20 mmol/L (22-30); Chloride 108 mmol/L (98-107); Glucose 184 mg/dL (74-99); Magnesium 1.8 mg/dL (1.6-2.3); Non-African American GFR(CKD) 78 (>60 ml/min/1.73 sqM); Potassium 4.8 mmol/L (3.5-5.1); Sodium 139 mmol/L (137-145); Total Bilirubin 0.3 mg/dL (0.2-1.3); Total Protein 6.5 g/dL (6.3-8.2)
[2024-12-05 11:20] LABS: Glucose,Whole Blood 174 mg/dL (70-110)
[2024-12-05] MEDS: IPRATROPIUM-ALBUTEROL 3 ML NEB INHALATION SCH (12:12)
[2024-12-05] MEDS: ASPIRIN 300 MG SUPP RECTAL STA (14:04)
[2024-12-05 14:08] LABS: ABG Base Excess -3.6 mmol/L; ABG HCO3 22 mmol/L (21-25); ABG PCO2 40 mmHg (35-45); ABG PH 7.35 (7.35-7.45); ABG PO2 132 mmHg (83-108); ABG TCO2 23 mmol/L (19-24); Allen Test Performed? no
[2024-12-05] MEDS: METOPROLOL TARTRATE 12.5 MG TAB PO SCH (14:08)
[2024-12-05] MEDS: ASPIRIN 81 MG PO SCH (14:09)
[2024-12-05] MEDS: ATORVASTATIN 80 MG TAB PO SCH (14:09)
[2024-12-05] MEDS: CLOPIDOGREL 75 MG TAB PO SCH (14:09)
[2024-12-05] MEDS: lamoTRIgine 100 MG TAB PO SCH (14:09)
[2024-12-05] MEDS: VENLAFAXINE HCL ER 150 MG CAP PO SCH (14:09)
[2024-12-05] MEDS: PIPERACILLIN-TAZOBACTAM 3.375 GM in SODIUM CHLORIDE 0.9% 100 ML IVPB SCH (14:09)
[2024-12-05] MEDS: SODIUM CHLORIDE 0.9% 500 ML 500 ML IV ONE (14:10)
[2024-12-05] MEDS: HEPARIN SODIUM 1,000 UN/ML (10ML VL) IV PRN (14:24)
--- NOTE | 2024-12-05 14:51 | OP ---
OPERATIVE REPORT DATE OF SERVICE : PROCEDURE: Placement of a right radial arterial line. PREOPERATIVE DIAGNOSES: Acute hypoxic respiratory failure with pneumonia and pulmonary edema. POSTOPERATIVE DIAGNOSES: Acute hypoxic respiratory failure with pneumonia and pulmonary edema. ANESTHESIA USED: None deployed. DESCRIPTION OF PROCEDURE: The right wrist was prepared in a sterile fashion. Drapes were applied. The right radial artery was palpated, easily cannulated. A guidewire was placed. A Cook's catheter was inserted over the guidewire, and the guidewire was removed. Good blood flow good waveform, no complications. Line was secured using 3-0 silk sutures. MMODL / IJN: [id number] /
--- NOTE | 2024-12-05 15:17 | P.CNPUL ---
History of Present Illness Consult date: 12/05/24 Requesting physician: Erich Ivey Reason for consult: other (Acute hypoxic respiratory failure) Chief complaint: Shortness of breath History of present illness: This is a 69-year-old white male with history of multiple medical problems including coronary artery disease, previous CABG, patient presented to [facility] in [place] with symptoms of shortness of breath, patient was diagnosed as having congestive heart failure. Apparently he was intubated upon his initial arrival to the ER, patient was stabilized and transferred to [facility]. Seen briefly in the ER, patient was admitted to the ICU, and we were asked to see him in consultation. Patient is presently on assist-control mode of mechanical ventilation with rate of 18 tidal volume 500 FiO2 60% PEEP of 5 ABG showed a pO2 of 81 pCO2 48 pH of 7.31 patient is on Versed at 10 mg/h he is also on propofol which will be titrated accordingly patient is receiving Zosyn empirically for presumptive right lower lobe pneumonia chest x-ray on his initial presentation showed pulmonary edema patient is receiving Lasix he is also receiving antibiotics in the form of Zosyn cultures are pending in addition to his underlying coronary artery disease, patient is known to have history of severe aortic stenosis and history of factor V Leyden mutation. Patient was admitted to [facility] few months ago with a non-ST elevation myocardial infarction hypertensive emergency, patient is known to have history of surgical aortic valve replacement as well as CABG and he is known to have history of type 2 diabetes. Not much history could be obtained from the patient himself. Chest x-ray in our association showed airspace consolidation involving right lower lobe and right midlung, the findings on the chest x-ray are more suggestive of pneumonia than actual pulmonary edema. WBC count showed leukocy tosis with WBC of 15.6 hemoglobin 14.8, electrolytes were normal renal profile is normal troponin however went up as high as 9.6 from initial troponin of 0.2 on his initial admission. proBNP level is elevated at 2630. Procalcitonin level is 0.31. Review of Systems ROS unobtainable: due to endotracheal tube Past Medical History Past Medical History: Blood Disorder, Coronary Artery Disease (CAD), Chest Pain / Angina, Heart Failure, CVA/TIA, Diabetes Mellitus, GERD/Reflux, Hyperlipidemia, Hypertension, Myocardial Infarction (ND), Musculoskeletal Disorder, Osteoarthritis (OA), Sleep Apnea/CPAP/BIPAP Additional Past Medical History / Comment(s): HX ND X 2, HX CVA'S/TIA'S - LEFT ARM & LEG WEAKNESS, FACTOR 5 BLOOD DISORDER., DIABETIC NEUROPATHY IN FEET AND LEGS., SLEEP APNEA WITH C-PAP ., BACK PAIN , INDIGESTION., SEE CARDIOLOGY H & P. (Parkinson's new diagnosis) Last Myocardial Infarction Date:: 2014 History of Any Multi-Drug Resistant Organisms: None Reported Past Surgical History: Cholecystectomy, Heart Catheterization, Heart Catheterization With Stent, Orthopedic Surgery, Tonsillectomy Additional Past Surgical History / Comment(s): Radio Freq Proc to Back 04-01-16, R TOTAL KNEE. R KNEE ARTHROSCOPIES ., CARDIAC CATH [address] Jorge Luis SMITH.04/07/14 HEART CATH WITH STENT TO MID LAD. Past Anesthesia/Blood Transfusion Reactions: Previous Problems w/ Anesthesia, Postoperative Nausea & Vomiting (PONV) Additional Past Anesthesia/Blood Transfusion Reaction / Comment(s): LOOPY- (HALLUCINATED) (Don't give fentanyl and dialudid at same time) Date of Last Stent Placement:: 2014 Past Psychological History: Anxiety, Depression Smoking Status: Never smoker Past Alcohol Use History: None Reported - Past Family History Sister(s) Family Medical History: Coronary Artery Disease (CAD), Diabetes Mellitus Additional Family Medical History / Comment(s): SISTER(1) HAD DM, SISTER(2) HAD CAD-CABG Father Family Medical History: Cancer Additional Family Medical History / Comment(s): FATHER OF COLON CA AT AGE 76 YRS. Mother Family Medical History: Cancer, Congestive Heart Failure (CHF), Myocardial Infarction (ND) Additional Family Medical History / Comment(s): MOTHER AT AGE 57 OR ND. MOM HAD PSYCHOLOLGICAL ISSUES. Medications and Allergies Home Medications Medication Instructions Recorded Confirmed Type Tamsulosin HCl [Flomax] 0.8 mg PO DAILY@1600 04/21/19 12/05/24 History Atorvastatin [Lipitor] 80 mg PO HS 07/13/21 12/05/24 History Famotidine [Pepcid] 20 mg PO BID 7 Days #14 tablet 07/18/21 12/05/24 Rx Potassium Chloride [Klor-Con M10] 10 meq PO DAILY #30 tab 07/18/21 12/05/24 Rx Aspirin EC [Ecotrin Low Dose] 81 mg PO DAILY 10/17/24 12/05/24 History Carbidopa-Levodopa 25-100 mg 1 tab PO TID 10/17/24 12/05/24 History [Sinemet 25-100 mg] Clopidogrel [Plavix] 75 mg PO DAILY 10/17/24 12/05/24 History Furosemide [Lasix] 20 mg PO DAILY 10/17/24 12/05/24 History Gabapentin 600 mg PO TID 10/17/24 12/05/24 History Isosorbide Mononitrate ER [Imdur] 30 mg PO DAILY 10/17/24 12/05/24 History L.acidoph,Paracasei, B.lactis 1 cap PO DAILY 10/17/24 12/05/24 History [Probiotic] Venlafaxine HCl ER [Effexor XR] 150 mg PO DAILY 10/17/24 12/05/24 History lamoTRIgine [LaMICtal] 100 mg PO BID 10/17/24 12/05/24 History methocarbamoL [Robaxin-750] 750 mg PO TID 10/17/24 12/05/24 History LORazepam [Ativan] 0.5 mg PO QID PRN 12/05/24 12/05/24 History Metoprolol Tartrate [Lopressor] 12.5 mg PO BID 12/05/24 12/05/24 History lisinopriL [Zestril] 10 mg PO HS 12/05/24 12/05/24 History Allergies Allergy/AdvReac Type Severity Reaction Status Date / Time nitroglycerin AdvReac Severe SL nitro Verified 12/05/24 00:32 caused severe low HR and B/P adhesive AdvReac blisters Verified 12/05/24 00:32 fentanyl AdvReac Unknown Verified 12/05/24 00:32 hydromorphone [From Dilaudid] AdvReac Unknown Verified 12/05/24 00:32 Physical Exam Vitals: Vital Signs Temp Pulse Resp BP Pulse Ox FiO2 12/05/24 13:00 90 19 82/57 99 12/05/24 12:27 80 12/05/24 12:13 86 50 12/05/24 12:00 98.2 F 80 19 92/65 100 60 12/05/24 11:00 86 20 79/51 100 12/05/24 10:00 92 26 H 139/90 100 12/05/24 09:00 120 H 24 94/64 86 L 12/05/24 08:52 94 12/05/24 08:37 78 12/05/24 08:36 60 12/05/24 08:00 98.5 F 75 14 107/68 100 60 12/05/24 07:24 84 20 118/79 97 12/05/24 07:00 76 21 111/72 98 12/05/24 06:00 98.3 F 91 22 108/64 97 12/05/24 05:00 98.1 F 73 18 129/80 97 12/05/24 04:01 93 24 128/85 98 12/05/24 04:00 98.1 F 75 18 132/92 98 12/05/24 03:59 60 12/05/24 03:30 77 19 126/85 99 12/05/24 03:00 98.0 F 77 18 126/85 100 12/05/24 02:00 80 18 135/84 100 12/05/24 01:35 60 12/05/24 01:31 98.1 F 84 18 130/94 100 12/05/24 00:43 74 18 123/77 100 12/05/24 00:37 100 12/05/24 00:36 100 12/05/24 00:24 98.2 F 66 18 102/48 100 Intake and Output 12/05/24 12/05/24 12/05/24 06:59 14:59 22:59 Intake Total 28.633 520.971 Output Total 1000 315 Balance -971.367 205.971 Intake: IV 450 0.9 450 Intake, IV Titration 28.633 70.971 Amount Heparin Sod,Pork in 0.45% 70.971 NaCl 25,000 unit In 0.45 % NaCl 1 250ml.bag @ 7.5 UNITS/KG/HR 10.043 mls/hr IV .Q24H [facility] Rx#: [id number] Midazolam HCl 50 mg In 28.633 Sodium Chloride 0.9% 40 ml @ 1 MG/HR 1 mls/hr IV .Q24H [facility] Rx#:[id number] Output: Urine 1000 315 Uretheral (Torres) 1000 Other: Voiding Method Indwelling Catheter Weight 133.9 kg 133.9 kg ABP, PAP, CO, CI - Last 8 Hours Arterial Blood Pressure 91/46 Arterial Blood Pressure 100/51 Arterial Blood Pressure 89/50 Vital signs reviewed GENERAL: 69-year-old white male intubated mechanically ventilated HEENT: Head is atraumatic, normocephalic. Pupils equal, round. Sclerae is anicteric. Endotracheal tube is intact. NECK: Supple. No JVD. Left carotid bruit LUNGS: Crackles and rhonchi noted bilaterally. HEART: Regular rate and rhythm. Ejection systolic murmur, Second heart sound is preserved. ABDOMEN: Obese soft nontender no rebound no guarding EXTREMITIES: Trace of bipedal edema no clubbing no cyanosis. NEUROLOGICAL: Could not assess patient is fully sedated, on Versed and propofol. Psychiatric: Could not assess. Results - Laboratory Findings CBC and BMP: 12/05/24 06:15 12/05/24 07:55 ABG ABG pH 7.35 (7.35-7.45) 12/05/24 12:22 ABG pCO2 40 mmHg (35-45) 12/05/24 12:22 ABG pO2 132 mmHg (83-108) H 12/05/24 12:22 ABG O2 Saturation 99.0 % (94-97) H 12/05/24 12:22 PT/INR, D-dimer PT 11.0 sec (10.0-12.5) 12/05/24 06:15 INR 1.0 (<1.2) 12/05/24 06:15 Abnormal lab findings: Abnormal Labs 12/05/24 12/05/24 12/05/24 00:36 01:24 05:38 WBC MCH Immature Gran # Neutrophils # Lymphocytes # Eosinophils # APTT ABG pH 7.28 L ABG pCO2 50 H ABG pO2 332 H ABG Total CO2 25 H ABG O2 Saturation 99.6 H Chloride Carbon Dioxide BUN Glucose POC Glucose (mg/dL) AST Troponin I 0.237 H* 6.540 H* 12/05/24 12/05/24 12/05/24 05:47 06:15 07:55 WBC 15.67 H MCH 32.9 H Immature Gran # 0.08 H Neutrophils # 14.74 H Lymphocytes # 0.58 L Eosinophils # 0.00 L APTT ABG pH 7.31 L ABG pCO2 48 H ABG pO2 81 L ABG Total CO2 26 H ABG O2 Saturation Chloride Carbon Dioxide BUN Glucose POC Glucose (mg/dL) AST Troponin I 9.630 H* 12/05/24 12/05/24 12/05/24 07:55 11:18 12:06 WBC MCH Immature Gran # Neutrophils # Lymphocytes # Eosinophils # APTT 34.8 H ABG pH ABG pCO2 ABG pO2 ABG Total CO2 ABG O2 Saturation Chloride 108 H Carbon Dioxide 20 L BUN 24 H Glucose 184 H POC Glucose (mg/dL) 174 H AST 79 H Troponin I 12/05/24 12:22 WBC MCH Immature Gran # Neutrophils # Lymphocytes # Eosinophils # APTT ABG pH ABG pCO2 ABG pO2 132 H ABG Total CO2 ABG O2 Saturation 99.0 H Chloride Carbon Dioxide BUN Glucose POC Glucose (mg/dL) AST Troponin I - Diagnostic Findings Chest x-ray: image reviewed (As noted in HPI) Assessment and Plan Assessment: Impression: Acute hypoxic and hypercapnic respiratory failure Acute pulmonary edema Suspected right lower lobe pneumonia possibly aspiration pneumonia History of underlying coronary artery disease and previous CABG, previous stenting to LAD and CABG History of severe aortic stenosis requiring aortic valve replacement Acute non-ST elevation myocardial infarction with significantly elevated troponin History of systolic dysfunction with ejection fraction of 45 to 50% based on echocardiogram dated 10/16 125 Type 2 diabetes Factor V Leyden deficiency History of TIA Essential hypertension Recommendation: Continue ventilatory support Continue hemodynamic support Continue antibiotics/Zosyn for presumptive and possible aspiration pneumonia Continue diuretics Continue heparin as per cardiology the case Resume home meds Nutritional support in the next 24 hours to start enteral feeding GI and DVT prophylaxis Overall prognosis is poor and guarded Patient is critically ill We will continue to follow Critical care time is 55 minutes Time with Patient: Greater than 30
--- NOTE | 2024-12-05 17:06 | P.CRDCN ---
History of Present Illness Consult date: 12/05/24 History of present illness: - . HPI: This is a 69-year-old gentleman with multiple medical problems. He underwent aortic valve replacement and bypass surgery. He had a tissue valve this was performed here in 2019. He was recently hospitalized with severe stenosis of the aortic valve and was also seen by structural heart team and was being planned for a valve in valve placement however he came into the hospital upon transfer from [place] where he presented with shortness of breath and was intubated troponin is elevated and it is possible he has a non-ST elevation CO he had a recent cardiac cath which revealed severe chipewwa triple-vessel disease with a LIM to LAD that was patent and a vein graft to the obtuse marginal and diagonal which was a sequential graft was also patent. RCA is a large dominant vessel moderate calcification no significant disease. Patient was seen by Dr. Magallanes and Dr. Madera in the structural heart clinic was advised to have a valve in valve and preparations are being made for this.. RELEVANT PAST MEDICAL HISTORY: Ischemic cardiomyopathy with a prior bypass surgery and aortic valve replacement surgically in May 2019. He had a LIM to LAD vein graft to the diagonal and obtuse minor at that time with a aortic valve replacement by a tissue valve. Valve has developed degeneration and was recently found to have severe aortic stenosis and is being planned to have a valve in valve percutaneous aortic valve implant. He also has hypertension hyperlipidemia. He had a recent hospitalization as well. He has underlying Parkinson's. MEDICATIONS: See chart ALLERGIES:. See chart REVIEW OF SYSTEMS:. PHYSICIAL EXAM: Patient is currently on a ventilator vitals are stable he is in a sinus rhythm JVD is evident S1-S2 with ejection systolic murmur lungs reveal ventilator assisted breath sounds abdomen is soft lower EXTR reveal diminished pulses Central nervous system not assessed EKG revealed sinus mechanism with ST depression in precordial leads and T wave inversion.. IMPRESSION: 1. Non-ST elevation with congestive heart failure intubated. 2. Severe aortic valve stenosis of a bioprosthetic aortic valve being considered for valve in valve TAVR. 3. Hypertension. 4.. 5.. RECOMMENDATIONS: I would recommend that we continue heparin and perform a limited echocardiogram do supportive care will seek further input from cardiac surgery as well. I reviewed the recent cath and the bypasses were open but EKG shows significant changes this could also be related to aortic valve stenosis as well. If there are new wall motion abnormalities consider repeat cardiac cath prognosis remains guarded. Past Medical History Past Medical History: Blood Disorder, Coronary Artery Disease (CAD), Chest Pain / Angina, Heart Failure, CVA/TIA, Diabetes Mellitus, GERD/Reflux, Hype rlipidemia, Hypertension, Myocardial Infarction (CO), Musculoskeletal Disorder, Osteoarthritis (OA), Sleep Apnea/CPAP/BIPAP Additional Past Medical History / Comment(s): HX CO X 2, HX CVA'S/TIA'S - LEFT ARM & LEG WEAKNESS, FACTOR 5 BLOOD DISORDER., DIABETIC NEUROPATHY IN FEET AND LEGS., SLEEP APNEA WITH C-PAP ., BACK PAIN , INDIGESTION., SEE CARDIOLOGY H & P. (Parkinson's new diagnosis) Last Myocardial Infarction Date:: 2014 History of Any Multi-Drug Resistant Organisms: None Reported Past Surgical History: Cholecystectomy, Heart Catheterization, Heart Catheterization With Stent, Orthopedic Surgery, Tonsillectomy Additional Past Surgical History / Comment(s): Radio Freq Proc to Back 04-01-16, R TOTAL KNEE. R KNEE ARTHROSCOPIES ., CARDIAC CATH [address] Jorge Luis SMITH.04/07/14 HEART CATH WITH STENT TO MID LAD. Past Anesthesia/Blood Transfusion Reactions: Previous Problems w/ Anesthesia, Postoperative Nausea & Vomiting (PONV) Additional Past Anesthesia/Blood Transfusion Reaction / Comment(s): LOOPY-(HALLUCINATED) (Don't give fentanyl and dialudid at same time) Date of Last Stent Placement:: 2014 Past Psychological History: Anxiety, Depression Smoking Status: Never smoker Past Alcohol Use History: None Reported - Past Family History Sister(s) Family Medical History: Coronary Artery Disease (CAD), Diabetes Mellitus Additional Family Medical History / Comment(s): SISTER(1) HAD DM, SISTER(2) HAD CAD-CABG Father Family Medical History: Cancer Additional Family Medical History / Comment(s): FATHER OF COLON CA AT AGE 76 YRS. Mother Family Medical History: Cancer, Congestive Heart Failure (CHF), Myocardial Infarction (CO) Additional Family Medical History / Comment(s): MOTHER AT AGE 57 OR [place]. MOM HAD PSYCHOLOLGICAL ISSUES. Medications and Allergies Home Medications Medication Instructions Recorded Confirmed Type Tamsulosin HCl [Flomax] 0.8 mg PO DAILY@1600 04/21/19 12/05/24 History Atorvastatin [Lipitor] 80 mg PO HS 01/15/22 06/09/25 History Famotidine [Pepcid] 20 mg PO BID 7 Days #14 tablet 07/18/21 12/05/24 Rx Potassium Chloride [Klor-Con M10] 10 meq PO DAILY #30 tab 07/18/21 12/05/24 Rx Aspirin EC [Ecotrin Low Dose] 81 mg PO DAILY 10/17/24 12/05/24 History Carbidopa-Levodopa 25-100 mg 1 tab PO TID 10/17/24 12/05/24 History [Sinemet 25-100 mg] Clopidogrel [Plavix] 75 mg PO DAILY 10/17/24 12/05/24 History Furosemide [Lasix] 20 mg PO DAILY 10/17/24 12/05/24 History Gabapentin 600 mg PO TID 10/17/24 12/05/24 History Isosorbide Mononitrate ER [Imdur] 30 mg PO DAILY 10/17/24 12/05/24 History L.acidoph,Paracasei, B.lactis 1 cap PO DAILY 10/17/24 12/05/24 History [Probiotic] Venlafaxine HCl ER [Effexor XR] 150 mg PO DAILY 10/17/24 12/05/24 History lamoTRIgine [LaMICtal] 100 mg PO BID 10/17/24 12/05/24 History methocarbamoL [Robaxin-750] 750 mg PO TID 10/17/24 12/05/24 History LORazepam [Ativan] 0.5 mg PO QID PRN 12/05/24 12/05/24 History Metoprolol Tartrate [Lopressor] 12.5 mg PO BID 12/05/24 12/05/24 History lisinopriL [Zestril] 10 mg PO HS 12/05/24 12/05/24 History Allergies Allergy/AdvReac Type Severity Reaction Status Date / Time nitroglycerin AdvReac Severe SL nitro Verified 12/05/24 00:32 caused severe low HR and B/P adhesive AdvReac blisters Verified 12/05/24 00:32 fentanyl AdvReac Unknown Verified 12/05/24 00:32 hydromorphone [From Dilaudid] AdvReac Unknown Verified 12/05/24 00:32 Physical Exam Vitals: Vital Signs Temp Pulse Resp BP Pulse Ox FiO2 12/05/24 16:09 86 12/05/24 16:02 82 40 12/05/24 13:00 90 19 82/57 99 12/05/24 12:27 80 12/05/24 12:13 86 50 12/05/24 12:00 98.2 F 80 19 92/65 100 60 12/05/24 11:00 86 20 79/51 100 12/05/24 10:00 92 26 H 139/90 100 12/05/24 09:00 120 H 24 94/64 86 L 12/05/24 08:52 94 12/05/24 08:37 78 12/05/24 08:36 60 12/05/24 08:00 98.5 F 75 14 107/68 100 60 12/05/24 07:24 84 20 118/79 97 12/05/24 07:00 76 21 111/72 98 12/05/24 06:00 98.3 F 91 22 108/64 97 12/05/24 05:00 98.1 F 73 18 129/80 97 12/05/24 04:01 93 24 128/85 98 12/05/24 04:00 98.1 F 75 18 132/92 98 12/05/24 03:59 60 12/05/24 03:30 77 19 126/85 99 12/05/24 03:00 98.0 F 77 18 126/85 100 12/05/24 02:00 80 18 135/84 100 12/05/24 01:35 60 12/05/24 01:31 98.1 F 84 18 130/94 100 12/05/24 00:43 74 18 123/77 100 12/05/24 00:37 100 12/05/24 00:36 100 12/05/24 00:24 98.2 F 66 18 102/48 100 Intake and Output 12/05/24 12/05/24 12/05/24 06:59 14:59 22:59 Intake Total 28.633 520.971 Output Total 1000 315 Balance -971.367 205.971 Intake: IV 450 0.9 450 Intake, IV Titration 28.633 70.971 Amount Heparin Sod,Pork in 0.45% 70.971 NaCl 25,000 unit In 0.45 % NaCl 1 250ml.bag @ 7.5 UNITS/KG/HR 10.043 mls/hr IV .Q24H [facility] Rx#: [id number] Midazolam HCl 50 mg In 28.633 Sodium Chloride 0.9% 40 ml @ 1 MG/HR 1 mls/hr IV .Q24H [facility] Rx#:[id number] Output: Urine 1000 315 Uretheral (Torres) 1000 Other: Voiding Method Indwelling Catheter Weight 133.9 kg 133.9 kg ABP, PAP, CO, CI - Last 8 Hours Arterial Blood Pressure 91/46 Arterial Blood Pressure 100/51 Arterial Blood Pressure 89/50 Results 12/05/24 06:15 12/05/24 07:55 Cardiac Enzymes 12/05/24 12/05/24 12/05/24 Range/Units 00:36 05:38 07:55 AST (17-59) U/L Troponin I 0.237 H* 6.540 H* 9.630 H* (0.000-0.034) ng/mL 12/05/24 Range/Units 07:55 AST 79 H (17-59) U/L Troponin I (0.000-0.034) ng/mL Coagulation 12/05/24 12/05/24 Range/Units 06:15 12:06 PT 11.0 (10.0-12.5) sec APTT 24.0 34.8 H (22.0-30.0) sec CBC 12/05/24 Range/Units 06:15 WBC 15.67 H (4.50-10.00) 10*3/uL RBC 4.50 (4.40-5.60) 10*6/uL Hgb 14.8 (13.0-17.0) g/dL Hct 43.4 (39.6-50.0) % Plt Count 188 (140-440) 10*3/uL Comprehensive Metabolic Panel 12/05/24 Range/Units 07:55 Sodium 139 (137-145) mmol/L Potassium 4.8 (3.5-5.1) mmol/L Chloride 108 H (98-107) mmol/L Carbon Dioxide 20 L (22-30) mmol/L BUN 24 H (9-20) mg/dL Creatinine 0.98 (0.66-1.25) mg/dL Glucose 184 H (74-99) mg/dL Calcium 8.8 (8.4-10.2) mg/dL AST 79 H (17-59) U/L ALT 36 (4-49) U/L Alkaline Phosphatase 111 (38-126) U/L Total Protein 6.5 (6.3-8.2) g/dL Albumin 4.0 (3.5-5.0) g/dL Current Medications Generic Name Dose Route Start Last Admin Trade Name Freq PRN Reason Stop Dose Admin Albuterol/Ipratropium 3 ml 12/05/24 12:00 12/05/24 16:01 Ipratropium-Albuterol 3 Ml Neb INHALATION 3 ml RT-Q4H [facility] Administration Aspirin 81 mg 12/05/24 09:00 12/05/24 14:09 Aspirin 81 Mg PO 81 mg DAILY [facility] Administration Atorvastatin Calcium 80 mg 12/05/24 09:00 12/05/24 14:09 Atorvastatin 80 Mg Tab PO 80 mg DAILY [facility] Administration Carbidopa/Levodopa 1 each 12/05/24 16:00 Carbidopa-Levodopa 25-100 Mg 1 Each Tab PO TID [facility] Clopidogrel Bisulfate 75 mg 12/05/24 09:00 12/05/24 14:09 Clopidogrel 75 Mg Tab PO 75 mg DAILY [facility] Administration Gabapentin 600 mg 12/05/24 16:00 Gabapentin 300 Mg Cap PO TID [facility] Heparin Sodium (Porcine) 0 unit 12/05/24 06:03 12/05/24 14:24 Heparin Sodium 1,000 Un/Ml (10ml Vl) IV 3,348 unit PER PROTOCOL PRN Administration Low PTT Protocol Midazolam HCl 50 mg/ Sodium 50 mls @ 1 mls/hr 12/05/24 01:00 12/05/24 06:06 Chloride IV 10 mg/hr .Q24H [facility] 10 mls/hr Administration Protocol 1 MG/HR Sodium Chloride 1,000 mls @ 130 mls/hr 12/05/24 01:15 12/05/24 14:04 Saline 0.9% IV Not Given .Q7H42M [facility] Heparin Sodium/Sodium Chloride 250 mls @ 10.043 mls/hr 12/05/24 06:15 0 12/05/24 14:21 25,000 unit/ Sodium Chloride IV 9.5 units/kg/hr .Q24H [facility] 12.721 mls/hr Titration Protocol 7.5 UNITS/KG/HR Piperacillin Sod/Tazobactam 100 mls @ 25 mls/hr 12/05/24 10:00 12/05/24 14:09 Sod 3.375 gm/ Sodium Chloride IVPB 25 mls/hr Q8H [facility] Administration Protocol Propofol 1,000 mg/ IV Solution 100 mls @ 12.051 mls/hr 12/05/24 10:00 14:09 IV 15 mcg/kg/min .Q8H18M [facility] 12.051 mls/hr Administration Protocol 15 MCG/KG/MIN Lamotrigine 100 mg 12/05/24 09:00 12/05/24 14:09 Lamotrigine 100 Mg Tab PO 100 mg BID [facility] Administration Metoprolol Tartrate 12.5 mg 12/05/24 09:00 12/05/24 14:08 Metoprolol Tartrate 12.5 Mg Tab PO 12.5 mg DAILY [facility] Administration Naloxone HCl 0.2 mg 12/05/24 00:28 Naloxone 0.4 Mg/Ml 1 Ml Vial IV Q2M PRN Opioid Reversal Venlafaxine HCl 150 mg 12/05/24 09:00 12/05/24 14:09 Venlafaxine Hcl Er 150 Mg Cap PO 150 mg DAILY [facility] Administration Intake and Output 12/05/24 12/05/24 12/05/24 06:59 14:59 22:59 Intake Total 28.633 520.971 Output Total 1000 315 Balance -971.367 205.971 Intake: IV 450 0.9 450 Intake, IV Titration 28.633 70.971 Amount Heparin Sod,Pork in 0.45% 70.971 NaCl 25,000 unit In 0.45 % NaCl 1 250ml.bag @ 7.5 UNITS/KG/HR 10.043 mls/hr IV .Q24H [facility] Rx#: [id number] Midazolam HCl 50 mg In 28.633 Sodium Chloride 0.9% 40 ml @ 1 MG/HR 1 mls/hr IV .Q24H [facility] Rx#:[id number] Output: Urine 1000 315 Uretheral (Torres) 1000 Other: Voiding Method Indwelling Catheter Weight 133.9 kg 133.9 kg Patient Weight 12/06/24 06:59 Weight 133.9 kg 12/05/24 06:15 12/05/24 07:55
[2024-12-05 17:39] LABS: Glucose,Whole Blood 144 mg/dL (70-110)
[2024-12-05] MEDS: CARBIDOPA-LEVODOPA 25-100 MG 1 EACH TAB PO SCH (19:09)
[2024-12-05] MEDS: NOREPINEPHRINE 8 MG in SODIUM CHLORIDE 0.9% 250 ML IV SCH (19:09)
[2024-12-05] MEDS: GABAPENTIN 300 MG CAP PO SCH (19:09)
[2024-12-05] MEDS: CHLORHEXIDINE GLUCONATE 15 ML CUP MUCOUS MEM SCH (21:36)
[2024-12-06 05:35] LABS: Basophils # (A) 0.03 10*3/uL (0.00-0.10); Basophils % (A) 0.2 %; Eosinophils # (A) 0.02 10*3/uL (0.04-0.35); Eosinophils % (A) 0.1 %; HCT 42.9 % (39.6-50.0); HGB 14.2 g/dL (13.0-17.0); Lymphocytes # (A) 1.95 10*3/uL (0.90-5.00); Lymphocytes % (A) 11.5 %; MCH 32.6 pg (27.0-32.0); MCHC 33.1 g/dL (32.0-37.0); MCV 98.6 fL (80.0-97.0); Monocytes # (A) 1.42 10*3/uL (0.20-1.00); Monocytes % (A) 8.4 %; Neutrophils # (A) 13.49 10*3/uL (1.80-7.70); Neutrophils % (A) 79.4 %; Platelet Count 201 10*3/uL (140-440); RBC 4.35 10*6/uL (4.40-5.60); RDW 14.3 % (11.5-14.5); WBC 16.98 10*3/uL (4.50-10.00)
[2024-12-06 05:39] LABS: ABG Base Excess -3.5 mmol/L; ABG HCO3 22 mmol/L (21-25); ABG PCO2 38 mmHg (35-45); ABG PH 7.36 (7.35-7.45); ABG PO2 100 mmHg (83-108); ABG TCO2 23 mmol/L (19-24); Allen Test Performed? no
[2024-12-06 05:47] LABS: Partial Thromboplastin Time 34.4 sec (22.0-30.0); Prothrombin Time 11.3 sec (10.0-12.5)
[2024-12-06 05:52] LABS: ALT 21 U/L (4-49); AST 79 U/L (17-59); African American GFR (CKD) >90 (>60 ml/min/1.73 sqM); Albumin 3.3 g/dL (3.5-5.0); Alkaline Phosphatase 101 U/L (38-126); Anion Gap 9 mmol/L; Blood Urea Nitrogen 23 mg/dL (9-20); Calcium 8.5 mg/dL (8.4-10.2); Carbon Dioxide 21 mmol/L (22-30); Chloride 106 mmol/L (98-107); Glucose 207 mg/dL (74-99); Lipase 155 U/L (23-300); Magnesium 1.8 mg/dL (1.6-2.3); Non-African American GFR(CKD) 79 (>60 ml/min/1.73 sqM); Phosphorus 3.2 mg/dL (2.5-4.5); Potassium 3.9 mmol/L (3.5-5.1); Sodium 136 mmol/L (137-145); Total Bilirubin 0.4 mg/dL (0.2-1.3); Total Protein 5.7 g/dL (6.3-8.2)
--- NOTE | 2024-12-06 06:07 | XR ---
EXAMINATION TYPE: XR chest 1V DATE OF EXAM: 12/06/2024 5:19 AM COMPARISON: None. CLINICAL INDICATION: Male, 69 years old with history of chf, TECHNIQUE: XR chest 1V view(s) obtained. FINDINGS: The heart size is normal. Mildly prominent The pulmonary vasculature is prominent. Right lower lobe infiltrate is present. Diffuse increased lung markings are present. Small pleural e ffusions may be present. Endotracheal tube tip is 5.0 cm above cyndi. Nasogastric tube transverses the thorax. IMPRESSION: 1. Clinical correlation recommended for congestive heart failure. 2. Right lower lobe lung opacity could be related to pulmonary edema or pneumonia. Follow-up is recom mended. 3. Lines and catheters discussed above [facility], , 12/06/2024 6:04 AM
[2024-12-06] MEDS ORDERED: Potassium Replacement Protocol 1 EACH MISC MISCELLANE PRN (07:20)
[2024-12-06] MEDS: FUROSEMIDE 10 MG/ML 4 ML VIAL IV STA (08:10)
[2024-12-06] MEDS: POTASSIUM BICARBONATE/CIT AC 20 MEQ TABLET.EFF NG-TUBE SCH (08:10)
[2024-12-06] MEDS: SODIUM CHLORIDE 0.9% 1,000 ML IV SCH (08:13)
--- NOTE | 2024-12-06 10:57 | CA ---
Transthoracic Echo Report Name: Martita Levine Age: 69 Gender: M : 1955 Exam Date: 12/05/2024 12:19 Exam Location: [facility] Ht (in): 74 Wt (lb): 294 Ordering Physician: Kris Whitley DO Attending/Referring Phys: [id number], [employer] Denise Fuentes RDCS Procedure CPT: Indications: Heart failure Cardiac Hx: Technical Quality: Poor Contrast 1: Definity Total Dose (mL): 2 Contrast 2: Total Dose (mL): MEASUREMENTS (Male / Female) Normal Values 2D ECHO LV Diastolic Volume MOD BP 93.7 cm??? 67 - 155 / 56 - 104 cm??? LV Systolic Volume MOD BP 54.9 cm??? 22 - 58 / 19 - 49 cm??? LV Ejection Fraction MOD BP 41.4 % >= 55 % LV Cardiac Index MOD BP 1184.9 cm???/min???m??? LV Diastolic Volume MOD 4C 92.0 cm??? LV Systolic Volume MOD 4C 47.8 cm??? LV Ejection Fraction MOD 4C 48.1 % LV Cardiac Index MOD 4C 1349.0 cm???/min???m??? LV Diastolic Length 4C 8.3 cm LV Systolic Length 4C 7.6 cm LV Diastolic Volume MOD 2C 92.4 cm??? LV Systolic Volume MOD 2C 61.1 cm??? LV Ejection Fraction MOD 2C 33.9 % LV Cardiac Index MOD 2C 957.5 cm???/min???m??? LV Diastolic Length 2C 8.6 cm LV Systolic Length 2C 7.5 cm FINDINGS Left Ventricle Left ventricular ejection fraction is estimated at 35 to 40%. Anteroapical and anteroseptal akinesis %. Right Ventricle Right Atrium Mild right atrial dilatation. Left Atrium Mild left atrial dilatation. Mitral Valve Mitral annular calcification. Aortic Valve Tricuspid Valve Pulmonic Valve Pericardium Aorta CONCLUSIONS Limited echo. Technically difficult study. Definity ECHO contrast used for improved visualization of the endocardial borders (inadequate visualization of two or more contiguous segments). Severely impaired left ventricular systolic function with segmental wall motion abnormality consistent with CAD Previewed by: Dr. Benigno Bourgeois MD (Electronically Signed) Final Date: 06 December 2024 10:56
[2024-12-06 11:33] LABS: Glucose,Whole Blood 172 mg/dL (70-110)
--- NOTE | 2024-12-06 12:00 | P.PN ---
Subjective Progress Note Date: 12/06/24 HPI: This patient has significant history of CAD status post aortocoronary bypass surgery and aortic valve replacement surgically in 2019 with significant valve degeneration and restenosis and was seen by the structural heart team and Dr. Magallanes and Dr. Madera were planning on doing a TAVR next week. However he came into the hospital with increasing shortness of breath [place] was intubated sent here. Clinical picture is not much of CHF but more likely that of a non-ST elevation DC which could be related to CAD or even aortic stenosis but he also has elevated white count possibility of pneumonia. He is still on a ventilator maintaining sinus rhythm hemodynamically stable. White count is e levated possibility of right lower pneumonia is being. PHYSICIAL EXAM: Vitals are stable JVD 1 cm no carotid bruit S1-S2 with ejection systolic murmur lungs reveal ventilator assisted breath sounds abdomen is soft lower extremities reveal diminished pulses Central nervous system exam not performed. IMPRESSION: 1. Non-ST elevation DC. 2. Possible right lower lobe pneumonia. 3. Severe aortic stenosis of a bioprosthetic valve. 4. CAD with prior bypass surgery. 5.. RECOMMENDATIONS: Continue supportive care including IV heparin possible extubation following this we will decide if he needs to have a coronary angiogram prior to aortic valve replacement. I have also requested cardiac surgery to evaluate the patient as well prognosis remains guarded. Objective - Vital Signs Vital signs: Vital Signs Temp 98.6 F 12/06/24 08:00 Pulse 96 12/06/24 11:53 Resp 20 12/06/24 11:30 BP 99/67 12/06/24 11:30 Pulse Ox 97 12/06/24 11:30 FiO2 40 12/06/24 11:50 Intake & Output 12/05/24 12/06/24 12/06/24 18:59 06:59 18:59 Intake Total 835.212 1755.272 115 Output Total 344 174 9420 Balance 967.248 3199.272 -1895 Weight 133.9 kg 140 kg Intake: IV 825 1100 115 0.9 825 900 115 Piperacillin-Tazobactam 3 200 .375 gm In Sodium Chloride 0.9% 100 ml @ 25 mls/hr IVPB Q8H [facility] Rx#: [id number] Intake, IV Titration 170.971 581.272 Amount Heparin Sod,Pork in 0.45% 70.971 206.080 NaCl 25,000 unit In 0.45 % NaCl 1 250ml.bag @ 7.5 UNITS/KG/HR 10.043 mls/hr IV .Q24H [facility] Rx#: [id number] Norepinephrine 8 mg In 88.224 Sodium Chloride 0.9% 250 ml @ 0.03 MCG/KG/MIN 7. 773 mls/hr IV .Q24H [facility] Rx#:[id number] propofoL 1,000 mg In 100.000 286.968 Empty Bag 1 bag @ 15 MCG/ KG/MIN 12.051 mls/hr IV . Q8H18M [facility] Rx#:[id number] Other 50 Output: Urine 456 827 9570 Other: Voiding Method Indwelling Catheter Indwelling Catheter ABP, PAP, CO, CI - Last Documented Arterial Blood Pressure 89/51 - Labs CBC & Chem 7: 12/06/24 05:15 12/06/24 05:15 Labs: Abnormal Lab Results - Last 24 Hours (Table) 12/05/24 12/05/24 12/05/24 Range/Units 12:06 12:22 17:38 WBC (4.50-10.00) 10*3/uL RBC (4.40-5.60) 10*6/uL MCV (80.0-97.0) fL MCH (27.0-32.0) pg Immature Gran # (0.00-0.04) 10*3/uL Neutrophils # (1.80-7.70) 10*3/uL Monocytes # (0.20-1.00) 10*3/uL Eosinophils # (0.04-0.35) 10*3/uL APTT 34.8 H (22.0-30.0) sec ABG pO2 132 H (83-108) mmHg ABG O2 Saturation 99.0 H (94-97) % Sodium (137-145) mmol/L Carbon Dioxide (22-30) mmol/L BUN (9-20) mg/dL Glucose (74-99) mg/dL POC Glucose (mg/dL) 144 H (70-110) mg/dL AST (17-59) U/L Total Protein (6.3-8.2) g/dL Albumin (3.5-5.0) g/dL 12/05/24 12/06/24 12/06/24 Range/Units 20:20 05:15 05:15 WBC 16.98 H (4.50-10.00) 10*3/uL RBC 4.35 L (4.40-5.60) 10*6/uL MCV 98.6 H (80.0-97.0) fL MCH 32.6 H (27.0-32.0) pg Immature Gran # 0.07 H (0.00-0.04) 10*3/uL Neutrophils # 13.49 H (1.80-7.70) 10*3/uL Monocytes # 1.42 H (0.20-1.00) 10*3/uL Eosinophils # 0.02 L (0.04-0.35) 10*3/uL APTT 41.3 H (22.0-30.0) sec ABG pO2 (83-108) mmHg ABG O2 Saturation (94-97) % Sodium 136 L (137-145) mmol/L Carbon Dioxide 21 L (22-30) mmol/L BUN 23 H (9-20) mg/dL Glucose 207 H (74-99) mg/dL POC Glucose (mg/dL) (70-110) mg/dL AST 79 H (17-59) U/L Total Protein 5.7 L (6.3-8.2) g/dL Albumin 3.3 L (3.5-5.0) g/dL 12/06/24 12/06/24 Range/Units 05:15 11:32 WBC (4.50-10.00) 10*3/uL RBC (4.40-5.60) 10*6/uL MCV (80.0-97.0) fL MCH (27.0-32.0) pg Immature Gran # (0.00-0.04) 10*3/uL Neutrophils # (1.80-7.70) 10*3/uL Monocytes # (0.20-1.00) 10*3/uL Eosinophils # (0.04-0.35) 10*3/uL APTT 34.4 H (22.0-30.0) sec ABG pO2 (83-108) mmHg ABG O2 Saturation (94-97) % Sodium (137-145) mmol/L Carbon Dioxide (22-30) mmol/L BUN (9-20) mg/dL Glucose (74-99) mg/dL POC Glucose (mg/dL) 172 H (70-110) mg/dL AST (17-59) U/L Total Protein (6.3-8.2) g/dL Albumin (3.5-5.0) g/dL Microbiology - Last 24 Hours (Table) 12/05/24 09:01 Gram Stain - Preliminary Sputum Sputum Culture - Preliminary
[2024-12-06 12:02] VITALS: BMI 39.6
[2024-12-06] MEDS ORDERED: DEXTROSE 50% SYRINGE 50 ML IVP PRN ×2 (12:07)
--- NOTE | 2024-12-06 12:09 | P.PN ---
Subjective Progress Note Date: 12/06/24 Subjective: Patient seen and examined at bedside. No acute events overnight. Remains intubated sedated Pertinent positives and negatives as discussed above, a complete review of systems was performed and all other systems are negative. Vitals Signs Reviewed. General: Intubated sedated Derm: Warm, dry Head: Atraumatic, normocephalic, symmetric Eyes: Pupils equal and reactive, anicteric sclera Mouth: No lip lesion, mucus membranes moist Cardiovascular: S1S2 reg, systolic murmur Lungs: Bilateral rales, no accessory muscle use, mechanically ventilated Abdominal: Soft, nontender to palpation, no appreciable organomegaly Ext: No gross muscle atrophy, no edema, no contractures, cold extremities Neuro: Sedated Psych: Unable to assess Data Reviewed Today: Pertinent Labs: WBC 16.98, pH 7.36, pCO2 38, bicarb 21, creatinine 0.97, troponin up trended to 9.63, blood sugars range between 144-207 Imaging: Chest x-ray independently interpreted, shows right lower lobe opacity, bilateral interstitial opacities Assessment and Plan: Active: Acute hypoxic and hypercapnic respiratory failure Acute pulmonary edema Severe aortic stenosis status post bioprosthetic aortic valve replacement with worsening stenosis History of CAD status post CABG and stents Acute NSTEMI HFrEF exacerbation, EF 45 to 50% Possible right lower lobe pneumonia, likely aspiration - Echocardiogram concerning for LVEF 35 to 40% with anteroapical and anteroseptal akinesis - Per cardiology, NSTEMI likely in the setting of CHF exacerbation, as well as severe aortic valve stenosis of previous bioprosthetic aortic valve replacement - Discussed with cardiothoracic surgery, ongoing discussion whether to repeat cardiac cath or not as patient recently had a cardiac cath completed - Patient continued on heparin drip, monitor APTT, monitor for bleeding - Was given 40 mg IV Lasix once today - Pulmonology planning for weaning sedation and assess for extubation - Continue aspirin 81 mg, atorvastatin 80 mg, Plavix 75 mg, metoprolol 12.5 daily - Sputum culture, blood cultures pending - Patient remains on IV Zosyn 3.375 g every 8 hours Type 2 diabetes - Sliding scale insulin, monitor for hypoglycemia Acute urinary retention - Torres catheter in place Chronic: Hypertension History of TIA Factor V Leiden deficiency Seizure disorder? Parkinson's disease? Neuropathy Depression/anxiety DVT ppx: Heparin drip Code status: Full code Anticipated discharge place: Pending clinical course Anticipated discharge time: Pending clinical course Objective - Vital Signs Vital signs: Vital Signs Temp 98.6 F 12/06/24 08:00 Pulse 96 12/06/24 11:53 Resp 20 12/06/24 11:30 BP 99/67 12/06/24 11:30 Pulse Ox 97 12/06/24 11:30 FiO2 40 12/06/24 11:50 Intake & Output 12/05/24 12/06/24 12/06/24 18:59 06:59 18:59 Intake Total 213.984 3342.272 215 Output Total 468 174 3148 Balance 654.258 6268.272 -1795 Weight 133.9 kg 140 kg 140 kg Intake: IV 825 1100 115 0.9 825 900 115 Piperacillin-Tazobactam 3 200 .375 gm In Sodium Chloride 0.9% 100 ml @ 25 mls/hr IVPB Q8H [facility] Rx#: [id number] Intake, IV Titration 170.971 581.272 100 Amount Heparin Sod,Pork in 0.45% 70.971 206.080 NaCl 25,000 unit In 0.45 % NaCl 1 250ml.bag @ 7.5 UNITS/KG/HR 10.043 mls/hr IV .Q24H [facility] Rx#: [id number] Norepinephrine 8 mg In 88.224 Sodium Chloride 0.9% 250 ml @ 0.03 MCG/KG/MIN 7. 773 mls/hr IV .Q24H [facility] Rx#:[id number] propofoL 1,000 mg In 100.000 286.968 100 Empty Bag 1 bag @ 15 MCG/ KG/MIN 12.051 mls/hr IV . Q8H18M [facility] Rx#:[id number] Other 50 Output: Urine 084 921 2420 Other: Voiding Method Indwelling Catheter Indwelling Catheter ABP, PAP, CO, CI - Last Documented Arterial Blood Pressure 89/51 - Labs CBC & Chem 7: 12/06/24 05:15 12/06/24 05:15 Labs: Abnormal Lab Results - Last 24 Hours (Table) 12/05/24 12/05/24 12/05/24 Range/Units 12:06 12:22 17:38 WBC (4.50-10.00) 10*3/uL RBC (4.40-5.60) 10*6/uL MCV (80.0-97.0) fL MCH (27.0-32.0) pg Immature Gran # (0.00-0.04) 10*3/uL Neutrophils # (1.80-7.70) 10*3/uL Monocytes # (0.20-1.00) 10*3/uL Eosinophils # (0.04-0.35) 10*3/uL APTT 34.8 H (22.0-30.0) sec ABG pO2 132 H (83-108) mmHg ABG O2 Saturation 99.0 H (94-97) % Sodium (137-145) mmol/L Carbon Dioxide (22-30) mmol/L BUN (9-20) mg/dL Glucose (74-99) mg/dL POC Glucose (mg/dL) 144 H (70-110) mg/dL AST (17-59) U/L Total Protein (6.3-8.2) g/dL Albumin (3.5-5.0) g/dL 12/05/24 12/06/24 12/06/24 Range/Units 20:20 05:15 05:15 WBC 16.98 H (4.50-10.00) 10*3/uL RBC 4.35 L (4.40-5.60) 10*6/uL MCV 98.6 H (80.0-97.0) fL MCH 32.6 H (27.0-32.0) pg Immature Gran # 0.07 H (0.00-0.04) 10*3/uL Neutrophils # 13.49 H (1.80-7.70) 10*3/uL Monocytes # 1.42 H (0.20-1.00) 10*3/uL Eosinophils # 0.02 L (0.04-0.35) 10*3/uL APTT 41.3 H (22.0-30.0) sec ABG pO2 (83-108) mmHg ABG O2 Saturation (94-97) % Sodium 136 L (137-145) mmol/L Carbon Dioxide 21 L (22-30) mmol/L BUN 23 H (9-20) mg/dL Glucose 207 H (74-99) mg/dL POC Glucose (mg/dL) (70-110) mg/dL AST 79 H (17-59) U/L Total Protein 5.7 L (6.3-8.2) g/dL Albumin 3.3 L (3.5-5.0) g/dL 12/06/24 12/06/24 Range/Units 05:15 11:32 WBC (4.50-10.00) 10*3/uL RBC (4.40-5.60) 10*6/uL MCV (80.0-97.0) fL MCH (27.0-32.0) pg Immature Gran # (0.00-0.04) 10*3/uL Neutrophils # (1.80-7.70) 10*3/uL Monocytes # (0.20-1.00) 10*3/uL Eosinophils # (0.04-0.35) 10*3/uL APTT 34.4 H (22.0-30.0) sec ABG pO2 (83-108) mmHg ABG O2 Saturation (94-97) % Sodium (137-145) mmol/L Carbon Dioxide (22-30) mmol/L BUN (9-20) mg/dL Glucose (74-99) mg/dL POC Glucose (mg/dL) 172 H (70-110) mg/dL AST (17-59) U/L Total Protein (6.3-8.2) g/dL Albumin (3.5-5.0) g/dL Microbiology - Last 24 Hours (Table) 12/05/24 09:01 Gram Stain - Preliminary Sputum Sputum Culture - Preliminary
[2024-12-06] MEDS: INSULIN LISPRO (HumaLOG) 100 UNIT/ML 10 mL VL SQ SCH (12:13)
--- NOTE | 2024-12-06 12:48 | P.PN ---
Subjective Progress Note Date: 12/06/24 Principal diagnosis: Acute hypoxic respiratory failure with acute non-ST elevation myocardial infarction, pulmonary edema and possible aspiration pneumonia This is a 69-year-old white male with history of multiple medical problems including coronary artery disease, previous CABG, patient presented to [facility] in [place] with symptoms of shortness of breath, patient was diagnosed as having congestive heart failure. Apparently he was intubated upon his initial arrival to the ER, patient was stabilized and transferred to [facility]. Seen briefly in the ER, patient was admitted to the ICU, and we were asked to see him in consultation. Patient is presently on assist-control mode of mechanical ventilation with rate of 18 tidal volume 500 FiO2 60% PEEP of 5 ABG showed a pO2 of 81 pCO2 48 pH of 7.31 patient is on Versed at 10 mg/h he is also on propofol which will be titrated accordingly patient is receiving Zosyn empirically for presumptive right lower lobe pneumonia chest x-ray on his initial presentation showed pulmonary edema patient is receiving Lasix he is also receiving antibiotics in the form of Zosyn cultures are pending in addition to his underlying coronary artery disease, patient is known to have history of severe aortic stenosis and history of factor V Leyden mutation. Patient was admitted to [facility] few months ago with a non-ST elevation myocardial infarction hypertensive emergency, patient is known to have history of surgical aortic valve replacement as well as CABG and he is known to have history of type 2 diabetes. Not much history could be obtained from the patient himself. Chest x-ray in our association showed airspace consolidation involving right lower lobe and right midlung, the findings on the chest x-ray are more suggestive of pneumonia than actual pulmonary edema. WBC count showed l eukocytosis with WBC of 15.6 hemoglobin 14.8, electrolytes were normal renal profile is normal troponin however went up as high as 9.6 from initial troponin of 0.2 on his initial admission. proBNP level is elevated at 2630. Procalcitonin level is 0.31. Patient was seen today on 12/06/2024, patient remains in the ICU, intubated and mechanically ventilated, on assist-control rate of 20 tidal volume 500 FiO2 40% PEEP of 5 ABG showed a pO2 of 100 pCO2 38 pH of 7.36. Patient has relatively soft blood pressure and he is requiring norepinephrine at 0.01 mcg/kg/min remains on propofol at 40 mcg/kg/min IV fluid is cut down from 75 to cc per hour to KVO. Patient remains on heparin for his acute non-ST elevation myocardial infarction and significant elevation in his troponin. He is on enteral fe eding/tube feedings. Chest x-ray is basically about the same not much different from yesterday's chest x-ray, although the right lower lobe seems to be showing slight improvement. Patient remains on diuretics, remains on antibiotics, he is to be seen by cardiothoracic surgery for his severe aortic stenosis., This is stenosis of his bioprosthetic valve. In addition the patient has coronary gavino ry disease with prior CABG, cardiology is considering possible cardiac catheterization but that is yet to be decided after the patient is seen by cardiothoracic surgery. WBC count is 16.9 hemoglobin 14.2, PTT is therapeutic at 41.3 electrolytes are normal renal profile is normal blood sugar is 172 troponin today remains elevated at 6.37, was as high as 9.6 yesterday. Objective - Vital Signs Vital signs: Vital Signs Temp 98.5 F 12/06/24 12:00 Pulse 99 12/06/24 12:15 Resp 20 12/06/24 12:15 BP 106/70 12/06/24 12:15 Pulse Ox 96 12/06/24 12:15 FiO2 40 12/06/24 12:00 Intake & Output 12/05/24 12/06/24 12/06/24 18:59 06:59 18:59 Intake Total 254.317 9566.272 225 Output Total 474 559 0594 Balance 308.870 6478.272 -2014 Weight 133.9 kg 140 kg 140 kg Intake: IV 825 1100 125 0.9 825 900 125 Piperacillin-Tazobactam 3 200 .375 gm In Sodium Chloride 0.9% 100 ml @ 25 mls/hr IVPB Q8H [facility] Rx#: [id number] Intake, IV Titration 170.971 581.272 100 Amount Heparin Sod,Pork in 0.45% 70.971 206.080 NaCl 25,000 unit In 0.45 % NaCl 1 250ml.bag @ 7.5 UNITS/KG/HR 10.043 mls/hr IV .Q24H [facility] Rx#: [id number] Norepinephrine 8 mg In 88.224 Sodium Chloride 0.9% 250 ml @ 0.03 MCG/KG/MIN 7. 773 mls/hr IV .Q24H [facility] Rx#:[id number] propofoL 1,000 mg In 100.000 286.968 100 Empty Bag 1 bag @ 15 MCG/ KG/MIN 12.051 mls/hr IV . Q8H18M [facility] Rx#:[id number] Other 50 Output: Urine 818 874 9671 Other: Voiding Method Indwelling Catheter Indwelling Catheter Indwelling Catheter ABP, PAP, CO, CI - Last Documented Arterial Blood Pressure 93/52 - Exam GENERAL: 69-year-old white male intubated mechanically ventilated, sedated HEENT: Head is atraumatic, normocephalic. Pupils equal, round. Sclerae is anicteric. Endotracheal tube is intact. NECK: Supple. No JVD. Left carotid bruit LUNGS: Crackles and rhonchi noted bilaterally. HEART: Regular rate and rhythm. Ejection systolic murmur, Second heart sound is preserved. ABDOMEN: Obese soft nontender no rebound no guarding EXTREMITIES: Trace of bipedal edema no clubbing no cyanosis. NEUROLOGICAL: Could not assess patient is fully sedated, on propofol which should be placed on hold today for mental status assessment Psychiatric: Could not assess. - Labs CBC & Chem 7: 12/06/24 05:15 12/06/24 05:15 Labs: Abnormal Lab Results - Last 24 Hours (Table) 12/05/24 12/05/24 12/05/24 Range/Units 12:06 12:22 17:38 WBC (4.50-10.00) 10*3/uL RBC (4.40-5.60) 10*6/uL MCV (80.0-97.0) fL MCH (27.0-32.0) pg Immature Gran # (0.00-0.04) 10*3/uL Neutrophils # (1.80-7.70) 10*3/uL Monocytes # (0.20-1.00) 10*3/uL Eosinophils # (0.04-0.35) 10*3/uL APTT 34.8 H (22.0-30.0) sec ABG pO2 132 H (83-108) mmHg ABG O2 Saturation 99.0 H (94-97) % Sodium (137-145) mmol/L Carbon Dioxide (22-30) mmol/L BUN (9-20) mg/dL Glucose (74-99) mg/dL POC Glucose (mg/dL) 144 H (70-110) mg/dL AST (17-59) U/L Troponin I (0.000-0.034) ng/mL Total Protein (6.3-8.2) g/dL Albumin (3.5-5.0) g/dL 12/05/24 12/06/24 12/06/24 Range/Units 20:20 05:15 05:15 WBC 16.98 H (4.50-10.00) 10*3/uL RBC 4.35 L (4.40-5.60) 10*6/uL MCV 98.6 H (80.0-97.0) fL MCH 32.6 H (27.0-32.0) pg Immature Gran # 0.07 H (0.00-0.04) 10*3/uL Neutrophils # 13.49 H (1.80-7.70) 10*3/uL Monocytes # 1.42 H (0.20-1.00) 10*3/uL Eosinophils # 0.02 L (0.04-0.35) 10*3/uL APTT 41.3 H (22.0-30.0) sec ABG pO2 (83-108) mmHg ABG O2 Saturation (94-97) % Sodium 136 L (137-145) mmol/L Carbon Dioxide 21 L (22-30) mmol/L BUN 23 H (9-20) mg/dL Glucose 207 H (74-99) mg/dL POC Glucose (mg/dL) (70-110) mg/dL AST 79 H (17-59) U/L Troponin I (0.000-0.034) ng/mL Total Protein 5.7 L (6.3-8.2) g/dL Albumin 3.3 L (3.5-5.0) g/dL 12/06/24 12/06/24 12/06/24 Range/Units 05:15 11:32 11:40 WBC (4.50-10.00) 10*3/uL RBC (4.40-5.60) 10*6/uL MCV (80.0-97.0) fL MCH (27.0-32.0) pg Immature Gran # (0.00-0.04) 10*3/uL Neutrophils # (1.80-7.70) 10*3/uL Monocytes # (0.20-1.00) 10*3/uL Eosinophils # (0.04-0.35) 10*3/uL APTT 34.4 H (22.0-30.0) sec ABG pO2 (83-108) mmHg ABG O2 Saturation (94-97) % Sodium (137-145) mmol/L Carbon Dioxide (22-30) mmol/L BUN (9-20) mg/dL Glucose (74-99) mg/dL POC Glucose (mg/dL) 172 H (70-110) mg/dL AST (17-59) U/L Troponin I 6.370 H* (0.000-0.034) ng/mL Total Protein (6.3-8.2) g/dL Albumin (3.5-5.0) g/dL 12/06/24 Range/Units 12:00 WBC (4.50-10.00) 10*3/uL RBC (4.40-5.60) 10*6/uL MCV (80.0-97.0) fL MCH (27.0-32.0) pg Immature Gran # (0.00-0.04) 10*3/uL Neutrophils # (1.80-7.70) 10*3/uL Monocytes # (0.20-1.00) 10*3/uL Eosinophils # (0.04-0.35) 10*3/uL APTT 41.3 H (22.0-30.0) sec ABG pO2 (83-108) mmHg ABG O2 Saturation (94-97) % Sodium (137-145) mmol/L Carbon Dioxide (22-30) mmol/L BUN (9-20) mg/dL Glucose (74-99) mg/dL POC Glucose (mg/dL) (70-110) mg/dL AST (17-59) U/L Troponin I (0.000-0.034) ng/mL Total Protein (6.3-8.2) g/dL Albumin (3.5-5.0) g/dL Microbiology - Last 24 Hours (Table) 12/05/24 09:01 Gram Stain - Preliminary Sputum Sputum Culture - Preliminary Assessment and Plan Assessment: Impression: Acute hypoxic and hypercapnic respiratory failure Acute pulmonary edema Suspected right lower lobe pneumonia possibly aspiration pneumonia History of underlying coronary artery disease and previous CABG, previous stenting to LAD and CABG History of severe aortic stenosis requiring aortic valve replacement, patient has severe stenosis of his bioprosthetic valve Acute non-ST elevation myocardial infarction with significantly elevated troponin History of systolic dysfunction with ejection fraction of 45 to 50% based on echocardiogram dated 10/16/24 Type 2 diabetes Factor V Leyden deficiency History of TIA Essential hypertension Recommendation: Continue ventilatory support Continue hemodynamic support requiring minimal dose of norepinephrine Continue Zosyn Continue diuretics, IV fluid to KVO Continue heparin as per cardiology the case Nutritional support/enteral feeding GI and DVT prophylaxis Overall prognosis is poor and guarded Patient is critically ill, not ready for weaning or extubation We will continue to follow Critical care time is 35 minutes Time with Patient: Greater than 30
--- NOTE | 2024-12-06 17:12 | P.GSCN ---
History of Present Illness Consult date: 12/06/24 Reason for Consult: Critical aortic valve stenosis, known to the service, is scheduled for TAVR procedure on December 09, 2024. Requesting physician: Shea Leo History of present illness: This is a 69-year-old gentleman who follows on an outpatient basis with Dr. Shagufta Becker for his primary care and with Dr. Jose Davey for his cardiology care. He has a past medical history significant for critical aortic valve stenosis, coronary artery disease, status post aortic valve and coronary artery bypass grafting surgery in May 2019, hypertension, hyperlipidemia, type 2 diabetes mellitus, obstructive sleep apnea with home CPAP use, factor V, CVA/TIA, history of myocardial infarction, diabetic neuropathy to his feet and legs, and is a lifetime non-smoker. The patient presented to the emergency department via EMS to [facility] in [place] with symptoms of shortness of breath. He was diagnosed with congestive heart failure and was subsequently intubated with mechanical ventilator support. The patient was stabilized and transferred to [facility] for further evaluation and treatment recommendations. The patient was also empirically started on Zosyn for presumptive right lower lobe pneumonia. A twelve-lead EKG was completed in the emergency department which showed normal sinus rhythm with possible left atrial enlargement, left ventricular hypertrophy with a heart rate of 66 bpm. A chest x-ray was completed which showed airspace consolidation throughout the right middle lower lung field concerning for multilobar pneumonia. Initial laboratory results showed a WBC count of 15.67, hemoglobin 14.8, hematocrit 43.4, platelets 188, PT 11.0, INR 1.0, PTT 24.0, and serial troponins were as high as 9.630. His chemistry showed a sodium level of 139, potassium 4.8, chloride 108, CO2 20, BUN 24, creatinine 0.98, glucose 184, AST 79, ALT 36, proBNP 2630 and procalcitonin 0.31. Sputum culture many polymorphonuclear leukocytes, rare epithelial cells, few gram-positive cocci, and few gram-negative bacilli. Pulmonary results from his blood cultures show no growth after 24 hours. The patient is currently intubated with mechanical ventilator support, and his information is being obtained from his chart. A consult was placed to Dr. Magallanes from cardiothoracic surgery due to the patient's severe aortic valve stenosis and the patient is scheduled for an elective TAVR December 09, 2024. Review of Systems Unable to obtain a review of system as the patient is currently intubated on mechanical ventilator support. Past Medical History Past Medical History: Blood Disorder, Coronary Artery Disease (CAD), Chest Pain / Angina, Heart Failure, CVA/TIA, Diabetes Mellitus, GERD/Reflux, Hyperlipidemia, Hypertension, Myocardial Infarction ([place]), Musculoskeletal Disorder, Osteoarthritis (OA), Sleep Apnea/CPAP/BIPAP Additional Past Medical History / Comment(s): HX [place] X 2, HX CVA'S/TIA'S - LEFT ARM & LEG WEAKNESS, FACTOR 5 BLOOD DISORDER., DIABETIC NEUROPATHY IN FEET AND LEGS., SLEEP APNEA WITH C-PAP ., BACK PAIN , INDIGESTION., SEE CARDIOLOGY H & P. (Parkinson's new diagnosis) Last Myocardial Infarction Date:: 2014 History of Any Multi-Drug Resistant Organisms: None Reported Past Surgical History: Cholecystectomy, Heart Catheterization, Heart Catheterization With Stent, Orthopedic Surgery, Tonsillectomy Additional Past Surgical History / Comment(s): Radio Freq Proc to Back 04-01-16, R TOTAL KNEE. R KNEE ARTHROSCOPIES ., CARDIAC CATH [address] Jorge Luis SMITH.04/07/14 HEART CATH WITH STENT TO MID LAD. Past Anesthesia/Blood Transfusion Reactions: Previous Problems w/ Anesthesia, Postoperative Nausea & Vomiting (PONV) Additional Past Anesthesia/Blood Transfusion Reaction / Comm: LOOPY- (HALLUCINATED) (Don't give fentanyl and dialudid at same time) Date of Last Stent Placement:: 2014 Past Psychological History: Anxiety, Depression Smoking Status: Never smoker Past Alcohol Use History: None Reported Past Drug Use History: None Reported - Past Family History Sister(s) Family Medical History: Coronary Artery Disease (CAD), Diabetes Mellitus Additional Family Medical History / Comment(s): SISTER(1) HAD DM, SISTER(2) HAD CAD-CABG Father Family Medical History: Cancer Additional Family Medical History / Comment(s): FATHER OF [place] AT AGE 76 YRS. Mother Family Medical History: Cancer, Congestive Heart Failure (CHF), Myocardial Infarction ([place]) Additional Family Medical History / Comment(s): MOTHER AT AGE 57 OR [place]. MOM HAD PSYCHOLOLGICAL ISSUES. Medications and Allergies Home Medications Medication Instructions Recorded Confirmed Type Tamsulosin HCl [Flomax] 0.8 mg PO DAILY@1600 04/21/19 12/05/24 History Atorvastatin [Lipitor] 80 mg PO HS 07/13/21 12/05/24 History Famotidine [Pepcid] 20 mg PO BID 7 Days #14 tablet 07/18/21 12/05/24 Rx Potassium Chloride [Klor-Con M10] 10 meq PO DAILY #30 tab 07/18/21 12/05/24 Rx Aspirin EC [Ecotrin Low Dose] 81 mg PO DAILY 10/17/24 12/05/24 History Carbidopa-Levodopa 25-100 mg 1 tab PO TID 10/17/24 12/05/24 History [Sinemet 25-100 mg] Clopidogrel [Plavix] 75 mg PO DAILY 10/17/24 12/05/24 History Furosemide [Lasix] 20 mg PO DAILY 10/17/24 12/05/24 History Gabapentin 600 mg PO TID 10/17/24 12/05/24 History Isosorbide Mononitrate ER [Imdur] 30 mg PO DAILY 10/17/24 12/05/24 History L.acidoph,Paracasei, B.lactis 1 cap PO DAILY 10/17/24 12/05/24 History [Probiotic] Venlafaxine HCl ER [Effexor XR] 150 mg PO DAILY 10/17/24 12/05/24 History lamoTRIgine [LaMICtal] 100 mg PO BID 10/17/24 12/05/24 History methocarbamoL [Robaxin-750] 750 mg PO TID 10/17/24 12/05/24 History LORazepam [Ativan] 0.5 mg PO QID PRN 12/05/24 12/05/24 History Metoprolol Tartrate [Lopressor] 12.5 mg PO BID 12/05/24 12/05/24 History lisinopriL [Zestril] 10 mg PO HS 12/05/24 12/05/24 History Allergies Allergy/AdvReac Type Severity Reaction Status Date / Time nitroglycerin AdvReac Severe SL nitro Verified 12/05/24 00:32 caused severe low HR and B/P adhesive AdvReac blisters Verified 12/05/24 00:32 fentanyl AdvReac Unknown Verified 12/05/24 00:32 hydromorphone [From Dilaudid] AdvReac Unknown Verified 12/05/24 00:32 Surgical - Exam Vital Signs Temp Pulse Resp BP Pulse Ox 98.2 F 66 18 102/48 100 12/05/24 00:24 12/05/24 00:24 12/05/24 00:24 12/05/24 00:24 12/05/24 00:24 - General well developed, well nourished, obese - Eyes PERRL, no pale, no icteric - ENT normal pinna, normal nares, normal mucosa, no congestion - Neck no masses, no bruits, trachea midline, no venous distension - Respiratory Respirations are symmetrical and nonlabored with mechanical ventilator support, current mechanical ventilator settings are assist-control 20, TV 500, FiO2 40% and a PEEP of 5. Diminished to his bilateral bases right greater than left. Few scattered crackles throughout. No wheezes or rhonchi. - Cardiovascular Regular rhythm and rate. S1 and diminished S2, positive systolic murmur 3/6, no gallop. - Abdomen Abdomen is soft, and nondistended. No guarding or rigidity. - Genitourinary Torres catheter is in place. - Rectum Deferred - Integumentary Skin is warm and dry. No clubbing or cyanosis is present. No edema. no rash, no growths, no abnormal pigmentation - Neurologic Unable to accurately assess at this time, as the patient is intubated with me chanical ventilator support and is currently sedated on propofol drip - Musculoskeletal Unable to accurately assess at this time, as the patient is intubated with mechanical ventilator support and is currently sedated on propofol drip - Psychiatric Unable to accurately assess at this time, as the patient is intubated with mechanical ventilator support and is currently sedated on propofol drip Results - Labs 12/06/24 05:15 12/06/24 05:15 Abnormal Lab Results - Last 24 Hours (Table) 12/05/24 12/05/24 12/05/24 Range/Units 11:18 12:06 12:22 WBC (4.50-10.00) 10*3/uL RBC (4.40-5.60) 10*6/uL MCV (80.0-97.0) fL MCH (27.0-32.0) pg Immature Gran # (0.00-0.04) 10*3/uL Neutrophils # (1.80-7.70) 10*3/uL Monocytes # (0.20-1.00) 10*3/uL Eosinophils # (0.04-0.35) 10*3/uL APTT 34.8 H (22.0-30.0) sec ABG pO2 132 H (83-108) mmHg ABG O2 Saturation 99.0 H (94-97) % Sodium (137-145) mmol/L Carbon Dioxide (22-30) mmol/L BUN (9-20) mg/dL Glucose (74-99) mg/dL POC Glucose (mg/dL) 174 H (70-110) mg/dL AST (17-59) U/L Total Protein (6.3-8.2) g/dL Albumin (3.5-5.0) g/dL 12/05/24 12/05/24 12/06/24 Range/Units 17:38 20:20 05:15 WBC (4.50-10.00) 10*3/uL RBC (4.40-5.60) 10*6/uL MCV (80.0-97.0) fL MCH (27.0-32.0) pg Immature Gran # (0.00-0.04) 10*3/uL Neutrophils # (1.80-7.70) 10*3/uL Monocytes # (0.20-1.00) 10*3/uL Eosinophils # (0.04-0.35) 10*3/uL APTT 41.3 H (22.0-30.0) sec ABG pO2 (83-108) mmHg ABG O2 Saturation (94-97) % Sodium 136 L (137-145) mmol/L Carbon Dioxide 21 L (22-30) mmol/L BUN 23 H (9-20) mg/dL Glucose 207 H (74-99) mg/dL POC Glucose (mg/dL) 144 H (70-110) mg/dL AST 79 H (17-59) U/L Total Protein 5.7 L (6.3-8.2) g/dL Albumin 3.3 L (3.5-5.0) g/dL 12/06/24 12/06/24 Range/Units 05:15 05:15 WBC 16.98 H (4.50-10.00) 10*3/uL RBC 4.35 L (4.40-5.60) 10*6/uL MCV 98.6 H (80.0-97.0) fL MCH 32.6 H (27.0-32.0) pg Immature Gran # 0.07 H (0.00-0.04) 10*3/uL Neutrophils # 13.49 H (1.80-7.70) 10*3/uL Monocytes # 1.42 H (0.20-1.00) 10*3/uL Eosinophils # 0.02 L (0.04-0.35) 10*3/uL APTT 34.4 H (22.0-30.0) sec ABG pO2 (83-108) mmHg ABG O2 Saturation (94-97) % Sodium (137-145) mmol/L Carbon Dioxide (22-30) mmol/L BUN (9-20) mg/dL Glucose (74-99) mg/dL POC Glucose (mg/dL) (70-110) mg/dL AST (17-59) U/L Total Protein (6.3-8.2) g/dL Albumin (3.5-5.0) g/dL Microbiology - Last 24 Hours (Table) 12/05/24 09:01 Gram Stain - Preliminary Sputum Sputum Culture - Preliminary Diabetes panel 12/06/24 Range/Units 05:15 Sodium 136 L (137-145) mmol/L Potassium 3.9 (3.5-5.1) mmol/L Chloride 106 (98-107) mmol/L Carbon Dioxide 21 L (22-30) mmol/L BUN 23 H (9-20) mg/dL Creatinine 0.97 (0.66-1.25) mg/dL Glucose 207 H (74-99) mg/dL Calcium 8.5 (8.4-10.2) mg/dL AST 79 H (17-59) U/L ALT 21 (4-49) U/L Alkaline Phosphatase 101 (38-126) U/L Total Protein 5.7 L (6.3-8.2) g/dL Albumin 3.3 L (3.5-5.0) g/dL Calcium panel 12/06/24 Range/Units 05:15 Calcium 8.5 (8.4-10.2) mg/dL Phosphorus 3.2 (2.5-4.5) mg/dL Albumin 3.3 L (3.5-5.0) g/dL Pituitary panel 12/06/24 Range/Units 05:15 Sodium 136 L (137-145) mmol/L Potassium 3.9 (3.5-5.1) mmol/L Chloride 106 (98-107) mmol/L Carbon Dioxide 21 L (22-30) mmol/L BUN 23 H (9-20) mg/dL Creatinine 0.97 (0.66-1.25) mg/dL Glucose 207 H (74-99) mg/dL Calcium 8.5 (8.4-10.2) mg/dL Adrenal panel 12/06/24 Range/Units 05:15 Sodium 136 L (137-145) mmol/L Potassium 3.9 (3.5-5.1) mmol/L Chloride 106 (98-107) mmol/L Carbon Dioxide 21 L (22-30) mmol/L BUN 23 H (9-20) mg/dL Creatinine 0.97 (0.66-1.25) mg/dL Glucose 207 H (74-99) mg/dL Calcium 8.5 (8.4-10.2) mg/dL Total Bilirubin 0.4 (0.2-1.3) mg/dL AST 79 H (17-59) U/L ALT 21 (4-49) U/L Alkaline Phosphatase 101 (38-126) U/L Total Protein 5.7 L (6.3-8.2) g/dL Albumin 3.3 L (3.5-5.0) g/dL - Imaging Chest x-ray: report reviewed, image reviewed Assessment and Plan Assessment: Acute hypoxic and hypercapnic respiratory failure requiring intubation with mechanical ventilator support Acute pulmonary edema Suspected right lower lobe pneumonia possibly aspiration pneumonia Critical aortic valve stenosis, status post aortic valve replacement in 2019, awaiting TAVR History of underlying coronary artery disease and previous CABG, previous stenting to LAD and CABG Acute non-ST elevation myocardial infarction with elevated troponin History of myocardial infarction History of diastolic dysfunction with ejection fraction of 45 to 50% based on echocardiogram dated 10/16 125 Type 2 diabetes mellitus Factor V Leyden deficiency History of CVA/TIA Hypertension Hyperlipidemia Obstructive sleep apnea with home CPAP use Diabetic neuropathy to his feet and legs Lifetime non-smoker, with recent FEV1 2.03 which is 60% of predicted value Plan: The patient was seen and examined at his bedside in the intensive care unit, his chart and diagnostics were reviewed. His case was discussed with Dr. Ritchie Magallanes from cardiothoracic surgery. The patient has critical aortic valve stenosis and needs acute intervention and will be discussed with cardiology whether to proceed with BAV versus TAVR. If the patient can be extubated we will proceed with TAVR likely on December 09, 2024 as previously scheduled. Continue to maximize medical management. Management of other comorbidities per pulmonary/critical care service, cardiology and internal medicine. More recommendations to follow based on patient's clinical course. Thank you Dr. Leo for this consult and will look forward to working with you in the care of this patient. I have personally seen and examined the patient, performed the documentation and the assessment and plan as written. Number of minutes spent on the visit: 30. MICHAELA Leigh
[2024-12-06 19:00] LABS: Glucose,Whole Blood 184 mg/dL (70-110)
[2024-12-07 00:42] LABS: Glucose,Whole Blood 178 mg/dL (70-110)
[2024-12-07 05:03] LABS: ABG Base Excess 1.8 mmol/L; ABG HCO3 26 mmol/L (21-25); ABG Oxygen Saturation 96.5 % (94-97); ABG PCO2 37 mmHg (35-45); ABG PH 7.45 (7.35-7.45); ABG PO2 112 mmHg (83-108); ABG TCO2 27 mmol/L (19-24)
[2024-12-07 05:04] LABS: Allen Test Performed? no
[2024-12-07 05:29] LABS: Basophils # (A) 0.04 10*3/uL (0.00-0.10); Basophils % (A) 0.3 %; Eosinophils # (A) 0.18 10*3/uL (0.04-0.35); Eosinophils % (A) 1.3 %; HCT 41.2 % (39.6-50.0); HGB 13.8 g/dL (13.0-17.0); Lymphocytes # (A) 2.64 10*3/uL (0.90-5.00); Lymphocytes % (A) 19.6 %; MCH 32.6 pg (27.0-32.0); MCHC 33.5 g/dL (32.0-37.0); MCV 97.4 fL (80.0-97.0); Monocytes # (A) 1.02 10*3/uL (0.20-1.00); Monocytes % (A) 7.6 %; Neutrophils # (A) 9.56 10*3/uL (1.80-7.70); Neutrophils % (A) 70.9 %; Platelet Count 168 10*3/uL (140-440); RBC 4.23 10*6/uL (4.40-5.60); RDW 14.5 % (11.5-14.5); WBC 13.48 10*3/uL (4.50-10.00)
[2024-12-07 05:44] LABS: ALT 42 U/L (4-49); AST 118 U/L (17-59); African American GFR (CKD) >90 (>60 ml/min/1.73 sqM); Albumin 3.2 g/dL (3.5-5.0); Alkaline Phosphatase 105 U/L (38-126); Anion Gap 5 mmol/L; Blood Urea Nitrogen 18 mg/dL (9-20); Calcium 8.2 mg/dL (8.4-10.2); Carbon Dioxide 25 mmol/L (22-30); Chloride 106 mmol/L (98-107); Glucose 178 mg/dL (74-99); Non-African American GFR(CKD) >90 (>60 ml/min/1.73 sqM); Sodium 136 mmol/L (137-145); Total Bilirubin 0.6 mg/dL (0.2-1.3); Total Protein 5.7 g/dL (6.3-8.2)
[2024-12-07 05:53] LABS: Glucose,Whole Blood 164 mg/dL (70-110)
--- NOTE | 2024-12-07 07:41 | XR ---
EXAMINATION TYPE: XR chest 1V portable DATE OF EXAM: 12/07/2024 3:58 AM COMPARISON: 12/06/2024 CLINICAL INDICATION: Male, 69 years old with history of mechanical ventilation, difficulty breathing TECHNIQUE: XR chest 1V portable view(s) obtained. FINDINGS: The heart size is normal. The pulmonary vasculature is normal. There is silhouetting the left diaphragm. There is opacification over the right lower lung field. Cor relate for atelectasis or pneumonia. Endotracheal tube tip is 4 cm above the cyndi. Nasogastric tube transverses the thorax. IMPRESSION: 1. Bibasilar infiltrates greater on the right. Correlate for atelectasis or pneumonia. Continued foll ow-up recommended. 2. Cardiomegaly. 3. Lines and catheters discussed above [facility], , 12/07/2024 7:39 AM
--- NOTE | 2024-12-07 08:27 | P.PN ---
Subjective Progress Note Date: 12/07/24 Principal diagnosis: Acute hypoxic and hypercapnic respiratory failure, acute pulmonary edema, suspected right lower lobe pneumonia possibly aspiration pneumonia, acute non-ST elevation myocardial infarction with elevated troponin. History of critical aortic valve stenosis, status post aortic valve replacement in 2019, awaiting TAVR, coronary artery disease with previous myocardial infarction and PCI as well as CABG, heart failure with diastolic dysfunction, type 2 diabetes mellitus, factor V Leyden deficiency, CVA/TIA, hypertension, hyperlipidemia, obstructive sleep apnea with home CPAP use, diabetic neuropathy to his feet and legs, lifetime non-smoker The patient was seen and examined this morning laying in bed in the intensive care unit still sedated on mechanical ventilation. Currently sinus tach with heart rate in the low 100s, hemodynamically stable off levo. Sedated with propofol. Chest x-ray, labs reviewed. Recommendations were made to try to get patient off ventilator so we can proceed with TAVR on Thursday. Objective - Vital Signs Vital signs: Vital Signs Temp 98.3 F 12/07/24 04:00 Pulse 106 H 12/07/24 07:00 Resp 20 12/07/24 07:00 BP 98/66 12/07/24 07:00 Pulse Ox 99 12/07/24 07:00 FiO2 40 12/07/24 04:23 Intake & Output 12/06/24 12/07/24 12/07/24 18:59 06:59 18:59 Intake Total 405 1297.382 Output Total 2605 600 Balance -2200 697.382 Weight 140 kg Intake: IV 185 230 0.9 185 130 Piperacillin-Tazobactam 3 100 .375 gm In Sodium Chloride 0.9% 100 ml @ 25 mls/hr IVPB Q8H [facility] Rx#: [id number] Intake, IV Titration 200 777.382 Amount Heparin Sod,Pork in 0.45% 358.418 NaCl 25,000 unit In 0.45 % NaCl 1 250ml.bag @ 7.5 UNITS/KG/HR 10.043 mls/hr IV .Q24H [facility] Rx#: [id number] Norepinephrine 8 mg In 81.314 Sodium Chloride 0.9% 250 ml @ 0.03 MCG/KG/MIN 7. 773 mls/hr IV .Q24H [facility] Rx#:[id number] propofoL 1,000 mg In 200 337.65 Empty Bag 1 bag @ 15 MCG/ KG/MIN 12.051 mls/hr IV . Q8H18M [facility] Rx#:[id number] Tube Feeding 20 200 Other 90 Output: Urine 2605 600 Other: Voiding Method Indwelling Catheter Indwelling Catheter # Bowel Movements 2 ABP, PAP, CO, CI - Last Documented Arterial Blood Pressure 106/60 - Exam CONSTITUTIONAL: Remains sedated, intubated RESPIRATORY: Lungs sounds diminished bilaterally. Respirations even, nonlabored. Currently on assist-control mode, FiO2 40%, PEEP 5, tidal volume 500, respiratory rate 20 CARDIOVASCULAR: S1, S2 present. Regular rate and rhythm, sinus tach on telemetry. Palpable peripheral pulses bilaterally. Trace generalized edema present. No calf pain or tenderness noted GASTROINTESTINAL: Abdomen soft, nontender, nondistended. Active bowel sounds present 4 quadrants. OG tube present, tube feeding infusing at 20 mL/h GENITOURINARY: Torres present draining clear, yellow urine. Output overnight 30-50 mL per hour, 2 L of urine output after IV Lasix given yesterday morning, 3175 mL in the last 24 hours INTEGUMENTARY: Skin is warm and dry NEUROLOGIC: Cranial nerves II through XII intact MUSKULOSKELETAL: Remains sedated and intubated INVASIVE LINES AND TUBES: Right radial arterial line present - Allied health notes Allied health notes reviewed: nursing - Labs CBC & Chem 7: 12/07/24 05:00 12/07/24 05:00 Labs: Abnormal Lab Results - Last 24 Hours (Table) 12/06/24 12/06/24 12/06/24 Range/Units 11:32 11:40 12:00 WBC (4.50-10.00) 10*3/uL RBC (4.40-5.60) 10*6/uL MCV (80.0-97.0) fL MCH (27.0-32.0) pg Neutrophils # (1.80-7.70) 10*3/uL Monocytes # (0.20-1.00) 10*3/uL APTT 41.3 H (22.0-30.0) sec ABG pO2 (83-108) mmHg ABG HCO3 (21-25) mmol/L ABG Total CO2 (19-24) mmol/L Sodium (137-145) mmol/L Glucose (74-99) mg/dL POC Glucose (mg/dL) 172 H (70-110) mg/dL Calcium (8.4-10.2) mg/dL AST (17-59) U/L Troponin I 6.370 H* (0.000-0.034) ng/mL Total Protein (6.3-8.2) g/dL Albumin (3.5-5.0) g/dL 12/06/24 12/07/24 12/07/24 Range/Units 18:59 00:39 05:00 WBC 13.48 H (4.50-10.00) 10*3/uL RBC 4.23 L (4.40-5.60) 10*6/uL MCV 97.4 H (80.0-97.0) fL MCH 32.6 H (27.0-32.0) pg Neutrophils # 9.56 H (1.80-7.70) 10*3/uL Monocytes # 1.02 H (0.20-1.00) 10*3/uL APTT (22.0-30.0) sec ABG pO2 (83-108) mmHg ABG HCO3 (21-25) mmol/L ABG Total CO2 (19-24) mmol/L Sodium (137-145) mmol/L Glucose (74-99) mg/dL POC Glucose (mg/dL) 184 H 178 H (70-110) mg/dL Calcium (8.4-10.2) mg/dL AST (17-59) U/L Troponin I (0.000-0.034) ng/mL Total Protein (6.3-8.2) g/dL Albumin (3.5-5.0) g/dL 12/07/24 12/07/24 12/07/24 Range/Units 05:00 05:00 05:00 WBC (4.50-10.00) 10*3/uL RBC (4.40-5.60) 10*6/uL MCV (80.0-97.0) fL MCH (27.0-32.0) pg Neutrophils # (1.80-7.70) 10*3/uL Monocytes # (0.20-1.00) 10*3/uL APTT 32.5 H (22.0-30.0) sec ABG pO2 112 H (83-108) mmHg ABG HCO3 26 H (21-25) mmol/L ABG Total CO2 27 H (19-24) mmol/L Sodium 136 L (137-145) mmol/L Glucose 178 H (74-99) mg/dL POC Glucose (mg/dL) (70-110) mg/dL Calcium 8.2 L (8.4-10.2) mg/dL AST 118 H (17-59) U/L Troponin I (0.000-0.034) ng/mL Total Protein 5.7 L (6.3-8.2) g/dL Albumin 3.2 L (3.5-5.0) g/dL 12/07/24 Range/Units 05:52 WBC (4.50-10.00) 10*3/uL RBC (4.40-5.60) 10*6/uL MCV (80.0-97.0) fL MCH (27.0-32.0) pg Neutrophils # (1.80-7.70) 10*3/uL Monocytes # (0.20-1.00) 10*3/uL APTT (22.0-30.0) sec ABG pO2 (83-108) mmHg ABG HCO3 (21-25) mmol/L ABG Total CO2 (19-24) mmol/L Sodium (137-145) mmol/L Glucose (74-99) mg/dL POC Glucose (mg/dL) 164 H (70-110) mg/dL Calcium (8.4-10.2) mg/dL AST (17-59) U/L Troponin I (0.000-0.034) ng/mL Total Protein (6.3-8.2) g/dL Albumin (3.5-5.0) g/dL Microbiology - Last 24 Hours (Table) 12/05/24 07:55 Blood Culture - Preliminary Blood 12/05/24 09:01 Gram Stain - Preliminary Sputum Sputum Culture - Preliminary - Imaging and Cardiology Chest x-ray: report reviewed, image reviewed Assessment and Plan Assessment: Acute hypoxic and hypercapnic respiratory failure Acute pulmonary edema Suspected right lower lobe pneumonia possibly aspiration pneumonia Acute non-ST elevation myocardial infarction with elevated troponin History of critical aortic valve stenosis, status post aortic valve replacement in 2019, awaiting TAVR Coronary artery disease with previous myocardial infarction and PCI as well as CABG Heart failure with diastolic dysfunction Type 2 diabetes mellitus Factor V Leyden deficiency CVA/TIA Hypertension Hyperlipidemia Obstructive sleep apnea with home CPAP use Diabetic neuropathy to his feet and legs Lifetime non-smoker Plan: Continue to maximize medical therapy with aspirin, statin, Plavix, low-dose beta-cornelio Wean to extubate as tolerated If extubated will attempt TAVR on Thursday Antibiotics, bronchodilators per pulmonology Will monitor daily labs and x-rays 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
[2024-12-07] MEDS: FUROSEMIDE 10 MG/ML 4 ML VIAL IV STA (09:45)
[2024-12-07] MEDS: MORPHINE SULFATE 4 MG/ML SYRINGE IVP PRN (09:45)
--- NOTE | 2024-12-07 10:18 | P.PN ---
Subjective Progress Note Date: 12/07/24 Subjective: Patient seen and examined at bedside. No acute events overnight. Remains intubated sedated. Was tachypneic and tachycardic once trying to get off of propofol. Pertinent positives and negatives as discussed above, a complete review of systems was performed and all other systems are negative. Vitals Signs Reviewed. General: Intubated sedated Derm: Warm, dry Head: Atraumatic, normocephalic, symmetric Eyes: Pupils equal and reactive, anicteric sclera Mouth: No lip lesion, mucus membranes moist Cardiovascular: S1S2 reg, systolic murmur Lungs: Bilateral rales, no accessory muscle use, mechanically ventilated Abdominal: Soft, nontender to palpation, no appreciable organomegaly Ext: No gross muscle atrophy, no edema, no contractures, cold extremities Neuro: Sedated Psych: Unable to assess Data Reviewed Today: Pertinent Labs: WBC 13.48, pH 7.45, creatinine 0.74, glucose range between 164- 178, A1c 6.2 Imaging: Chest x-ray independently interpreted, shows right lower lobe opacity, bilateral interstitial opacities Assessment and Plan: Active: Acute hypoxic and hypercapnic respiratory failure Acute pulmonary edema Severe aortic stenosis status post bioprosthetic aortic valve replacement with worsening stenosis History of CAD status post CABG and stents Acute NSTEMI HFrEF exacerbation, EF 45 to 50% Possible right lower lobe pneumonia, likely aspiration - Echocardiogram concerning for LVEF 35 to 40% with anteroapical and anteroseptal akinesis - Per cardiology, NSTEMI likely in the setting of CHF exacerbation, as well as severe aortic valve stenosis of previous bioprosthetic aortic valve replacement - Cardiothoracic surgery note reviewed, if patient extubated, will attempt TAVR on Thursday - Patient continued on heparin drip, monitor APTT, monitor for bleeding - Was given 40 mg IV Lasix once today - Pulmonology planning for weaning sedation and assess for extubation, on DuoNebs 4 times daily - Continue aspirin 81 mg, atorvastatin 80 mg, Plavix 75 mg, metoprolol 12.5 daily - Sputum culture, blood cultures pending - Patient remains on IV Zosyn 3.375 g every 8 hours - Off pressors - Additional pain control with morphine IV 4 mg every 4 hours as needed Type 2 diabetes - Sliding scale insulin, monitor for hypoglycemia Acute urinary retention - Torres catheter in place Chronic: Hypertension History of TIA Factor V Leiden deficiency Seizure disorder? Parkinson's disease? Neuropathy Depression/anxiety DVT ppx: Heparin drip Code status: Full code Anticipated discharge place: Pending clinical course Anticipated discharge time: Pending clinical course Objective - Vital Signs Vital signs: Vital Signs Temp 98.3 F 12/07/24 04:00 Pulse 104 H 12/07/24 08:12 Resp 20 12/07/24 07:00 BP 98/66 12/07/24 07:00 Pulse Ox 99 12/07/24 07:00 FiO2 35 12/07/24 09:38 Intake & Output 12/06/24 12/07/24 12/07/24 18:59 06:59 18:59 Intake Total 405 1297.382 246.000 Output Total 2605 600 55 Balance -2200 697.382 191.000 Weight 140 kg Intake: IV 185 230 26 0.9 185 130 20 Piperacillin-Tazobactam 3 100 .375 gm In Sodium Chloride 0.9% 100 ml @ 25 mls/hr IVPB Q8H [facility] Rx#: [id number] Pressure Bag 6 Intake, IV Titration 200 777.382 150.000 Amount Heparin Sod,Pork in 0.45% 358.418 NaCl 25,000 unit In 0.45 % NaCl 1 250ml.bag @ 7.5 UNITS/KG/HR 10.043 mls/hr IV .Q24H [facility] Rx#: [id number] Midazolam HCl 50 mg In 50 Sodium Chloride 0.9% 40 ml @ 1 MG/HR 1 mls/hr IV .Q24H [facility] Rx#:[id number] Norepinephrine 8 mg In 81.314 Sodium Chloride 0.9% 250 ml @ 0.03 MCG/KG/MIN 7. 773 mls/hr IV .Q24H [facility] Rx#:[id number] propofoL 1,000 mg In 200 337.65 100.000 Empty Bag 1 bag @ 15 MCG/ KG/MIN 12.051 mls/hr IV . Q8H18M [facility] Rx#:[id number] Tube Feeding 20 200 40 Other 90 30 Output: Urine 2605 600 55 Other: Voiding Method Indwelling Catheter Indwelling Catheter # Bowel Movements 2 ABP, PAP, CO, CI - Last Documented Arterial Blood Pressure 106/60 - Labs CBC & Chem 7: 12/07/24 05:00 12/07/24 05:00 Labs: Abnormal Lab Results - Last 24 Hours (Table) 12/06/24 12/06/24 12/06/24 Range/Units 11:32 11:40 12:00 WBC (4.50-10.00) 10*3/uL RBC (4.40-5.60) 10*6/uL MCV (80.0-97.0) fL MCH (27.0-32.0) pg Neutrophils # (1.80-7.70) 10*3/uL Monocytes # (0.20-1.00) 10*3/uL APTT 41.3 H (22.0-30.0) sec ABG pO2 (83-108) mmHg ABG HCO3 (21-25) mmol/L ABG Total CO2 (19-24) mmol/L Sodium (137-145) mmol/L Glucose (74-99) mg/dL POC Glucose (mg/dL) 172 H (70-110) mg/dL Hemoglobin A1c (<=6.0) % Calcium (8.4-10.2) mg/dL AST (17-59) U/L Troponin I 6.370 H* (0.000-0.034) ng/mL Total Protein (6.3-8.2) g/dL Albumin (3.5-5.0) g/dL 12/06/24 12/07/24 12/07/24 Range/Units 18:59 00:39 05:00 WBC (4.50-10.00) 10*3/uL RBC (4.40-5.60) 10*6/uL MCV (80.0-97.0) fL MCH (27.0-32.0) pg Neutrophils # (1.80-7.70) 10*3/uL Monocytes # (0.20-1.00) 10*3/uL APTT (22.0-30.0) sec ABG pO2 (83-108) mmHg ABG HCO3 (21-25) mmol/L ABG Total CO2 (19-24) mmol/L Sodium (137-145) mmol/L Glucose (74-99) mg/dL POC Glucose (mg/dL) 184 H 178 H (70-110) mg/dL Hemoglobin A1c 6.2 H (<=6.0) % Calcium (8.4-10.2) mg/dL AST (17-59) U/L Troponin I (0.000-0.034) ng/mL Total Protein (6.3-8.2) g/dL Albumin (3.5-5.0) g/dL 12/07/24 12/07/24 12/07/24 Range/Units 05:00 05:00 05:00 WBC 13.48 H (4.50-10.00) 10*3/uL RBC 4.23 L (4.40-5.60) 10*6/uL MCV 97.4 H (80.0-97.0) fL MCH 32.6 H (27.0-32.0) pg Neutrophils # 9.56 H (1.80-7.70) 10*3/uL Monocytes # 1.02 H (0.20-1.00) 10*3/uL APTT 32.5 H (22.0-30.0) sec ABG pO2 (83-108) mmHg ABG HCO3 (21-25) mmol/L ABG Total CO2 (19-24) mmol/L Sodium 136 L (137-145) mmol/L Glucose 178 H (74-99) mg/dL POC Glucose (mg/dL) (70-110) mg/dL Hemoglobin A1c (<=6.0) % Calcium 8.2 L (8.4-10.2) mg/dL AST 118 H (17-59) U/L Troponin I (0.000-0.034) ng/mL Total Protein 5.7 L (6.3-8.2) g/dL Albumin 3.2 L (3.5-5.0) g/dL 12/07/24 12/07/24 Range/Units 05:00 05:52 WBC (4.50-10.00) 10*3/uL RBC (4.40-5.60) 10*6/uL MCV (80.0-97.0) fL MCH (27.0-32.0) pg Neutrophils # (1.80-7.70) 10*3/uL Monocytes # (0.20-1.00) 10*3/uL APTT (22.0-30.0) sec ABG pO2 112 H (83-108) mmHg ABG HCO3 26 H (21-25) mmol/L ABG Total CO2 27 H (19-24) mmol/L Sodium (137-145) mmol/L Glucose (74-99) mg/dL POC Glucose (mg/dL) 164 H (70-110) mg/dL Hemoglobin A1c (<=6.0) % Calcium (8.4-10.2) mg/dL AST (17-59) U/L Troponin I (0.000-0.034) ng/mL Total Protein (6.3-8.2) g/dL Albumin (3.5-5.0) g/dL Microbiology - Last 24 Hours (Table) 12/05/24 07:55 Blood Culture - Preliminary Blood 12/05/24 09:01 Gram Stain - Preliminary Sputum Sputum Culture - Preliminary
--- NOTE | 2024-12-07 11:07 | P.PN ---
Subjective HPI: This patient has significant history of CAD status post aortocoronary bypass surgery and aortic valve replacement surgically in 2019 with significant valve degeneration and restenosis and was seen by the structural heart team and Dr. Magallanes and Dr. Madera were planning on doing a TAVR next week. However he came into the hospital with increasing shortness of breath [place] was intubated sent here. Clinical picture is not much of CHF but more likely that of a non-ST elevation UT which could be related to CAD or even aortic stenosis but he also has elevated white count possibility of pneumonia. He is still on a ventilator maintaining sinus rhythm hemodynamically stable. White count is elevated possibility of right lower pneumonia is being. 12/07/2024 Patient seen and examined in the intensive care unit maintained on mechanical ventilation. He is sedated on propofol. Blood pressure 107/71 arterial 90/56 heart rate 105. Laboratory data reviewed, WBC 13, hemoglobin 13.8, platelets 168, sodium 136, potassium 4.0, creatinine 0.74. They attempted to wean him off propofol last evening and he became tachycardic and tachypneic. The nurse is continually lowering his sedation currently. PHYSICIAL EXAM:JVD 1 cm no carotid bruit S1-S2 with ejection systolic murmur lungs reveal ventilator assisted breath sounds abdomen is soft lower extremities reveal diminished pulses Central nervous system exam not performed. IMPRESSION: 1. Non-ST elevation UT. 2. Possible right lower lobe pneumonia. 3. Severe aortic stenosis of a bioprosthetic valve. 4. CAD with prior bypass surgery. RECOMMENDATIONS Continue to attempt to wean off the ventilator. Patient will require cardiac catheterization prior to possible TAVR Thursday. Further recommendations to follow based upon clinical course. Nurse Practitioner note has been reviewed, I agree with a documented findings and plan of care. Patient was seen and examined. Objective - Vital Signs Vital signs: Vital Signs Temp 98.3 F 12/07/24 04:00 Pulse 105 H 12/07/24 10:00 Resp 22 12/07/24 10:00 BP 107/71 12/07/24 10:00 Pulse Ox 95 12/07/24 10:00 FiO2 35 12/07/24 10:00 Intake & Output 12/06/24 12/07/24 12/07/24 18:59 06:59 18:59 Intake Total 405 1297.382 412.475 Output Total 2605 600 135 Balance -2200 697.382 277.475 Weight 140 kg Intake: IV 185 230 129 0.9 185 130 20 Piperacillin-Tazobactam 3 100 100 .375 gm In Sodium Chloride 0.9% 100 ml @ 25 mls/hr IVPB Q8H [facility] Rx#: [id number] Pressure Bag 9 Intake, IV Titration 200 777.382 183.475 Amount Heparin Sod,Pork in 0.45% 358.418 NaCl 25,000 unit In 0.45 % NaCl 1 250ml.bag @ 7.5 UNITS/KG/HR 10.043 mls/hr IV .Q24H [facility] Rx#: [id number] Midazolam HCl 50 mg In 50 Sodium Chloride 0.9% 40 ml @ 1 MG/HR 1 mls/hr IV .Q24H [facility] Rx#:[id number] Norepinephrine 8 mg In 81.314 Sodium Chloride 0.9% 250 ml @ 0.03 MCG/KG/MIN 7. 773 mls/hr IV .Q24H [facility] Rx#:[id number] propofoL 1,000 mg In 200 337.65 133.475 Empty Bag 1 bag @ 15 MCG/ KG/MIN 12.051 mls/hr IV . Q8H18M [facility] Rx#:[id number] Tube Feeding 20 200 70 Other 90 30 Output: Urine 2605 600 135 Other: Voiding Method Indwelling Catheter Indwelling Catheter Indwelling Catheter # Bowel Movements 2 ABP, PAP, CO, CI - Last Documented Arterial Blood Pressure 90/56 - Labs CBC & Chem 7: 12/07/24 05:00 12/07/24 05:00 Labs: Abnormal Lab Results - Last 24 Hours (Table) 12/06/24 12/06/24 12/06/24 Range/Units 11:32 11:40 12:00 WBC (4.50-10.00) 10*3/uL RBC (4.40-5.60) 10*6/uL MCV (80.0-97.0) fL MCH (27.0-32.0) pg Neutrophils # (1.80-7.70) 10*3/uL Monocytes # (0.20-1.00) 10*3/uL APTT 41.3 H (22.0-30.0) sec ABG pO2 (83-108) mmHg ABG HCO3 (21-25) mmol/L ABG Total CO2 (19-24) mmol/L Sodium (137-145) mmol/L Glucose (74-99) mg/dL POC Glucose (mg/dL) 172 H (70-110) mg/dL Hemoglobin A1c (<=6.0) % Calcium (8.4-10.2) mg/dL AST (17-59) U/L Troponin I 6.370 H* (0.000-0.034) ng/mL Total Protein (6.3-8.2) g/dL Albumin (3.5-5.0) g/dL 12/06/24 12/07/24 12/07/24 Range/Units 18:59 00:39 05:00 WBC (4.50-10.00) 10*3/uL RBC (4.40-5.60) 10*6/uL MCV (80.0-97.0) fL MCH (27.0-32.0) pg Neutrophils # (1.80-7.70) 10*3/uL Monocytes # (0.20-1.00) 10*3/uL APTT (22.0-30.0) sec ABG pO2 (83-108) mmHg ABG HCO3 (21-25) mmol/L ABG Total CO2 (19-24) mmol/L Sodium (137-145) mmol/L Glucose (74-99) mg/dL POC Glucose (mg/dL) 184 H 178 H (70-110) mg/dL Hemoglobin A1c 6.2 H (<=6.0) % Calcium (8.4-10.2) mg/dL AST (17-59) U/L Troponin I (0.000-0.034) ng/mL Total Protein (6.3-8.2) g/dL Albumin (3.5-5.0) g/dL 12/07/24 12/07/24 12/07/24 Range/Units 05:00 05:00 05:00 WBC 13.48 H (4.50-10.00) 10*3/uL RBC 4.23 L (4.40-5.60) 10*6/uL MCV 97.4 H (80.0-97.0) fL MCH 32.6 H (27.0-32.0) pg Neutrophils # 9.56 H (1.80-7.70) 10*3/uL Monocytes # 1.02 H (0.20-1.00) 10*3/uL APTT 32.5 H (22.0-30.0) sec ABG pO2 (83-108) mmHg ABG HCO3 (21-25) mmol/L ABG Total CO2 (19-24) mmol/L Sodium 136 L (137-145) mmol/L Glucose 178 H (74-99) mg/dL POC Glucose (mg/dL) (70-110) mg/dL Hemoglobin A1c (<=6.0) % Calcium 8.2 L (8.4-10.2) mg/dL AST 118 H (17-59) U/L Troponin I (0.000-0.034) ng/mL Total Protein 5.7 L (6.3-8.2) g/dL Albumin 3.2 L (3.5-5.0) g/dL 12/07/24 12/07/24 Range/Units 05:00 05:52 WBC (4.50-10.00) 10*3/uL RBC (4.40-5.60) 10*6/uL MCV (80.0-97.0) fL MCH (27.0-32.0) pg Neutrophils # (1.80-7.70) 10*3/uL Monocytes # (0.20-1.00) 10*3/uL APTT (22.0-30.0) sec ABG pO2 112 H (83-108) mmHg ABG HCO3 26 H (21-25) mmol/L ABG Total CO2 27 H (19-24) mmol/L Sodium (137-145) mmol/L Glucose (74-99) mg/dL POC Glucose (mg/dL) 164 H (70-110) mg/dL Hemoglobin A1c (<=6.0) % Calcium (8.4-10.2) mg/dL AST (17-59) U/L Troponin I (0.000-0.034) ng/mL Total Protein (6.3-8.2) g/dL Albumin (3.5-5.0) g/dL Microbiology - Last 24 Hours (Table) 12/05/24 07:55 Blood Culture - Preliminary Blood 12/05/24 09:01 Gram Stain - Preliminary Sputum Sputum Culture - Preliminary
[2024-12-07 12:15] LABS: Glucose,Whole Blood 219 mg/dL (70-110)
[2024-12-07] MEDS: DEXMEDETOMIDINE/0.9% NACL(PMX) 400 MCG in EMPTY BAG 1 BAG IV SCH (12:34)
[2024-12-07 13:10] VITALS: TEMP 99.3
--- NOTE | 2024-12-07 14:54 | P.PN ---
Subjective Progress Note Date: 12/07/24 Principal diagnosis: Acute hypoxic respiratory failure with acute non-ST elevation myocardial infarction, pulmonary edema and possible aspiration pneumonia This is a 69-year-old white male with history of multiple medical problems including coronary artery disease, previous CABG, patient presented to [facility] in [place] with symptoms of shortness of breath, patient was diagnosed as having congestive heart failure. Apparently he was intubated upon his initial arrival to the ER, patient was stabilized and transferred to [facility]. Seen briefly in the ER, patient was admitted to the ICU, and we were asked to see him in consultation. Patient is presently on assist-control mode of mechanical ventilation with rate of 18 tidal volume 500 FiO2 60% PEEP of 5 ABG showed a pO2 of 81 pCO2 48 pH of 7.31 patient is on Versed at 10 mg/h he is also on propofol which will be titrated accordingly patient is receiving Zosyn empirically for presumptive right lower lobe pneumonia chest x-ray on his initial presentation showed pulmonary edema patient is receiving Lasix he is also receiving antibiotics in the form of Zosyn cultures are pending in addition to his underlying coronary artery disease, patient is known to have history of severe aortic stenosis and history of factor V Leyden mutation. Patient was admitted to [facility] few months ago with a non-ST elevation myocardial infarction hypertensive emergency, patient is known to have history of surgical aortic valve replacement as well as CABG and he is known to have history of type 2 diabetes. Not much history could be obtained from the patient himself. Chest x-ray in our association showed airspace consolidation involving right lower lobe and right midlung, the findings on the chest x-ray are more suggestive of pneumonia than actual pulmonary edema. WBC count showed l eukocytosis with WBC of 15.6 hemoglobin 14.8, electrolytes were normal renal profile is normal troponin however went up as high as 9.6 from initial troponin of 0.2 on his initial admission. proBNP level is elevated at 2630. Procalcitonin level is 0.31. Patient was seen today on 12/06/2024, patient remains in the ICU, intubated and mechanically ventilated, on assist-control rate of 20 ABG ABG showed a pO2 of 100 pCO2 38 pH of 7.36. Patient has relatively soft blood pressure and he is requiring norepinephrine at 0.01 mcg/kg/min remains on propofol at 40 mcg/kg/min IV fluid is cut down from 75 to cc per hour to KVO. Patient remains on heparin for his acute non-ST elevation myocardial infarction and significant elevation in his troponin. He is on enteral feeding/tube feedings. Chest x-ray is basically about the same not much different from yesterday's chest x-ray, although the right lower lobe seems to be showing slight improvement. Patient remains on diuretics, remains on antibiotics, he is to be seen by cardiothoracic surgery for his severe aortic stenosis., This is stenosis of his bioprosthetic valve. In addition the patient has coronary artery disease with prior CABG, cardiology is considering possible cardiac catheterization but that is yet to be decided after the patient is seen by cardiothoracic surgery. WBC count is 16.9 hemoglobin 14.2, PTT is therapeutic at 41.3 electrolytes are normal renal profile is normal blood sugar is 172 troponin today remains elevated at 6.37, was as high as 9.6 yesterday. Patient was seen today on 12/07/2024, remains in the ICU intubated and mechanically ventilated. On assist-control rate of 20, tidal volume of 500 FiO2 40% PEEP of 5 ABG showed a pO2 of 112 pCO2 37 pH of 7.45 hence FiO2 was cut down to 35%. Patient remains on Lasix daily, Zosyn for presumptive right lower lobe pneumonia possibly aspiration pneumonia patient is off norepinephrine today, he is receiving vital HP at 30 cc/h he is also on propofol at 50 mcg/kg/min, heparin drip remains the same and the patient is really receiving morphine intermittently for pain control. He is allergic to hydromorphone. Chest x-ray is basically unchanged continues to show bibasilar infiltrates right more so than left, patient continues to have cardiomegaly and I suspect some component of interstitial edema. WBC count today is 13.48 hemoglobin is 13.8 PTT is 40 basic metabolic profile is normal renal profile is normal Objective - Vital Signs Vital signs: Vital Signs Temp 99.3 F 12/07/24 12:00 Pulse 82 12/07/24 14:00 Resp 21 12/07/24 14:00 BP 94/62 12/07/24 14:00 Pulse Ox 97 12/07/24 14:00 FiO2 35 12/07/24 12:00 Intake & Output 0612/07/24 12/07/24 18:59 06:59 18:59 Intake Total 405 1297.382 608.076 Output Total 2605 600 630 Balance -2200 697.382 -21.924 Weight 140 kg 141.2 kg Intake: IV 185 230 138 0.9 185 130 20 Piperacillin-Tazobactam 3 100 100 .375 gm In Sodium Chloride 0.9% 100 ml @ 25 mls/hr IVPB Q8H [facility] Rx#: [id number] Pressure Bag 18 Intake, IV Titration 200 777.382 340.076 Amount Heparin Sod,Pork in 0.45% 358.418 104.479 NaCl 25,000 unit In 0.45 % NaCl 1 250ml.bag @ 7.5 UNITS/KG/HR 10.043 mls/hr IV .Q24H [facility]Y Rx#: [id number] Midazolam HCl 50 mg In 50 Sodium Chloride 0.9% 40 ml @ 1 MG/HR 1 mls/hr IV .Q24H [facility] Rx#:[id number] Norepinephrine 8 mg In 81.314 8.939 Sodium Chloride 0.9% 250 ml @ 0.03 MCG/KG/MIN 7. 773 mls/hr IV .Q24H [facility] Rx#:[id number] propofoL 1,000 mg In 200 337.65 176.658 Empty Bag 1 bag @ 15 MCG/ KG/MIN 12.051 mls/hr IV . Q8H18M [facility] Rx#:[id number] Tube Feeding 20 200 100 Other 90 30 Output: Urine 2605 600 630 Other: Voiding Method Indwelling Catheter Indwelling Catheter Indwelling Catheter # Bowel Movements 2 ABP, PAP, CO, CI - Last Documented Arterial Blood Pressure 75/44 - Exam GENERAL: 69-year-old white male intubated mechanically ventilated, sedated HEENT: Head is atraumatic, normocephalic. Pupils equal, round. Sclerae is anict tarik. Endotracheal tube is intact. NECK: Supple. No JVD. Left carotid bruit LUNGS: Crackles and rhonchi noted bilaterally. HEART: Regular rate and rhythm. Ejection systolic murmur, Second heart sound is preserved. ABDOMEN: Obese soft nontender no rebound no guarding EXTREMITIES: Trace of bipedal edema no clubbing no cyanosis. NEUROLOGICAL: Could not assess patient is fully sedated, on propofol which should be placed on hold today for mental status assessment Psychiatric: Could not assess. - Labs CBC & Chem 7: 12/07/24 05:00 12/07/24 05:00 Labs: Abnormal Lab Results - Last 24 Hours (Table) 12/06/24 12/07/24 12/07/24 Range/Units 18:59 00:39 05:00 WBC (4.50-10.00) 10*3/uL RBC (4.40-5.60) 10*6/uL MCV (80.0-97.0) fL MCH (27.0-32.0) pg Neutrophils # (1.80-7.70) 10*3/uL Monocytes # (0.20-1.00) 10*3/uL APTT (22.0-30.0) sec ABG pO2 (83-108) mmHg ABG HCO3 (21-25) mmol/L ABG Total CO2 (19-24) mmol/L Sodium (137-145) mmol/L Glucose (74-99) mg/dL POC Glucose (mg/dL) 184 H 178 H (70-110) mg/dL Hemoglobin A1c 6.2 H (<=6.0) % Calcium (8.4-10.2) mg/dL AST (17-59) U/L Total Protein (6.3-8.2) g/dL Albumin (3.5-5.0) g/dL 12/07/24 12/07/24 12/07/24 Range/Units 05:00 05:00 05:00 WBC 13.48 H (4.50-10.00) 10*3/uL RBC 4.23 L (4.40-5.60) 10*6/uL MCV 97.4 H (80.0-97.0) fL MCH 32.6 H (27.0-32.0) pg Neutrophils # 9.56 H (1.80-7.70) 10*3/uL Monocytes # 1.02 H (0.20-1.00) 10*3/uL APTT 32.5 H (22.0-30.0) sec ABG pO2 (83-108) mmHg ABG HCO3 (21-25) mmol/L ABG Total CO2 (19-24) mmol/L Sodium 136 L (137-145) mmol/L Glucose 178 H (74-99) mg/dL POC Glucose (mg/dL) (70-110) mg/dL Hemoglobin A1c (<=6.0) % Calcium 8.2 L (8.4-10.2) mg/dL AST 118 H (17-59) U/L Total Protein 5.7 L (6.3-8.2) g/dL Albumin 3.2 L (3.5-5.0) g/dL 12/07/24 12/07/24 12/07/24 Range/Units 05:00 05:52 12:13 WBC (4.50-10.00) 10*3/uL RBC (4.40-5.60) 10*6/uL MCV (80.0-97.0) fL MCH (27.0-32.0) pg Neutrophils # (1.80-7.70) 10*3/uL Monocytes # (0.20-1.00) 10*3/uL APTT (22.0-30.0) sec ABG pO2 112 H (83-108) mmHg ABG HCO3 26 H (21-25) mmol/L ABG Total CO2 27 H (19-24) mmol/L Sodium (137-145) mmol/L Glucose (74-99) mg/dL POC Glucose (mg/dL) 164 H 219 H (70-110) mg/dL Hemoglobin A1c (<=6.0) % Calcium (8.4-10.2) mg/dL AST (17-59) U/L Total Protein (6.3-8.2) g/dL Albumin (3.5-5.0) g/dL 12/07/24 Range/Units 12:17 WBC (4.50-10.00) 10*3/uL RBC (4.40-5.60) 10*6/uL MCV (80.0-97.0) fL MCH (27.0-32.0) pg Neutrophils # (1.80-7.70) 10*3/uL Monocytes # (0.20-1.00) 10*3/uL APTT 40.0 H (22.0-30.0) sec ABG pO2 (83-108) mmHg ABG HCO3 (21-25) mmol/L ABG Total CO2 (19-24) mmol/L Sodium (137-145) mmol/L Glucose (74-99) mg/dL POC Glucose (mg/dL) (70-110) mg/dL Hemoglobin A1c (<=6.0) % Calcium (8.4-10.2) mg/dL AST (17-59) U/L Total Protein (6.3-8.2) g/dL Albumin (3.5-5.0) g/dL Microbiology - Last 24 Hours (Table) 12/05/24 07:55 Blood Culture - Preliminary Blood Assessment and Plan Assessment: Impression: Acute hypoxic and hypercapnic respiratory failure Acute pulmonary edema, secondary to acute on chronic systolic congestive heart failure receiving diuretics intermittently Suspected right lower lobe pneumonia possibly aspiration pneumonia remains on Zosyn History of underlying coronary artery disease and previous CABG, previous stenting to LAD and CABG History of severe aortic stenosis requiring aortic valve replacement, patient has severe stenosis of his bioprosthetic valve, patient is being considered for TAVR Acute non-ST elevation myocardial infarction with significantly elevated troponin systolic dysfunction with ejection fraction 35 to 30% on this admission Type 2 diabetes Factor V Leyden deficiency History of TIA Essential hypertension Recommendation: Continue ventilatory support Continue hemodynamic support off norepinephrine today Continue Zosyn Continue diuretics, IV fluid to KVO Continue heparin as per cardiology the case Nutritional support/enteral feeding GI and DVT prophylaxis Patient will be given a trial on Precedex and assess whether the patient is re mikki for any form of weaning today. We will continue to follow Critical care time is 34 minutes Time with Patient: Greater than 30
[2024-12-07 15:08] LABS: Glucose,Whole Blood 184 mg/dL (70-110)
--- NOTE | 2024-12-07 15:48 | CT ---
Head CT without contrast HISTORY: Code stroke. COMPARISON: 07/13/2021. TECHNIQUE: Multiple axial images are obtained from skull base to vertex without IV contrast material. Findings: The ventricles, basal cisterns and sulci over convexities are moderately enlarged consistent with mod erate generalized atrophy. There is no mass effect or shift of midline structures. There is a moderate to large area of encephalomalacia involving the right occipital lobe with ex vacu o dilatation of the posterior horn of the right lateral ventricle consistent with remote ischemic inf arct.. There is a small focal area of ill-defined density in the right occipital lobe consistent with an acu te occipital lobe infarct. There is no acute intra or extra-axial hemorrhage. The posterior fossa including the brainstem, fourth ventricle and cerebellopontine angles appear patricio sly normal. The intraorbital contents appear normal symmetric Visualized paranasal sinuses and mastoid air cells are well aerated. Calvarium is intact. IMPRESSION: 1. No acute bleed or mass effect. 2. Interval development of a 6 small acute right parietal infarct. 3. Remote right occipital infarct. [facility], , 12/07/2024 3:46 PM
[2024-12-07] MEDS: CLOPIDOGREL 75 MG TAB PO STA (16:06)
--- NOTE | 2024-12-07 16:07 | CT ---
EXAMINATION TYPE: CODE STROKE: CTA head neck DATE OF EXAM: 12/07/2024 COMPARISON: None CLINICAL INDICATION: Male, 69 years old with history of Neuro deficit, acute, stroke suspected; PHH, Left side paralysis, fixed upward gaze. TECHNIQUE: CTA scan of the head and neck is performed without and with IV Contrast, patient injected with 65 mL of Isovue 370, axial images are obtained, coronal and sagittal reformatted images are rev iewed. 3D reconstructed images are created on an independent workstation and reviewed. CT DLP: 893.[address] CTDI: mGy Automated exposure control for dose reduction was used. NASCET criteria was used in interpretation of this exam? FINDINGS: FINDINGS: The brachiocephalic origins are widely patent and no significant stenosis. There is a filling defect within the right carotid bifurcation involving the distal right common and proximal right internal carotid artery resulting in a severe stenosis. There is a heavily calcified plaque of the origin of the left internal carotid artery resulting in a moderate 60% stenosis of the right vertebral artery is patent but diminutive. The left vertebral gavino ry is patent down. Intracranially, there is no stenosis, segmental occlusion, sizable aneurysm sac or vascular malformat ion. IMPRESSION:. 1. No brachiocephalic origin stenosis. 2. Large filling defect in the right carotid bifurcation resulting in a severe proximal right interna l carotid artery stenosis. 3. Marked calcified plaque left carotid bifurcation resulting in a moderate 50-60% stenosis. 4. No definite occlusive disease, aneurysm sac or vascular malformation intracranially. NASCET criteria was used in interpretation of this exam? [facility], , 12/07/2024 4:05 PM
--- NOTE | 2024-12-07 16:12 | P.DS ---
Providers Date of admission: 12/05/24 00:28 Expected date of discharge: 12/07/24 Attending physician: Flor Chavez MD Consults: 12/05/24 00:28 Consult Physician Routine Consulting Provider: Duncan Tabares Consult Reason/Comments: icu Do you want consulting provider notified?: Yes Consult Physician Routine Consulting Provider: Benigno Bourgeois Consult Reason/Comments: chf Do you want consulting provider notified?: Yes 12/05/24 17:40 Consult Physician Routine Consulting Provider: Ritchie Magallanes Consult Reason/Comments: NSTEMI, evaluation/updated consideration for TAVR Do you want consulting provider notified?: Yes, Notify in am Primary care physician: Shagufta Becker MD Hospital Course: Discharge Diagnosis: 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 carotid artery stenosis Acute hypoxic and hypercapnic respiratory failure Acute pulmonary edema Severe aortic stenosis status post bioprosthetic aortic valve replacement with worsening stenosis History of CAD status post CABG and stents Acute NSTEMI HFrEF exacerbation, EF 45 to 50% R lower lobe pneumonia, likely aspiration Hospital Course: 69-year-old male with history of CAD status post CABG, previous TAVR, HFrEF 45%, type 2 diabetes, hypertension, history of TIA, factor V Leyden deficiency, seizure disorder, Parkinson's disease presented from outside hospital for acute hypoxic respiratory failure. He was intubated at previous facility. At our facility, there was concern for possible right lower lobe pneumonia secondary to aspiration. He was continued on IV Zosyn. Cardiology and cardiothoracic surgery was also consulted. Echocardiogram showed further reduced EF to 35 to 40% with anteroapical and anteroseptal akinesis. His troponin up trended to 9.63. Started on heparin drip. NSTEMI likely in the setting of CHF exacerbation per cardiology. Patient did have a recent cath with patent grafts. Concern for worsening aortic valve stenosis of previous bioprosthetic aortic valve replacement. Plan was to consider TAVR on Thursday. Course was complicated by acute right parietal infarct. CTA head and neck shows large filling defect in the right carotid bifurcation resulting in severe proximal right internal carotid artery stenosis. Neurology discussed with telemetry neuro interventionalists, patient also has occlusion of M2 on the right. Patient being transferred for urgent thrombectomy. Patient Condition at Discharge: Serious Plan - Discharge Summary New Discharge Prescriptions: No Action Tamsulosin HCl [Flomax] 0.8 mg PO DAILY@1600 Atorvastatin [Lipitor] 80 mg PO HS Famotidine [Pepcid] 20 mg PO BID 7 Days #14 tablet Venlafaxine HCl ER [Effexor XR] 150 mg PO DAILY methocarbamoL [Robaxin-750] 750 mg PO TID lamoTRIgine [LaMICtal] 100 mg PO BID Furosemide [Lasix] 20 mg PO DAILY Clopidogrel [Plavix] 75 mg PO DAILY Carbidopa-Levodopa 25-100 mg [Sinemet 25-100 mg] 1 tab PO TID Potassium Chloride [Klor-Con M10] 10 meq PO DAILY #30 tab L.acidoph,Paracasei, B.lactis [Probiotic] 1 cap PO DAILY Isosorbide Mononitrate ER [Imdur] 30 mg PO DAILY Gabapentin 600 mg PO TID Aspirin EC [Ecotrin Low Dose] 81 mg PO DAILY lisinopriL [Zestril] 10 mg PO HS Metoprolol Tartrate [Lopressor] 12.5 mg PO BID LORazepam [Ativan] 0.5 mg PO QID PRN PRN Reason: Anxiety Discharge Medication List Tamsulosin HCl [Flomax] 0.8 mg PO DAILY@1600 04/21/19 [History] Atorvastatin [Lipitor] 80 mg PO HS 07/13/21 [History] Famotidine [Pepcid] 20 mg PO BID 7 Days #14 tablet 07/18/21 [Rx] Potassium Chloride [Klor-Con M10] 10 meq PO DAILY #30 tab 07/18/21 [Rx] Aspirin EC [Ecotrin Low Dose] 81 mg PO DAILY 10/17/24 [History] Carbidopa-Levodopa 25-100 mg [Sinemet 25-100 mg] 1 tab PO TID 10/17/24 [History] Clopidogrel [Plavix] 75 mg PO DAILY 10/17/24 [History] Furosemide [Lasix] 20 mg PO DAILY 10/17/24 [History] Gabapentin 600 mg PO TID 10/17/24 [History] Isosorbide Mononitrate ER [Imdur] 30 mg PO DAILY 10/17/24 [History] L.acidoph,Paracasei, B.lactis [Probiotic] 1 cap PO DAILY 10/17/24 [History] Venlafaxine HCl ER [Effexor XR] 150 mg PO DAILY 10/17/24 [History] lamoTRIgine [LaMICtal] 100 mg PO BID 10/17/24 [History] methocarbamoL [Robaxin-750] 750 mg PO TID 10/17/24 [History] LORazepam [Ativan] 0.5 mg PO QID PRN 12/05/24 [History] Metoprolol Tartrate [Lopressor] 12.5 mg PO BID 12/05/24 [History] lisinopriL [Zestril] 10 mg PO HS 12/05/24 [History] Follow up Appointment(s)/Referral(s): None,Stated [REFERRING] - 1-2 days
--- NOTE | 2024-12-07 16:17 | P.CNNES ---
History of Present Illness Consult date: 12/07/24 Requesting physician: Erich Ivey Reason for Consult: Stroke code/acute stroke History of Present Illness: Patient is 69-year-old right-handed male with history of aortic valve stenosis, was scheduled for TAVR on 12/09/2024. Patient apparently presented to [facility] on 12/04/2024 with heart failure, difficulty breathing, developed hypoxic respiratory failure secondary to CHF. Patient was intubated in [facility] and then transferred to [facility]. Patient was on Versed at 6 mg/h while he was transferred. Patient was found to have elevated cardiac enzymes for which he was started on heparin drip. Per nurse report, yesterday with sedation holiday, he was following directions. However today at noon propofol was turned off. When the nurse checked on him at 2:30 PM, his gaze was upwards and he was noted to have weakness of the right arm and right leg, but complete left hemiparesis including the face arm and leg. Stroke code was activated. Patient underwent CT head which revealed evidence of old ischemic stroke involving the right occipital lobe with ex vacuo dilation of the posterior horn of the right lateral ventricle consistent with remote ischemic infarct. Interval development of a 6 small acute right parietal infarct. I personally reviewed CT head, agree with the findings. Although on my review it appears more subacute to chronic however was not present in the CT head from 2021. Patient also underwent CTA of head and neck, which apparently revealed right M2 occlusion. Patient has been on aspirin 81 mg, Plavix 75 mg since he has been to our hospital. Patient also on heparin drip with his most recent PTT 40.0. Patient was not a candidate for TNK because he is on heparin drip. However because of acute M2 occlusion on the right, he is being transferred to [facility] for thrombectomy. I spoke to Dr. Read, who recommended patient receive Plavix loading dose of 300 mg, stop the heparin, and patient to be transferred patient to [facility] for thrombectomy. Patient's blood test shows WBC 13.48, hemoglobin 13.8, platelets 168. PTT 40.0. ABG with pH of 7.45, PO212, OTV701. Sodium 136 normal renal functions. AST is 118, with normal ALT 42. Hemoglobin A1c 6.2. I spoke to patient's on the phone, who mentioned that patient has been having chest pain off and on and the same thing happened just before he came to the hospital. His blood pressure was 201/101 when he came to the [place] [facility]. He was intubated because he was breathing fast and he could not breathe. Patient's mentions that patient had history of a stroke about 10 years ago, which produced left-sided weakness and left homonymous hemianopia. He underwent extended physical therapy and he recovered very well, only when he is very tired or sick, he would have some left-sided deficits otherwise none. He has been using cane off and on since his stroke. He does have residual left homonymous hemianopia. Patient is taking Lamictal for depression, never has any history of seizures. He has anxiety and depression. He has type 2 diabetes, which is controlled with diet. He also has developed some tremors for last few months, for which he was started on Sinemet which has not helped. He has never smoked, does not drink alcohol. Review of Systems ROS unobtainable: due to endotracheal tube, due to mental status Past Medical History Past Medical History: Blood Disorder, Coronary Artery Disease (CAD), Chest Pain / Angina, Heart Failure, CVA/TIA, Diabetes Mellitus, GERD/Reflux, Hyperlipidemia, Hypertension, Myocardial Infarction (OK), Musculoskeletal Disorder, Osteoarthritis (OA), Sleep Apnea/CPAP/BIPAP Additional Past Medical History / Comment(s): HX OK X 2, HX CVA'S/TIA'S - LEFT ARM & LEG WEAKNESS, FACTOR 5 BLOOD DISORDER., DIABETIC NEUROPATHY IN FEET AND LEGS., SLEEP APNEA WITH C-PAP ., BACK PAIN , INDIGESTION., SEE CARDIOLOGY H & P. (Parkinson's new diagnosis) Last Myocardial Infarction Date:: 2014 History of Any Multi-Drug Resistant Organisms: None Reported Past Surgical History: Cholecystectomy, Heart Catheterization, Heart Catheter ization With Stent, Orthopedic Surgery, Tonsillectomy Additional Past Surgical History / Comment(s): Radio Freq Proc to Back 04-01-16, R TOTAL KNEE. R KNEE ARTHROSCOPIES ., CARDIAC CATH [address] Jorge Luis SMITH.04/07/14 HEART CATH WITH STENT TO MID LAD. Past Anesthesia/Blood Transfusion Reactions: Previous Problems w/ Anesthesia, Postoperative Nausea & Vomiting (PONV) Additional Past Anesthesia/Blood Transfusion Reaction / Comment(s): LOOPY- (HALLUCINATED) (Don't give fentanyl and dialudid at same time) Date of Last Stent Placement:: 2014 Past Psychological History: Anxiety, Depression Smoking Status: Never smoker Past Alcohol Use History: None Reported Past Drug Use History: None Reported - Past Family History Sister(s) Family Medical History: Coronary Artery Disease (CAD), Diabetes Mellitus Additional Family Medical History / Comment(s): SISTER(1) HAD DM, SISTER(2) HAD CAD-CABG Father Family Medical History: Cancer Additional Family Medical History / Comment(s): FATHER OF [place] AT AGE 76 YRS. Mother Family Medical History: Cancer, Congestive Heart Failure (CHF), Myocardial Infarction (OK) Additional Family Medical History / Comment(s): MOTHER AT AGE 57 OR [place]. MOM HAD PSYCHOLOLGICAL ISSUES. Medications and Allergies Home Medications Medication Instructions Recorded Confirmed Type Tamsulosin HCl [Flomax] 0.8 mg PO DAILY@1600 04/21/19 12/05/24 History Atorvastatin [Lipitor] 80 mg PO HS 07/13/21 12/05/24 History Famotidine [Pepcid] 20 mg PO BID 7 Days #14 tablet 07/18/21 12/05/24 Rx Potassium Chloride [Klor-Con M10] 10 meq PO DAILY #30 tab 07/18/21 12/05/24 Rx Aspirin EC [Ecotrin Low Dose] 81 mg PO DAILY 10/17/24 12/05/24 History Carbidopa-Levodopa 25-100 mg 1 tab PO TID 10/17/24 12/05/24 History [Sinemet 25-100 mg] Clopidogrel [Plavix] 75 mg PO DAILY 10/17/24 12/05/24 History Furosemide [Lasix] 20 mg PO DAILY 10/17/24 12/05/24 History Gabapentin 600 mg PO TID 10/17/24 12/05/24 History Isosorbide Mononitrate ER [Imdur] 30 mg PO DAILY 10/17/24 12/05/24 History L.acidoph,Paracasei, B.lactis 1 cap PO DAILY 10/17/24 12/05/24 History [Probiotic] Venlafaxine HCl ER [Effexor XR] 150 mg PO DAILY 10/17/24 12/05/24 History lamoTRIgine [LaMICtal] 100 mg PO BID 10/17/24 12/05/24 History methocarbamoL [Robaxin-750] 750 mg PO TID 10/17/24 12/05/24 History LORazepam [Ativan] 0.5 mg PO QID PRN 12/05/24 12/05/24 History Metoprolol Tartrate [Lopressor] 12.5 mg PO BID 12/05/24 12/05/24 History lisinopriL [Zestril] 10 mg PO HS 12/05/24 12/05/24 History Allergies Allergy/AdvReac Type Severity Reaction Status Date / Time nitroglycerin AdvReac Severe SL nitro Verified 12/05/24 00:32 caused severe low HR and B/P adhesive AdvReac blisters Verified 12/05/24 00:32 fentanyl AdvReac Unknown Verified 12/05/24 00:32 hydromorphone [From Dilaudid] AdvReac Hallucinati Verified 12/07/24 09:40 ons Physical Examination - Vital Signs Vital Signs: Vital Signs Temp Pulse Resp BP Pulse Ox FiO2 12/07/24 15:46 35 12/07/24 14:00 82 21 94/62 97 12/07/24 13:00 102 H 25 H 103/68 97 12/07/24 12:00 99.3 F 97 22 97/65 97 35 12/07/24 11:42 100 12/07/24 11:30 96 12/07/24 11:27 35 12/07/24 11:00 98 21 90/64 96 12/07/24 10:00 105 H 22 107/71 95 35 12/07/24 09:38 35 12/07/24 09:00 121 H 31 H 95/65 96 12/07/24 08:12 104 H 12/07/24 08:00 104 H 35 H 95/66 98 40 12/07/24 07:59 103 H 12/07/24 07:54 40 12/07/24 07:00 106 H 20 98/66 99 12/07/24 06:00 105 H 20 102/72 99 12/07/24 05:00 104 H 20 97/68 99 12/07/24 04:52 104 H 12/07/24 04:23 40 12/07/24 04:21 111 H 12/07/24 04:00 98.3 F 100 20 97/72 98 40 12/07/24 03:00 101 H 20 97/70 98 12/07/24 02:00 102 H 20 100/70 98 12/07/24 01:00 105 H 20 100/70 98 12/07/24 00:46 100 12/07/24 00:42 104 H 20 97 12/07/24 00:33 101 H 40 12/07/24 00:00 100.2 F H 105 H 20 99/70 96 40 12/06/24 23:00 109 H 20 107/73 96 12/06/24 22:00 106 H 20 105/72 97 12/06/24 21:00 107 H 20 109/75 97 12/06/24 20:51 102 H 12/06/24 20:39 108 H 40 12/06/24 20:00 98.9 F 104 H 20 108/74 97 40 12/06/24 19:15 103 H 20 97 40 12/06/24 19:00 101 H 20 97 40 12/06/24 18:45 102 H 20 97 40 12/06/24 18:30 104 H 20 97 40 12/06/24 18:15 104 H 0 L 113/71 97 12/06/24 18:00 100 0 L 109/68 12/06/24 17:45 99 0 L 109/68 97 12/06/24 17:30 101 H 20 97 12/06/24 17:15 105 H 20 91 L 12/06/24 17:00 103 H 20 96 40 12/06/24 16:47 90 12/06/24 16:45 103 H 20 97 12/06/24 16:39 98 12/06/24 16:37 40 12/06/24 16:30 100 20 97 12/06/24 16:15 101 H 20 96 12/06/24 16:00 100.2 F H 98 20 96 40 12/06/24 15:54 40 Intake and Output 12/07/24 12/07/24 12/07/24 06:59 14:59 22:59 Intake Total 831.041 608.076 Output Total 420 630 Balance 411.041 -21.924 Intake: IV 190 138 0.9 90 20 Piperacillin-Tazobactam 3 100 100 .375 gm In Sodium Chloride 0.9% 100 ml @ 25 mls/hr IVPB Q8H SANDY Rx#: [id number] Pressure Bag 18 Intake, IV Titration 421.041 340.076 Amount Heparin Sod,Pork in 0.45% 145.521 104.479 NaCl 25,000 unit In 0.45 % NaCl 1 250ml.bag @ 7.5 UNITS/KG/HR 10.043 mls/hr IV .Q24H SANDY Rx#: [id number] Midazolam HCl 50 mg In 50 Sodium Chloride 0.9% 40 ml @ 1 MG/HR 1 mls/hr IV .Q24H SANDY Rx#:[id number] Norepinephrine 8 mg In 8.939 Sodium Chloride 0.9% 250 ml @ 0.03 MCG/KG/MIN 7. 773 mls/hr IV .Q24H SANDY Rx#:[id number] propofoL 1,000 mg In 275.52 176.658 Empty Bag 1 bag @ 15 MCG/ KG/MIN 12.051 mls/hr IV . Q8H18M SANDY Rx#:[id number] Tube Feeding 160 100 Other 60 30 Output: Urine 420 630 Other: Voiding Method Indwelling Catheter Indwelling Catheter # Bowel Movements 2 Weight 141.2 kg ABP, PAP, CO, CI - Last 8 Hours Arterial Blood Pressure 75/44 Arterial Blood Pressure 88/69 Arterial Blood Pressure 114/63 Arterial Blood Pressure 90/56 Arterial Blood Pressure 113/62 Arterial Blood Pressure 104/55 Patient is an elderly male, who is intubated. Patient is not on sedation at this time. However he is on norepinephrine 0.03 mcg/kg/min. Patient appears somewhat obtunded. He does open his eyes to calling his name, sometimes appears to have upward gaze deviation. However later he was noted to have gaze present to both sides with no obvious gaze palsy. Pupils are equal, round and reacting. Extraocular muscles appears intact. Patient has left facial weakness noticed despite being intubated. Other cranial nerves could not be assessed. Visual hodges were attempted, but not very consistent. He did move his eyes on either side towards the stimulus. Patient is following directions to some extent. Expressive speech cannot be assessed. Attention, concentration and fund of knowledge are all limited because of mentation and being intubated. Patient does appear to have decreased hearing, requires large- volume voice to speak. Facial sensations cannot be assessed. On muscle strength testing, patient has bilateral arm drift. He slightly moves his right arm up spontaneously, but does not move the left side. On checking for the relay tester, patient has about relay tester of 4 4-on the right, but 3+ on the left. He is wiggling his toes, right better than the left. Patient not able to hold either lower limbs off the bed for any amount of time. Deep tendon reflexes are hypoactive to absent. Plantars flat on the right, but upgoing on the left. Sensory to touch patient was feeling on both sides. Cerebellar function patient attempted on the right arm, but appears weak. Not able to bring his right index finger to the nose. Cannot perform at all with the left arm. Cannot perform [id number] testing on either side. Tone and bulk of muscles normal. Gait deferred.. On general examination, there is no carotid bruit. Patient has murmur heard at the base of the heart. S1-S2 audible. Chest is clear on consultation. Abdomen is soft nontender. No organomegaly, bowel sounds present. Peripheral pulses are present. No peripheral edema. Results - Laboratory Findings CBC and BMP: 12/07/24 05:00 12/07/24 05:00 Abnormal Lab Findings: Abnormal Labs 12/05/24 12/05/24 12/05/24 00:36 01:24 05:38 WBC RBC MCV MCH Immature Gran # Neutrophils # Lymphocytes # Monocytes # Eosinophils # APTT ABG pH 7.28 L ABG pCO2 50 H ABG pO2 332 H ABG HCO3 ABG Total CO2 25 H ABG O2 Saturation 99.6 H Sodium Chloride Carbon Dioxide BUN Glucose POC Glucose (mg/dL) Hemoglobin A1c Calcium AST Troponin I 0.237 H* 6.540 H* Total Protein Albumin 12/05/24 12/05/24 12/05/24 05:47 06:15 07:55 WBC 15.67 H RBC MCV MCH 32.9 H Immature Gran # 0.08 H Neutrophils # 14.74 H Lymphocytes # 0.58 L Monocytes # Eosinophils # 0.00 L APTT ABG pH 7.31 L ABG pCO2 48 H ABG pO2 81 L ABG HCO3 ABG Total CO2 26 H ABG O2 Saturation Sodium Chloride Carbon Dioxide BUN Glucose POC Glucose (mg/dL) Hemoglobin A1c Calcium AST Troponin I 9.630 H* Total Protein Albumin 12/05/24 12/05/24 12/05/24 07:55 11:18 12:06 WBC RBC MCV MCH Immature Gran # Neutrophils # Lymphocytes # Monocytes # Eosinophils # APTT 34.8 H ABG pH ABG pCO2 ABG pO2 ABG HCO3 ABG Total CO2 ABG O2 Saturation Sodium Chloride 108 H Carbon Dioxide 20 L BUN 24 H Glucose 184 H POC Glucose (mg/dL) 174 H Hemoglobin A1c Calcium AST 79 H Troponin I Total Protein Albumin 12/05/24 12/05/24 12/05/24 12:22 17:38 20:20 WBC RBC MCV MCH Immature Gran # Neutrophils # Lymphocytes # Monocytes # Eosinophils # APTT 41.3 H ABG pH ABG pCO2 ABG pO2 132 H ABG HCO3 ABG Total CO2 ABG O2 Saturation 99.0 H Sodium Chloride Carbon Dioxide BUN Glucose POC Glucose (mg/dL) 144 H Hemoglobin A1c Calcium AST Troponin I Total Protein Albumin 12/06/24 12/06/24 12/06/24 05:15 05:15 05:15 WBC 16.98 H RBC 4.35 L MCV 98.6 H MCH 32.6 H Immature Gran # 0.07 H Neutrophils # 13.49 H Lymphocytes # Monocytes # 1.42 H Eosinophils # 0.02 L APTT 34.4 H ABG pH ABG pCO2 ABG pO2 ABG HCO3 ABG Total CO2 ABG O2 Saturation Sodium 136 L Chloride Carbon Dioxide 21 L BUN 23 H Glucose 207 H POC Glucose (mg/dL) Hemoglobin A1c Calcium AST 79 H Troponin I Total Protein 5.7 L Albumin 3.3 L 12/06/24 12/06/24 12/06/24 11:32 11:40 12:00 WBC RBC MCV MCH Immature Gran # Neutrophils # Lymphocytes # Monocytes # Eosinophils # APTT 41.3 H ABG pH ABG pCO2 ABG pO2 ABG HCO3 ABG Total CO2 ABG O2 Saturation Sodium Chloride Carbon Dioxide BUN Glucose POC Glucose (mg/dL) 172 H Hemoglobin A1c Calcium AST Troponin I 6.370 H* Total Protein Albumin 12/06/24 12/07/24 12/07/24 18:59 00:39 05:00 WBC RBC MCV MCH Immature Gran # Neutrophils # Lymphocytes # Monocytes # Eosinophils # APTT ABG pH ABG pCO2 ABG pO2 ABG HCO3 ABG Total CO2 ABG O2 Saturation Sodium Chloride Carbon Dioxide BUN Glucose POC Glucose (mg/dL) 184 H 178 H Hemoglobin A1c 6.2 H Calcium AST Troponin I Total Protein Albumin 12/07/24 12/07/24 12/07/24 05:00 05:00 05:00 WBC 13.48 H RBC 4.23 L MCV 97.4 H MCH 32.6 H Immature Gran # Neutrophils # 9.56 H Lymphocytes # Monocytes # 1.02 H Eosinophils # APTT 32.5 H ABG pH ABG pCO2 ABG pO2 ABG HCO3 ABG Total CO2 ABG O2 Saturation Sodium 136 L Chloride Carbon Dioxide BUN Glucose 178 H POC Glucose (mg/dL) Hemoglobin A1c Calcium 8.2 L AST 118 H Troponin I Total Protein 5.7 L Albumin 3.2 L 12/07/24 12/07/24 12/07/24 05:00 05:52 12:13 WBC RBC MCV MCH Immature Gran # Neutrophils # Lymphocytes # Monocytes # Eosinophils # APTT ABG pH ABG pCO2 ABG pO2 112 H ABG HCO3 26 H ABG Total CO2 27 H ABG O2 Saturation Sodium Chloride Carbon Dioxide BUN Glucose POC Glucose (mg/dL) 164 H 219 H Hemoglobin A1c Calcium AST Troponin I Total Protein Albumin 12/07/24 12/07/24 12:17 15:07 WBC RBC MCV MCH Immature Gran # Neutrophils # Lymphocytes # Monocytes # Eosinophils # APTT 40.0 H ABG pH ABG pCO2 ABG pO2 ABG HCO3 ABG Total CO2 ABG O2 Saturation Sodium Chloride Carbon Dioxide BUN Glucose POC Glucose (mg/dL) 184 H Hemoglobin A1c Calcium AST Troponin I Total Protein Albumin Assessment and Plan Assessment: Acute ischemic stroke with left>right hemiparesis. NIH stroke scale difficult to assess because of patient intubated. Patient appears to be flaccid on the left side, but his right side also appears to be quite weak. Rule out bilateral ischemic strokes. Patient does have preserved comprehension. Right ICA stenosis and right M2 occlusion noted on CTA. Acute hypoxic and hypercarbic respiratory failure, on mechanical ventilation. Acute pulmonary edema, due to acute on chronic systolic CHF Suspected right lower lobe pneumonia. CAD, with history of CABG. Severe stenosis of bioprosthetic valve, being considered for TAVR. Acute non-STEMI with significantly elevated troponin. Congestive heart failure Type 2 diabetes Factor V Leiden mutation History of TIA Hypertension Anxiety/depression, on Lamictal Plan: Patient has an acute ischemic stroke with left<right hemiparesis. NIH stroke scale is difficult to assess because patient is intubated. He does have obvious left hemiparesis. Patient not a candidate for TNK, as he is on heparin drip. Patient has right M2 occlusion noted on CTA. Patient will be transferred to [facility] for thrombectomy. 2-D echo with bubble study to rule out PFO CTA head and neck completed. According to the official radiology report revealed large filling defect in the right carotid bifurcation resulting in a severe proximal right ICA stenosis. Mild calcified plaque left carotid bif urcation resulting in moderate 50 to 60% stenosis. No definitive occlusive disease, aneurysm sac or vascular malformation intracranially. I have discussed case with Dr. Guzman, who has noted right M2 occlusion.. Fasting a.m. lipid panel cholesterol 122, LDL 49, HDL 34 and triglycerides 187. Continue Lipitor 80 mg daily. Hemoglobin A1c 6.2 Patient has reported history of Parkinson's, and is currently on Sinemet 25/100 3 times daily which will be continued. Also on Lamictal 100 mg twice daily for anxiety/depression. Permissive hypertension for next 24-48 hours Neuro checks every 30 minutes. Telemetry monitoring rule out any arrhythmia DVT prophylaxis: Patient on heparin drip. This will be discontinued for possible thrombectomy. Patient being transferred to [facility] for thrombectomy. Discussed with Dr. Guzman, and patient's in detail. Thank you for the consult. Time with Patient: Greater than 30
[2024-12-07 17:38] VITALS: BP 109/56; PULSE 98; RESP 24
== END 2024-12-07 17:30 | disposition short-term general hospital (02) | DRG 208 ==
LOC: EC 00:21 → 2SICU 00:28
PROVIDERS: ADMIT Internal Medicine; ATTEND Internal Medicine
PROC: 5A1945Z Respiratory Ventilation, 24-96 Consecutive Hours (ICD-10-PCS; principal; 2024-12-05)
PROC: 4A133J1 Monitoring of Arterial Pulse, Peripheral, Percutaneous Approach (ICD-10-PCS; 2024-12-05)
PROC: 03HY32Z Insertion of Monitoring Device into Upper Artery, Percutaneous Approach (ICD-10-PCS; 2024-12-05)
PROC: 4A133B1 Monitoring of Arterial Pressure, Peripheral, Percutaneous Approach (ICD-10-PCS; 2024-12-05)
PROC: 3E033XZ Introduction of Vasopressor into Peripheral Vein, Percutaneous Approach (ICD-10-PCS; 2024-12-05)
DX: J96.01 Acute respiratory failure with hypoxia (principal); I63.511 Cerebral infarction due to unspecified occlusion or stenosis of right middle cerebral artery; J69.0 Pneumonitis due to inhalation of food and vomit; I21.4 Non-ST elevation (NSTEMI) myocardial infarction; I50.23 Acute on chronic systolic (congestive) heart failure; D68.51 Activated protein C resistance; E11.40 Type 2 diabetes mellitus with diabetic neuropathy, unspecified; I11.0 Hypertensive heart disease with heart failure; G20.A1 Parkinson's disease without dyskinesia, without mention of fluctuations; G40.909 Epilepsy, unspecified, not intractable, without status epilepticus; F32.A Depression, unspecified; I65.21 Occlusion and stenosis of right carotid artery; G81.94 Hemiplegia, unspecified affecting left nondominant side; T82.857A Stenosis of other cardiac prosthetic devices, implants and grafts, initial encounter; J96.02 Acute respiratory failure with hypercapnia; H53.462 Homonymous bilateral field defects, left side; I25.5 Ischemic cardiomyopathy; I69.398 Other sequelae of cerebral infarction; F41.9 Anxiety disorder, unspecified; G47.33 Obstructive sleep apnea (adult) (pediatric); R33.9 Retention of urine, unspecified; E78.5 Hyperlipidemia, unspecified; I25.10 Atherosclerotic heart disease of native coronary artery without angina pectoris; M54.9 Dorsalgia, unspecified; I25.2 Old myocardial infarction; Z79.82 Long term (current) use of aspirin; Z79.02 Long term (current) use of antithrombotics/antiplatelets; Z79.899 Other long term (current) drug therapy; Z95.5 Presence of coronary angioplasty implant and graft; Z95.1 Presence of aortocoronary bypass graft; Z95.2 Presence of prosthetic heart valve; Z88.5 Allergy status to narcotic agent; Z88.8 Allergy status to other drugs, medicaments and biological substances
CPT/HCPCS: 36600; 70450; 70496; 70498; 71045; 80053; 82805; 83036; 83690; 83735; 83880; 84100; 84145; 84484; 85025; 85610; 85730; 87040; 87070; 87077; 87186; 87205; 93308; 94002; 94003; 94640; 96361; 96365; 96366; 96374; 96375; 99291